=== PATIENT | female | born 1980 | race Caucasian/White ===

== ENCOUNTER 2021-11-30 11:00 | Outpatient (RCR) | payer OTHER, MEDICAID, SELFPAY | END 2022-01-06 07:49 | disposition home or self-care (01) | LOC: HO.PTCHIC 11:00 | PROVIDERS: PCP Internal Medicine; Visit Provider Student in an Organized Health Care Education/Training Program | DX: M62.830 Muscle spasm of back (principal) | CPT/HCPCS: 97110; 97140; 97161 ==

== ENCOUNTER 2022-03-16 14:54 | Outpatient (REF) | payer MEDICAID, SELFPAY ==
[2022-03-17 02:35] LABS: CT PCR NOT DETECTED (Not Detect.); NG PCR NOT DETECTED (Not Detect.)
[2022-03-17 13:09] LABS: BV Int Neg Control Negative (Negative); BV Int Pos Control Positive (Positive)
[2022-03-23 08:32] LABS: HPV mRNA E6/E7 rflx Not Detected (Not Detected)
== END 2022-03-16 14:55 | disposition home or self-care (01) ==
LOC: HO.LAB 14:54
PROVIDERS: Visit Provider Advanced Practice Midwife
DX: Z12.4 Encounter for screening for malignant neoplasm of cervix (principal); Z11.51 Encounter for screening for human papillomavirus (HPV); Z11.3 Encounter for screening for infections with a predominantly sexual mode of transmission; Z20.2 Contact with and (suspected) exposure to infections with a predominantly sexual mode of transmission; N89.8 Other specified noninflammatory disorders of vagina; Z97.5 Presence of (intrauterine) contraceptive device
CPT/HCPCS: 87480; 87491; 87510; 87591; 87624; 87660; 88142; 99202

== ENCOUNTER 2022-04-18 12:01 | Outpatient (REF) | payer MEDICAID, SELFPAY ==
[2022-04-19 05:46] LABS: CT PCR NOT DETECTED (Not Detect.); NG PCR NOT DETECTED (Not Detect.)
[2022-04-19 10:15] LABS: BV Int Neg Control Negative (Negative); BV Int Pos Control Positive (Positive)
[2022-04-21 03:52] LABS: HPV mRNA E6/E7 rflx Not Detected (Not Detected)
== END 2022-04-18 12:02 | disposition home or self-care (01) ==
LOC: HO.LNP 12:01
PROVIDERS: Visit Provider Advanced Practice Midwife
DX: Z12.4 Encounter for screening for malignant neoplasm of cervix (principal); Z11.51 Encounter for screening for human papillomavirus (HPV); Z11.3 Encounter for screening for infections with a predominantly sexual mode of transmission; Z20.2 Contact with and (suspected) exposure to infections with a predominantly sexual mode of transmission; N89.8 Other specified noninflammatory disorders of vagina; Z97.5 Presence of (intrauterine) contraceptive device
CPT/HCPCS: 87480; 87491; 87510; 87591; 87624; 87660; 88142; 99212

== ENCOUNTER 2022-06-01 10:15 | Outpatient (REF) | payer MEDICAID, SELFPAY ==
[2022-06-01 13:51] LABS: CT PCR NOT DETECTED (Not Detect.); NG PCR NOT DETECTED (Not Detect.)
[2022-06-02 13:32] LABS: BV Int Neg Control Negative (Negative); BV Int Pos Control Positive (Positive)
== END 2022-06-01 10:16 | disposition home or self-care (01) ==
LOC: HO.LNP 10:15
PROVIDERS: PCP Student in an Organized Health Care Education/Training Program; Visit Provider Advanced Practice Midwife
DX: Z32.02 Encounter for pregnancy test, result negative (principal); Z30.433 Encounter for removal and reinsertion of intrauterine contraceptive device; Z20.2 Contact with and (suspected) exposure to infections with a predominantly sexual mode of transmission
CPT/HCPCS: 58300; 58301; 81025; 87480; 87491; 87510; 87591; 87660; 99212; J7298

== ENCOUNTER → 2022-07-13 10:37 | Outpatient (BNVA) | payer MEDICAID, SELFPAY | PROVIDERS: PCP Student in an Organized Health Care Education/Training Program; Visit Provider Advanced Practice Midwife | DX: Z30.431 Encounter for routine checking of intrauterine contraceptive device (principal) | CPT/HCPCS: 99212 ==

== ENCOUNTER 2022-08-01 20:35 | Emergency (ER) | payer OTHER, SELFPAY ==
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
[2022-08-01 20:36] VITALS: BP 117/74; PULSE 97; RESP 18; TEMP 36.6; O2SAT 100; BMI 24.1
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
--- OUTSIDE RECORDS SUMMARY | 2022-08-01 21:26 | XMS_ITS | Continuity of Care Document ---
:1980 Author Organization [facility] Address [address] [place] [id number]- Care Team Providers Name Role Phone Mary OROZCO, Latrice Primary Care Physician [place] [facility] [place] 02/09/20 - 03/10/20 [facility] [address] [place] [id number] [facility] Attending Physician: Donaldo Slater Admitting Physician: AdmDonaldo ballard Referring Physician: AdmtrDonaldo Allergies, Adverse Reactions, Alerts Substance Reaction Severity Status NKA Active Medications Clonazepam By Mouth, 3 times a day, 0 Refills, Maintenance, 09/01/13 9:03:01 Start Date: 09/01/13 Status: Orderedfamotidine 20 mg oral tablet 20 mg, 1, tablet, By Mouth, 2 times a day, # 60 tablet, Refills 0, Tot. Refills 0, Maintenance, 06/28/17 21:05:48, Print Requisition Start Date: 06/28/17 Status: Orderedibuprofen 600 mg oral tablet 1 tablet = 600 mg, By Mouth, Every 6 hours, # 30 tablet, 0 Refills, Maintenance, 07/25/15 19:25:28, Tablet Start Date: 07/25/15 Status: Orderedibuprofen 600 mg oral tablet 1 tablet = 600 mg, By Mouth, 4 times a day, PRN Pain, with food or milk, # 56 tablet, 1 Refills, Maintenance, 10/09/13 15:35:04, Tablet, 1 tablet By Mouth 4 times a day,x14 days,PRN:Pain,Instr:with food or milk Start Date: 10/09/13 Stop Date: 11/06/13 Status: Orderedmeclizine 25 mg oral tablet 1 tablet = 25 mg, By Mouth, 3 times a day, PRN dizziness, # 20 tablet, 0 Refills, Maintenance, 01/04/18 21:14:26 EDT, Tablet Start Date: 01/04/18 Status: OrderedMirena 52 mg intrauteral device 1 each = 52 mg, Intrauterine, Once, # 1 each, 0 Refills, Soft Stop, 1 each Intrauterine Once Start Date: 08/08/13 Status: OrderedProbiotic Formula oral capsule 1 capsule, By Mouth, Daily, # 30 capsule, 6 Refills, Maintenance, 09/01/13 9:30:13, 1 capsule By Mouth Daily,x30 days Start Date: 09/01/13 Stop Date: 03/30/14 Status: OrderedValium 5 mg oral tablet 1 tablet = 5 mg, By Mouth, 3 times a day, PRN Pain , Moderate, # 12 tablet, 0 Refills, Maintenance, 07/25/15 19:25:22, Tablet Start Date: 07/25/15 Status: OrderedWellbutrin By Mouth, 0 Refills, Maintenance, 10/23/15 10:06:35 Start Date: 10/23/15 Status: OrderedZofran ODT 4 mg oral tablet, disintegrating 1 tablet = 4 mg, By Mouth, 3 times a day, # 90 tablet, 0 Refills, Maintenance, 06/28/17 21:05:55 Start Date: 06/28/17 Status: Ordered Problem List Condition Effective Dates Status Health Status Informant Abnormal pap smear(Confirmed)1, 2, 3, 09/01/13 Active 4, 5, 6 1pt now getting care at [place].2No dysplasia. cotesting January [id number], ecc, bx x 14LGSIL/+HPV; referred for [id number] September 2014.6colpo 10/09/13 bx no dysplasia Social History Social History Type Response Smoking Status Tobacco user in household: Y es; Current every day smoker entered on: 06/25/15 Sex
--- OUTSIDE RECORDS SUMMARY | 2022-08-01 21:26 | XMS_ITS | Continuity of Care Document ---
:1980 Author Organization [facility] Address [address] [place] [id number]- Care Team Providers Name Role Phone Mary OROZCO, Latrice Primary Care Physician [place] [facility] [place] 11/01/19 - 02/29/20 [facility] [address] [place] [id number]- [facility] Attending Physician: Pantear Arredondo MD Admitting Physician: Pantera Arredondo MD Referring Physician: Pantera Arredondo MD Allergies, Adverse Reactions, Alerts Substance Reaction Severity [...] 5, 6 1pt now getting care at [place].2No dysplasia. cotesting January [id number], ecc, bx x 14LGSIL/+HPV; referred for [id number] September 2014.6colpo 10/09/13 bx no dysplasia Social History Social History Type Response Smoking Status Tobacco user in household: Y es; Current every day smoker entered on: 06/25/15 Sex
--- OUTSIDE RECORDS SUMMARY | 2022-08-01 21:26 | XMS_ITS | Continuity of Care Document ---
:1980 Author Organization [facility] Address [address] [place] [phone]- Care Team Providers Name Role Phone Mary OROZCO, Latrice Primary Care Physician Encounter [facility] [place](s): 01/15/20 - 03/10/20 [facility] [address] [place] [id number]- [facility] Attending Physician: Cosme Crawford MD Admitting Physician: Cosme Crawford MD Referring Physician: Latrice Hernandez MD Allergies, Adverse Reactions, Alerts Substance Reaction [...] 5, 6 1pt now getting care at [place].2No dysplasia. cotesting January [id number], ecc, bx x 14LGSIL/+HPV; referred for [id number] September 2014.6colpo 10/09/13 bx no dysplasia Social History Social History Type Response Smoking Status Tobacco user in household: Y es; Current every day smoker entered on: 06/25/15 Sex
== END 2022-08-01 21:47 | disposition home or self-care (01) ==
PROVIDERS: Emergency Provider Emergency Medicine; PCP Student in an Organized Health Care Education/Training Program
DX: S06.0X0A Concussion without loss of consciousness, initial encounter (principal); V43.52XA Car driver injured in collision with other type car in traffic accident, initial encounter; F17.210 Nicotine dependence, cigarettes, uncomplicated; Y93.89 Activity, other specified; Y92.414 Local residential or business street as the place of occurrence of the external cause; Y99.9 Unspecified external cause status
CPT/HCPCS: 70450; 72125; 99282; 99284

== ENCOUNTER 2023-03-14 16:17 | Outpatient (REF) | payer MEDICAID, SELFPAY | END 2023-03-14 16:18 | disposition home or self-care (01) | LOC: HO.CHCLNP 16:17 | PROVIDERS: Visit Provider Internal Medicine | DX: Z13.89 Encounter for screening for other disorder (principal) | CPT/HCPCS: 87086; 87088; 87186 ==

== ENCOUNTER 2023-04-09 11:20 | Outpatient (REF) | payer MEDICAID, SELFPAY ==
[2023-04-09 15:47] LABS: CT PCR NOT DETECTED (Not Detect.); NG PCR NOT DETECTED (Not Detect.)
== END 2023-04-09 11:21 | disposition home or self-care (01) ==
LOC: HO.CHCLNP 11:20
PROVIDERS: Visit Provider Family Medicine
DX: N76.0 Acute vaginitis (principal)
CPT/HCPCS: 0353U; 36415; 81513

== ENCOUNTER 2023-07-04 11:14 | Outpatient (REF) | payer MEDICAID, SELFPAY ==
[2023-07-05 08:06] LABS: HBS Num1 80.36 mIU/mL (0-7.99); ~Hepatitis B Surface Antibody REACTIVE (Nonreactive)
[2023-07-05 16:48] LABS: Mumps Virus IgG Antibody <9.00 AU/mL; Rubella IgG Antibody 1.32 Index; Rubeola IgG (Measles) >300.00 AU/mL
[2023-07-07 11:29] LABS: TS Negative Control Passed; TS Panel A 0; TS Panel B 0; TS Positive Control Passed; TSpotTB Negative (Negative)
== END 2023-07-04 11:15 | disposition home or self-care (01) ==
LOC: HO.CHCLDS 11:14
PROVIDERS: Visit Provider Internal Medicine
DX: Z00.00 Encounter for general adult medical examination without abnormal findings (principal); Z11.1 Encounter for screening for respiratory tuberculosis
CPT/HCPCS: 36415; 86481; 86706; 86735; 86762; 86765; 86787

== ENCOUNTER 2023-12-26 20:04 | Emergency (ER) | payer MEDICAID, SELFPAY ==
--- NOTE | ~2023-12-26 | CT_ITS ---
EXAMINATION: CT ABDOMEN AND PELVIS WITHOUT CONTRAST CLINICAL INFORMATION: Back pain with history of calculi and pyelonephritis COMPARISON: None available. TECHNIQUE: Multidetector volumetric imaging was performed from the superior aspect of the liver through the pubic symphysis. Sagittal and coronal reformatted images were obtained on the technologist's workstation. This CT examination was performed using dose optimization techniques as appropriate, variously including the following: *Automated exposure control *Adjustment of mA and/or kV according to patient size (this includes techniques or standardized protocols for targeted exams where dose is matched to indication/reason for exam; i.e. extremities or head) *Use of iterative reconstruction technique DLP: 433 mGy-cm FINDINGS: LUNG BASES: The visualized lung bases are unremarkable aside from the presence of mild to moderate bronchial thickening. LIVER, GALLBLADDER, AND BILIARY TREE: The liver is enlarged measuring 20.3 cm in cephalocaudad dimension but with normal attenuation. No focal hepatic lesion or biliary ductal dilatation is present. The gallbladder is tiny and contracted with no evidence of radiopaque gallstones or obvious pericholecystic inflammatory changes. PANCREAS: Unremarkable. SPLEEN: Unremarkable. ADRENAL GLANDS: Unremarkable. KIDNEYS AND URETERS: The kidneys are normal in size, shape, and attenuation. There is bilateral nephrolithiasis, left greater than right. On the right, a single punctate 2 mm calculus is noted on the lower pole on the left, at least 4 calculi are seen the largest measuring 6 mm in the left lower pole which measures 750 Hounsfield units and is 7.5 cm from the posterior axillary line. No hydronephrosis, hydroureter, or calculi seen. No perinephric stranding. Multiple benign left-sided Bosniak class I renal cysts are noted which require no additional imaging or follow-up. No solid renal masses are seen. BLADDER: Unremarkable. GASTROINTESTINAL TRACT: The small and large bowel are unremarkable aside from colonic diverticula without diverticulitis. The appendix is unremarkable. ABDOMINAL WALL: No significant hernia is appreciated. Small periumbilical hernia seen containing only fat. LYMPH NODES: No retroperitoneal lymphadenopathy. There is near complete fatty replacement of both psoas muscles. VASCULAR: Unremarkable. PELVIC VISCERA: The uterus and adnexa are unremarkable. A IUD is present in good position. A benign 3.3 cm simple cyst is noted in the left ovary which needs no follow-up. OSSEOUS STRUCTURES: Unremarkable. CT/CT abdomen pelvis wo IV con IMPRESSION: 1. Bilateral nonobstructing renal calculi, left greater than right. Detection of pyelonephritis is suboptimal without IV contrast. 2. Incidental note made of mild hepatomegaly, colonic diverticulosis, fatty replacement of both psoas muscles and other findings described above. Fleischner guidelines were followed.
[2023-12-26 20:15] VITALS: BP 117/87; PULSE 106; RESP 17; TEMP 36.6; O2SAT 98; BMI 23.2
--- NOTE | 2023-12-26 20:15 | ED_ITS ---
HPI - General Adult General Chief complaint: Back Pain/Injury Stated complaint: bilateral low back pain Time Seen by Provider: 12/26/23 23:32 Source: patient, RN notes reviewed and old records reviewed Mode of arrival: ambulatory Limitations: no limitations History of Present Illness ED Provider: Susie HPI narrative: 43-year-old female presents for evaluation of bilateral lower back pain. The pain has been worse over the last 2 days. She denies any trauma or falls. Her pain radiates to her left leg mostly. She denies any numbness or tingling. She has a history of sciatica. She states that typically she gets numbness with her sciatica but she has not on this occasion Denies any lower extremity weakness bladder or bowel incontinence. Her pain is 6/10 Denies any fevers or chills. She has no abdominal pain. Denies any blood in the urine or burning with urination or urinary frequency Related Data Home Medications ?Medication ?Instructions ?Recorded ?Confirmed clonazepam 1 mg disintegrating 1 mg PO DAILY 03/16/22 07/13/22 tablet levonorgestrel 21 mcg/24 hours (8 intrauterine 03/16/22 07/13/22 yrs) 52 mg intrauterine device (Mirena) propranolol 40 mg tablet 40 mg PO BID 03/16/22 07/13/22 topiramate 100 mg tablet 100 mg PO DAILY 03/16/22 07/13/22 bupropion HCl 75 mg tablet 75 mg PO QAM 07/13/22 07/13/22 hydroxyzine pamoate 25 mg capsule 25 - 50 mg PO Q6H PRN anxiety 07/13/22 07/13/22 valacyclovir 500 mg tablet 500 mg PO BID 07/13/22 07/13/22 Previous Rx's ?Medication ?Instructions ?Recorded fluconazole 150 mg tablet 150 mg PO ONCE 1 day #1 tab 06/05/22 (Diflucan) cyclobenzaprine 10 mg tablet 10 mg PO TID PRN muscle spasm #7 08/01/22 tabs ibuprofen 600 mg tablet 600 mg PO TID PRN fever or pain 08/01/22 #20 tabs dexamethasone 4 mg tablet 4 mg PO BID #6 tabs 12/27/23 tramadol 50 mg tablet 50 mg PO Q8H PRN pain #9 tabs 12/27/23 Allergies Allergy/AdvReac Type Severity Reaction Status Date / Time No Known Allergies Allergy Verified 12/26/23 20:17 Review of Systems 2 Constitutional: Constitutional: Denies body ache(s), Denies chills and Denies fever(s) Eyes: Eyes: Denies blurry vision ENT: Denies vertigo Cardiovascular: Cardiovascular: Denies chest pain and Denies dyspnea Respiratory: Respiratory: Denies cough and Denies dyspnea Gastrointestinal: Gastrointestinal: Denies abdominal pain, Denies nausea and Denies vomiting Musculoskeletal: Musculoskeletal: Reports back pain, Reports muscle weakness, Denies numbness and Reports radiating pain into limb Neurologic: Denies vertigo and Denies numbness [facility] Past Medical History Medical History ADD (attention deficit disorder) Anxiety Depression Disassociation disorder Mood disorder PTSD (post-traumatic stress disorder) Family History Family History Mother Colon cancer Maternal Aunt Breast cancer Maternal Aunt Cervical cancer Social History Social History Patient Tobacco Use Status: Current everyday Tobacco user Tobacco use type: Cigarette Cigarettes Per Day: 5 Advance Directives: No Advance Directives Information Provided: No Do you have a plan to hurt others: No Plan Physical Exam ED Vital Signs: Vital Signs - 24 hr 12/26/23 20:15 12/26/23 22:11 12/27/23 00:19 Temperature 98 F 98.2 F 98.3 F Pulse Rate 106 H 96 100 Respiratory Rate 17 16 20 Blood Pressure 117/87 97/62 124/87 Pulse Oximetry 98 96 98 Oxygen Delivery Method Room Air Room Air Room Air 12/27/23 00:23 Temperature 98.3 F Pulse Rate 100 Respiratory Rate 20 Blood Pressure 124/87 Pulse Oximetry 98 Oxygen Delivery Method Room Air BMI result Body Mass Index 23.2 Const General: healthy appearing, comfortable, no acute distress, alert and awake Nutritional Appearance: well nourished Orientation/consciousness: patient oriented x3 HENMT Head: Yes normocephalic and Yes atraumatic Eyes Eyelids: Yes eyelids normal Conjunctivae: conjunctivae normal Sclerae: sclerae normal Corneas: corneas normal Pupils: Equal, round and reactive pupils present EOM: EOMs intact bilaterally Neck Neck: Yes full ROM Resp Effort & Inspection: normal respiratory effort, able to speak in complete sentences and not labored GI Inspection: No distended Palpation (GI): Soft to palpation, not firm, nontender, no guarding and not rigid Back/Spine/Pelvis Other: Tenderness across the lumbar paraspinous region, left greater than right. No vertebral tenderness. No step-offs or deformities. No CVA tenderness Skin General skin exam: elasticity normal Neuro General: patient oriented x3 Cranial nerves: Yes Equal, round and reactive pupils present and Yes Bilaterally intact EOM present Cognition (Neuro): normal cognition Extrem Other: Moving all extremities well without any obvious deformities Course Course Course Narrative: This is a rapid medical exam performed by Tony Fam NP: Additional HPI, ROS, PE not included below will be deferred to primary provider. Patient is a 43-year-old female presenting to the ED with complaint of lower back pain x 2 days. Denies fall/trauma. Denies urinary sxs. Hx of similar pain in the past, has had kidney stones as well as pyelo. Sometimes radiating to flank/front Plan: UA, labs, CT Medications Administered Discontinued Medications Generic Name Dose Route Start Last Admin Trade Name Freq PRN Reason Stop Dose Admin Dexamethasone 4 mg 12/27/23 00:15 12/27/23 00:32 Dexamethasone 4 Mg Tablet PO 12/27/23 00:16 4 mg ONCE ONE Administration Tramadol HCl 50 mg 12/27/23 00:15 12/27/23 00:32 Tramadol Hcl 50 Mg Tablet PO 12/27/23 00:16 50 mg ONCE ONE Administration Medical Decision Making Medical Decision Making [facility] Narrative: 43-year-old female presents for evaluation of lower back pain. She has a history of sciatica. Denies any traumatic injuries. She has no warning signs for cauda equina syndrome. No GI or symptoms. Plan for symptomatic treatment. No fevers or IV drug abuse to suggest infectious cause of her pain Differential Diagnosis Differential Diagnoses: The differential diagnosis associated with the presentation includes Acute low back pain Lumbar radiculopathy Muscle strain Disc herniation Sciatica Lab Data [facility] Lab Attestation statement: I reviewed the patient's lab results. No leukocytosis or anemia. Normal platelet count. No electrolyte abnormalities. Normal renal function. UA without any acute signs of infection. 12/26/23 20:48 12/26/23 20:48 Labs: Lab Results 12/26/23 Range/Units 20:48 WBC 7.3 (4.8-10.8) X10*3/uL RBC 4.69 (4.20-5.50) X10*6/uL Hgb 13.8 (12.0-16.0) g/dl Hct 40.5 (37.0-47.0) % MCV 86.4 (80.0-98.0) fL MCH 29.4 (27.0-33.0) pg MCHC 34.1 (31.0-35.0) g/dl RDW 12.4 (11.0-16.0) % Plt Count 231 (160-400) X10*3/uL MPV 11.1 (9.4-12.3) fL Immature Gran % (Auto) 0.3 (0.0-0.4) % Neut % (Auto) 56.7 (45-73) % Lymph % (Auto) 33.5 (20-40) % Haralson % (Auto) 6.5 (2-11) % Eos % (Auto) 2.6 (0-4) % Baso % (Auto) 0.4 (0-2) % Lymph # (Auto) 2.4 (1.2-4.9) X10*3/uL Haralson # (Auto) 0.5 (0.1-1.2) X10*3/uL Eos # (Auto) 0.2 (0.0-0.4) X10*3/uL Baso # (Auto) 0.0 (0.0-0.2) X10*3/uL Abs Immat Gran (auto) 0.02 (0.00-0.03) X10*3/uL Absolute Neuts (auto) 4.1 (2.0-8.3) x10*3/uL Absolute Nucleated RBC 0.000 (0.0-0.012) X10*3/uL Nucleated RBC % (auto) 0.0 (0.0-0.2) /100WBC Sodium 141 (135-145) mmol/L Potassium 3.7 (3.3-5.1) mmol/L Chloride 106 (96-108) mmol/L Carbon Dioxide 24 (22-29) mmol/L Anion Gap 15 (12-20) BUN 13 (9-16) mg/dL Creatinine 0.63 (0.5-1.4) mg/dL Estim Creat Clear Calc 88.7 Estimated GFR > 60 Random Glucose 81 (60-115) mg/dL Calcium 9.3 (8.4-10.2) mg/dL Total Bilirubin 0.5 (0.0-1.0) mg/dL AST 16 (5-31) U/L ALT 9 (0-31) U/L Alkaline Phosphatase 57 (39-117) U/L Total Protein 7.3 (6.5-8.0) g/dL Albumin 4.4 (3.5-5.0) g/dL Beta HCG, Quant < 2 mIU/mL Urine Color Yellow Urine Appearance Clear Urine pH 6.5 (5.0-9.0) Ur Specific Jenkins 1.015 (1.005-1.025) Urine Protein Negative (Neg-Trace) mg/dL Urine Glucose (UA) Negative (Negative) mg/dL Urine Ketones Negative (Negative) mg/dL Urine Blood Negative (Negative) Urine Nitrite Negative (Negative) Ur Leukocyte Esterase Trace H (Negative) Urine RBC 0-2 (0-2) /HPF Urine WBC 0-5 (0-5) /HPF Ur Squamous Epith Cells 3-5 (0-2) /HPF Urine Bacteria Trace (None Seen) Hyaline Casts 0-2 (0-2) /LPF Radiology Impression Discussion of test interpretation with radiology: I have reviewed the radiologist's reading. Radiologist Impression: CT/CT abdomen pelvis wo IV con IMPRESSION: 1. Bilateral nonobstructing renal calculi, left greater than right. Detection of pyelonephritis is suboptimal without IV contrast. 2. Incidental note made of mild hepatomegaly, colonic diverticulosis, fatty replacement of both psoas muscles and other findings described above. Discharge Plan Discharge Clinical Impression: Lumbar radiculopathy Patient Disposition: Home, Self-Care Instructions: Lumbar Radiculopathy (ED) Additional Instructions: Your workup in the ER was reassuring. You have no obstructing kidney stones. You have no UTI. Your blood work was reassuring. Use ibuprofen/Tylenol for pain Take dexamethasone twice daily for 3 days Use tramadol for more severe breakthrough pain This may make you sleepy, did not drink alcohol or drive after taking Prescriptions: New dexamethasone 4 mg tablet 4 mg PO BID Qty: 6 0RF tramadol 50 mg tablet 50 mg PO Q8H PRN (Reason: pain) Qty: 9 0RF No Action fluconazole [Diflucan] 150 mg tablet 150 mg PO ONCE 1 Days Qty: 1 0RF cyclobenzaprine 10 mg tablet 10 mg PO TID PRN (Reason: muscle spasm) Qty: 7 0RF ibuprofen 600 mg tablet 600 mg PO TID PRN (Reason: fever or pain) Qty: 20 0RF clonazepam 1 mg tablet,disintegrating 1 mg PO DAILY topiramate 100 mg tablet 100 mg PO DAILY propranolol 40 mg tablet 40 mg PO BID Mirena 20 mcg/24 hours (7 yrs) 52 mg intrauterine device intrauterine hydroxyzine pamoate 25 mg capsule 25 - 50 mg PO Q6H PRN (Reason: anxiety) bupropion HCl 75 mg tablet 75 mg PO QAM valacyclovir 500 mg tablet 500 mg PO BID Interventions: ED Discharge Assessment Last Done: 12/27/23 00:23 Discharge Date/Time: 12/27/23 00:35 Print Language: Pakistani
[2023-12-26 20:54] LABS: MANUAL DIFF FLAG NO
[2023-12-26 20:57] LABS: Appearance Urine Clear; Color Urine Yellow; Glucose Urine UA Negative (Negative); Leukocyte Esterase Urine Trace (Negative); Nitrite Urine Negative (Negative); PH 6.5 (5.0-9.0); Specific Gravity - Urine 1.015 (1.005-1.025); UMIC TRIGGER UACC YES; Urine Blood Negative (Negative); Urine Ketones Negative (Negative); Urine Protein Negative (Neg-Trace)
[2023-12-26 21:04] LABS: Basophils Percent Auto 0.4 % (0-2); Eosinophils Absolute Auto 0.2 X10*3/uL (0.0-0.4); Eosinophils Percent Auto 2.6 % (0-4); Hematocrit 40.5 % (37.0-47.0); Hemoglobin 13.8 g/dl (12.0-16.0); Imm Gran Abs Auto 0.02 X10*3/uL (0.00-0.03); Imm Gran Pct Auto 0.3 % (0.0-0.4); Lymphocytes Absolute Auto 2.4 X10*3/uL (1.2-4.9); Lymphocytes Percent Auto 33.5 % (20-40); Mean Corpuscular HGB Conc 34.1 g/dl (31.0-35.0); Mean Corpuscular Hemoglobin 29.4 pg (27.0-33.0); Mean Corpuscular Volume 86.4 fL (80.0-98.0); Mean Platelet Volume 11.1 fL (9.4-12.3); Monocytes Absolute Auto 0.5 X10*3/uL (0.1-1.2); Monocytes Percent Auto 6.5 % (2-11); Neutrophils Absolute Auto 4.1 x10*3/uL (2.0-8.3); Neutrophils Percent Auto 56.7 % (45-73); Platelet Count 231 X10*3/uL (160-400); Red Blood Count 4.69 X10*6/uL (4.20-5.50); Red Cell Distribution Width 12.4 % (11.0-16.0); White Blood Count 7.3 X10*3/uL (4.8-10.8)
[2023-12-26 21:33] LABS: Alanine Aminotransferase 9 U/L (0-31); Albumin Level 4.4 g/dL (3.5-5.0); Alkaline Phosphatase 57 U/L (39-117); Anion Gap 15 (12-20); Aspartate Amino Transferase 16 U/L (5-31); Bilirubin Total 0.5 mg/dL (0.0-1.0); Blood Urea Nitrogen 13 mg/dL (9-16); Calcium 9.3 mg/dL (8.4-10.2); Carbon Dioxide 24 mmol/L (22-29); Chloride 106 mmol/L (96-108); Creatinine Clr Calc Pharmacy 88.7; Estimated Glomerular Filt Rate > 60; Glucose Random 81 mg/dL (60-115); HCG Quantitative < 2 mIU/mL; Potassium 3.7 mmol/L (3.3-5.1); Sodium 141 mmol/L (135-145); Total Protein 7.3 g/dL (6.5-8.0)
[2023-12-26 21:45] LABS: Bacteria Urine Trace (None Seen); Hyaline Casts Urine 0-2 /LPF (0-2); RBC Urine 0-2 /HPF (0-2); WBC Urine 0-5 /HPF (0-5)
[2023-12-26 22:11] VITALS: BP 97/62; PULSE 96; RESP 16; TEMP 36.8; O2SAT 96
[2023-12-27 00:19] VITALS: BP 124/87; PULSE 100; RESP 20; TEMP 36.8; O2SAT 98
[2023-12-27 00:23] VITALS: BP 124/87; PULSE 100; RESP 20; TEMP 36.8; O2SAT 98
[2023-12-27] MEDS: dexAMETHasone 4 MG TABLET PO (00:32)
[2023-12-27] MEDS: traMADoL HCL 50 MG TABLET PO (00:32)
== END 2023-12-27 00:35 | disposition home or self-care (01) ==
PROVIDERS: Registered Nurse Emergency; Emergency Provider Emergency Medicine Emergency Medical Services; PCP Student in an Organized Health Care Education/Training Program
DX: M54.16 Radiculopathy, lumbar region (principal); R32 Unspecified urinary incontinence; F17.210 Nicotine dependence, cigarettes, uncomplicated
CPT/HCPCS: 36415; 74176; 80053; 81001; 81003; 84702; 85025; 99284; J8540

== ENCOUNTER 2024-06-06 15:07 | Outpatient (REF) | payer MEDICAID, SELFPAY ==
[2024-06-06 18:03] LABS: Appearance Urine Cloudy; Color Urine Yellow; Glucose Urine UA Negative (Negative); Leukocyte Esterase Urine Trace (Negative); Nitrite Urine Negative (Negative); UMIC TRIGGER UACC YES; Urine Blood Negative (Negative); Urine Ketones Negative (Negative); Urine Protein Negative (Neg-Trace)
[2024-06-06 18:06] LABS: Bacteria Urine 4+ (None Seen); Hyaline Casts Urine 0-2 /LPF (0-2); RBC Urine 0-2 /HPF (0-2); WBC Urine 0-5 /HPF (0-5)
[2024-06-07 12:24] LABS: Bacterial Vaginosis PCR POSITIVE (Negative); Candida Group PCR NOT DETECTED (Not Detect); Candida glab krusei PCR NOT DETECTED (Not Detect); Trichomonas vaginalis PCR NOT DETECTED (Not Detect)
[2024-06-08 08:51] LABS: HIV AB/AG Nonreactive (Nonreactive); HIV Num 1 0.06 S/CO (0.00-0.99); ~HepC Num1 0.09 S/CO (0.00-0.79); ~Hepatitis C Antibody Nonreactive (Nonreactive)
[2024-06-09 13:43] LABS: RPR Rapid Plasma Reagin NON-REACTIVE (NON-REACTIVE)
== END 2024-06-06 15:08 | disposition home or self-care (01) ==
LOC: HO.HHCL 15:07
PROVIDERS: Visit Provider Nurse Practitioner Primary Care
DX: Z11.3 Encounter for screening for infections with a predominantly sexual mode of transmission (principal); R82.90 Unspecified abnormal findings in urine
CPT/HCPCS: 0352U; 36415; 81001; 86592; 86803; 87389

== ENCOUNTER 2024-09-26 10:49 | Outpatient (REF) | payer MEDICAID, SELFPAY ==
--- NOTE | 2024-09-26 | PFT_ITS ---
Indication: Dyspnea Spirometry [FEV1 to FVC 57%; FEV1 1.37 L; FVC 2.4 L. there was a significant response to bronchodilators noted.] Lung Volumes [Total lung capacity 85% predicted; residual volume 129% predicted; expiratory reserve volume 25% predicted] Diffusion Capacity [DLCO 81% predicted] Comparisons [none] Interpretation [There is an obstructive ventilatory defect consistent with moderate to severe COPD. There is a significant response to bronchodilators noted. Lung volumes with significant air trapping due to the COPD. There is a low normal diffusing capacity. Clinical correlation warranted.] MTDD
[2024-09-26 11:40] VITALS: PULSE 100
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
--- OUTSIDE RECORDS SUMMARY | 2024-09-26 12:19 | XMS_ITS | Encounter Summary ---
Author Organization [employer] Address [address] [facility] [address] [place] [address] Care Team Providers Care Musical Instrument Maker Name Role Phone Latrice Hernandez MD Primary Care Provider Norris Casillas Unavailable Unavailable Reason for Visit * Reason Comments Cough Congested, wheezing Encounter Details Date Type Department Care Team ([facility] Contact Info) Description 09/10/2024 2:40 PM EST Office Visit [facility] CHC MED & PEDS [address] [facility] [place] [phone] Harmony Mtz MD [address] [place] [address] Acute bronchitis, unspecified organism (Primary Dx) Social History Tobacco Use Types Packs/Day Years Used Date Smoking Tobacco: Every Day Cigarettes Passive Smoke Exposure: Current Smokeless Tobacco: Never Tobacco Cessation:Ready to Q uit: Not Asked; Counseling Given: Not Answered Depression Answer Date Recorded Patient Health Questionnaire-9 Score 9 12/24/2023 Patient Health Questionnaire-9 Score 9 12/24/2023 Last PHQ-9: Questionnaire Data Not on file 0 12/24/2023 Depression Answer Date Recorded Patient Health Questionnaire-2 Score 3 12/24/2023 Comments Unknown Sex and Gender Information Value Date Recorded Sex Assigned at Female 05/22/2022 10:22 AM EDT Legal Sex Female 10:22 AM EDT Gender Identity Female 05/22/2022 10:22 AM EDT Sexual Orientation Straight 05/22/2022 10 :22 AM EDT documented as of this encounter Last Filed Vital Signs Vital Sign Reading Time Taken Comments Blood Pressure 109/72 09/10/2024 2:55 PM EST Pulse 110 09/10/2024 2:55 PM EST Temperature 37.4 ??C (99.4 ??F) 09/10/2024 2:55 PM ES T Respiratory Rate 20 09/10/2024 2:55 PM EST Oxygen Saturation 97% 09/10/2024 2:55 PM EST Inhaled Oxygen Concentration - - Weight - - Height - - Body Mass Index - - documented in this encounter Progress Notes * Harmony Mtz MD - 09/10/2024 2:40 PM EST Subjective Patient ID: Ivis Ballesteros is a 43 y.o. female who presents for No chief complaint on file.. Flu Symptoms This is a new problem. The current episode started in the past 7 days. The problem occurs constantly. The problem has been unchanged. Associated symptoms include congestion, fatigue, headaches and myalgias. Pertinent negatives include no abdominal pain, anorexia, arthralgias, change in bowel habit,chest pain, chills, nausea, neck pain, numbness, rash, sore throat, swollen glands, urinary symptoms, vertigo, visual change, vomiting or weakness. She has tried acetaminophen for the symptoms. Review of Systems Constitutional: Positive for fatigue. Negative for chills. HENT: Positive for congestion. Negative for sore throat. Cardiovascular: Negative for chest pain. Gastrointestinal: Negative for abdominal pain, anorexia, change in bowel habit, nausea and vomiting. Musculoskeletal: Positive for myalgias. Negative for arthralgias and neck pain. Skin: Negative for rash. Neurological: Positive for headaches. Negative for vertigo, weakness and numbness. Objective Physical Exam Constitutional: Appearance: Normal appearance. She is ill-appearing. Cardiovascular: Rate and Rhythm: Normal rate and regular rhythm. Pulses: Normal pulses. Heart sounds: Normal heart sounds. Pulmonary: Effort: Pulmonary effort is normal. Breath sounds: Decreased breath sounds and wheezing present. Abdominal: General: Abdomen is flat. Neurological: Mental Status: She is alert. Assessment/Plan Diagnoses and all orders for this visit: Acute bronchitis, unspecified organism Comments: pt is neg for Covid Started on Prednisone 40mg daily for 5 days and zithromax for 5 days. Advised to cont neb every 6 hrs Flovent added to the regimen Advised steam inhaltion and warm water gargles.Supportive trt with Mucinex and warm tea Orders: - POCT Rapid Influenza A OSOM - POCT Rapid Influenza B OSOM - POCT Rapid Covid-19 BinaxNOW Other orders - predniSONE (Deltasone) 20 MG tablet; Take 2 tablets (40 mg) by mouth Once per day for 5 days. - Dextromethorphan-guaiFENesin (Mucinex DM) 30-600 MG tablet sustained-release 12 hour; Use 1 tab TID - albuterol 108 (90 Base) MCG/ACT inhaler; Inhale 2 puffs every 4 (four) hours if needed for wheezing. - fluticasone (Flovent) 44 MCG/ACT inhaler; Inhale 2 puffs in the morning and at bedtime. Rinse mouth with water after use to reduce aftertaste and incidence of candidiasis. Do not swallow. - azithromycin (Zithromax) 250 MG tablet; Take 2 tabs day and then 1 tab daily documented in this encounter Plan of Treatment Upcoming Encounters Date Type Department Care Team (Late st Contact Info) Description 09/26/2024 3:30 PM EST Office Visit [facility] MED & PEDS [address] [place] [address] Latrice Hernandez MD [address] [place] [address] documented as of this encounter Procedures Procedure Name Priority Date/Time Associated Diagnosis Comments POCT RAPID COVID ANTIGEN Routine 09/10/2024 3:16 PM EST Acute bronchitis, unspecified organism POCT INFLUENZA B Routine 09/10/2024 3:16 PM EST Acute bronchitis, unspecified organism POCT INFLUENZA A Routine 09/10/2024 3:15 PM EST Acute bronchitis, unspecified organism documented in this encounter Results * POCT Rapid Covid-19 BinaxNOW (09/10/2024 3:16 PM EST) [facility] Rapid COVID Ag Negative QC Media Lot # [id number] Lot# Expiration Date [id number] Swab 09/10/2024 3:16 PM EST Result Giles Mtz MD POINT OF CARE TEST ENTER/EDIT OR DERABLES Final Result * POCT Rapid Influenza B OSOM (09/10/2024 3:16 PM EST) Rapid Influenza B Ag Negative Negative, Indeterminate QC Media Lot # [id number] Lot# Expiration Date Swab 09/10/2024 3:16 PM EST us Harmony Mtz MD POINT OF CARE TEST ENTER/EDIT OR DERABLES Final Result * POCT Rapid Influenza A OSOM (09/10/2024 3:15 PM EST) Rapid Influenza A Ag Negative Negative, Indeterminate QC Media Lot # [id number] Lot# Expiration Date Swab Nasopharyngeal structure / Unknown 09/10/2024 3:15 PM EST Result Giles Mtz MD POINT OF CARE TEST ENTER/EDIT OR DERABLES Final Result documented in this encounter Visit Diagnoses Diagnosis Acute bronchitis, unspecified organism- Primary documented in this encounter Additional Health Concerns Assessment Noted Time PHQ-9 Depression Total Score: 9 12/24/19 24 9:18 AM EDT documented as of this encounter Care Teams Musical Instrument Maker Relationship Specialty Start Date End Date Latrice Hernandez MD [address] [facility] [place] [address] PCP - General Internal Medicine 07/23/18 Norris Casillas FNP [address] [facility] [place] Nurse Practitioner Family Medicine 06/07/23 documented as of this encounter
--- OUTSIDE RECORDS SUMMARY | 2024-09-26 12:19 | XMS_ITS | Encounter Summary ---
Author Organization [employer] Address [address] [place] [address] [address] [address] Care Team Providers Care Bondactor Machine Operator Name Role Phone Latrice Hernandez MD Primary Care Provider Norris Casillas Unavailable Unavailable Encounter Details Date Type Department Care Team (Latest Contact Info) Description 09/10/2024 Travel Social History Tobacco Use Types Packs/Day Years Used Date Smoking Tobacco: Every Day Cigarettes Passive Smoke Exposure: Current Smokeless Tobacco: Never Depression Answer Date Recorded Patient Health Questionnaire-9 [...] AM EDT documented as of this encounter Plan of Treatment Upcoming Encounters Date Type Department Care Team (Late st Contact Info) Description 09/26/2024 3:30 PM EST Office Visit [facility] CHC MED & PEDS [address] [facility] [place] [address] Latrice Hernandez MD [address] [facility] [place] [address] documented as of this encounter Visit Diagnoses Not on filedocumented in this encounter Additional Health Concerns Assessment Noted Time PHQ-9 Depression Total Score: 9 12/24/19 24 9:18 AM EDT documented as of this encounter Care Teams Bondactor Machine Operator Relationship Specialty Start Date End Date Latrice Hernandez MD [address] [place] [address] PCP - General Internal Medicine 07/23/18 Norris Casillas FNP [address] [place] [address] Nurse Practitioner Family Medicine 06/07/23 documented as of this encounter
--- OUTSIDE RECORDS SUMMARY | 2024-09-26 12:19 | XMS_ITS | Encounter Summary ---
Author Organization [employer] [facility] Address [address] [place] [id number] Care Team Providers Care Sourcing Assistant Name Role Phone Latrice Hernandez MD Primary Care Provider Norris Casillas Unavailable Unavailable Encounter Details Date Type Department Care Team (Late st Contact Info) Description [facility] [address] [place], [place] [phone] Latrice Hernandez MD [address] [place], [place] [phone] Social History Tobacco Use Types Packs/Day Years Used Date Smoking Tobacco: Every Day Cigarettes Passive Smoke Exposure: Current Smokeless Tobacco: Never Depression Answer Date Recorded Patient Health Questionnaire-9 Score 9 03/20/2023 Depression Answer Date Recorded Patient Health Questionnaire-2 Score 2 03/20/2023 Comments Unknown Sex and Gender Information Value [...] Description 09/26/2024 3:30 PM EST Office Visit [facility] CHC MED & PEDS [address] [place], [place] [phone] Latrice Hernandez MD [address] [place], [place] [phone] documented as of this encounter Visit Diagnoses Not on filedocumented in this encounter Additional Health Concerns Assessment Noted Time PHQ-9 Depression Total Score: 9 03/20/20 23 10:44 AM EDT documented as of this encounter Care Teams Sourcing Assistant Relationship Specialty Start Date End Date Latrice Hernandez MD [address] [place] [address] PCP - General Internal Medicine 07/23/18 Norris Casillas FNP [address] [place] [address] Nurse Practitioner Family Medicine 06/07/23 documented as of this encounter
--- OUTSIDE RECORDS SUMMARY | 2024-09-26 12:19 | XMS_ITS | Clinical Summary ---
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 HIV-1/HIV-2 Ab not detected.A test result that is nonreactive does not exclude thepossibility of exposure to or infection with HIV-1 and/orHIV-2. Nonreactive results in this assay for individualswith prior exposure to HIV-1 and/or HIV-2 may be due toantigen and antibody levels that are below the limit ofdetection of this assay.The [employer] HIV Ag/Ab Combo assay result andsupplemental assay results should be interpreted inconjunction with the patient's clinical presentation,history and other laboratory results. If the results areinconsistent with clinical evidence, additional testing issuggested to confirm the result. Blood Venous blood specimen / Unknown 06/06/2024 3:09 PM EST 06/06/2024 3:56 PM EST us Tahira Cabrera [facility] LAB BLOOD ORDERABLES Final Resul t [facility] [address] [place] [phone] * (ABNORMAL) Lipid Panel, Standard (07/26/2022 11:11 AM EST) Cholesterol, Total 192 <200 mg/dL [facility] [place] [facility] HDL Cholesterol 30(L) > OR = 50 mg/dL [facility] [employer] [facility] Triglycerides 573(H) <150 mg/dL [facility] Comment: If a non-fasting specimen was collected, consider repeat triglyceride testing on a fasting specimen if clinically indicated. Lori et al. J. of Clin. Lipidol. 2015;9:129-169. There is increased risk of pancreatitis when the triglyceride concentration is very high (> or = 500 mg/dL, especially if > or = 1000 mg/dL). Lori et al. J. of Clin. Lipidol. 2015;9:129-169. LDL Cholesterol Ques t [facility] [facility] Comment: LDL cholesterol not calculated. Triglyceride levels greater than 400 mg/dL invalidate calculated LDL results. Reference range: <100 Desirable range <100 mg/dL for primary prevention; ?? <70 mg/dL for patients with CHD or diabetic patients with > or = 2 CHD risk factors. LDL-C is now calculated using the Sky-Micheline calculation, which is a validated novel method providing better accuracy than the Friedewald equation in the estimation of LDL-C. Sky BARRERA et al. JESSICA. 2013;310(19): 9754-6912 (http://education.Expert360.blueKiwi Software/faq/JJF302) Chol/HDLC Ratio 6.4(H) <5.0 (calc) [facility] Non-HDL Cholesterol 162(H) <130 mg/dL (calc) [facility] Comment: For patients with diabetes plus 1 major ASCVD risk factor, treating to a non-HDL-C goal of <100 mg/dL (LDL-C of <70 mg/dL) is considered a therapeutic option. Blood Venous blood specimen / Unknown 07/26/2022 11:11 AM EST 07/26/2022 11:11 AM EST Narrative [facility] - 07/31/2022 3:56 PM EST FASTING:NO FASTING: NO Latrice Hernandez MD LAB BLOOD ORDERABLES Final Result Performing Organization Address City/[facility]/ZIP Co de Phone Number [facility] [address] [facility], [facility], [place] [address] [facility] [address] [facility], ([address]) [place] [address] * HPV mRNA E6/E7 (09/14/2020 10:42 AM EST) HPV nRNA E6/E7 Not Detected Not Detected [facility] Comment: Methodology: Tiler'S Assistant-Mediated Amplification This assay detects E6/E7 viral messenger RNA (mRNA) from 14 high-risk HPV types (16,18,31,33,35,39,45,51,52,56,58,59,66,68). ? The analytical performance characteristics of this assay have been determined by [employer]. The modifications have not been cleared or approved by the FDA. This assay has been validated pursuant to the CLIA regulations and is used for clinical purposes. ?? For additional information, please refer to http://education.Leyden Energy/CPH329g9 (This link if provided for information/ educational purposes only.) 09/14/2020 10:4 2 AM EST Idania ZEPEDA LAB BLOOD ORDERABLES Gilma l Result [facility] [address] * Hm Pap Smear (09/14/2020) HM Pap smear Perform Historical Provider HEALTH MAINTENANCE Final Result from Last 3 Months or Most Recently Relevant to Health Maintenance Insurance [facility] C[facility] * Guarantor: Ivis Ballesteros Account Type Relation to Patient Date of Phone Billing Address Personal/Family Self [address] [place] Care Teams Principal Research Economist Relationship Specialty Start Date End Date Latrice Hernandez MD [address] [facility] [place] [place] PCP - General Internal Medicine 07/23/18 Norris Casillas FNP [address] [facility] [place] Nurse Practitioner Family Medicine 06/07/23
--- OUTSIDE RECORDS SUMMARY | 2024-09-26 12:19 | XMS_ITS | Encounter Summary ---
Author Organization [facility] Address [address] [place] [address] Care Team Providers Care Clinical Education Academic Coordinator Name Role Phone Latrice Hernandez MD Primary Care Provider Norris Casillas Unavailable Unavailable Reason for Visit * Reason Comments Med Refill Encounter Details Date Type Department Care Team ([facility] Contact Info) Description 06/29/2022 Refill [facility] MEDICINE [address] [place], [place] [phone] Latrice Hernandez MD [address] [facility] [place] [address] Herpesviral infection, unspecified Social History Tobacco Use Types Packs/Day Years Used Date Smoking Tobacco: Never Assessed Comments Unknown Sex and Gender Information Value Date Recorded Sex Assigned at Female 05/22/2022 10:22 AM EDT Legal Sex Female 10:22 AM EDT Gender Identity Female 05/22/2022 10:22 AM EDT Sexual Orientation Straight 05/22/2022 10 :22 AM EDT documented as of this encounter Plan of Treatment Upcoming Encounters Date Type Department Care Team (Late Contact Info) Description 09/26/2024 3:30 PM EST Office Visit [facility] MED & PEDS [address] [place] [address] Latrice Hernandez MD [address] [place] [address] documented as of this encounter Visit Diagnoses Diagnosis Herpesviral infection, unspecified documented in this encounter Care Teams Clinical Education Academic Coordinator Relationship Specialty Start Date End Date Latrice Hernandez MD [address] [place] [address] PCP - General Internal Medicine 07/23/18 Norris Casillas FNP [address] [place] [address] Nurse Practitioner Family Medicine 06/07/23 documented as of this encounter
--- OUTSIDE RECORDS SUMMARY | 2024-09-26 12:19 | XMS_ITS | Encounter Summary ---
Author Organization [facility] Address [address] [place] [address] [address] [address] Care Team Providers Care Personnel Analyst Name Role Phone Latrice Hernandez MD Primary Care Provider Norris Casillas Unavailable Unavailable Encounter Details Date Type Department Care Team (Late Contact Info) Description 04/04/2023 Telephone [facility] MED & PEDS [address] [place], [place] [phone] Charlotte Simpson, DASH [address] [place] [address] Social History Tobacco Use Types Packs/Day Years [...] Description 09/26/2024 3:30 PM EST Office Visit [facility] MED & PEDS [address] [place], [place] [phone] Latrice Hernandez MD [address] [place], [place] [phone] documented as of this encounter Visit Diagnoses Not on filedocumented in this encounter Additional Health Concerns Assessment Noted Time PHQ-9 Depression Total Score: 9 03/20/20 23 10:44 AM EDT documented as of this encounter Care Teams Personnel Analyst Relationship Specialty Start Date End Date Latrice Hernandez MD 505 [place] [address] PCP - General Internal Medicine 07/23/18 Norris Casillas FNP [address] [place] [address] Nurse Practitioner Family Medicine 06/07/23 documented as of this encounter
--- OUTSIDE RECORDS SUMMARY | 2024-09-26 12:20 | XMS_ITS | Encounter Summary ---
Author Organization [facility] Address [address] [place] [address] [address], [place] [address] Care Team Providers Care Tank Truck Milk Receiver Name Role Phone Latrice Hernandez MD Primary Care Provider [phone] Norris Casillas Unavailable Unavailable Encounter Details Date Type Department Care Team (Late st Contact Info) Description 03/27/2023 Orders Only [facility] MED & PEDS [address] [place] [address] Latrice Hernandez MD [address] [place], [place] [phone] Scabies exposure (Primary Dx) Social History Tobacco Use Types [...] Description 09/26/2024 3:30 PM EST Office Visit [facility] MED & PEDS [address] [place] [address] Latrice Hernandez MD [address] [place], [place] [phone] documented as of this encounter Visit Diagnoses Diagnosis Scabies exposure- Primary documented in this encounter Additional Health Concerns Assessment Noted Time PHQ-9 Depression Total Score: 9 03/20/20 23 10:44 AM EDT documented as of this encounter Care Teams Tank Truck Milk Receiver Relationship Specialty Start Date End Date Latrice Hernandez MD [address] [place] [address] PCP - General Internal Medicine 07/23/18 Norris Casillas FNP [address] [place] [address] Nurse Practitioner Family Medicine 06/07/23 documented as of this encounter
--- OUTSIDE RECORDS SUMMARY | 2024-09-26 12:20 | XMS_ITS | Encounter Summary ---
Author Organization [employer] Address [address] [place] [address] 7 [place] [address] Care Team Providers Care Supervisor Advertising Dispatch Clerks Name Role Phone Latrice Hernandez MD Primary Care Provider Norris Casillas Unavailable Unavailable Encounter Details Date Type Department Care Team (Late Contact Info) Description 09/07/2023 Orders Only [facility] MED & PEDS [address] [place] [address] Latrice Hernandez MD [address] [place], [place] [phone] Herpes (Primary Dx) Social History Tobacco Use Types Packs/Day Years Used Date Smoking Tobacco: Every Day Cigarettes Passive Smoke Exposure: Current Smokeless Tobacco: Never Depression Answer Date Recorded Patient Health Questionnaire-9 Score 8 08/27/2023 Patient Health Questionnaire-9 Score 8 08/27/2023 Last PHQ-9: Questionnaire Data Not on file 0 08/27/2023 Depression Answer Date Recorded Patient Health Questionnaire-2 Score 1 08/27/2023 Comments Unknown Sex and Gender Information Value [...] 09/26/2024 3:30 PM EST Office Visit [facility] MED & PEDS [address] [place] [address] Latrice Hernandez MD [address] [place] [address] documented as of this encounter Visit Diagnoses Diagnosis Herpes- Primary Herpes simplex without mention of complication documented in this encounter Additional Health Concerns Assessment Noted Time PHQ-9 Depression Total Score: 8 08/27/19 24 11:04 AM EST documented as of this encounter Care Teams Supervisor Advertising Dispatch Clerks Relationship Specialty Start Date End Date Latrice Hernandez MD 505 [facility] [place] [address] PCP - General Internal Medicine 07/23/18 Norris Casillas FNP [address] [facility] [place] [address] Nurse Practitioner Family Medicine 06/07/23 documented as of this encounter
--- OUTSIDE RECORDS SUMMARY | 2024-09-26 12:20 | XMS_ITS | Clinical Summary ---
Author Organization [address] [place] [address] [place] [phone] Phone Care Team Providers Care Crop Ranch Hand Name Role Phone Latrice Hernandez MD Primary Care Provider [phone] Allergies Active Allergy Reactions Criticality Noted Date Comments House Dust 07/25/2024 Other 11/13/2017 Seasonal Medications cholecalciferol (VITAMIN D-3) 25 mcg (1,000 unit) tablet Take 1 tablet (1,000 Units total) by mouth. Active ciclopirox (PENLAC) 8 % solution Apply daily to nails clean medication residue off of nail plate every 3 days with rubbing alcohol 02/07/20 24 Active clonazePAM (KlonoPIN) 1 mg disintegrating tablet Take 1 tablet (1 mg total) by mouth 2 (two) times a day if needed. Active clotrimazole (LOTRIMIN) 1 % cream Apply topically 1 (one) time each day. Apply to skin and toenails for 12 weeks 02/07/20 24 Active fluconazole (DIFLUCAN) 150 mg tablet Take 1 tablet (150 mg total) by mouth. repeat dose in 3 days 11/14/19 18 Active levonorgestreL (MIRENA) 21 mcg/24hr (up to 8 yrs) 52 mg IUD 1 Device (1 each total) by intrauterine route 1 (one) time. Active propranoloL (INDERAL) 60 mg tablet Take 1 tablet (60 mg total) by mouth. Active SUMAtriptan (IMITREX) 25 mg tablet Take 1 tablet (25 mg total) by mouth 1 (one) time each day if needed. May repeat dose once after 2 hours, if needed. Active topiramate (TOPAMAX) 100 mg tablet Take 1 tablet (100 mg total) by mouth 2 (two) times a day. Active ibuprofen (ADVIL,MOTRIN) 600 mg tablet Take 1 tablet (600 mg total) by mouth every 6 (six) hours if needed for mild pain. Active Active Problems Problem Noted Date Diagnosed Date Bilateral swelling of feet and ankles 05/07/2024 Encounters Date Type Department Care Team Description 07/28/2024 9:30 AM EST Office Visit [facility] [place] [address] [facility] [address] [place] [phone] Bong Tilley, DPM Tendinitis of left ankle (Primary Dx); Tendinitis of right ankle; Neuritis; Dermatophytosis of nail; Tinea pedis of both feet 07/25/2024 11:00 AM EST Consult Vascular Surgery [facility] [address] [place] [phone] Kylah Benz PA Bilateral leg edema (Primary Dx) from Last 3 Months Surgical History Surgery Date Site/Laterality Comments OTHER SURGICAL HISTORY PROCEDURE: [place] WEDGE EXCISION SKIN NAIL FOLD OTHER SURGICAL HISTORY PROCEDURE: [place] LITHOTRIPSY XTRCORP SHOCK WAVE Medical History Medical History Date Comments HSV-2 seropositive DX:HSV-2 sero positive Anxiety DX:Anxiety; COMM ENT: Patty Carig IUD (intrauterine device) in place 07/2014 DX:IUD (intrauterine device) in place; COMMENT: Mirena Smoker DX:Smoker Family History Medical History Relation Name Comments Cataracts Aunt Glaucoma Aunt No Known Problems Brother No Known Problems Father No Known Problems Maternal Grandfather No Known Problems Maternal Grandmother No Known Problems Mother No Known Problems Other No Known Problems Paternal Grandfather No Known Problems Paternal Grandmother No Known Problems Sister No Known Problems Uncle Blindness Neg Hx Macular degeneration Neg Hx Strabismus Neg Hx Relation Name Status Comments Aunt Brother Father Maternal Grandfather Maternal Grandmother Mother Other Paternal Grandfather Paternal Grandmother Sister Uncle Social History Tobacco Use Types Packs/Day Years Used Date Smoking Tobacco: Some Days Smokeless Tobacco: Never Alcohol Use Standard Drinks/Week Comments Yes 0 (1 standard drink = 0.6 oz pur e alcohol) Comments Unknown Sex and Gender Information Value Date Recorded Sex Assigned at Not on file Legal Sex Female 3:20 AM EST Gender Identity Not on file Sexual Orientation Not on file Obstetrics History Last Filed Vital Signs Vital Sign Reading Time Taken Comments Blood Pressure 116/76 07/25/2024 11:02 AM EST Pulse 106 07/25/2024 11:02 AM EST Temperature - - Respiratory Rate - - Oxygen Saturation - - Inhaled Oxygen Concentration - - Weight 67.1 kg (148 lb) 07/28/2024 9:33 AM EST Height 154.9 cm (5' 0.98 ) 07/28/2024 9:33 AM ES T Body Mass Index 27.98 07/28/2024 9:33 AM EST Plan of Treatment Upcoming Encounters Date Type Department Care Team (Late st Contact Info) Description 10/02/2024 8:15 AM EDT Ancillary Procedure [facility] [address] [place] [phone] 10/27/2024 2:15 PM EDT Appointment [facility] Neurodiagnostic [address] [place] [phone] Health Maintenance Due Date Last Done Comments Breast Cancer Screening 1982 Pneumococcal Vaccine: Pediatrics (0 to 5 Years) and At-Risk Patients (6 to 64 Years) (1 of 2 - PCV) 2001 Cervical Cancer Screening: Pap Smear 10/14/2019 10/13/2016, 10/13/2016 Hepatitis B Vaccines (2 of 3 - 19+ 3-dose series) 08/27/2020 07/30/2020 DTaP,Tdap,and Td Vaccines (2 - Td or Tdap) 08/09/2021 08/09/2011 COVID-19 Vaccine ( season) 2024 07/05/2023, 09/17/2021, 12/12/2020, Additional history exists Social Influencers of Health Screening 05/01/2024 Depression Screening 12/23/2024 12/24/2023 Cholesterol Screening (Lipid Panel) 07/26/2027 07/26/2022 MMR Vaccines Aged Out 01/15/2024, 07/20/2023 No lo nger eligible based on patient's age to complete this topic Influenza Vaccine Completed 05/21/2024, , 06/02/2022, Additional history exists HIV Screening Completed 06/06/2024 Hepatitis C Screening Completed 06/06/2024 HIB Vaccines Aged Out No longer eligi [...] patient's age to complete this topic Meningococcal ACWY Vaccine Aged Out N o longer eligible based on patient's age to complete this topic Meningococcal B Vacine Aged Out No lo nger eligible based on patient's age to complete this topic RSV Immunization Patients Under 20 months Aged Out No longer eligible based on patient's age to complete this topic Varicella Vaccines Aged Out No longer eligible based on patient's age to complete this topic Procedures Procedure Name Priority Date/Time Associated Diagnosis Comments HPV Routine 10/13/2016 from Last 3 Months or Most Recently Relevant to Health Maintenance Results * Cervical Cancer Screening: HPV (10/13/2016) Cervical Cancer Screening: HPV Negative, abstracted Historical Provider MD HEALTH MAINTENANCE Final Result from Last 3 Months or Most Recently Relevant to Health Maintenance Insurance MEDICA[place] - [place] Care Teams Crop Ranch Hand Relationship Specialty Start Date End Date Latrice Hernandez MD [address] [facility] [place] PCP - General Internal Medicine 09/18/18
--- OUTSIDE RECORDS SUMMARY | 2024-09-26 12:20 | XMS_ITS | Encounter Summary ---
Author Organization [employer] Address [address] [facility] 7 [place] [address] Care Team Providers Care Powerhouse Mechanic Name Role Phone Latrice Hernandez MD Primary Care Provider Norris Casillas Unavailable Unavailable Reason for Visit * Reason Onset Date Comments Nurse Triage 09/09/2024 Encounter Details Date Type Department Care Team ([facility] st Contact Info) Description 09/09/2024 Telephone [facility] MEDICINE [address] [place], [place] [phone] Latrice Hernandez MD [address] [facility] [address] [place] [address] Nurse Triage Social History Tobacco Use Types Packs/Day Years [...] AM EDT documented as of this encounter Miscellaneous Notes * Telephone Encounter - Keri Veloz RN - 09/09/2024 3:11 PM EST Called pt. Back. Was given permission in previous TC to leave a message on her voicemail when [facility] opened up for 09/10/24 with appt. Time. Left message on her voicemail that I booked a 240pm in [facility] on 09/10/24 due to the rest of schedule has not been opened up yet. Advised if that is not a good time, to please call the office and she will have to call in am when rest of schedule opens up to try to get a later appt in [facility]. * Telephone Encounter - Keir Veloz RN - 09/09/2024 12:57 PM EST Called pt. Pt. States that she has a rattle in her chest when she breathes, coughs, walks. Chest tightness. Cough and congestion. Pt. Has been using Vicks, Tylenol cold and sinus and Dayquill and Nyquill with no relief. Pt. Is using her inhalers and only has slight relief. No fever. Nasal drainage-thick yellow. Productive cough- light yellow. Pt. At work and cannot come to any slots that are open today or tomorrow am. Advised that walk in is open until 730pm tonight and also advised pt. That there is a [facility] schedule for tomorrow afternoon but it has not been opened yet. I will frequently check the [facility] schedul;e for tomorrow 09/10/24 but advised pt. That if she does not hear from me by 430pm today. She can go to walk in or she will have to call [facility] triage first thing in am to try to getinto [facility] SD schedule. Pt agrees with plan. Protocol Used: Cough (Adult) Protocol-Based Disposition: Go to Office or Video Visit Now- Pt. At work and cannot leave. Video visit not offered Positive Triage Questions: * Mild difficulty breathing (e.g., minimal/no SOB at rest, SOB with walking, pulse < 100) and still present when not coughing * Wheezing is present on and off * Patient wants to be seen * All higher-acuity triage questions were negative Care Advice Discussed: * Cough Medicines * Cough Syrup With Dextromethorphan * Coughing Spells * Prevent Dehydration * Avoid Tobacco Smoke * Humidifier * For a Runny Nose - Blow Your Nose * Nasal Washes for a Stuffy Nose * Medicines for Stuffy or Runny Nose * Nasal Decongestants for a Very Stuffy Nose * Telephone Encounter - Bo Garciaarez - 09/09/2024 11:25 AM EST Symptom: Cough Outcome: Schedule an urgent appointment (within 1 hour) or talk to a nurse or provider soon Reason: Wheezing (high-pitched whistling sound) The caller accepted this outcome. documented in this encounter Plan of Treatment Upcoming Encounters Date Type Department Care Team (Late st Contact Info) Description 09/26/2024 3:30 PM EST Office Visit [facility] MED & PEDS [address] [place] [address] Latrice Hernandez MD [address] [place] [address] documented as of this encounter Visit Diagnoses Not on filedocumented in this encounter Additional Health Concerns Assessment Noted Time PHQ-9 Depression Total Score: 9 12/24/19 24 9:18 AM EDT documented as of this encounter Care Teams Powerhouse Mechanic Relationship Specialty Start Date End Date Latrice Hernandez MD [address] [place] [address] PCP - General Internal Medicine 07/23/18 Norris Casillas FNP [address] [place] [address] Nurse Practitioner Family Medicine 06/07/23 documented as of this encounter
--- OUTSIDE RECORDS SUMMARY | 2024-09-26 12:20 | XMS_ITS | Encounter Summary ---
Author Organization [employer] Address [address] [place] [address] 7 [place] [address] Care Team Providers Care Embedded Developer Name Role Phone Latrice Hernandez MD Primary Care Provider [phone] Norris Casillas Unavailable Unavailable Reason for Visit * Reason Comments Med Refill Encounter Details Date Type Department Care Team (Late Contact Info) Description 09/09/2024 Refill [facility] MED & PEDS [address] [place] [address] Latrice Hernandez MD [address] [place] [address] PTSD (post-traumatic stress disorder); Bipolar affective disorder, remission status unspecified ([facility]) Social History Tobacco Use Types Packs/Day Years [...] Description 09/26/2024 3:30 PM EST Office Visit [facility]EDS [address] [place] [address] Latrice Hernandez MD [address] [place] [address] documented as of this encounter Visit Diagnoses Diagnosis PTSD (post-traumatic stress disorder) Posttraumatic stress disorder Bipolar affective disorder, remission status unspecified ([facility]) documented in this encounter Additional Health Concerns Assessment Noted Time PHQ-9 Depression Total Score: 9 12/24/19 24 9:18 AM EDT documented as of this encounter Care Teams Embedded Developer Relationship Specialty Start Date End Date Latrice Hernandez MD [address] [place] [address] PCP - General Internal Medicine 07/23/18 Norris Casillas FNP [address] [place] [address] Nurse Practitioner Family Medicine 06/07/23 documented as of this encounter
--- OUTSIDE RECORDS SUMMARY | 2024-09-26 12:20 | XMS_ITS | Encounter Summary ---
Author Organization [employer] Address [address] [place] [address] 7 [place] [address] Care Team Providers Care Visitor Services Associate Name Role Phone Latrice Hernandez MD Primary Care Provider Norris Casillas Unavailable Unavailable Reason for Visit * Reason Onset Date Comments Nurse Triage 07/30/2024 Encounter Details Date Type Department Care Team ([facility] st Contact Info) Description 07/30/2024 Telephone [facility] MED & PEDS [address] [place] [address] Latrice Hernandez MD [address] [place] [address] Nurse Triage Social History Tobacco Use Types [...] encounter Miscellaneous Notes * Telephone Encounter - Jinny REZA Mills - 07/30/2024 12:54 PM EST Triage call returned to patient who reports that she is in need of signed [employer] forms and a note toreturn to work effective 08/04/2024. Patient seen by Director [employer] and given bilateral braces. Remains with discomfort but is ready to return to work. 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 Patient advised not in office and then discussed note to be initiated by Dr. Hernandez pending review of previous notes. Patient reports that she has until 07/31/24 to return documentation to [facility] and that she wants to return to work on 08/04/24. No triage required. Team tasked to follow with PCP and patient. Protocol Used: No Protocol Available (Adult) Protocol-Based Disposition: Discuss with PCP and Callback by Nurse Today Video visit not offered Positive Triage Question: * Nursing judgment * All higher-acuity triage questions were negative Care Advice Discussed: * Reasons To Call Back - You become worse * Telephone Encounter - Mary Whittington - 07/30/2024 11:41 AM EST Symptom: Back Pain and foot pain - Not From Injury Outcome: Schedule an appointment to be seen within 3 days Reason: Caller denied all higher acuity questions The caller accepted this outcome. documented in this encounter Plan of Treatment Upcoming Encounters Date Type Department Care Team (Late st Contact Info) Description 09/26/2024 3:30 PM EST Office Visit [facility] MED & PEDS 505 [place] [address] Latrice Hernandez MD 505 [place] [address] documented as of this encounter Visit Diagnoses Not on filedocumented in this encounter Additional Health Concerns Assessment Noted Time PHQ-9 Depression Total Score: 9 12/24/19 24 9:18 AM EDT documented as of this encounter Care Teams Visitor Services Associate Relationship Specialty Start Date End Date Latrice Hernandez MD 505 [place] [address] PCP - General Internal Medicine 07/23/18 Norris Casillas FNP [address] [place] [address] Nurse Practitioner Family Medicine 06/07/23 documented as of this encounter
--- OUTSIDE RECORDS SUMMARY | 2024-09-26 12:20 | XMS_ITS | Encounter Summary ---
Author Organization [employer] Address [address] [facility] 7 [place] [address] Care Team Providers Care Water Supervisor Name Role Phone Latrice Hernandez MD Primary Care Provider Norris Casillas Unavailable Unavailable Reason for Visit * Reason Onset Date Comments Nurse Triage 12/28/2023 ER Follow-up 12/28/2023 Encounter Details Date Type Department Care Team (Late st Contact Info) Description 12/28/2023 Telephone [facility] MEDICINE [address] [place] [address] Latrice Hernandez MD 505 [facility] [place] [address] Nurse Triage; ER Follow-up Social History Tobacco Use Types Packs/Day Years [...] encounter Miscellaneous Notes * Telephone Encounter - Cahrlotte Simpson RN - 12/28/2023 12:18 PM EDT called pt to triage, spoke to pt. pt states seen [facility] on 12/25 for left low back pain, and requesting appt for follow up. checked the chart, no notes in as yet from the ER. pt states nothing acute foundand needs follow up appt. nothing available with PCP and was given appt 01/06 with [facility] provider at 11:00 for follow up. advised home care: rest, ice, heat, OTC pain reliever as needed, and call back if worsening or new concerns. will task to clinical coordinator to obtain the ER records for the appt. pt understands and agrees with plan. insurance verified. Protocol Used: Back Pain (Adult) Protocol-Based Disposition: See in Office or Video Visit within 2 Weeks Video visit offer not recorded Positive Triage Questions: * Back pain lasts > 2 weeks * Back pain is a chronic symptom (recurrent or ongoing AND lasting > 4 weeks) * All higher-acuity triage questions were negative Care Advice Discussed: * Reassurance and Education - Back Pain * Cold or Heat * Sleep * Activity * Pain Medicines * Reasons To Call Back - Numbness or weakness occurs, or bowel/bladder problems - Pain begins to shoot into the leg - Pain persists over 2 weeks - Pain becomes worse - You become worse * Telephone Encounter - Luciana Beltre - 12/28/2023 11:46 AM EDT Tc from pt calling in regards to message above. States call was disconnected. Pt was seen for lowerback pain. Pt is still symptomatic. Please contact pt at [phone] * Telephone Encounter - Mikala York - 12/28/2023 11:39 AM EDT Patient calling to report ED visit on : Date: 12/25 Hospital: [facility] Seen for: Patient advised will forward to team nurse for follow up documented in this encounter Plan of Treatment Upcoming Encounters Date Type Department Care Team ([facility] st Contact Info) Description 09/26/2024 3:30 PM EST Office Visit [facility] MED & PEDS [address] [place] [address] Latrice Hernandez MD 505 [place] [address] documented as of this encounter Visit Diagnoses Not on filedocumented in this encounter Additional Health Concerns Assessment Noted Time PHQ-9 Depression Total Score: 9 12/24/19 24 9:18 AM EDT documented as of this encounter Care Teams Water Supervisor Relationship Specialty Start Date End Date Latrice Hernandez MD 505 [place] [address] PCP - General Internal Medicine 07/23/18 Norris Casillas FNP [address] [place] [address] Nurse Practitioner Family Medicine 06/07/23 documented as of this encounter
--- OUTSIDE RECORDS SUMMARY | 2024-09-26 12:20 | XMS_ITS | Encounter Summary ---
Author Organization [employer] Address [address] [facility] 7 [place] [address] Care Team Providers Care Trust Manager Assistant Name Role Phone Latrice Hernandez MD Primary Care Provider Norris Casillas Unavailable Unavailable Reason for Visit * Reason Onset Date Comments Nurse Triage 12/26/2023 Encounter Details Date Type Department Care Team ([facility] st Contact Info) Description 12/26/2023 Telephone [facility] MEDICINE [address] [place], [place] [phone] Latrice Hernandez MD 505 [facility] [place] [address] Nurse Triage Social History Tobacco Use Types [...] encounter Miscellaneous Notes * Telephone Encounter - Brittney Khalil RN - 12/26/2023 3:28 PM EDT Triage call Pt reports low to middle back pain for last 2 weeks but, yesterday the pain became moresevere and continues to be. No radiation of pain to lower extremities. Pt describes pain as very sharp and is becoming more constant. Sitting is very painful , driving a car is difficult. Pt is taking motrin which helps a little. Pt denies urinary symptoms. Pt is advised to drink adequate liquids because Pt has had hx of kidney stones . Pt is offered [facility] tonight open till 8pm in [facility] and tomorrow 830am-400pm. No available apts in [facility] this week and Pt can't go to [facility] in afternoon. Pt reports willgo to ED if needed. Pt agrees with disposition and home care reviewed. Insurance is verified as active. Protocol Used: Back Pain (Adult) Protocol-Based Disposition: See in Office or Video Visit Today Video visit not offered Positive Triage Question: * Severe back pain (e.g., excruciating, unable to do any normal activities) and not improved after pain medicine and Care Advice * All higher-acuity triage questions were negative Care Advice Discussed: * Reassurance and Education - Back Pain * Cold or Heat * Pain Medicines * Reasons To Call Back - Fever occurs - Numbness or weakness occurs, or bowel/bladder problems - Pain begins to shoot into the leg - Pain persists over 2 weeks - Pain becomes worse - You become worse * Telephone Encounter - Mikala York - 12/26/2023 3:07 PM EDT Symptom: Back Pain - Not From Injury Outcome: Schedule an appointment to be seen within 3 days Reason: Caller denied all higher acuity questions The caller accepted this outcome documented in this encounter Plan of Treatment Upcoming Encounters Date Type Department Care Team (Late st Contact Info) Description 09/26/2024 3:30 PM EST Office Visit [facility] MED & PEDS [address] [place], [place] [phone] Latrice Hernandez MD 505 [place], [place] [phone] documented as of this encounter Visit Diagnoses Not on filedocumented in this encounter Additional Health Concerns Assessment Noted Time PHQ-9 Depression Total Score: 9 12/24/19 24 9:18 AM EDT documented as of this encounter Care Teams Trust Manager Assistant Relationship Specialty Start Date End Date Latrice Hernandez MD 505 [facility] [place] [address] PCP - General Internal Medicine 07/23/18 Norris Casillas FNP 505 [facility] [address] Nurse Practitioner Family Medicine 06/07/23 documented as of this encounter
--- OUTSIDE RECORDS SUMMARY | 2024-09-26 12:20 | XMS_ITS | Encounter Summary ---
Author Organization [facility] Address [address] [facility] 7t [place] [address] Care Team Providers Care Job Captain Name Role Phone Latrice Hernandez MD Primary Care Provider [phone] Norris Casillas Unavailable Unavailable Reason for Visit * Reason Comments Med Refill Encounter Details Date Type Department Care Team (Late Contact Info) Description 07/24/2022 Refill [facility] MEDICINE [address] [place], [place] [phone] Norris Casillas FNP Social History Tobacco Use Types Packs/Day Years Used Date Smoking Tobacco: Never Assessed Comments Unknown Sex and Gender Information Value Date Recorded Sex Assigned at Female 05/22/2022 10:22 AM EDT Legal Sex Female 10:22 AM EDT Gender Identity Female 05/22/2022 10:22 AM EDT Sexual Orientation Straight 05/22/2022 10 :22 AM EDT COVID-19 Exposure Response Date Recorded In the last 10 days, have yo u been in contact with someone who was confirmed or suspected to have Coronavirus/COVID-19? No / Unsure 07/26/2022 10:35 AM EST documented as of this encounter Miscellaneous Notes * Telephone Encounter - MURALI Preston - 07/26/2022 11:19 AM EST This medication was discontinued documented in this encounter Plan of Treatment Upcoming Encounters Date Type Department Care Team (Late Contact Info) Description 09/26/2024 3:30 PM EST Office Visit [facility] MED & PEDS [address] [place] [phone] Latrice Hernandez MD [address] [place] [address] documented as of this encounter Visit Diagnoses Not on filedocumented in this encounter Additional Health Concerns Assessment Noted Time PHQ-9 Depression Total Score: 15 022 1:56 PM EST documented as of this encounter Care Teams Job Captain Relationship Specialty Start Date End Date Latrice Hernandez MD [address] [place] [address] PCP - General Internal Medicine 07/23/18 Norris Casillas FNP [address] [place] [address] Nurse Practitioner Family Medicine 06/07/23 documented as of this encounter
== END 2024-09-26 10:50 | disposition home or self-care (01) ==
LOC: HO.RESP 10:49
PROVIDERS: PCP Internal Medicine; Visit Provider Internal Medicine
DX: J45.40 Moderate persistent asthma, uncomplicated (principal); R05.1 Acute cough
CPT/HCPCS: 94010; 94640; 94727; 94729

== ENCOUNTER → 2024-09-26 10:55 | Outpatient (BNV) | payer MEDICAID, SELFPAY | PROVIDERS: PCP Internal Medicine; Visit Provider Hospitalist | DX: R06.09 Other forms of dyspnea (principal) | CPT/HCPCS: 94060; 94727; 94729 ==

== ENCOUNTER 2024-10-15 10:52 | Outpatient (REF) | payer MEDICAID, SELFPAY ==
[2024-10-16 16:38] LABS: Alpha 1 Anti-trypsin 122 mg/dL (83-199)
== END 2024-10-15 10:53 | disposition home or self-care (01) ==
LOC: HO.CHCLDS 10:52
PROVIDERS: Visit Provider Internal Medicine
DX: J44.9 Chronic obstructive pulmonary disease, unspecified (principal)
CPT/HCPCS: 36415; 82103

== ENCOUNTER 2024-11-19 10:48 | Outpatient (REF) | payer MEDICAID, SELFPAY ==
--- NOTE | ~2024-11-19 | XR_ITS ---
EXAMINATION: XR CHEST CLINICAL INFORMATION: cough/SOB COMPARISON: None available. TECHNIQUE: 2 views of the chest were obtained. FINDINGS: Elevated left hemidiaphragm. Blunting of the costophrenic angles bilaterally best seen on the lateral projection. No consolidation. No pneumothorax. Cardiomediastinal silhouette size is normal. Osseous structures are intact. XR/XR chest 2V IMPRESSION: Bilateral pleural effusions, small to moderate volume most conspicuous on the left side. Electronically signed by: Magen Toro MD 11/19/2024 11:07 AM EDT
--- OUTSIDE RECORDS SUMMARY | 2024-11-19 12:14 | XMS_ITS | Encounter Summary ---
Author Organization [employer] Address [address] [place] [address] [place] [address] Care Team Providers Care Central Sterile Tech Name Role Phone Latrice Hernandez MD Primary Care Provider [phone]- [phone] Norris Casillas Unavailable Unavailable Reason for Visit * Reason Comments Med Refill Encounter Details Date Type Department Care Team ([facility] Contact Info) Description 11/15/2024 Refill [facility] MED & PEDS 505 [facility] [place] [address] Latrice Hernandez MD 505 [place] [address] Social History Tobacco Use Types Packs/Day Years [...] Upcoming Encounters Date Type Department Care Team ([facility] Contact Info) Description 01/02/2025 4:00 PM EDT Office Visit [facility] MED & PEDS 505 [facility] [place] [address] Latrice Hernandez MD 505 [place] [address] documented as of this encounter Visit Diagnoses Not on filedocumented in this encounter Additional Health Concerns Assessment Noted Time PHQ-9 Depression Total Score: 9 12/24/19 24 9:18 AM EDT documented as of this encounter Care Teams Central Sterile Tech Relationship Specialty Start Date End Date Latrice Hernandez MD 505 [place] [address] PCP - General Internal Medicine 07/23/18 Norris Casillas FNP 505 [place] [address] Nurse Practitioner Family Medicine 06/07/23 documented as of this encounter
--- OUTSIDE RECORDS SUMMARY | 2024-11-19 12:14 | XMS_ITS | Encounter Summary ---
Author Organization [employer] Address [address] [place] [address] [place], [place] [address] Care Team Providers Care Workforce Development Specialist Name Role Phone Latrice Hernandez MD Primary Care Provider [phone]- [phone] Norris Casillas Unavailable Unavailable Reason for Visit * Reason Comments Med Refill Encounter Details Date Type Department Care Team (Late st Contact Info) Description 11/17/2024 Refill [facility] MED & PEDS 505 [facility] [place] [address] Latrice Hernandez MD 505 [place] [address] Chronic migraine without aura without status migrainosus, not intractable Social History Tobacco Use Types Packs/Day Years [...] Care Team (Late st Contact Info) Description 01/02/2025 4:00 PM EDT Office Visit [facility] MED [facility] PEDS [address] [place] [address] Latrice Hernandez MD 505 [place] [address] documented as of this encounter Visit Diagnoses Diagnosis Chronic migraine without aura without status migrainosus, not intractable documented in this encounter Additional Health Concerns Assessment Noted Time PHQ-9 Depression Total Score: 9 12/24/19 24 9:18 AM EDT documented as of this encounter Care Teams Workforce Development Specialist Relationship Specialty Start Date End Date Latrice Hernandez MD 505 [place] [address] PCP - General Internal Medicine 07/23/18 Norris Casillas FNP [address] [place] [address] Nurse Practitioner Family Medicine 06/07/23 documented as of this encounter
--- OUTSIDE RECORDS SUMMARY | 2024-11-19 12:14 | XMS_ITS | Encounter Summary ---
Author Organization [employer] Address [address] [place] [address] [place] [address] Care Team Providers Care Learning Disabilities Specialist Name Role Phone Latrice Hernandez MD Primary Care Provider [phone]- [phone] Norris Casillas Unavailable Unavailable Reason for Visit * Reason Onset Date Comments Nurse Triage 07/30/2024 Encounter Details Date Type Department Care Team ([facility] st Contact Info) Description 07/30/2024 Telephone [facility] MED & PEDS 505 [facility] [place] [address] Latrice Hernandez MD 505 [place] [address] Nurse Triage Social History Tobacco Use Types [...] Miscellaneous Notes * Telephone Encounter - Jinny Mills LPN - 07/30/2024 12:54 PM EST Triage call returned to patient who reports that she is in need of signed [employer] forms and a note toreturn to work effective 08/04/2024. Patient seen by [employer] Surve[employer] Technician and given bilateral braces. Remains with discomfort [...] has until 07/31/24 to return documentation to [employer] and that she wants to return to [...] Description 01/02/2025 4:00 PM EDT Office Visit [facility] MED & PEDS 505 [place] [address] Latrice Hernandez MD 505 [place] [address] documented as of this encounter Visit Diagnoses Not on filedocumented in this encounter Additional Health Concerns Assessment Noted Time PHQ-9 Depression Total Score: 9 12/24/19 24 9:18 AM EDT documented as of this encounter Care Teams Learning Disabilities Specialist Relationship Specialty Start Date End Date Latrice Hernandez MD 505 [place] [address] PCP - General Internal Medicine 07/23/18 Norris Casillas FNP [address] [place] [address] Nurse Practitioner Family Medicine 06/07/23 documented as of this encounter
--- OUTSIDE RECORDS SUMMARY | 2024-11-19 12:14 | XMS_ITS | Encounter Summary ---
Author Organization [employer] Address [address] [place] [address] [place] [address] Care Team Providers Care Early Interventionist Name Role Phone Latrice Hernandez MD Primary Care Provider [phone]- [phone] Norris Casillas Unavailable Unavailable Encounter Details Date Type Department Care Team (Late Contact Info) Description 04/04/2023 Telephone [facility] MED & PEDS [address] [place], [place] [phone] Charlotte Simpson, RN [address] [place] [address] Social History Tobacco Use Types Packs/Day Years [...] Department Care Team (Late Contact Info) Description 01/02/2025 4:00 PM EDT Office Visit [facility] MED & PEDS [address] [place] [address] Latrice Hernandez MD [address] [place] [address] documented as of this encounter Visit Diagnoses Not on filedocumented in this encounter Additional Health Concerns Assessment Noted Time PHQ-9 Depression Total Score: 9 03/20/20 23 10:44 AM EDT documented as of this encounter Care Teams Early Interventionist Relationship Specialty Start Date End Date Latrice Hernandez MD [address] [place] [address] PCP - General Internal Medicine 07/23/18 Norris Casillas FNP [address] [place] [address] Nurse Practitioner Family Medicine 06/07/23 documented as of this encounter
--- OUTSIDE RECORDS SUMMARY | 2024-11-19 12:14 | XMS_ITS | Clinical Summary ---
Author Organization [address] [place] [address] [place] [phone] Phone Care Team Providers Care Finish Mill Operator Name Role Phone Latrice Hernandez MD Primary Care Provider [phone] [phone] Allergies Active Allergy Reactions Criticality Noted Date [...] Bilateral swelling of feet and ankles 05/07/2024 Surgical History Surgery Date Site/Laterality Comments OTHER SURGICAL HISTORY PROCEDURE: [place] WEDGE EXCISION SKIN NAIL FOLD OTHER SURGICAL HISTORY PROCEDURE: [place] LITHOTRIPSY XTRCORP SHOCK WAVE Medical History Medical History Date Comments HSV-2 seropositive DX:HSV-2 sero positive Anxiety DX:Anxiety; COMM ENT: Patty Craig IUD (intrauterine device) in place 07/2014 DX:IUD (intrauterine device) in place; COMMENT: Kenji Smoker DX:Smoker Family History Medical History Relation [...] Care Team (Late st Contact Info) Description 12/04/2024 8:30 AM EDT Ancillary Procedure [facility] [address] [place] [address] 12/25/2024 9:15 AM EDT Office Visit [facility] [place] [address] [phone] Bong Tilley, DPM [address] [address] 01/06/2025 4:30 PM EDT Appointment [facility] Neurodiagnostic [address] [place] [phone] Health Maintenance Due Date Last Done Comments [...] age to complete this topic Meningococcal B Vaccine Aged Out No l onger eligible based on patient's age to complete [...] (10/13/2016) Cervical Cancer Screening: HPV Negative, abstracted [facility] Provider MD HEALTH MAINTENANCE Final Result from Last 3 Months or Most Recently Relevant to Health Maintenance Insurance MEDICAID - [place] Care Teams Finish Mill Operator Relationship Specialty Start Date End Date Latrice Hernandez MD [address] [place] [address] PCP - General Internal Medicine 09/18/18
--- OUTSIDE RECORDS SUMMARY | 2024-11-19 12:14 | XMS_ITS | Encounter Summary ---
Author Organization [employer] Address [address] [facility] 7t [place] [address] Care Team Providers Care Shank Tapper Name Role Phone Latrice Hernandez MD Primary Care Provider [phone]- [phone] Norris Casillas Unavailable Unavailable Reason for Visit * Reason Onset Date Comments Nurse Triage 12/28/2023 ER Follow-up 12/28/2023 Encounter Details Date Type Department Care Team (Late st Contact Info) Description 12/28/2023 Telephone [facility] MEDICINE [address] [place] [address] Latrice Hernandez MD 505 [place] [address] Nurse Triage; ER Follow-up Social History Tobacco [...] encounter Miscellaneous Notes * Telephone Encounter - Charlotte Simpson RN - 12/28/2023 12:18 PM EDT called pt to triage, spoke to pt. pt states seen [facility] on 12/25 for left low back pain, and requesting appt for follow up. checked the chart, no notes in as yet from the ER. pt states nothing acute foundand needs follow up appt. nothing available with PCP and was given appt 01/06 with [facility] provider at 11:00 for follow up. advised [...] is still symptomatic. Please contact pt at [phone] * Telephone Encounter - Mikala [place] - 12/28/2023 11:39 AM EDT Patient calling to report ED visit on : Date: 12/25 Hospital: [facility] Seen for: Patient advised will forward to team nurse for follow up documented in this encounter Plan of Treatment Upcoming Encounters Date Type Department Care Team (Late st Contact Info) Description 01/02/2025 4:00 PM EDT Office Visit [facility] MED & PEDS [address] [place] [address] Latrice Hernandez MD [address] [place] [address] documented as of this encounter Visit Diagnoses Not on filedocumented in this encounter Additional Health Concerns Assessment Noted Time PHQ-9 Depression Total Score: 9 12/24/19 24 9:18 AM EDT documented as of this encounter Care Teams Shank Tapper Relationship Specialty Start Date End Date Latrice Hernandez MD [address] [place] [address] PCP - General Internal Medicine 07/23/18 Norris Casillas FNP [address] [place] [address] Nurse Practitioner Family Medicine 06/07/23 documented as of this encounter
--- OUTSIDE RECORDS SUMMARY | 2024-11-19 12:14 | XMS_ITS | Clinical Summary ---
Author Organization [employer] Address [address] [place] [address] [address] [place] [address] Care Team Providers Care Art Objects Repairer Name Role Phone Latrice Hernandez MD Primary Care Provider [phone] Norris Casillas Unavailable Unavailable Allergies Active Allergy Reactions Criticality Noted Date Comments Pollen Extract 11/13/2017 Quetiapine 07/29/2018 Other reaction(s): Unknown Medications diphenhydrAMINE (BENADryl) 25 MG tablet take 1 Tablet by oral route every bedtime as needed Active Levonorgestrel (Liletta, 52 MG,) 20.1 MCG/DAY intrauterine device inserted 09/30/2019 020 Active nicotine (Nicoderm, Step 2) 14 MG/24HR patch apply 1 patch by transdermal route every day and wear for 16-24 hours. 020 Active nicotine (Nicoderm, Step 3) 7 MG/24HR patch apply 1 patch by transdermal route every day and wear for 16 hours. 021 Active nicotine polacrilex (Nicorette) 2 MG gum chew 1 piece of gum by oral route every 1- 2 hours as needed for weeks 1-6, then one piece every 2-4 hours for weeks 7-9, then 1 piece every 4-8 hours weeks 10- 020 Active ivermectin (Stromectol) 3 MG tabletIndicatio ns:Scabies exposure Take 1 tablet orally once , repeat after 1 week 2 tablet 023 Active permethrin (Elimite) 5 % creamIndication s:Scabies exposure apply to skin from hairline to toes and wash off 8-10 hours later 60 g 023 Active Banophen 25 MG tablet TAKE ONE TABLET AT BEDTIME NEEDED FOR ITCHING 30 tablet 024 Active hydrOXYzine HCl (Atarax) 10 MG tablet Take 1 tablet (10 mg) by mouth if needed at bedtime (sleep). 90 tablet 6 024 Active propranolol (Inderal) 60 MG tabletIndicatio ns:PTSD (post-traumatic stress disorder),Bipol ar affective disorder, remission status unspecified (CMS/HCC) Take 1 tablet (60 mg) by mouth 2 times daily. 180 tablet 3 024 Active topiramate (Topamax) 100 MG tabletIndicatio ns:PTSD (post-traumatic stress disorder) TAKE 1 AND 1/2 TABLETS BY MOUTH TWICE DAILY 270 tablet 3 024 Active Adderall XR 10 MG 24 hr capsule TAKE ONE CAPSULE EVERY MORNING. DO NOT BREAK, CRUSH, DISSOLVE OR CHEW 30 capsule 024 Active Cholecalciferol (Vitamin D) 50 MCG (2000 UT) capsuleIndicati ons:Vitamin D deficiency TAKE 1 CAPSULE BY MOUTH EVERY DAY 90 capsule 1 024 Active albuterol 108 (90 Base) MCG/ACT inhaler Inhale 1 puff every 6 (six) hours if needed for wheezing. 18 g 1 024 Active cyclobenzaprine (Flexeril) 5 MG tabletIndicatio ns:Acute pain of left shoulder Take 1 tablet (5 mg) by mouth if needed in the morning, at noon, and at bedtime for muscle spasms. 45 tablet 024 Active Beclomethasone Diprop HFA (Qvar RediHaler) 80 MCG/ACT inhalerIndicati ons:Moderate persistent reactive airway disease without complication,[place] cough Inhale 80 mcg in the morning and at bedtime. Rinse mouth with water after use to reduce aftertaste and incidence of candidiasis. Do not swallow. 10.6 g 2 025 Active Dextromethorpha n-guaiFENesin (Mucinex DM) 30-600 MG tablet sustained-relea se 12 hour Use 1 tab TID 28 tablet 025 Active fluticasone (Flovent) 44 MCG/ACT inhaler Inhale 2 puffs in the morning and at bedtime. Rinse mouth with water after use to reduce aftertaste and incidence of candidiasis. Do not swallow. 10.6 g 5 025 2024 Active azithromycin (Zithromax) 250 MG tablet Take 2 tabs day and then 1 tab daily 6 tablet 025 Active predniSONE (Deltasone) 10 MG tabletIndicatio ns:Moderate persistent reactive airway disease without complication 3 tabs daily x 3 days, 2 tabs daily x 3 days, 1 tab daily x 3 days. 20 tablet 025 Active valACYclovir (Valtrex) 500 MG tablet TAKE 1 TABLET BY MOUTH TWICE A DAY FOR THREE DAYS 6 tablet 1 Active albuterol 108 (90 Base) MCG/ACT inhaler Inhale 2 puffs every 4 (four) hours if needed for wheezing. 18 g 1 025 2025 Active clonazePAM (KlonoPIN) 1 MG tabletIndicatio ns:PTSD (post-traumatic stress disorder),Bipol ar affective disorder, remission status unspecified (CMS/HCC) Take 1 tablet (1 mg) by mouth 2 times daily. 60 tablet Active ibuprofen 600 MG tablet TAKE ONE TABLET BY MOUTH THREE TIMES DAILY NEEDED 21 tablet 1 025 Active SUMAtriptan (Imitrex) 50 MG tabletIndicatio ns:Chronic migraine without aura without status migrainosus, not intractable TAKE ONE TABLET BY MOUTH ONCE DAILY NEEDED MIGRAINE 9 tablet 3 025 Active nicotine polacrilex (Commit) 2 MG lozenge Dissolve 1 lozenge (2 mg) in the mouth if needed for smoking cessation. 100 lozenge 025 2024 Active nicotine (Nicoderm CQ) 14 MG/24HR patch Place 1 patch on the skin 1 (one) time each day at the same time. 42 patch 025 2024 Active nicotine (Nicoderm CQ) 7 MG/24HR patch Place 1 patch on the skin 1 (one) time each day at the same time. 14 patch 025 2024 Active Mometasone Furoate (Asmanex, 7 Metered Doses,) 110 MCG/ACT aerosol powderIndicatio ns:Moderate persistent reactive airway disease without complication,[place] cough Inhale 110 mcg 2 times daily. 1 each 3 Active Spacer/Aero-Hol ding Chambers (OptiChamber Latonya) misc 1 each every 4 (four) hours if needed (asthma). 1 each Active cetirizine (ZyrTEC) 10 MG tablet Take 1 tablet (10 mg) by mouth Once per day. Prn. 30 tablet 2024 Active amoxicillin-cla vulanate (Augmentin) 875-125 MG tablet Take 1 tablet by mouth 2 times daily. 14 tablet Active predniSONE (Deltasone) 20 MG tablet Take 2 tablets (40 mg) by mouth Once per day for 5 days. 10 tablet 2024 Active albuterol (2.5 MG/3ML) 0.083% nebulizer solution Take 3 mL (2.5 mg) by nebulization every 6 (six) hours if needed for wheezing or shortness of breath. 75 mL 1 2025 Active tiotropium (Spiriva HandiHaler) 18 MCG inhalation capsuleIndicati ons:Chronic obstructive pulmonary disease, unspecified COPD type (CMS/HCC) Place 1 capsule (18 mcg) into inhaler and inhale in the morning. 30 capsule 2 2025 Active ibuprofen 800 MG tablet Take 1 tablet by mouth every 8 (eight) hours. 022 2024 Discontinued SUMAtriptan (Imitrex) 50 MG tabletIndicatio ns:Chronic migraine without aura without status migrainosus, not intractable TAKE ONE TABLET DAILY NEEDED FOR MIGRAINE 9 tablet 3 024 2024 Discontinued valACYclovir (Valtrex) 500 MG tablet TAKE 1 TABLET BY MOUTH TWICE A DAY FOR THREE DAYS 6 tablet 1 025 2024 Discontinued ibuprofen 600 MG tablet TAKE ONE TABLET BY MOUTH THREE TIMES DAILY NEEDED 21 tablet 1 025 2024 Discontinued Mometasone Furoate (Asmanex, 7 Metered Doses,) 110 MCG/ACT aerosol powderIndicatio ns:Moderate persistent reactive airway disease without complication,[place] cough Inhale 110 mcg 2 times daily. 1 each 3 025 2024 Discontinued(R eorder (will not trigger notification to Pharmacy)) albuterol 108 (90 Base) MCG/ACT inhaler Inhale 2 puffs every 4 (four) hours if needed for wheezing. 18 g 025 2024 Discontinued(R eorder (will not trigger notification to Pharmacy)) clonazePAM (KlonoPIN) 1 MG tabletIndicatio ns:PTSD (post-traumatic stress disorder),Bipol ar affective disorder, remission status unspecified (CMS/HCC) Take 1 tablet (1 mg) by mouth 2 times daily. 60 tablet 025 2024 Discontinued(R eorder (will not trigger notification to Pharmacy)) tiotropium (Spiriva HandiHaler) 18 MCG inhalation capsuleIndicati ons:Chronic obstructive pulmonary disease, unspecified COPD type (CMS/HCC) Place 1 capsule (18 mcg) into inhaler and inhale in the morning. 30 capsule 11 025 2024 Discontinued(R eorder (will not trigger notification to Pharmacy)) Hospital, Clinic, or Other Facility Administered Medication Ordered Dose Route Frequency Start Date End Date Status albuterol (2.5 MG/3ML) 0.083% nebulizer solution 2.5 mgIndications:Wheezi ng 2.5 mg NEBULIZATION Once 11/19/2024 11/19/2024 Ended Active Problems Problem Noted Date Diagnosed Date Tobacco dependence 11/19/2024 Palpitations 10/31/2023 Assessment & Plan (10/31/2023 12:51 [...] retiring, patient will be transferred to new [facility] psychiatric prescriber. Patient is aware that this person will work via [employer] and is not employed by [facility]. Patient gives verbal permission to share [...] henao. She will continue to work with [facility] integrated clinician. Assessment & Plan (07/11/2022 3:11 [...] therapist. Will also request one of the [facility] integrated clinicians to reach out to her [...] Encounters Date Type Department Care Team Description 11/19/2024 10:00 AM EDT Office Visit [facility] [address], [place] [phone] COPD exacerbation (CMS/HCC) (Primary Dx); Tobacco dependence; Wheezing; Moderate persistent reactive airway disease without complication; Acute cough; Chronic obstructive pulmonary disease, unspecified COPD type (CMS/HCC) 11/18/2024 Telephone [facility] [address] [place] [address] Latrice Hernandez MD Nurse Triage 11/17/2024 Refill [facility] [address] [place] [address] Latrice Hernandez MD Chronic migraine without aura without status migrainosus, not intractable 11/15/2024 Refill [facility] [address] [place] [address] Latrice Hernandez MD 11/13/2024 Telephone [facility] [address] [place] [address] Latrice Hernandez MD 11/13/2024 Refill [facility] [address] [place] [address] Latrice Hernandez MD PTSD (post-traumatic stress disorder); Bipolar affective disorder, remission status unspecified (CMS/HCC) 11/12/2024 Telephone [facility] [address] [place] [phone] Latrice Hernandez MD Call Back Request; Medication Question 10/03/2024 Population Health Risk Score Community [facility] ([facility] Department [address] [phone] Provider, Population Health Generic 10/01/2024 Telephone [facility] [address] [place] [address] Latrice Hernandez MD Results 09/29/2024 Orders Only [facility] [address] [place] [address] Latrice Hernandez MD Chronic obstructive pulmonary disease, unspecified COPD type (CMS/HCC) (Primary Dx) 09/26/2024 3:30 PM EST Office Visit [facility] [address] [place] [address] Latrice Hernandez MD Moderate persistent reactive airway disease without complication (Primary Dx); Acute cough; PTSD (post-traumatic stress disorder); Bipolar affective disorder, remission status unspecified (CMS/HCC) 09/26/2024 Travel 09/10/2024 2:40 PM EST Office Visit [facility] [address] [place] [address] Harmony Mtz MD Acute bronchitis, unspecified organism (Primary Dx) 09/10/2024 Travel 09/09/2024 Telephone [facility] [address] [place] [phone] Latrice Hernandez MD Nurse Triage 09/09/2024 Refill [facility] [address] [place] [address] Latrice Hernandez MD PTSD (post-traumatic stress disorder); Bipolar affective disorder, remission status unspecified (CMS/HCC) from Last 3 Months Immunizations Name Administration [...] Sign Reading Time Taken Comments Blood Pressure 111/79 11/19/2024 9:20 AM EDT Pulse 110 11/19/2024 9:20 AM EDT Temperature 36.4 ??C (97.5 ??F) 11/19/2024 9:20 AM ED T Respiratory Rate 20 11/19/2024 9:20 AM EDT Oxygen Saturation 97% 11/19/2024 9:20 AM EDT Inhaled Oxygen Concentration - - Weight 71.5 kg (157 lb 9.6 oz) 09/26/2024 3:44 P M EST Height 154.9 cm (5' 1 ) 09/26/2024 3:44 PM EST Body Mass Index 29.78 09/26/2024 3:44 PM EST Plan of Treatment Upcoming Encounters Date Type Department Care Team (Late st Contact Info) Description 01/02/2025 4:00 PM EDT Office Visit [facility] [address] [place] [address] Latrice Hernandez MD [address] [place] [address] Health Maintenance Due Date Last Done Comments SDOH Screening 1980 Family Planning (PISQ) 1997 Pneumococcal Vaccine: Pediatrics (0 to 5 Years) and At-Risk Patients (6 to 49) Years) (1 of 2 - PCV) 2001 DTaP/Tdap/Td Vaccines (2 - Td or Tdap) 08/09/2021 08/09/2011 Mammogram 2022 Pap Smear 09/14/2023 09/14/2020, 09/14/2020 COVID-19 Vaccine ( season) 2024 07/05/2023, 09/17/2021, 12/12/2020, Additional history exists Depression Screening 12/23/2024 12/24/2023, 12/24/19 24 Cervical Cancer Screening 09/14/2025 HPV/Cotest 09/14/2025 09/14/2020, 01/21/2019 Alcohol/Substance Use Screening 09/26/2025 09/26/2024 Tobacco Screening 11/19/2025 11/19/2024 Lipid Panel 07/26/2027 07/26/2022 Zoster Vaccines (1 [...] Procedure Name Priority Date/Time Associated Diagnosis Comments XR CHEST 2 VIEWS Routine 11/19/2024 10:4 9 AM EDT Moderate persistent reactive airway disease without complication Acute cough POCT INFLUENZA B (ID NOW RAPID MOLECULAR) Routine 11/19/2024 10:18 AM EDT Wheezing POCT INFLUENZA A (ID NOW RAPID MOLECULAR) Routine 11/19/2024 10:18 AM EDT Wheezing POCT RAPID COVID ANTIGEN Routine 11/19/2024 10:18 AM EDT Wheezing [id number] QN Routine 10/15/2024 10:53 AM EDT Chronic obstructive pulmonary disease, unspecified COPD type (CMS/HCC) POCT RAPID COVID ANTIGEN Routine 09/10/2024 3:16 PM EST Acute bronchitis, unspecified organism POCT INFLUENZA B Routine 09/10/2024 3:16 PM EST Acute bronchitis, unspecified organism POCT INFLUENZA A Routine 09/10/2024 3:15 PM EST Acute bronchitis, unspecified organism HEPATITIS C AB W/REFL TO HCV RNA, [...] Recently Relevant to Health Maintenance Results * XR Chest 2 Views (11/19/2024 10:49 AM EDT) Anatomical Region Laterality Modality Chest Radiographic Kelli ging 11/19/2024 10:4 9 AM EDT Narrative 11/19/2024 11:10 AM EDT ?[facility] ?[address] ?[place] [address] ?XRay Report ? Signed ? Patient: Favian,Ivis ?MR#: [id number] ?? [id number] ? : 1980 ?Acct:[id number] ? Age/Sex: 43 / F ?ADM Date: 04/30/25 ? Loc: HO.HHCX ? Attending Dr: Latrice Hernandez MD ? Ordering Physician: Latrice Hernandez MD ?? Date of Service: 11/19/24 ?? Procedure(s): XR chest 2V ?? Accession Number(s): [id number] ? cc: Latrice Hernandez MD ? EXAMINATION: ?? XR CHEST ? CLINICAL INFORMATION: ?? cough/SOB ? COMPARISON: ?? None available. ? TECHNIQUE: ?? 2 views of the chest were obtained. ? FINDINGS: ?? Elevated left hemidiaphragm. ?? Blunting of the costophrenic angles bilaterally best seen on the ?? lateral projection. ?? No consolidation. No pneumothorax. ?? Cardiomediastinal silhouette size is normal. ?? Osseous structures are intact. ? XR/XR chest 2V ?? IMPRESSION: ?? Bilateral pleural effusions, small to moderate volume most conspicuous ?? on the left side. ? Electronically signed by: ??Magen Toro MD ??11/19/2024 11:07 AM ?? EDT RP ? Dictated By: ?Magen Layton MD ? Signed By: ?<Electronically signed by Magen Odell MD in OV> ? 11/19/24 1107 ? DD/ 1049 ? TD/TT: 11/19/24 1056 ? Supervisor Braiding: ? Procedure Note Shannon, Image - 11/19/2024 [place] [address] XRay Report Signed Patient: Ivis BallesterosMR#: [id number] : 1980Acct:[id number] Age/Sex: 43 / FADM Date: 11/19/24 Loc: HO.HHCX Attending Dr: Latrice Hernandez MD Ordering Physician: Latrice Hernandez MD Date of Service: 11/19/24 Procedure(s): XR chest 2V Accession Number(s): [id number] cc: Latrice Hernandez MD EXAMINATION: XR CHEST CLINICAL INFORMATION: cough/SOB COMPARISON: None available. TECHNIQUE: 2 views of the chest were obtained. FINDINGS: Elevated left hemidiaphragm. Blunting of the costophrenic angles bilaterally best seen on the lateral projection. No consolidation. No pneumothorax. Cardiomediastinal silhouette size is normal. Osseous structures are intact. XR/XR chest 2V IMPRESSION: Bilateral pleural effusions, small to moderate volume most conspicuous on the left side. Electronically signed by: Magen Toro MD 11/19/2024 11:07 AM EDT RP Dictated By: Magen Layton MD Signed By: <Electronically signed by Magen Odell MDin OV> 11/19/24 1107 DD/ 1049 TD/TT: 11/19/24 1056 Supervisor Braiding: Latrice Hernandez MD IMG XR PROCEDURES Edited Re sult - Final * Influenza B (ID NOW Rapid Molecular) (11/19/2024 10:18 AM EDT) Influenza B Negative Negative, Indeterminate [facility] Swab 11/19/2024 10:1 8 AM EDT Pantera Arredondo MD POINT OF CARE TEST ENTER/EDIT OR DERABLES Final Result Performing Organization Address [facility] Co de Phone Number [facility] [address] [place] [phone] * Influenza A (ID NOW Rapid Molecular) (11/19/2024 10:18 AM EDT) Influenza A Negative Negative, Indeterminate [facility] Swab 11/19/2024 10:1 8 AM EDT Pantera Arredondo MD POINT OF CARE TEST ENTER/EDIT OR DERABLES Final Result Performing Organization Address [facility] Co de Phone Number [facility] [address] [place] [phone] * POCT Rapid COVID Ag (11/19/2024 10:18 AM EDT) Only the most recent of2 resultswithin the time period is included. Rapid COVID Ag Negative [facility] Swab 11/19/2024 10:1 8 AM EDT Pantera Arredondo MD POINT OF CARE TEST ENTER/EDIT OR DERABLES Final Result Performing Organization Address City/[facility]/ZIP Co de Phone Number [facility] [address] [place] [phone] * Fwikl-0-Eszjupflumv, Quantitative (10/15/2024 10:53 AM EDT) Tlufa-8-Tsawrasa sin QN 122 83 - 199 mg/dL [facility] Comment:THIS TEST WAS PERFOR MED AT:[facility] [place] [phone] SHARP MD Blood Venous blood specimen / Unknown 10/15/2024 10:53 AM EDT 10/15/2024 2:15 PM EDT Latrice Hernandez MD LAB BLOOD ORDERABLES Final Result Performing Organization Address [facility] Co de Phone Number [facility] [address] [place] [phone] * POCT Rapid Influenza B OSOM (09/10/2024 3:16 PM EST) Rapid Influenza B Ag Negative Negative, Indeterminate QC Media Lot # [id number] Lot# Expiration Date Swab 09/10/2024 3:16 PM EST Harmony Mtz [...] TEST ENTER/EDIT OR DERABLES Final Result * Hepatitis C Antibody with Reflex to HCV, RNA, Quantitative, Real-Time PCR (06/06/2024 3:09 PM EST) Hepatitis C Antibody Nonreactive Nonreactive [facility] Comment:Antibodies to HCV no t detected; does not exclude early acuteHCV infection. Blood Venous blood specimen / Unknown 06/06/2024 3:09 PM EST 06/06/2024 3:56 PM EST Taihra AMBROCIO LAB BLOOD ORDERABLES Final Resul t [facility] [address] [place] [phone] * HIV-1/2 Antigen and Antibodies, Fourth Generation, with Reflexes (06/06/2024 3:09 PM EST) HIV AB/AG Nonreactive Nonreactive [facility] Comment:HIV-1 p24 Ag and/or HIV-1/HIV-2 Ab not detected.A test result that is nonreactive does not exclude thepossibility of exposure to or infection with HIV-1 and/orHIV-2. Nonreactive results in this assay for individualswith prior exposure to HIV-1 and/or HIV-2 may be due toantigen and antibody levels that are below the limit ofdetection of this assay.The [employer] HIV Ag/Ab Combo assay result andsupplemental assay results should be interpreted inconjunction with the patient's clinical presentation,history and other laboratory results. If the results areinconsistent with clinical evidence, additional testing issuggested to confirm the result. Blood Venous blood specimen / Unknown 06/06/2024 3:09 PM EST 06/06/2024 3:56 PM EST Tahira Cabrera [facility] LAB BLOOD ORDERABLES Final Resul t [facility] [address] [place], [place] [phone] * (ABNORMAL) Lipid Panel, Standard (07/26/2022 11:11 AM EST) Cholesterol, Total 192 <200 mg/dL [facility] [place] HDL Cholesterol 30(L) > OR = 50 mg/dL [facility] [place] Triglycerides 573(H) <150 mg/dL [facility] [place] Comment: If a non-fasting specimen was collected, consider repeat triglyceride testing on a fasting specimen if clinically indicated. Lori et al. J. of Clin. Lipidol. 2015;9:129-169. There is increased risk of pancreatitis when the triglyceride concentration is very high (> or = 500 mg/dL, especially if > or = 1000 mg/dL). Lori et al. J. of Clin. Lipidol. 2015;9:129-169. LDL Cholesterol Ques t [employer] [place] Comment: LDL cholesterol not calculated. Triglyceride levels [...] equation in the estimation of LDL-C. Sky SS et al. JESSICA. 2013;310(19): 7518-7527 (http://education.Monkeysee/faq/XUT114) Chol/HDLC Ratio 6.4(H) <5.0 (calc) [facility] [place] Non-HDL Cholesterol 162(H) <130 mg/dL (calc) [facility] [place] Comment: For patients with diabetes plus 1 major ASCVD risk factor, treating to a non-HDL-C goal of <100 mg/dL (LDL-C of <70 mg/dL) is considered a therapeutic option. Blood Venous blood specimen / Unknown 07/26/2022 11:11 AM EST 07/26/2022 11:11 AM EST Narrative [facility] - 07/31/2022 3:56 PM EST FASTING:NO FASTING: NO Latrice Hernandez MD LAB BLOOD ORDERABLES Final Result Performing Organization Address City/[facility]/ZIP Co de Phone Number [facility] [address] [place] [phone] [facility] [address], ([address]) [place] [phone] * HPV mRNA E6/E7 (09/14/2020 10:42 AM EST) HPV nRNA E6/E7 Not Detected Not Detected [facility] Comment: Methodology: Game Advisor-Mediated Amplification This assay detects E6/E7 viral messenger RNA (mRNA) from 14 high-risk HPV types (16,18,31,33,35,39,45,51,52,56,58,59,66,68). ? The analytical performance characteristics of this assay have been determined by [facility]. The modifications have not been cleared or approved by the FDA. This assay has been validated pursuant to the CLIA regulations and is used for clinical purposes. ?? For additional information, please refer to http://education.[employer]/FJQ387j2 (This link if provided for information/ educational purposes only.) 09/14/2020 10:4 2 AM EST Idania [facility]EP[facility] LAB BLOOD ORDERABLES Gilma l Result Performing Organization Address City/[facility]/ZIP Co de Phone Number [facility] [address] * Hm Pap Smear (09/14/2020) HM Pap smear Perform Historical Provider HEALTH MAINTENANCE Final Result from Last 3 Months or Most Recently Relevant to Health Maintenance Insurance [facility] C3 Care Teams Art Objects Repairer Relationship Specialty Start Date End Date Latrice Hernandez MD [address] [facility] [place] PCP - General Internal Medicine 07/23/18 Norris Casillas FNP [address] [facility] [place] Nurse Practitioner Family Medicine 06/07/23
--- OUTSIDE RECORDS SUMMARY | 2024-11-19 12:14 | XMS_ITS | Encounter Summary ---
Author Organization [employer] Address [address] [place] [address] [address] [place] [address] Care Team Providers Care Supervisor Dumping Name Role Phone Latrice Hernandez MD Primary Care Provider [phone] Norris Casillas Unavailable Unavailable Reason for Visit * Reason Comments Med Refill Encounter Details Date Type Department Care Team (Late st Contact Info) Description 07/24/2022 Refill [facility] [address] [place] [phone] Norris Casillas FNP Social History Tobacco Use [...] PM EDT Office Visit [facility] [address] [place] [address] Latrice Hernandez MD [address] [place] [address] documented as of this encounter Visit Diagnoses Not on filedocumented in this encounter Additional Health Concerns Assessment Noted Time PHQ-9 Depression Total Score: 15 022 1:56 PM EST documented as of this encounter Care Teams Supervisor Dumping Relationship Specialty Start Date End Date Latrice Hernandez MD [address] [place] [address] PCP - General Internal Medicine 07/23/18 Norris Casillas FNP [address] [place] [address] Nurse Practitioner Family Medicine 06/07/23 documented as of this encounter
--- OUTSIDE RECORDS SUMMARY | 2024-11-19 12:14 | XMS_ITS | Clinical Summary ---
Author Organization [facility] Address [address] [place] [address] Care Team Providers Care Kennel Supervisor Name Role Phone Unavailable Primary Care Provider [...] Cardiology appt in Jun 2024. Bipolar disorder ([facility]) 07/11/2022 Overview (04/03/2024): Last Assessment & Plan: [...] retiring, patient will be transferred to new [facility] psychiatric prescriber. Patient is aware that this person will work via [employer] and is not employed by [facility]. Patient gives verbal permission to share [...] adding low dose to avoid sedating effects. 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 on file Not on file Not on file Plan of Treatment Health Maintenance Due Date Last Done Comments Anxiety Screening 1982 Depression Monitoring 1982 Diabetes Screening 1982 HPV Screening 1982 Pap + HPV 1982 HIV Screening 1997 Relationship Safety Screening/Counseling 1997 Hypertension Screening (#1) 2000 Cervical Cancer Screening 11/24/2003 Pap Smear 11/24/2003 Imm-DTaP/Tdap/Td (2 - Td or Tdap) 08/09/2021 012 Breast Cancer Screening (Mammogram) 2022 [id number] ( season) 2024 07/05/2023, 09/17/2021, 12/12/2020, Additional [...] Discontinued Vaginal Pap Discontinued Vulvoscopy Discontinued Insurance [place] MEDICA[place] [facility]
--- OUTSIDE RECORDS SUMMARY | 2024-11-19 12:14 | XMS_ITS | Encounter Summary ---
Author Organization [employer] Address [address] [place] [address] Care Team Providers Care Merchant Patroller Name Role Phone Latrice Hernandez MD Primary Care Provider +1- [phone] Norris Casillas Unavailable Unavailable Encounter Details Date Type Department Care Team (Late st Contact Info) Description [facility] [address] [place], [place] [phone] Latrice Hernandez MD [address] [place] [address] Social History Tobacco Use Types Packs/Day Years [...] Description 01/02/2025 4:00 PM EDT Office Visit [facility] MED & PEDS [address] [place], [place] [phone] Latrice Hernandez MD [address] [place], [place] [phone] documented as of this encounter Visit Diagnoses Not on filedocumented in this encounter Additional Health Concerns Assessment Noted Time PHQ-9 Depression Total Score: 9 03/20/20 23 10:44 AM EDT documented as of this encounter Care Teams Merchant Patroller Relationship Specialty Start Date End Date Latrice Hernandez MD [address] [place] [address] PCP - General Internal Medicine 07/23/18 Norris Casillas FNP [address] [place] [address] Nurse Practitioner Family Medicine 06/07/23 documented as of this encounter
--- OUTSIDE RECORDS SUMMARY | 2024-11-19 12:14 | XMS_ITS | Encounter Summary ---
Author Organization [employer] Address [address] [facility] 7t [place] [address] Care Team Providers Care Supervisor Liquid Yeast Name Role Phone Latrice Hernandez MD Primary Care Provider +1- [phone] Norris Casillas Unavailable Unavailable Encounter Details Date Type Department Care Team (Late st Contact Info) Description 11/19/2024 10:00 AM EDT Office Visit [facility] [address] [place] [id number] COPD exacerbation (CMS/HCC) (Primary Dx); Tobacco dependence; Wheezing; Moderate persistent reactive airway disease without complication; Acute cough; Chronic obstructive pulmonary disease, unspecified COPD type (CMS/HCC) Social History Tobacco Use Types Packs/Day Years [...] EDT Inhaled Oxygen Concentration - - Weight - - Height - - Body Mass Index - - documented in this encounter Plan of Treatment Upcoming Encounters Date Type Department Care Team (Late st Contact Info) Description 01/02/2025 4:00 PM EDT Office Visit [facility] MED & PEDS [address] [place] [address] Latrice Hernandez MD [address] [place], [place] [phone] documented as of this encounter Procedures Procedure Name Priority Date/Time Associated Diagnosis Comments POCT INFLUENZA B (ID NOW RAPID MOLECULAR) Routine 11/19/2024 10:18 AM EDT Wheezing POCT INFLUENZA A (ID NOW RAPID MOLECULAR) Routine 11/19/2024 10:18 AM EDT Wheezing POCT RAPID COVID ANTIGEN Routine 11/19/2024 10:18 AM EDT Wheezing documented in this encounter Results * Influenza B (ID NOW Rapid Molecular) (11/19/2024 10:18 AM EDT) Influenza B Negative Negative, Indeterminate [facility] Swab 11/19/2024 10:1 8 AM EDT Pantera Arredondo MD POINT OF CARE TEST ENTER/EDIT OR DERABLES Final Result [facility] [address] [place] [address] [phone] * Influenza A (ID NOW Rapid Molecular) (11/19/2024 10:18 AM EDT) Pathologist [facility] Influenza A Negative Negative, Indeterminate [facility] Swab 11/19/2024 10:1 8 AM EDT us Pantera Arredondo MD POINT OF CARE TEST ENTER/EDIT OR DERABLES Final Result Performing Organization Address [facility] Co de Phone Number [facility] [address] [place] [address] [phone] * POCT Rapid COVID Ag (11/19/2024 10:18 AM EDT) Rapid COVID Ag Negative [facility] Swab 11/19/2024 10:1 8 AM EDT us Pantera Arredondo MD POINT OF CARE TEST ENTER/EDIT OR DERABLES Final Result Performing Organization Address [facility] de Phone Number [facility] [address] [place] [address] [phone] documented in this encounter Visit Diagnoses Diagnosis COPD exacerbation (CMS/HCC)- Primary Obstructive chronic bronchitis with exacerbation Tobacco dependence Tobacco use disorder Wheezing Moderate persistent reactive airway disease without complication Acute cough Chronic obstructive pulmonary disease, unspecified COPD type (CMS/HCC) documented in this encounter Administered Medications Inactive Administered Medications - up to 3 most recent administrations Medication Order MAR Action Action Date Dose Rate Site albuterol (2.5 MG/3ML) 0.083% nebulizer solution 2.5 mg 2.5 mg, Nebulization, Once, On Sun11/19/24 at 0945, For 1 doseIndications:Wheezing Given 11/19/2024 9:35 AM EDT 2.5 mg documented in this encounter Additional Health Concerns Assessment Noted Time PHQ-9 Depression Total Score: 9 12/24/19 24 9:18 AM EDT documented as of this encounter Care Teams Supervisor Liquid Yeast Relationship Specialty Start Date End Date Latrice Hernandez MD [address] [place] [address] PCP - General Internal Medicine 07/23/18 Norris Casillas FNP [address] [place] [address] Nurse Practitioner Family Medicine 06/07/23 documented as of this encounter
--- OUTSIDE RECORDS SUMMARY | 2024-11-19 12:14 | XMS_ITS | Encounter Summary ---
Author Organization [employer] Address [address] [place] [address] [address] [address] Care Team Providers Care Enginehouse Brakeman Name Role Phone Latrice Hernandez MD Primary Care Provider +1- [phone] Norris Casillas Unavailable Unavailable Encounter Details Date Type Department Care Team (Late st Contact Info) Description 09/07/2023 Orders Only [facility] MED & PEDS 505 [facility] [place] [address] Latrice Hernandez MD [address] [place] [address] Herpes (Primary Dx) Social History Tobacco Use [...] [facility] 505 [place] [address] Latrice Hernandez MD [address] [place] [address] documented as of this encounter Visit Diagnoses Diagnosis Herpes- Primary Herpes simplex without mention of complication documented in this encounter Additional Health Concerns Assessment Noted Time PHQ-9 Depression Total Score: 8 08/27/19 24 11:04 AM EST documented as of this encounter Care Teams Enginehouse Brakeman Relationship Specialty Start Date End Date Latrice Hernandez MD [address] [place] [address] PCP - General Internal Medicine 07/23/18 Norris Casillas FNP [address] [place] [address] Nurse Practitioner Family Medicine 06/07/23 documented as of this encounter
--- OUTSIDE RECORDS SUMMARY | 2024-11-19 12:14 | XMS_ITS | Encounter Summary ---
Author Organization [employer] Address [address] [place] [address] 7[place] [address] Care Team Providers Care Garage Helper Name Role Phone Latrice Hernandez MD Primary Care Provider +1- [phone] Norris Casillas Unavailable Unavailable Reason for Visit * Reason Onset Date Comments Nurse Triage 11/18/2024 Encounter Details Date Type Department Care Team ([facility] st Contact Info) Description 11/18/2024 Telephone [facility] MED & PEDS 505 [facility] [place] [address] Latrice Hernandez MD [address] [place] [address] Nurse Triage Social History Tobacco Use Types [...] encounter Miscellaneous Notes * Telephone Encounter - Mellisa Cabello RN - 11/18/2024 11:01 AM EDT Call returned to Ivis Ballesteros to triage below. Reports having chest pain some time . Pt statesran out of albuterol or nebulizer. Reports onset of sharp chest pain x 2 days. Per pt also having cough. Endorses intermittent wheezing. Does not have inhaler or nebulizer. States has been using sonsinahler. Pt made aware that albuterol rx sent on 11/14/24. Pt states only using spiriva, not QVAR orAsmanex. Pt speaking in clear full sentences. No audible wheezing. Pt advised of need for evaluation. Pt advised can seek WIC or seek ER for immediate evaluation. Reviewed WIC operating hours and that wait times vary. Reviewed home care advise, ER precautions and reasons to call back. Protocol Used: Asthma Attack (Adult) Protocol-Based Disposition: Go to ED/UCC Now (or to Office with PCP Approval) Positive Triage Question: * Chest pain (Exception: Mild chest tightness that feels the same as prior asthma attacks.) * All higher-acuity triage questions were negative Care Advice Discussed: * Reasons To Call Back - You become worse * Telephone Encounter - Rita Gandara - 11/18/2024 10:29 AM EDT Symptom: Chest Pain - Adult Outcome: Transfer to a nurse or provider NOW! Reason: Heaviness on chest The caller accepted this outcome. Contact pt at [phone] documented in this encounter Plan of Treatment Upcoming Encounters Date Type Department Care Team (Late st Contact Info) Description 01/02/2025 4:00 PM EDT Office Visit [facility] MED & PEDS [address] [place] [address] Latrice Hernandez MD [address] [place] [address] documented as of this encounter Visit Diagnoses Not on filedocumented in this encounter Additional Health Concerns Assessment Noted Time PHQ-9 Depression Total Score: 9 12/24/19 24 9:18 AM EDT documented as of this encounter Care Teams Garage Helper Relationship Specialty Start Date End Date Latrice Hernandez MD [address] [place] [address] PCP - General Internal Medicine 07/23/18 Norris Casillas FNP [address] [place] [address] Nurse Practitioner Family Medicine 06/07/23 documented as of this encounter
--- OUTSIDE RECORDS SUMMARY | 2024-11-19 12:14 | XMS_ITS | Encounter Summary ---
Author Organization [employer] Address [address] [place] [address] 7 [place] [address] Care Team Providers Care Traveling Storekeeper Name Role Phone Latrice Hernandez MD Primary Care Provider +1- [phone] Norris Casillas Unavailable Unavailable Encounter Details Date Type Department Care Team (Late st Contact Info) Description 09/29/[address] [facility] MEDICINE [address] [place] [address] Latrice Hernandez MD [address] [place] [address] Chronic obstructive pulmonary disease, unspecified COPD type (CMS/HCC) (Primary Dx) Social History Tobacco Use Types [...] Description 01/02/2025 4:00 PM EDT Office Visit [facility] CHC MED & PEDS [address] [place] [address] Latrice Hernandez MD [address] [place] [address] documented as of this encounter Procedures Procedure Name Priority Date/Time Associated Diagnosis Comments [id number]-4-[id number] QN Routine 10/15/2024 10:53 AM EDT Chronic obstructive pulmonary disease, unspecified COPD type (CMS/HCC) documented in this encounter Results * Uxgsk-8-Vrhsquyajyz, Quantitative (10/15/2024 10:53 AM EDT) Xlfmh-5-Tbquulgz sin QN 122 83 - 199 mg/dL [facility] Comment:THIS TEST WAS PERFOR MED AT:[employer] [place] [id number] SHARP MD Blood Venous blood specimen / Unknown 10/15/2024 10:53 AM EDT 10/15/2024 2:15 PM EDT Latrice Hernandez MD LAB BLOOD ORDERABLES Final Result [facility] [address] [place] [address] [phone] documented in this encounter Visit Diagnoses Diagnosis Chronic obstructive pulmonary disease, unspecified COPD type (CMS/HCC)- Primary documented in this encounter Additional Health Concerns Assessment Noted Time PHQ-9 Depression Total Score: 9 12/24/19 24 9:18 AM EDT documented as of this encounter Care Teams Traveling Storekeeper Relationship Specialty Start Date End Date Latrice Hernandez MD [address] [place] [address] PCP - General Internal Medicine 07/23/18 Norris Casillas FNP [address] [place] [address] Nurse Practitioner Family Medicine 06/07/23 documented as of this encounter
--- OUTSIDE RECORDS SUMMARY | 2024-11-19 12:14 | XMS_ITS | Encounter Summary ---
Author Organization [employer] Address [address] [place] [address] Care Team Providers Care Auto Service Mechanic Name Role Phone Latrice Hernandez MD Primary Care Provider +1- [phone] Norris Casillas Unavailable Unavailable Reason for Visit * Reason Comments Med Refill Encounter Details Date Type Department Care Team ([facility] Contact Info) Description 06/29/2022 Refill [facility] MEDICINE [address] [place] [address] Latrice Hernandez MD [address] [place], [place] [phone] Herpesviral infection, unspecified Social History Tobacco Use [...] Upcoming Encounters Date Type Department Care Team ([facility] Contact Info) Description 01/02/2025 4:00 PM EDT Office Visit [facility] CH[facility] MED & PEDS [address] [place], [place] [phone] Latrice Hernandez MD [address] [place], [place] [phone] documented as of this encounter Visit Diagnoses Diagnosis Herpesviral infection, unspecified documented in this encounter Care Teams Auto Service Mechanic Relationship Specialty Start Date End Date Beauzile, Thevenin, MD [address] [place] [address] PCP - General Internal Medicine 07/23/18 Norris Casillas FNP [address] [place] [address] Nurse Practitioner Family Medicine 06/07/23 documented as of this encounter
--- OUTSIDE RECORDS SUMMARY | 2024-11-19 12:14 | XMS_ITS | Encounter Summary ---
Author Organization [employer] Address [address] [facility] 7 [place] [address] Care Team Providers Care Sr. Director Product Management Name Role Phone Latrice Hernandez MD Primary Care Provider +1- [phone] Norris Casillas Unavailable Unavailable Reason for Visit * Reason Onset Date Comments Nurse Triage 12/26/2023 Encounter Details Date Type Department Care Team (Late st Contact Info) Description 12/26/2023 Telephone [facility] MEDICINE [address] [place] [address] Latrice Hernandez MD 505 [facility] [place] [phone] Nurse Triage Social History Tobacco Use Types [...] of kidney stones . Pt is offered [facility] tonight open till 8pm in [facility] and [id number]. No available apts in [facility] this week and Pt can't go to [facility] in afternoon. Pt reports will go to ED if needed. Pt agrees with [...] Description 01/02/2025 4:00 PM EDT Office Visit [facility] MED & PEDS [address] [place] [address] Latrice Hernandez MD [address] [place] [address] documented as of this encounter Visit Diagnoses Not on filedocumented in this encounter Additional Health Concerns Assessment Noted Time PHQ-9 Depression Total Score: 9 12/24/19 24 9:18 AM EDT documented as of this encounter Care Teams Sr. Director Product Management Relationship Specialty Start Date End Date Latrice Hernandez MD [address] [place] [address] PCP - General Internal Medicine 07/23/18 Norris Casillas FNP [address] [place] [address] Nurse Practitioner Family Medicine 06/07/23 documented as of this encounter
--- OUTSIDE RECORDS SUMMARY | 2024-11-19 12:14 | XMS_ITS | Encounter Summary ---
Author Organization [employer] Address [address] [place] [address], [place] [address] Care Team Providers Care Manager Employee Benefits Name Role Phone Latrice Hernandez MD Primary Care Provider +1- [phone] Norris Casillas Unavailable Unavailable Encounter Details Date Type Department Care Team (Late st Contact Info) Description 03/27/2023 Orders Only [facility] CHC MED & PEDS 505 [facility] [place] [address] Latrice Hernandez MD [address] [place] [address] Scabies exposure (Primary Dx) Social History Tobacco [...] Description 01/02/2025 4:00 PM EDT Office Visit [facility] CHC MED & PEDS [address] [place], [place] [phone] Latrice Hernandez MD [address] [place], [place] [phone] documented as of this encounter Visit Diagnoses Diagnosis Scabies exposure- Primary documented in this encounter Additional Health Concerns Assessment Noted Time PHQ-9 Depression Total Score: 9 03/20/20 23 10:44 AM EDT documented as of this encounter Care Teams Manager Employee Benefits Relationship Specialty Start Date End Date Latrice Hernandez MD [address] [place] [address] PCP - General Internal Medicine 07/23/18 Norris Casillas FNP [address] [place] [address] Nurse Practitioner Family Medicine 06/07/23 documented as of this encounter
== END 2024-11-19 10:49 | disposition home or self-care (01) ==
LOC: HO.HHCX 10:48
PROVIDERS: Visit Provider Internal Medicine
DX: J45.40 Moderate persistent asthma, uncomplicated (principal); R05.1 Acute cough
CPT/HCPCS: 71046

== ENCOUNTER → 2024-11-19 10:49 | Outpatient (BNV) | payer MEDICAID, SELFPAY | PROVIDERS: Visit Provider Radiology Diagnostic Radiology | DX: J90 Pleural effusion, not elsewhere classified (principal) | CPT/HCPCS: 71046 ==

== ENCOUNTER 2024-11-27 10:18 | Outpatient (REF) | payer MEDICAID, SELFPAY ==
--- OUTSIDE RECORDS SUMMARY | 2024-11-27 11:29 | XMS_ITS | Encounter Summary ---
Author Organization [employer] Address [address] [facility] 7t [place] [address] Care Team Providers Care Rocket Assembly Operator Name Role Phone Latrice Hernandez MD Primary Care Provider +1- [phone] Norris Casillas Unavailable Unavailable Encounter Details Date Type Department Care Team (Late st Contact Info) Description 09/29/2024 Orders Only [facility] MEDICINE [address] [place] [address] Latrice Hernandez MD [address] [place] [address] Chronic obstructive pulmonary disease, unspecified COPD type [...] Description 01/02/2025 4:00 PM EDT Office Visit [facility] CHC MED & PEDS [address] [place] [address] Latrice Hernandez MD [address] [place] [address] documented as of this encounter Procedures Procedure Name Priority Date/Time Associated Diagnosis Comments PPAXM-5-RXMOQIDVZYP QN Routine 10/15/2024 10:53 AM EDT Chronic obstructive pulmonary disease, unspecified COPD type (CMS/HCC) documented in this encounter Results * Wpkkb-5-Vrjwlsmdtqa, Quantitative (10/15/2024 10:53 AM EDT) Nlpuv-9-Lgxczaxb sin QN 122 83 - 199 mg/dL [facility] Comment:THIS TEST WAS PERFOR MED AT:[employer] [place] [id number] SHARP MD Blood Venous blood specimen / Unknown 10/15/2024 10:53 AM EDT 10/15/2024 2:15 PM EDT Latrice Hernandez MD LAB BLOOD ORDERABLES Final Result [facility] [address] [place] [address] [phone] documented in this encounter Visit Diagnoses Diagnosis Chronic obstructive pulmonary disease, unspecified COPD type (CMS/HCC)- Primary documented in this encounter Additional Health Concerns Assessment Noted Time PHQ-9 Depression Total Score: 9 12/24/19 24 9:18 AM EDT documented as of this encounter Care Teams Rocket Assembly Operator Relationship Specialty Start Date End Date Latrice Hernandez MD [address] [place] [address] PCP - General Internal Medicine 07/23/18 Norris Casillas FNP [address] [place] [address] Nurse Practitioner Family Medicine 06/07/23 documented as of this encounter
--- OUTSIDE RECORDS SUMMARY | 2024-11-27 11:29 | XMS_ITS | Encounter Summary ---
Author Organization [employer] Address [address] [facility] 7t [place] [address] Care Team Providers Care Vocational Training Instructor Name Role Phone Latrice Hernandez MD Primary Care Provider +1- [phone] Norris Casillas Unavailable Unavailable Reason for Visit * Reason Onset Date Comments Nurse Triage 12/28/2023 ER Follow-up 12/28/2023 Encounter Details Date Type Department Care Team (Late st Contact Info) Description 12/28/2023 Telephone [facility] MEDICINE [address] [place] [address] Latrice Hernandez MD 505 [place] [address] Nurse Triage; ER Follow-up Social History Tobacco [...] triage, spoke to pt. pt states seen [facility] on 12/25 for [...] is still symptomatic. Please contact pt at [phone] * Telephone Encounter - Mikala York - 12/28/2023 11:39 AM EDT Patient calling to report ED visit on : Date: 12/25 Hospital: [facility] Seen for: Patient advised will forward to team nurse for follow up documented in this encounter Plan of Treatment Upcoming Encounters Date Type Department Care Team (Late st Contact Info) Description 01/02/2025 4:00 PM EDT Office Visit [facility] MED & PEDS [address] [place] [address] Latrice Hernandez MD [address] [place] [address] documented as of this encounter Visit Diagnoses Not on filedocumented in this encounter Additional Health Concerns Assessment Noted Time PHQ-9 Depression Total Score: 9 12/24/19 24 9:18 AM EDT documented as of this encounter Care Teams Vocational Training Instructor Relationship Specialty Start Date End Date Latrice Hernandez MD [address] [place] [address] PCP - General Internal Medicine 07/23/18 Norris Casillas FNP [address] [place] [address] Nurse Practitioner Family Medicine 06/07/23 documented as of this encounter
--- OUTSIDE RECORDS SUMMARY | 2024-11-27 11:29 | XMS_ITS | Encounter Summary ---
Author Organization [employer] Address [address] [place] [address] 7 [place] [address] Care Team Providers Care Cloth Mercerizer Back Tender Name Role Phone Latrice Hernandez MD Primary Care Provider +1- [phone] Norris Casillas Unavailable Unavailable Encounter Details Date Type Department Care Team (Late st Contact Info) Description 09/07/2023 Orders Only [facility] MED & PEDS [address] [place] [address] Latrice Hernandez MD [address] [place] [address] Herpes (Primary Dx) Social History Tobacco Use [...] 01/02/2025 4:00 PM EDT Office Visit [facility] MED & PEDS 505 [place] [address] Latrice Hernandez MD [address] [place] [address] documented as of this encounter Visit Diagnoses Diagnosis Herpes- Primary Herpes simplex without mention of complication documented in this encounter Additional Health Concerns Assessment Noted Time PHQ-9 Depression Total Score: 8 08/27/19 24 11:04 AM EST documented as of this encounter Care Teams Cloth Mercerizer Back Tender Relationship Specialty Start Date End Date Latrice Hernandez MD [address] [place] [address] PCP - General Internal Medicine 07/23/18 Norris Casillas FNP [address] [place] [address] Nurse Practitioner Family Medicine 06/07/23 documented as of this encounter
--- OUTSIDE RECORDS SUMMARY | 2024-11-27 11:29 | XMS_ITS | Encounter Summary ---
Author Organization [employer] Address [address] [place] [address] 7t [place] [address] Care Team Providers Care Engineer Technical Staff Name Role Phone Latrice Hernandez MD Primary Care Provider [phone] Norris Casillas ENGLISH FACULTY MEMBER Unavailable Unavailable Reason for Referral * Imaging (Routine) - Pending Review Specialty Diagnoses / Procedures Referred By Contac t Referred To Contact Radiology Diagnoses Pleural effusion Procedures CT Chest w/o Contrast Latrice Hernandez MD [address] [place] [address] Phone: tel: fax: [address] Phone: tel: fax: Referral ID Status Reason Start Date Expiration Date V isits Requested Visits Authorized [id number] Pending Review 11/27/2024 11/27/2025 1 1 * Cardiology (Routine) - Pending Review Specialty Diagnoses / Procedures Referred By Contac t Referred To Contact Cardiology Diagnoses Tachycardia Procedures Holter monitor - 48 hour Latrice Hernandez MD [address] [place] [address] Phone: tel: fax: [address] Phone: tel: fax: Referral ID Status Reason Start Date Expiration Date V isits Requested Visits Authorized [id number] Pending Review 11/27/2024 11/27/2025 1 1 * Consultation (Routine) - Pending Review Specialty Diagnoses / Procedures Referred By Contnaveed t Referred To Contact Cardiology Diagnoses Tachycardia Latrice Hernandez MD [address] [place] [address] Phone: tel: fax: Referral ID Status Reason Start Date Expiration Date Visits Requested Visits Authorized [id number] Pending Review Specialty Services Required 11/27/2024 11/27/2025 1 1 Encounter Details Date Type Department Care Team ([facility] st Contact Info) Description 11/27/2024 9:30 AM EDT Office Visit [facility] CHC MED & PEDS [address] [place] [address] Latrice Hernandez MD [address] [place] [address] COPD exacerbation (CMS/HCC) (Primary Dx); Tachycardia; Pleural effusion Social History Tobacco Use Types Packs/Day Years [...] Sign Reading Time Taken Comments Blood Pressure 118/77 11/27/2024 9:33 AM EDT Pulse 114 11/27/2024 9:33 AM EDT Temperature 36.7 ??C (98 ??F) 11/27/2024 9:33 AM EDT Respiratory Rate 20 11/27/2024 9:33 AM EDT Oxygen Saturation 95% 11/27/2024 9:33 AM EDT Inhaled Oxygen Concentration - - Weight 71.2 kg (157 lb) 11/27/2024 9:33 AM EDT Height 154.9 cm (5' 1 ) 11/27/2024 9:33 AM EDT Body Mass Index 29.66 11/27/2024 9:33 AM EDT documented in this encounter Plan of Treatment Upcoming Encounters Date Type Department Care Team (Late st Contact Info) Description 01/02/2025 4:00 PM EDT Office Visit [facility] MED & PEDS [address] [place] [address] Latrice Hernandez MD [address] [place], [place] [phone] Scheduled Orders Name Type Priority Associated Diagnoses Orde r Schedule Holter monitor - 48 hour Cardiac Services Routine Tachycardia Expected: 11/27/2024 (Approximate), Expires: 11/27/2026 TSH W/Reflex to FT4 Lab Routine Tachycardia Expected: 11/27/2024 (Approximate), Expires: 11/27/2025 Basic Metabolic Panel Lab Routine Tachycardia Expected: 11/27/2024 (Approximate), Expires: 11/27/2025 POCT [id number] Urine Drug Screen Point of Care Testing Routine Tachycardia Ordered: 11/27/2024 CT Chest w/o Contrast Imaging Routine Pleural effusion Expected: 11/27/2024, Expires: 11/27/2025 Alpha 1 Antitrypsin Lab Routine COPD exacerbation (CMS/HCC) Pleural effusion Expected: 11/27/2024 (Approximate), Expires: 11/27/2025 Sed Rate by Modified W[place]gren Lab Routine Pleural effusion Expected: 11/27/2024, Expires: 11/27/2025 Rheumatoid Factor Lab Routine Pleural effusion Expected: 11/27/2024, Expires: 11/27/2025 C-reactive Protein Lab Routine Pleural effusion Expected: 11/27/2024 (Approximate), Expires: 11/27/2025 SOUMYA Screen,IFA, with Reflex to Titer and Pattern Lab Routine Pleural effusion Expected: 11/27/2024 (Approximate), Expires: 11/27/2025 Scheduled Referrals Name Type Priority Associated Diagnoses Order Schedule Referral to Cardiology Outpatient Referral Routine Tachycardia Expected: 11/27/2024 (Approximate), Expires: 11/27/2025 documented as of this encounter Visit Diagnoses Diagnosis COPD exacerbation ([facility])- Primary Obstructive chronic bronchitis with exacerbation Tachycardia Unspecified tachycardia Pleural effusion Unspecified pleural effusion documented in this encounter Additional Health Concerns Assessment Noted Time PHQ-9 Depression Total Score: 9 12/24/19 24 9:18 AM EDT documented as of this encounter Care Teams Engineer Technical Staff Relationship Specialty Start Date End Date Latrice Hernandez MD [address] [place] [address] PCP - General Internal Medicine 07/23/18 Norris Casillas FNP [address] [place] [address] Nurse Practitioner Family Medicine 06/07/23 documented as of this encounter
--- OUTSIDE RECORDS SUMMARY | 2024-11-27 11:29 | XMS_ITS | Clinical Summary ---
Author Organization [facility] Address [address] [place] [address] Care Team Providers Care Oil Inspector Name Role Phone Unavailable Primary Care Provider [...] Cardiology appt in Jun 2024. Bipolar disorder ([facility]) 07/11/2022 Overview (04/03/2024): Last Assessment & [...] retiring, patient will be transferred to new [facility] psychiatric prescriber. Patient is aware that this person will work via [employer] and is not employed by [facility]. Patient gives verbal permission to share [...] adding low dose to avoid sedating effects. 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
--- OUTSIDE RECORDS SUMMARY | 2024-11-27 11:29 | XMS_ITS | Encounter Summary ---
Author Organization [employer] Address [address] [place] [address] 7 [place] [address] Care Team Providers Care Bowstring Maker Name Role Phone Latrice Hernandez MD Primary Care Provider [phone] Norris Casillas Unavailable Unavailable Encounter Details Date Type Department Care Team (Late st Contact Info) Description 03/27/2023 Orders Only [facility] CHC MED & PEDS [address] [place] [address] Latrice Hernandez MD [address] [place] [address] Scabies exposure (Primary Dx) Social History Tobacco [...] Description 01/02/2025 4:00 PM EDT Office Visit [facility] CHC MED & PEDS [address] [place], [place] [phone] Latrice Hernandez MD [address] [place], [place] [phone] documented as of this encounter Visit Diagnoses Diagnosis Scabies exposure- Primary documented in this encounter Additional Health Concerns Assessment Noted Time PHQ-9 Depression Total Score: 9 03/20/20 23 10:44 AM EDT documented as of this encounter Care Teams Bowstring Maker Relationship Specialty Start Date End Date Latrice Hernandez MD [address] [place] [address] PCP - General Internal Medicine 07/23/18 Norris Casillas FNP [address] [place] [address] Nurse Practitioner Family Medicine 06/07/23 documented as of this encounter
--- OUTSIDE RECORDS SUMMARY | 2024-11-27 11:29 | XMS_ITS | Encounter Summary ---
Author Organization [employer] Address [address] [place] [address] 7 [place] [address] Care Team Providers Care Cook'S Assistant Name Role Phone Latrice Hernandez MD Primary Care Provider [phone] Norris Casillas CALIBRATOR BAROMETERS Unavailable Unavailable Encounter Details Date Type Department Care Team (Latest Contact Info) Description 11/27/2024 Travel Social History Tobacco Use Types Packs/Day [...] Description 01/02/2025 4:00 PM EDT Office Visit [facility] CHC MED & PEDS 505 [facility] [place] [phone] Latrice Hernandez MD [address] [place] [address] documented as of this encounter Visit Diagnoses Not on filedocumented in this encounter Additional Health Concerns Assessment Noted Time PHQ-9 Depression Total Score: 9 12/24/19 24 9:18 AM EDT documented as of this encounter Care Teams Cook'S Assistant Relationship Specialty Start Date End Date Latrice Hernandez MD [address] [facility] [place] [address] PCP - General Internal Medicine 07/23/18 Norris Casillas FNP 505 [facility] [place] [address] Nurse Practitioner Family Medicine 06/07/23 documented as of this encounter
--- OUTSIDE RECORDS SUMMARY | 2024-11-27 11:29 | XMS_ITS | Encounter Summary ---
Author Organization [employer] Address [address] [place] [address] Care Team Providers Care Sales Planning Coordinator Name Role Phone Latrice Hernandez MD Primary Care Provider [phone] Norris Casillas Unavailable Unavailable Reason for Visit * Reason Comments Med Refill Encounter Details Date Type Department Care Team ([facility] Contact Info) Description 06/29/2022 Refill [facility] MEDICINE [address] [place], [place] [phone] Latrice Hernandez MD [address] [place] [address] Herpesviral infection, unspecified Social History Tobacco Use [...] Upcoming Encounters Date Type Department Care Team ([facility] Contact Info) Description 01/02/2025 4:00 PM EDT Office Visit [facility] CHC MED & PEDS [address] [place], [place] [phone] Latrice Hernandez MD [address] [place], [place] [phone] documented as of this encounter Visit Diagnoses Diagnosis Herpesviral infection, unspecified documented in this encounter Care Teams Sales Planning Coordinator Relationship Specialty Start Date End Date Latrice Hernandez MD [address] [place] [address] PCP - General Internal Medicine 07/23/18 Norris Casillas FNP [address] [place] [address] Nurse Practitioner Family Medicine 06/07/23 documented as of this encounter
--- OUTSIDE RECORDS SUMMARY | 2024-11-27 11:29 | XMS_ITS | Encounter Summary ---
Author Organization [employer] Address [address] [facility] 7 [place] [address] Care Team Providers Care Branch Mechanic Name Role Phone Latrice Hernandez MD Primary Care Provider [phone]- [phone] Norris Casillas Unavailable Unavailable Encounter Details Date Type Department Care Team ([facility] st Contact Info) Description 11/24/2024 Telephone [facility] CHC MED & PEDS [address] [place] [address] Latrice Hernandez MD [address] [place] [address] Social History Tobacco Use Types Packs/Day Years [...] encounter Miscellaneous Notes * Telephone Encounter - Gi Smith RN - 11/24/2024 1:59 PM EDT Letter sent to pt after speaking with PCP, due to pt not answering TC. documented in this encounter Plan of Treatment Upcoming Encounters Date Type Department Care Team (Late st Contact Info) Description 01/02/2025 4:00 PM EDT Office Visit [facility] MED & PEDS [address] [place] [address] Latrice Hernandez MD [address] [place] [address] documented as of this encounter Visit Diagnoses Not on filedocumented in this encounter Additional Health Concerns Assessment Noted Time PHQ-9 Depression Total Score: 9 12/24/19 24 9:18 AM EDT documented as of this encounter Care Teams Branch Mechanic Relationship Specialty Start Date End Date Latrice Hernandez MD [address] [place] [address] PCP - General Internal Medicine 07/23/18 Norris Casillas FNP [address] [place] [address] Nurse Practitioner Family Medicine 06/07/23 documented as of this encounter
--- OUTSIDE RECORDS SUMMARY | 2024-11-27 11:29 | XMS_ITS | Encounter Summary ---
Author Organization [employer] Address [address] [facility] 7t [place] [address] Care Team Providers Care Freight Rate Analyst Name Role Phone Latrice Hernandez MD Primary Care Provider [phone]- [phone] Norris Casillas Unavailable Unavailable Reason for Visit * Reason Onset Date Comments Nurse Triage 12/26/2023 Encounter Details Date Type Department Care Team (Late st Contact Info) Description 12/26/2023 Telephone [facility] MEDICINE [address] [place] [address] Latrice Hernandez MD 505 [facility] [place] [phone] Nurse Triage Social History Tobacco Use Types [...] of kidney stones . Pt is offered DEC tonight open till 8pm in [facility] and tomorrow 830am-400pm. No available apts in [facility] this week and Pt can't go to [facility] in afternoon. Pt reports [...] Upcoming Encounters Date Type Department Care Team ([facility] st Contact Info) Description 01/02/2025 4:00 PM EDT Office Visit [facility] MED & PEDS [address] [place], [place] [phone] Latrice Hernandez MD [address] [place], [place] [phone] documented as of this encounter Visit Diagnoses Not on filedocumented in this encounter Additional Health Concerns Assessment Noted Time PHQ-9 Depression Total Score: 9 12/24/19 24 9:18 AM EDT documented as of this encounter Care Teams Freight Rate Analyst Relationship Specialty Start Date End Date Latrice Hernandez MD [address] [place] [address] PCP - General Internal Medicine 07/23/18 Norris Casillas FNP [address] [place] [address] Nurse Practitioner Family Medicine 06/07/23 documented as of this encounter
--- OUTSIDE RECORDS SUMMARY | 2024-11-27 11:29 | XMS_ITS | Clinical Summary ---
Author Organization [address] [place] [address] [place] [phone] Phone Care Team Providers Care Men'S Garment Fitter Name Role Phone Latrice Hernandez MD Primary Care Provider [phone] Allergies Active Allergy Reactions Criticality Noted Date [...] Date Site/Laterality Comments OTHER SURGICAL HISTORY PROCEDURE: LA WEDGE EXCISION SKIN NAIL FOLD OTHER SURGICAL HISTORY PROCEDURE: LA LITHOTRIPSY XTRCORP SHOCK WAVE Medical History Medical [...] Description 12/04/2024 8:30 AM EDT Ancillary Procedure [facility] [address] [place] [address] 12/25/2024 9:15 AM EDT Office Visit [facility] - [place] [address] [phone] Bong Tilley, DPM [address] [address] 01/06/2025 4:30 PM EDT Appointment [facility] Neurodiagnostic [address] [place] [phone] Health Maintenance Due Date Last Done Comments [...] (10/13/2016) Cervical Cancer Screening: HPV Negative, abstracted [facility] Provider MD HEALTH MAINTENANCE Final Result from Last 3 Months or Most Recently Relevant to Health Maintenance Insurance MEDICAID - [place] Care Teams Men'S Garment Fitter Relationship Specialty Start Date End Date Latrice Hernandez MD [address] [place] [address] PCP - General Internal Medicine 09/18/18
--- OUTSIDE RECORDS SUMMARY | 2024-11-27 11:29 | XMS_ITS | Encounter Summary ---
Author Organization [employer] Address [address] [place] [address] [address], [place] [address] Care Team Providers Care Lasting Floorworker Name Role Phone Latrice Hernandez MD Primary Care Provider [phone]- [phone] Norris Casillas Unavailable Unavailable Encounter Details Date Type Department Care Team (Late Contact Info) Description 04/03/2023 [facility] Information Management [address] [place] [address] Latrice Hernandez MD [address] [place] [address] Social History Tobacco Use Types Packs/Day Years [...] Description 01/02/2025 4:00 PM EDT Office Visit [facility] CHC MED & PEDS 505 [facility] [place] [id number] Latrice Hernandez MD [address] [place], [place] [phone] documented as of this encounter Visit Diagnoses Not on filedocumented in this encounter Additional Health Concerns Assessment Noted Time PHQ-9 Depression Total Score: 9 03/20/20 23 10:44 AM EDT documented as of this encounter Care Teams Lasting Floorworker Relationship Specialty Start Date End Date Latrice Hernandez MD [address] [place] [address] PCP - General Internal Medicine 07/23/18 Norris Casillas FNP [address] [place] [address] Nurse Practitioner Family Medicine 06/07/23 documented as of this encounter
--- OUTSIDE RECORDS SUMMARY | 2024-11-27 11:29 | XMS_ITS | Encounter Summary ---
Author Organization [employer] Address [address] [place] [address] 7t [place] [address] Care Team Providers Care Clinical Law Professor Name Role Phone Latrice Hernandez MD Primary Care Provider [phone]- [phone] Norris Casillas Unavailable Unavailable Reason for Visit * Reason Onset Date Comments ER Follow-up 11/25/2024 Referral 11/25/2024 Encounter Details Date Type Department Care Team ([facility] st Contact Info) Description 11/25/2024 Telephone [facility] CHC MED & PEDS [address] [place] [address] Latrice Hernandez MD [address] [place] [address] ER Follow-up; Referral Social History Tobacco Use Types Packs/Day Years [...] Telephone Encounter - Gi Smith RN - 11/25/2024 2:19 PM EDT TC to pt. Pt states that she feels better after taking her steroid from the ED and her nebulizer from walk-in, but not 100%. Pt states that she has hands and feet swelling and tachycardia and the ED states that she needs a cardiology referral. RN explained reasons for going back to ED including SOB, a couple of pounds wt gain over a couple day, CP. Pt states she has been gaining a lot of wt lately and thinks it has something about her Topamax. RN explained that Topamax sometimes helps people lose wt because of appetite suppression. Pt has gained 5 pounds since 09/26/24 and RN told pt that she could ask about wt loss medication when she has her ED follow up. ED f/u scheduled for 11/27/24 at 9:30. Pt verbalized understanding and agreement of plan of care. * Telephone Encounter - Rita Gandara - 11/25/2024 1:07 PM EDT Patient calling to report ED visit on : Date: 11/24/24 [facility]: [facility] Seen for: difficulty breathing, hand and feet swelling, trouble walking. Pt denied triage. Was prescribed prednisone. Pt stated she was advised to request referral to sales operations director Patient advised will forward to team nurse for follow up Contact pt at [phone] documented in this encounter Plan of Treatment Upcoming Encounters Date Type Department Care Team (Late st Contact Info) Description 01/02/2025 4:00 PM EDT Office Visit [facility] CHC MED & PEDS [address] [place] [address] Latrice Hernandez MD [address] [place] [address] documented as of this encounter Visit Diagnoses Not on filedocumented in this encounter Additional Health Concerns Assessment Noted Time PHQ-9 Depression Total Score: 9 12/24/19 24 9:18 AM EDT documented as of this encounter Care Teams Clinical Law Professor Relationship Specialty Start Date End Date Latrice Hernandez MD [address] [place] [address] PCP - General Internal Medicine 07/23/18 Norris Casillas FNP [address] [place] [address] Nurse Practitioner Family Medicine 06/07/23 documented as of this encounter
--- OUTSIDE RECORDS SUMMARY | 2024-11-27 11:29 | XMS_ITS | Encounter Summary ---
Author Organization [employer] Address [address] [facility] 7t [place] [address] Care Team Providers Care Plastics Nurse Name Role Phone Latrice Hernandez MD Primary Care Provider [phone]- [phone] Norris Casillas Unavailable Unavailable Reason for Visit * Reason Onset Date Comments Nurse Triage 07/30/2024 Encounter Details Date Type Department Care Team ([facility] st Contact Info) Description 07/30/2024 Telephone [facility] CHC MED & PEDS 505 [facility] [place] [address] Latrice Hernandez MD [address] [place] [address] Nurse Triage Social History Tobacco Use Types [...] to work effective 08/04/2024. Patient seen by Brewery Cellar Worker and given bilateral braces. Remains with discomfort [...] Description 01/02/2025 4:00 PM EDT Office Visit [facility] MED & PEDS [address] [place] [address] Latrice Hernandez MD [address] [place] [address] documented as of this encounter Visit Diagnoses Not on filedocumented in this encounter Additional Health Concerns Assessment Noted Time PHQ-9 Depression Total Score: 9 12/24/19 24 9:18 AM EDT documented as of this encounter Care Teams Plastics Nurse Relationship Specialty Start Date End Date Latrice Hernandez MD [address] [place], [place] [phone] PCP - General Internal Medicine 07/23/18 Norris Casillas FNP [address] [place] [address] Nurse Practitioner Family Medicine 06/07/23 documented as of this encounter
--- OUTSIDE RECORDS SUMMARY | 2024-11-27 11:29 | XMS_ITS | Clinical Summary ---
Author Organization [employer] Address [address] [place] [address] 7t [place] [address] Care Team Providers Care Mine Engineering Supervisor Name Role Phone Latrice Heranndez MD Primary Care Provider [phone] Norris Casillas Unavailable Unavailable Allergies Active Allergy Reactions Criticality Noted Date Comments Pollen Extract 11/13/2017 Quetiapine 07/29/2018 Other reaction(s): Unknown Medications diphenhydrAMINE (BENADryl) 25 MG tablet take 1 Tablet by oral route every bedtime as needed 020 Active Levonorgestrel (Liletta, 52 MG,) 20.1 MCG/DAY [...] ons:Moderate persistent reactive airway disease without complication,Ac rosy cough Inhale 80 mcg in the morning [...] and then 1 tab daily 6 tablet Active predniSONE (Deltasone) 10 MG tabletIndicatio ns:Moderate persistent reactive airway disease without complication 3 tabs daily x 3 days, 2 tabs daily x 3 days, 1 tab daily x 3 days. 20 tablet Active valACYclovir (Valtrex) 500 MG tablet TAKE [...] THREE TIMES DAILY NEEDED 21 tablet 1 Active SUMAtriptan (Imitrex) 50 MG tabletIndicatio ns:Chronic migraine without aura without status migrainosus, not intractable TAKE ONE TABLET BY MOUTH ONCE DAILY NEEDED MIGRAINE 9 tablet 3 Active nicotine polacrilex (Commit) 2 MG lozenge [...] ns:Moderate persistent reactive airway disease without complication,Ac rosy cough Inhale 110 mcg 2 times daily. 1 each 3 Active Spacer/Aero-Hol ding Chambers (OptiChamber Latonya) misc 1 each every 4 (four) hours if needed (asthma). 1 each Active cetirizine (ZyrTEC) 10 MG tablet Take 1 tablet (10 mg) by mouth Once per day. Prn. 30 tablet 025 2024 Active amoxicillin-cla vulanate (Augmentin) 875-125 MG tablet Take 1 tablet by mouth 2 times daily. 14 tablet Active albuterol (2.5 MG/3ML) 0.083% nebulizer solution Take 3 mL (2.5 mg) by nebulization every 6 (six) hours if needed for wheezing or shortness of breath. 75 mL 1 025 2025 Active tiotropium (Spiriva HandiHaler) 18 MCG inhalation capsuleIndicati ons:Chronic obstructive pulmonary disease, unspecified COPD type (CMS/HCC) Place 1 capsule (18 mcg) into inhaler and inhale in the morning. 30 capsule 2 2025 Active levalbuterol (Xopenex) 0.63 MG/3ML nebulizer solutionIndicat ions:COPD exacerbation (CMS/HCC) Take 1 ampule by nebulization in the morning, at noon, and at bedtime. 72 mL 11 025 2025 Active ibuprofen 800 MG tablet Take [...] ns:Moderate persistent reactive airway disease without complication,Ac rosy cough Inhale 110 mcg 2 times daily. [...] eorder (will not trigger notification to Pharmacy)) predniSONE (Deltasone) 20 MG tablet Take 2 tablets (40 mg) by mouth Once per day for 5 days. 10 tablet 025 2024 Hospital, Clinic, or Other Facility Administered Medication [...] retiring, patient will be transferred to new [facility] psychiatric prescriber. Patient is aware that this person will work via [employer] and is not employed by [facility]. Patient gives verbal permission to share [...] henao. She will continue to work with [facility] integrated clinician. Assessment & Plan (07/11/2022 3:11 [...] therapist. Will also request one of the [facility] integrated clinicians to reach out to her [...] Encounters Date Type Department Care Team Description 11/27/2024 9:30 AM EDT Office Visit [facility] [address] [place] [address] Latrice Hernandez MD COPD exacerbation (CMS/HCC) (Primary Dx); Tachycardia; Pleural effusion 11/27/2024 Travel 11/25/2024 Telephone [facility] [address] [place] [address] Latrice Hernandez MD ER Follow-up; Referral 11/24/2024 Telephone [facility] [address] [place] [address] Latrice Hernandez MD 11/24/2024 Telephone [facility] MEDICINE [address] [place] [phone] Latrice Hernandez MD Call Back Request 11/19/2024 10:00 AM EDT Office Visit [facility] [address] [place] [address] Pantera Arredondo MD COPD exacerbation (CMS/HCC) (Primary Dx); Tobacco dependence; Wheezing; Moderate persistent reactive airway disease without complication; Acute cough; Chronic obstructive pulmonary disease, unspecified COPD type (CMS/HCC) 11/19/2024 Orders Only [facility] [address] [place] [address] Latrice Hernandez MD SOB (shortness of breath) (Primary Dx) 11/18/2024 Telephone [facility] [address] [place] [address] Latrice Hernandez MD Nurse Triage 11/17/2024 Refill [facility] [address] [place] [address] Latrice Hernandez MD Chronic migraine without aura without status migrainosus, not intractable 11/15/2024 Refill [facility] [address] [place] [address] Latrice Hernandez MD 11/13/2024 Telephone [facility] [address] [place] [address] Latrice Hernandez MD 11/13/2024 Refill [facility] [address] [place] [address] Latrice Hernandez MD PTSD (post-traumatic stress disorder); Bipolar affective disorder, remission status unspecified (CMS/HCC) 11/12/2024 Telephone [facility] MEDIC[facility] [address] [place] [address] Latrice Hernandez MD Call Back Request; Medication Question 10/03/2024 Population Health Risk Score [facility] () Department [address] [place] [phone] Provider, Population Health Generic 10/01/2024 Telephone [facility] [address] [place] [address] Latrice Hernandez MD Results 09/29/2024 Orders Only [facility] MED[facility] [address] [place] [address] Latrice Hernandez MD Chronic obstructive pulmonary disease, unspecified COPD type (CMS/HCC) (Primary Dx) 09/26/2024 3:30 PM EST Office Visit [facility] [address] [place] [address] Latrice Hernandez MD Moderate persistent reactive airway disease without complication (Primary Dx); Acute cough; PTSD (post-traumatic stress disorder); Bipolar affective disorder, remission status unspecified (CMS/HCC) 09/26/2024 Travel 09/10/2024 2:40 PM EST Office Visit [facility] [address] [place] [address] Harmony Mtz MD Acute bronchitis, unspecified organism (Primary Dx) 09/10/2024 Travel 09/09/2024 Telephone [facility] [address] [place], [place] [phone] Latrice Hernandez MD Nurse Triage 09/09/2024 Refill [facility] PEDS [address] [place] [address] Latrice Hernandez MD PTSD (post-traumatic stress disorder); [...] Mass Index 29.66 11/27/2024 9:33 AM EDT Plan of Treatment Upcoming Encounters Date Type Department Care Team ([facility] st Contact Info) Description 01/02/2025 4:00 PM EDT Office Visit [facility] PEDS [address] [place] [address] Latrice Hernandez MD [address] [place] [address] Health Maintenance Due Date Last Done Comments [...] ANTIGEN Routine 11/19/2024 10:18 AM EDT Wheezing [id number] QN Routine 10/15/2024 10:53 AM EDT Chronic obstructive pulmonary disease, unspecified COPD type ([facility]/HCC) POCT RAPID COVID ANTIGEN Routine 09/10/2024 3:16 [...] AM EDT Narrative 11/19/2024 11:10 AM EDT ?[facility] ?[address] ?[place] [address] ?XRay Report ? Signed ? Patient: Favian,Ivis ?MR#: [id number] ?? [id number] ? : 1980 ?Acct:[id number] ? Age/Sex: 43 / F ?ADM Date: 11/19/24 ? Loc: HO.HHCX ? Attending Dr: Latrice Hernandez MD ? Ordering Physician: Latrice Hernandez MD ?? Date of Service: 11/19/24 ?? Procedure(s): XR chest 2V ?? Accession Number(s): [id number] ? cc: Latrice Hernandez MD ? EXAMINATION: [...] DD/ 1049 ? TD/TT: 11/19/24 1056 ? Glass Block Bender: ? Procedure Note Shannon, Image - 11/19/[address] [address] XRay Report Signed Patient: Ivis BallesterosMR#: [id number] : 1980Acct:[id number] Age/Sex: 43 / FADM Date: 11/19/24 Loc: HO.HHCX Attending Dr: Latrice Hernandez MD Ordering Physician: Latrice Hernandez MD Date of Service: 11/19/24 Procedure(s): XR chest 2V Accession Number(s): [id number] cc: Latrice Hernandez MD EXAMINATION: XR CHEST [...] Magen Toro MD 11/19/2024 11:07 AM EDT Dictated By: Magen Layton MD Signed By: <Electronically signed by Magen Odell MDin OV> 11/19/24 1107 DD/ 1049 TD/TT: 11/19/24 1056 Glass Block Bender: us Latrice Hernandez MD IMG XR PROCEDURES Edited Re sult - Final * Influenza B (ID NOW Rapid Molecular) (11/19/2024 10:18 AM EDT) Influenza B Negative Negative, Indeterminate [facility] Swab 11/19/2024 10:1 8 AM EDT Pantera Arredondo MD POINT OF CARE TEST ENTER/EDIT OR DERABLES Final Result Performing Organization Address City/[facility]/ZIP Co de Phone Number [facility] [address] [place] [phone] * Influenza A (ID NOW Rapid Molecular) (11/19/2024 10:18 AM EDT) Pathologist [facility] Influenza A Negative Negative, Indeterminate [facility] Swab 11/19/2024 10:1 8 AM EDT Pantera Arredondo MD POINT OF CARE TEST ENTER/EDIT OR DERABLES Final Result Performing Organization Address [facility] Co de Phone Number [facility] [address] [place] [phone] * POCT Rapid COVID Ag (11/19/2024 10:18 AM EDT) Only the most recent of2 resultswithin the time period is included. Pathologist [facility] [place] Rapid COVID Ag Negative [facility] Swab 11/19/2024 10:1 8 AM EDT us Pantera Arredondo MD POINT OF CARE TEST ENTER/EDIT OR DERABLES Final Result Performing Organization Address [facility] Co de Phone Number [facility] [address] [place] [phone] * Sapnd-4-Nrudxcdpifx, Quantitative (10/15/2024 10:53 AM EDT) Pathologist [facility] Kcltl-9-Cqdlfsmk sin QN 122 83 - 199 mg/dL [facility] Comment:THIS TEST WAS PERFOR MED AT:[employer] [place] [phone] SHARP MD Blood Venous blood specimen / Unknown 10/15/2024 10:53 AM EDT 10/15/2024 2:15 PM EDT Latrice Hernandez MD LAB BLOOD ORDERABLES Final Result [facility] [address] [place] [phone] [phone] * POCT Rapid Influenza B OSOM (09/10/2024 3:16 PM EST) [facility] Rapid Influenza B Ag Negative Negative, Indeterminate QC Media Lot # [id number] Lot# Expiration Date Swab 09/10/2024 3:16 PM EST Harmony Mtz MD POINT OF CARE TEST ENTER/EDIT OR DERABLES Final Result * POCT Rapid Influenza A OSOM (09/10/2024 3:15 PM EST) [facility] Rapid Influenza A Ag Negative Negative, Indeterminate QC Media Lot # [id number] Lot# Expiration Date Swab Nasopharyngeal structure / Unknown 09/10/2024 3:15 PM EST Harmony Mtz MD POINT OF CARE TEST ENTER/EDIT OR DERABLES Final Result * Hepatitis C Antibody with Reflex to HCV, RNA, Quantitative, Real-Time PCR (06/06/2024 3:09 PM EST) [facility] Hepatitis C Antibody Nonreactive Nonreactive [facility] Comment:Antibodies to HCV no t detected; does not exclude early acuteHCV infection. Blood Venous blood specimen / Unknown 06/06/2024 3:09 PM EST 06/06/2024 3:56 PM EST Tahira Cabrera [facility] LAB BLOOD ORDERABLES Final Resul t Performing Organization Address [facility] Co de Phone Number [facility] [address] [place] [phone] * HIV-1/2 Antigen and Antibodies, Fourth Generation, with Reflexes (06/06/2024 3:09 PM EST) HIV AB/AG Nonreactive Nonreactive [facility] Comment:HIV-1 p24 Ag and/or HIV-1/HIV-2 Ab not detected.A test result that is nonreactive does not exclude thepossibility of exposure to or infection with HIV-1 and/orHIV-2. Nonreactive results in this assay for individualswith prior exposure to HIV-1 and/or HIV-2 may be due toantigen and antibody levels that are below the limit ofdetection of this assay.The [employer] HIV Ag/Ab Combo assay result andsupplemental assay results should be interpreted inconjunction with the patient's clinical presentation,history and other laboratory results. If the results areinconsistent with clinical evidence, additional testing issuggested to confirm the result. Blood Venous blood specimen / Unknown 06/06/2024 3:09 PM EST 06/06/2024 3:56 PM EST Tahira Cabrera [facility] LAB BLOOD ORDERABLES Final Resul t Performing Organization Address [facility] Co de Phone Number [facility] [address] [place] [phone] * (ABNORMAL) Lipid Panel, Standard (07/26/2022 11:11 AM EST) Cholesterol, Total 192 <200 mg/dL [facility] HDL Cholesterol 30(L) > OR = 50 mg/dL [facility] Triglycerides 573(H) <150 mg/dL [facility] Comment: If a non-fasting specimen was collected, consider repeat triglyceride testing on a fasting specimen if clinically indicated. Lori et al. J. of Clin. Lipidol. 2015;9:129-169. There is increased risk of pancreatitis when the triglyceride concentration is very high (> or = 500 mg/dL, especially if > or = 1000 mg/dL). Lori et al. J. of Clin. Lipidol. 2015;9:129-169. LDL Cholesterol [facility] Comment: LDL cholesterol not calculated. Triglyceride levels [...] LDL-C. Sky SS et al. JESSICA. 2013;310(19): 7199-3338 (http://education.[employer]/faq/CAB212) Chol/HDLC Ratio 6.4(H) <5.0 (calc) [facility] Non-HDL Cholesterol 162(H) <130 mg/dL (calc) [facility] Comment: For patients with diabetes plus 1 major ASCVD risk factor, treating to a non-HDL-C goal of <100 mg/dL (LDL-C of <70 mg/dL) is considered a therapeutic option. Blood Venous blood specimen / Unknown 07/26/2022 11:11 AM EST 07/26/2022 11:11 AM EST Narrative [facility] - 07/31/2022 3:56 PM EST FASTING:NO FASTING: NO us Latrice Hernandez MD LAB BLOOD ORDERABLES Final Result [facility] [address] [facility], [place] [phone] [facility] [address] [facility], ([address]) [place] [phone] * HPV mRNA E6/E7 (09/14/2020 10:42 AM EST) HPV nRNA E6/E7 Not Detected Not Detected [facility] Comment: Methodology: Missile [employer] Pilot-Mediated Amplification This assay detects E6/E7 viral messenger RNA (mRNA) from 14 high-risk HPV types (16,18,31,33,35,39,45,51,52,56,58,59,66,68). ? The analytical performance characteristics of this assay have been determined by [employer]. The modifications have not been cleared or approved by the FDA. This assay has been validated pursuant to the CLIA regulations and is used for clinical purposes. ?? For additional information, please refer to http://education.[employer]/AFV828i7 (This link if provided for information/ educational purposes only.) 09/14/2020 10:4 2 AM EST Idania Hart [facility] LAB BLOOD ORDERABLES Gilma [email or web address] Result [facility] Anywhere [address] * Pap Smear (09/14/2020) Pap smear Perform Historical Provider MD HEALTH MAINTENANCE Final Result from Last 3 Months or Most Recently Relevant to Health Maintenance Insurance [facility] C3 Care Teams Mine Engineering Supervisor Relationship Specialty Start Date End Date Latrice Hernandez MD [address] [facility] М[address] H[place] PCP - General Internal Medicine 07/23/18 Norris Casillas FNP [address] [facility] М[place]РИ[address]13 Nurse Practitioner Family Medicine 06/07/23
--- OUTSIDE RECORDS SUMMARY | 2024-11-27 11:29 | XMS_ITS | Encounter Summary ---
Author Organization [employer] Address [address] [facility] 7t [place] [address] Care Team Providers Care Chief Cloth Finishing Range Operator Name Role Phone Latrice Hernandez MD Primary Care Provider [phone] Norris Casillas Unavailable Unavailable Reason for Visit * Reason Comments Med Refill Encounter Details Date Type Department Care Team (Late st Contact Info) Description 07/24/2022 Refill [facility] [address] [place] [phone] Norris Casillas FNP Social History Tobacco Use [...] Description 01/02/2025 4:00 PM EDT Office Visit [facility] PED[facility] [address] [place] [address] Latrice Hernandez MD [address] [place] [address] documented as of this encounter Visit Diagnoses Not on filedocumented in this encounter Additional Health Concerns Assessment Noted Time PHQ-9 Depression Total Score: 15 022 1:56 PM EST documented as of this encounter Care Teams Chief Cloth Finishing Range Operator Relationship Specialty Start Date End Date Latrice Hernandez MD [address] [place] [address] PCP - General Internal Medicine 07/23/18 Norris Casillas FNP [address] [place] [address] Nurse Practitioner Family Medicine 06/07/23 documented as of this encounter
--- OUTSIDE RECORDS SUMMARY | 2024-11-27 11:29 | XMS_ITS | Encounter Summary ---
Author Organization [employer] Address [address] [facility] 7t [place] [address] Care Team Providers Care Hazmat Cdl Driver Name Role Phone Latrice Hernandez MD Primary Care Provider [phone] Norris Casillas Unavailable Unavailable Encounter Details Date Type Department Care Team (Late Contact Info) Description 04/04/2023 Telephone [facility] MED [facility] PED[facility] [address] [place] [address] Charlotte Simpson, RN [address] [place] [phone] Social History Tobacco Use Types Packs/Day Years [...] [facility] [address] [place], [place] [phone] Lartice Hernandez MD [address] [place] [address] documented as of this encounter Visit Diagnoses Not on filedocumented in this encounter Additional Health Concerns Assessment Noted Time PHQ-9 Depression Total Score: 9 03/20/20 23 10:44 AM EDT documented as of this encounter Care Teams Hazmat Cdl Driver Relationship Specialty Start Date End Date Latrice Hernandez MD [address] [place] [address] PCP - General Internal Medicine 07/23/18 Norris Casillas FNP [address] [place] [address] Nurse Practitioner Family Medicine 06/07/23 documented as of this encounter
--- OUTSIDE RECORDS SUMMARY | 2024-11-27 11:29 | XMS_ITS | Encounter Summary ---
Author Organization [employer] Address [address] [facility] [address]t [place] [address] Care Team Providers Care Tank Car Reconditioner Name Role Phone Latrice Hernandez MD Primary Care Provider [phone] Norris Casillas MINE INSPECTOR FEDERAL Unavailable Unavailable Encounter Details Date Type Department Care Team (Late st Contact Info) Description 11/19/2024 Orders Only [facility] PEDS [address] [facility] [place] [address] Latrice Hernandez MD [address] [place] [address] SOB (shortness of breath) (Primary Dx) Social History Tobacco Use Types [...] 01/02/2025 4:00 PM EDT Office Visit [facility]EDS [address] [place] [address] Latrice Hernandez MD [address] [place] [address] Scheduled Orders Name Type Priority Associated Diagnoses Orde r Schedule RESPIRATORY SYNCYTIAL VIRUS PCR (RSV PCR) Lab Routine SOB (shortness of breath) Expected: 11/19/2024 (Approximate), Expires: 11/19/2025 documented as of this encounter Visit Diagnoses Diagnosis SOB (shortness of breath)- Primary Shortness of breath documented in this encounter Additional Health Concerns Assessment Noted Time PHQ-9 Depression Total Score: 9 12/24/19 24 9:18 AM EDT documented as of this encounter Care Teams Tank Car Reconditioner Relationship Specialty Start Date End Date Latrice Hernandez MD [address] [place] [address] PCP - General Internal Medicine 07/23/18 Norris Casillas FNP [address] [place] [address] Nurse Practitioner Family Medicine 06/07/23 documented as of this encounter
--- OUTSIDE RECORDS SUMMARY | 2024-11-27 11:29 | XMS_ITS | Encounter Summary ---
Author Organization [employer] Address [address] [facility] 7t [place] [address] Care Team Providers Care Technical Architect Name Role Phone Latrice Hernandez MD Primary Care Provider [phone] Norris Casillas Unavailable Unavailable Reason for Visit * Reason Onset Date Comments Call Back Request 11/24/2024 Encounter Details Date Type Department Care Team ([facility] st Contact Info) Description 11/24/2024 Telephone [facility] [address] [place] [address] Latrice Hernandez MD [address] [facility] [place] [phone] Call Back Request Social History Tobacco Use Types Packs/Day Years [...] Encounter - Gi Smith RN - 11/24/2024 1:55 PM EDT TC to [facility] pulmonology. Pt can not be seen sooner than 12/2024. TC to pt. No answer. VM left. ----- Message from Latrice Hernandez MD sent at 11/19/2024 5:04 PM EDT ----- Patient was called. The results of the x-ray was communicated. Please find out if she can be seen sooner at the office of the pit shoveler. In order for RSV was also placed in the EHR. She is to come to the office to get that done * Telephone Encounter - Mary Arguello - 11/24/2024 10:33 AM EDT Tc from pt reports PCP inform her he would call [facility] pulmonology for sooner appointment due to pt needs to be seen. Pt reports no updates have been provided yet. Cultural Historian office also requested PCP to send recent results. Please return call [phone] documented in this encounter Plan of Treatment Upcoming Encounters Date Type Department Care Team (Late st Contact Info) Description 01/02/2025 4:00 PM EDT Office Visit [facility] MED & PEDS [address] [place] [address] Latrice Hernandez MD [address] [place] [address] documented as of this encounter Visit Diagnoses Not on filedocumented in this encounter Additional Health Concerns Assessment Noted Time PHQ-9 Depression Total Score: 9 12/24/19 24 9:18 AM EDT documented as of this encounter Care Teams Technical Architect Relationship Specialty Start Date End Date Latrice Hernandez MD [address] [place] [address] PCP - General Internal Medicine 07/23/18 Norris Casillas FNP [address] [place] [phone] Nurse Practitioner Family Medicine 06/07/23 documented as of this encounter
[2024-11-27 14:27] LABS: Rheumatoid Factor < 13.0 IU/mL (<15.0)
[2024-11-27 14:31] LABS: Anion Gap 12 (12-20); Blood Urea Nitrogen 12 mg/dL (9-16); C Reactive Protein 0.16 mg/dL (< or = 0.50); Calcium 8.9 mg/dL (8.4-10.2); Carbon Dioxide 20 mmol/L (22-29); Chloride 110 mmol/L (96-108); Estimated Glomerular Filt Rate > 60; Glucose Random 88 mg/dL (60-115); Potassium 3.4 mmol/L (3.3-5.1); Sodium 139 mmol/L (135-145)
[2024-11-27 14:47] LABS: TSH reflex Free T4 1.78 uIU/mL (0.32-4.0)
[2024-11-27 14:51] LABS: Erythrocyte Sedimentation Rate 9 MM/HR (0-20)
[2024-12-01 11:14] LABS: Anti Nuclear Antibody Screen NEGATIVE (NEGATIVE)
== END 2024-11-27 10:19 | disposition home or self-care (01) ==
LOC: HO.CHCLDS 10:18
PROVIDERS: Visit Provider Internal Medicine
DX: R00.0 Tachycardia, unspecified (principal); J90 Pleural effusion, not elsewhere classified
CPT/HCPCS: 36415; 80048; 84443; 85652; 86038; 86140; 86431

== ENCOUNTER → 2024-12-18 10:50 | Outpatient (REF) | payer MEDICAID, SELFPAY ==
--- OUTSIDE RECORDS SUMMARY | 2024-12-18 11:19 | XMS_ITS | Clinical Summary ---
Author Organization [facility] Address [address] [place] [address] Care Team Providers Care Houseman Name Role Phone Unavailable Primary Care Provider [...] Cardiology appt in Jun 2024. Bipolar disorder ([facility]) 07/11/2022 Overview (04/03/2024): Last Assessment & [...] retiring, patient will be transferred to new [facility] psychiatric prescriber. Patient is aware that this person will work via [employer] and is not employed by [facility]. Patient gives verbal permission to share information [...] adding low dose to avoid sedating effects. half-way plan to taper clonazepam to 0.5 mg [...] Industry Job Start Date Job End Date [employer] Not on file Not on file Not [...] 08/09/2021 012 Breast Cancer Screening (Mammogram) 2022 [id number] ( season) 2024 07/05/2023, 09/17/2021, 12/12/2020, Additional [...] Discontinued Vaginal Pap Discontinued Vulvoscopy Dis[place] [facility]
== END ==
LOC: HO.CARD 10:50
PROVIDERS: Visit Provider Internal Medicine
DX: R00.0 Tachycardia, unspecified (principal)
CPT/HCPCS: 93225

== ENCOUNTER 2025-01-09 14:41 | Outpatient (REF) | payer MEDICAID, SELFPAY ==
--- NOTE | ~2025-01-09 | XR_ITS ---
EXAMINATION: XR CHEST CLINICAL INFORMATION: T78.40XA - Allergy, unspecified, initial encounter COMPARISON: 11/19/2024. TECHNIQUE: 2 views of the chest were obtained. FINDINGS: The cardiac, hilar, and mediastinal contours are normal. Mildly elevated left hemidiaphragm, unchanged. Lungs demonstrate mild linear type atelectasis or scarring in the right base. Lungs otherwise clear. There is no pneumothorax or pleural effusion. There is no focal osseous or soft tissue abnormality. XR/XR chest 2V IMPRESSION: No active pulmonary disease. Electronically signed by: Kodi Hooks MD 01/09/2025 04:32 PM EDT
[2025-01-09 15:42] LABS: MANUAL DIFF FLAG NO
[2025-01-09 15:56] LABS: Basophils Percent Auto 0.5 % (0-2); Eosinophils Absolute Auto 0.2 X10*3/uL (0.0-0.4); Eosinophils Percent Auto 4.1 % (0-4); Hematocrit 37.9 % (37.0-47.0); Hemoglobin 12.9 g/dl (12.0-16.0); Imm Gran Abs Auto 0.02 X10*3/uL (0.00-0.03); Imm Gran Pct Auto 0.4 % (0.0-0.4); Lymphocytes Absolute Auto 2.1 X10*3/uL (1.2-4.9); Lymphocytes Percent Auto 37.4 % (20-40); Mean Corpuscular Hemoglobin 28.5 pg (27.0-33.0); Mean Corpuscular Volume 83.8 fL (80.0-98.0); Mean Platelet Volume 11.2 fL (9.4-12.3); Monocytes Absolute Auto 0.3 X10*3/uL (0.1-1.2); Monocytes Percent Auto 4.5 % (2-11); Neutrophils Percent Auto 53.1 % (45-73); Platelet Count 246 X10*3/uL (160-400); Red Blood Count 4.52 X10*6/uL (4.20-5.50); White Blood Count 5.6 X10*3/uL (4.8-10.8)
[2025-01-09 16:23] LABS: Anion Gap 10 (12-20); Blood Urea Nitrogen 13 mg/dL (9-16); Calcium 9.4 mg/dL (8.4-10.2); Carbon Dioxide 25 mmol/L (22-29); Chloride 113 mmol/L (96-108); Estimated Glomerular Filt Rate > 60; Glucose Random 91 mg/dL (60-115); Potassium 3.3 mmol/L (3.3-5.1); Sodium 145 mmol/L (135-145)
[2025-01-09 16:40] LABS: Erythrocyte Sedimentation Rate 11 MM/HR (0-20)
[2025-01-12 15:02] LABS: Immunoglobulin G Subclass 1 452 mg/dL (382-929); Immunoglobulin G Subclass 2 279 mg/dL (241-700); Immunoglobulin G Subclass 3 83 mg/dL (22-178); Immunoglobulin G Subclass 4 4.3 mg/dL (4-86); Immunoglobulin G Total 809 mg/dL (600-1640)
[2025-01-12 15:40] LABS: Class Alternaria alternata 0; Class Aspergillus fumigatus 0; Class Bermuda Grass 0; Class Birch 2; Class Cat Dander 1; Class Cladosporium herbarum 0; Class Cockroach 0; Class Common Ragweed 2; Class Cottonwood 0/1; Class Derm. pterony 2; Class Dermatophagoides farinae 2; Class Dog Dander 1; Class Elm 0; Class Maple Box Elder 0; Class Mountain Cedar 0; Class Mouse Urine Protein 2; Class Mugwort 0; Class Oak 0; Class Penicillium crysogenum 0; Class Rough Pigweed 0; Class Sheep Sorrel 0; Class Sycamore 0; Class Timothy Grass 2; Class Walnut Tree 0; Class White Ash 0; Class White Mulberry 0; D001 IgE D pteronyssinus 0.87 kU/L; D002 - IgE D farinae 0.87 kU/L; E001 - IgE Cat Dander 0.55 kU/L; E005 - IgE Dog Dander 0.41 kU/L; E072-IgE Mouse Urine 3.31 kU/L; G002 IgE Bermuda Grass <0.10 kU/L; G006 - IgE Timothy Grass 1.18 kU/L; I006-IgE Cockroach, German <0.10 kU/L; Immunoglobulin E 34 kU/L (<OR=114); M001 IgE Penicillium chrysogen <0.10 kU/L; M002 - IgE Cladosporium herbar <0.10 kU/L; M003 - IgE Aspergillus fumigat <0.10 kU/L; M006 - IgE Alternaria alternat <0.10 kU/L; T001 IgE Maple/Box Elder <0.10 kU/L; T003 IgE Common Silver Birch 0.78 kU/L; T006 - IgE Cedar, Mountain <0.10 kU/L; T007 - IgE Oak, White <0.10 kU/L; T008 IgE Elm, American <0.10 kU/L; T010 - IgE Walnut <0.10 kU/L; T011 - IgE Maple Leaf Sycamore <0.10 kU/L; T014 - IgE Cottonwood 0.32 kU/L; T015 - IgE Ash, White <0.10 kU/L; T070 - IgE White Mulberry <0.10 kU/L; W001 - IgE Ragweed, Short 2.38 kU/L; W006 - IgE Mugwort <0.10 kU/L; W014 IgE Pigweed, Common <0.10 kU/L; W018 IgE Sheep Sorrel <0.10 kU/L
[2025-01-20 12:02] LABS: Asperg fumigatus Precip Abs NEGATIVE
[2025-01-20 12:03] LABS: Micropoly faeni Abs NEGATIVE; Pigeon serum Abs NEGATIVE; Thermo candidus Abs NEGATIVE
[2025-01-20 12:04] LABS: Saccharo pora viridis Abs NEGATIVE; Thermoa vulgaris #1 NEGATIVE
== END 2025-01-09 14:42 | disposition home or self-care (01) ==
LOC: HO.XRAY 14:41
PROVIDERS: PCP Internal Medicine; Referring Provider Internal Medicine; Visit Provider Hospitalist
DX: R91.8 Other nonspecific abnormal finding of lung field (principal); T78.40XA Allergy, unspecified, initial encounter; J45.40 Moderate persistent asthma, uncomplicated; J44.89 Other specified chronic obstructive pulmonary disease; R91.1 Solitary pulmonary nodule
CPT/HCPCS: 36415; 71046; 80048; 82784; 82785; 85025; 85652; 86003; 86331; 86606; 86609; 99202

== ENCOUNTER 2025-01-09 14:41 | Outpatient (AMB) | payer MEDICAID, SELFPAY ==
--- NOTE | 2025-01-09 14:43 | A.OFFVIS_ITS ---
Vital Signs 01/09/25 14:44 Height 5 ft 1 in Weight 158 lb 11.725 oz BMI 30.0 BP 120/72 Blood Pressure Location Lt brachial Position Sitting Pulse 116 H Pulse Source Pulse Oximeter Pulse Oximetry (%) 97 Oxygen Delivery Method Room Air Intake Visit Reasons: SOB with Cough Manager Social Required: No Allergies No Known Allergies Allergy (Verified 01/09/25 14:48) HPI Comments Details: The patient is here for pulmonary evaluation. The patient is a 44 year woman who so active smoker presenting with worsening respiratory symptoms. Back in the beginning of the year she is having significant shortness of breath, moderate to severe. Initially she was diagnosed with the flu and she was treated and released. However after she continued to have difficult symptoms breathing. She did follow-up with her primary care doctor. At some point she did have a chest x-ray which was personally by me. It was read as bilateral pleural effusions but really I do not believe it was that it probably just tissue attenuation ultimately underwent pulmonary function studies. The PFTs demonstrated severe obstructive physiology. Likely from uncontrolled asthma although asthma COPD overlap syndromes also in the differential specially with her smoking history. The patient is placed on some inhalers right now she is doing little better. She did have to go to an urgent care again and she was given a nebulizer. Now she has that available. She does find it helpful. At this point will go ahead and max out her respiratory medications changing her to Trelegy 200. In addition to that she can use her rescue inhaler as needed and she can use her nebulizer as needed as well. She needs to reframe some smoking. She will try going to the patch of nicotine 14 mg. The patient also may be a great candidate for biologics especially if she continues to be symptomatic. Will go ahead and request blood work. Will go have her repeat the x-ray specially because of the question of pleural effusions but right now I do not see any. [facility] Medical History (Updated 01/11/25 @ 22:39 by Maximino Luna MD) Asthma-COPD overlap syndrome Asthma Allergies Disassociation disorder Depression Mood disorder Anxiety ADD (attention deficit disorder) PTSD (post-traumatic stress disorder) Family History Mother Colon cancer Maternal Aunt Breast cancer Maternal Aunt Cervical cancer Social History Patient Tobacco Use Status: Current everyday Tobacco user Tobacco use type: Cigarette Cigarettes Per Day: 5 Female Reproductive History Menstrual Age of Menarche: 13 Review of Systems Const Reports fever(s) ENT Reports post nasal drip Card Denies chest pain Resp Reports chest congestion, Reports cough and Reports wheezing GI Reports no additional complaints Musc Reports no additional complaints Skin/Breast Denies rash Neuro Reports no additional complaints Ashvin/Lymph Reports no additional complaints Aller/Immun Reports wheezing Physical Exam Vital Signs: Last Vital Signs Pulse 116 H 01/09/25 14:44 BP 120/72 01/09/25 14:44 Pulse Ox 97 01/09/25 14:44 Oxygen Delivery Method Room Air 01/09/25 14:44 BMI result Body Mass Index 30.0 Const General: comfortable Neck Neck: Yes supple Chest Chest palpation & inspection: normal inspection of the chest Resp Effort & Inspection: normal respiratory effort and prolonged expiratory phase Auscultation: wheezes Cardio Rate: regular rate Heart sounds: S1 normal heart sound present and S2 normal heart sound present GI Palpation (GI): Soft to palpation Skin General skin exam: no rashes or lesions noted Extrem General: Yes no clubbing, cyanosis or edema Assessment & Plan Assessment & Plan (1) Allergies: Code(s): T78.40XA - Allergy, unspecified, initial encounter Category: Medical Qualifiers: Encounter type: initial encounter Qualified Code(s): T78.40XA - Allergy, unspecified, initial encounter (2) Asthma: Code(s): J45.909 - Unspecified asthma, uncomplicated Category: Medical Qualifiers: Asthma severity: moderate Asthma persistence: persistent Asthma complication type: uncomplicated Qualified Code(s): J45.40 - Moderate persistent asthma, uncomplicated (3) Asthma-COPD overlap syndrome: Code(s): J44.89 - Other specified chronic obstructive pulmonary disease Category: Medical Plan Start Trelegy MARISSA as needed Nicotine patch 14mg Bloodwork and allergy testing CXR F/U 2-3 months Orders: Orders Complete Blood Count Auto Diff 01/09/25 J44.89 - Other specified chronic obstructive pulmonary disease, J45.909 - Unspecified asthma, uncomplicated, T78.40XA - Allergy, unspecified, initial encounter Hypersensitive Pneumonitis Prf 01/09/25 J44.89 - Other specified chronic obstructive pulmonary disease, J45.909 - Unspecified asthma, uncomplicated, R91.8 - Other nonspecific abnormal finding of lung field, T78.40XA - Allergy, unspecified, initial encounter Resp Allergy Profile Region I 01/09/25 J44.89 - Other specified chronic obstructive pulmonary disease, J45.909 - Unspecified asthma, uncomplicated, R91.1 - Solitary pulmonary nodule, T78.40XA - Allergy, unspecified, initial encounter Basic Metabolic Panel 01/09/25 J44.89 - Other specified chronic obstructive pulmonary disease, J45.909 - Unspecified asthma, uncomplicated, T78.40XA - Allergy, unspecified, initial encounter Immunoglobulin G Subclasses 01/09/25 J44.89 - Other specified chronic obstructive pulmonary disease, J45.909 - Unspecified asthma, uncomplicated, T78.40XA - Allergy, unspecified, initial encounter Immunoglobulin E 01/09/25 J44.89 - Other specified chronic obstructive pulmonary disease, J45.909 - Unspecified asthma, uncomplicated, T78.40XA - Allergy, unspecified, initial encounter XR chest 2V 01/09/25 J44.89 - Other specified chronic obstructive pulmonary disease, J45.909 - Unspecified asthma, uncomplicated, T78.40XA - Allergy, unspecified, initial encounter Erythrocyte Sedimentation Rate 01/09/25 J44.89 - Other specified chronic obstructive pulmonary disease, J45.909 - Unspecified asthma, uncomplicated, T78.40XA - Allergy, unspecified, initial encounter Medications: New ipratropium-albuterol 0.5 mg-3 mg(2.5 mg base)/3 mL 3 mL inhalation BID 180 mL 11RF 30 days J44.9 - Chronic obstructive pulmonary disease, unspecified gdwmdgpntrk-wgkkaavqk-xmtffbkt 200-62.5-25 mcg (Trelegy Ellipta) 1 inh inhalation DAILY 60 ea 12RF 30 days nicotine 1 patch transdermal DAILY 28 ea 3RF 28 days Coding Level of Care Code New Pt Level 4 (31780) Diagnoses Allergy, initial encounter T78.40XA Encounter type: initial encounter Moderate persistent asthma without complication J45.40 Asthma severity: moderate Asthma persistence: persistent Asthma complication type: uncomplicated Asthma-COPD overlap syndrome J44. Time Spent (min) 36
[2025-01-09 14:44] VITALS: BP 120/72; PULSE 116; O2SAT 97
--- OUTSIDE RECORDS SUMMARY | 2025-01-09 14:44 | XMS_ITS | Clinical Summary ---
Author Organization [facility] Address [address] [place] [address] Care Team Providers Care Turntable Man Name Role Phone Unavailable Primary Care Provider [...] in Jun 2024. Bipolar disorder ([facility]) 07/11/2022 Overview (04/03/2024): Last Assessment & [...] retiring, patient will be transferred to new [facility] psychiatric prescriber. Patient is aware that this person will work via [employer] and is not employed by [facility]. Patient gives verbal permission to share [...] adding low dose to avoid sedating effects. 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 on file Not [...] 08/09/2021 012 Breast Cancer Screening (Mammogram) 2022 [id number] ( season) 2024 07/05/2023, 09/17/2021, 12/12/2020, Additional history exists Alcohol and Drug Screen 07/23/2024 Imm-Influenza (Season Ended) 03/23/202512/2023, 06/02/2022, 05/27/2021, Additional history exists Tobacco Screening 04/01/2025 04/01/2024 Lipid Screening 07/26/2027 07/26/2022 Imm-Hepatitis B Completed 07/30/2020, 05/23, 09/06/2011, Additional history exists Hepatitis C Screening Completed 07/26/2022 Cervical Ablation/Cold-Knife Conization Discontinued Cervical Cryotherapy Discontinued Colposcopy Discontinued Endometrial Biopsy Discontinued Excision/Leep Discontinued HPV Genotyping Discontinued Vaginal Pap Discontinued Vulvoscopy Discontinued Insurance [place] MEDICAID [facility]
== END 2025-01-09 15:26 | disposition home or self-care (01) ==
LOC: HO.HPS 14:42
PROVIDERS: PCP Internal Medicine; Referring Provider Internal Medicine; Visit Provider Hospitalist
DX: T78.40XA Allergy, unspecified, initial encounter (principal); J45.40 Moderate persistent asthma, uncomplicated; J44.89 Other specified chronic obstructive pulmonary disease
CPT/HCPCS: 99204

== ENCOUNTER → 2025-01-09 15:41 | Outpatient (BNV) | payer MEDICAID, SELFPAY | PROVIDERS: PCP Internal Medicine; Referring Provider Internal Medicine; Visit Provider Radiology Diagnostic Radiology | DX: T78.40XA Allergy, unspecified, initial encounter (principal) | CPT/HCPCS: 71046 ==

== ENCOUNTER 2025-03-05 10:40 | Outpatient (REF) | payer MEDICAID, SELFPAY ==
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
--- OUTSIDE RECORDS SUMMARY | 2025-03-05 11:47 | XMS_ITS | Clinical Summary ---
Author Organization [facility] Address [address] [place] [address] Phone Care Team Providers Care Wrinkle Chaser Name Role Phone Unknown, Unknown Primary Care Provider Keila jurado Immunizations Immunization Administration Dates Next Due COVID-19 (Pre-05/14) Pfizer Vaccine, mRNA, PF 09/17/2021,12/12/2020,11/20/2020 Hepatitis B Adult 07/30/2020,07/30/2020 Influenza Quadrivalent Preservative Free IM 05/23 Influenza, Unspecified Formulation 05/27/2021,,07/30/2020 Tdap 08/09/2011,08/09/2011 Social History Tobacco Use Types Packs/Day Years Used Date Smoking Tobacco: Never Assessed Education Answer Date Recorded Are you interested in more education? Not on antonino e 11/17/2022 Are you concerned about learning? Not on file 11/17/2022 No 11/17/2022 No 11/17/2022 Digital Access Answer Date Recorded No 12/16/2022 No 12/16/2022 No 12/16/2022 Reliable internet access at home? Not on file 12/16/2022 Device with a working camera? Not on file Comments Unknown Sex and Gender Information Value Date Recorded Sex Assigned at Not on file Legal Sex Female 12:58 PM EST Gender Identity Not on file Sexual Orientation Not on file Plan of Treatment Health Maintenance Due Date Last Done Comments DEPRESSION SCREENING 1994 SMOKING Hx and SMOKELESS TOBACCO SCREENING 11/24/1995 HEPATITIS C SCREENING 2000 HIV ONE-TIME SCREENING (18-6 5 YEARS) 2000 PAP SMEAR 11/24/2003 Adult Td,Tdap Booster 08/09/2021 08/09/2011 , 08/09/2011 MAMMOGRAM 2022 COVID-19 VACCINE (4 - 2024-2 5 season) 2024 09/17/2021, 12/12/2020, 11/20/2020 HEPATITIS A VACCINES Aged Out No long er eligible based on patient's age to complete this topic HIB VACCINES Aged Out No longer eligi ble based on patient's age to complete this topic MENINGOCOCCAL VACCINES (ACWY) Aged Out No longer eligible based on patient's age to complete this topic MENINGOCOCCAL VACCINES (B) Aged Out N o longer eligible based on patient's age to complete this topic PNEUMOCOCCAL VACCINES (0-49 years) Aged Out No longer eligible b ased on patient's age to complete this topic Medical Devices Not on file Care Teams Wrinkle Chaser Relationship Specialty Start Date End Date Unknown, Unknown, PCP - General 09/29/20 Additional Source Comments The information contained in this document represents components of the legal health record. It is not the complete legal health record.[facility]
--- OUTSIDE RECORDS SUMMARY | 2025-03-05 11:47 | XMS_ITS | Clinical Summary ---
Author Organization [address] [place] [address] [place] [id number] Phone Care Team Providers Care Head Orthopedic Team Physician Name Role Phone Latrice Hernandez MD Primary Care Provider [phone] Allergies Active Allergy Reactions Criticality Noted Date Comments House Dust 07/25/2024 Other 11/13/2017 Seasonal Medications cholecalciferol (VITAMIN D-3) 25 mcg (1,000 unit) tablet Take 1 tablet (1,000 Units total) by mouth. Active clonazePAM (KlonoPIN) 1 mg disintegrating tablet Take 1 tablet (1 mg total) by mouth 2 (two) times a day if needed. Active fluconazole (DIFLUCAN) 150 mg tablet Take [...] hours if needed for mild pain. Active clotrimazole (LOTRIMIN) 1 % cream Apply topically 1 (one) time each day. Apply to skin and toenails for 12 weeks 30 g 3 12/26/19 25 Active ciclopirox (PENLAC) 8 % solution Apply topically at bedtime. Apply over nail and surrounding skin. Apply daily over previous coat. After seven (7) days, may remove with alcohol and continue cycle. 6.6 mL 3 12/26/19 25 025 Active Active Problems Problem Noted Date Diagnosed Date Bilateral swelling of feet and ankles 05/07/2024 Encounters Date Type Department Care Team Description 01/02/2025 7:00 AM EDT Ancillary Procedure [facility] [address] [facility] [address] [place] [id number] Bilateral leg edema 12/25/2024 9:15 AM EDT Office Visit Orthopedic Surgery - [place] [address] [facility] [address] [place] [id number] Bong Tilley, DPM Neuritis (Primary Dx); Dermatophytosis of nail; Tinea pedis of both feet from Last 3 Months Surgical History Surgery Date Site/Laterality Comments OTHER SURGICAL HISTORY PROCEDURE: MO WEDGE EXCISION SKIN NAIL FOLD OTHER SURGICAL HISTORY PROCEDURE: MO LITHOTRIPSY XTRCORP SHOCK WAVE Medical History Medical [...] Oxygen Concentration - - Weight 67.1 kg (147 lb 14.9 oz) 12/25/2024 8:56 AM EDT Height 154.9 cm (5' 0.98 ) 12/25/2024 8:56 AM ED T Body Mass Index 27.97 12/25/2024 8:56 AM EDT Plan of Treatment Upcoming Encounters Date Type Department Care Team (Late st Contact Info) Description 03/13/2025 3:00 PM EDT Office Visit Vascular Surgery - [place] [address] [place] [address] [facility] [address] [place] [address] Health Maintenance Due Date Last Done Comments Breast Cancer Screening 1982 Pneumococcal Vaccine: Pediatrics (0 to 5 Years) and At-Risk Patients (6 to 49 Years) (1 of 2 - PCV) 2001 Cervical Cancer Screening: Pap Smear 10/14/2019 10/13/2016, 10/13/2016 DTaP,Tdap,and Td Vaccines (2 - Td or Tdap) 08/09/2021 08/09/2011 COVID-19 Vaccine ( season) 2024 07/05/2023, 09/17/2021, 12/12/2020, Additional history exists Social Influencers of Health Screening 05/01/2024 Depression Screening 07/23/2024 Influenza Vaccine (#1) 2025 , 08/28/2023, 06/02/2022, Additional history exists Cholesterol Screening (Lipid Panel) 07/26/2027 07/26/2022 Hepatitis B Vaccines Completed 07/30/2020, 06/09/2014, 09/06/2011, Additional history exists MMR Vaccines Aged Out 01/15/2024, 07/20/2023 No lo nger eligible based on patient's age to complete this topic HIV Screening Completed 06/06/2024 Hepatitis C Screening [...] Procedure Name Priority Date/Time Associated Diagnosis Comments VAS US DUPLEX LOWER EXT VENOUS INSUFFICIENCY BILATERAL Routine 01/02/2025 7:33 AM EDT Bilateral leg edema HM HPV Routine 10/13/2016 from Last 3 Months or Most Recently Relevant to Health Maintenance Results * Vascular US duplex lower extremity venous insufficiency bilateral (01/02/2025 7:33 AM EDT) Left GSK bladimir 0.32 cm CV VAS LAB Left GSDC bladimir 0.27 cm CV VAS LAB Left GSMT bladimir 0.24 cm CV VAS LAB Left GSPC bladimir 0.28 cm CV VAS LAB Left GSPT bladimir 0.28 cm CV VAS LAB Left SFJ Diameter 0.37 cm CV VAS LAB Left SSMC bladimir 0.22 cm CV VAS LAB Left SSPC bladimir 0.39 cm CV VAS LAB Right GSK bladimir 0.42 cm CV VAS LAB Right GSDC bladimir 0.30 cm CV VAS LAB Right GSMT bladimir 0.44 cm CV VAS LAB Right GSPC bladimir 0.29 cm CV VAS LAB Right GSPT bladimir 0.38 cm CV VAS LAB Right SFJ Diameter 0.53 cm CV VAS LAB Right SSMC bladimir 0.21 cm CV VAS LAB Right SSPC bladimir 0.28 cm CV VAS LAB Left SPJ Diameter 0.36 cm CV VAS LAB Anatomical Region Laterality Modality Vascular, Abdomen Ultrasound Narrative 01/04/2025 1:44 PM EDT Right: 1. The right lower extremity veins are compressible and there is no evidence of DVT in the right lower extremity venous system. 2. The GSV and SSV has no significant reflux. Left: 1. The left lower extremity veins are compressible and there is no evidence of DVT in the left lower extremity venous system. 2. The GSV and SSV has no significant reflux. Right Lower Venous No evidence of deep vein thrombosis in the common femoral, deep femoral, proximal femoral, mid femoral, distal femoral, popliteal, greater saphenous, small saphenous, posterior tibial and peroneal veins of the right leg. The vessels showed compressibility. Interrogation showed phasic and spontaneous Doppler signals. Right Venous Insufficiency Duplex The exam was performed with the patient in reverse Trendelenburg. Left Lower Venous No evidence of deep vein thrombosis in the common femoral, deep femoral, proximal femoral, mid femoral, distal femoral, popliteal, greater saphenous, small saphenous, posterior tibial and peroneal veins of the left leg. The vessels showed compressibility. Interrogation showed phasic and spontaneous Doppler signals. Left Venous Insufficiency Duplex The exam was performed with the patient in reverse trendelenburg. Licensed And Certified Midwife Details A carrasquillo scale, color and doppler analysis ultrasound was performed. During the study longitudinal and transverse views were obtained. Pulsed wave doppler was performed. Kylah MAYNARD CV VASCULAR PROCEDURES Final R esult * Cervical Cancer Screening: HPV (10/13/2016) Cervical Cancer Screening: HPV Negative, abstracted Historical Provider HEALTH MAINTENANCE Final Result from Last 3 Months or Most Recently Relevant to Health Maintenance Insurance MEDICAID - [place] Care Teams Head Orthopedic Team Physician Relationship Specialty Start Date End Date Latrice Hernandez MD [address] [place], [place] PCP - General Internal Medicine 09/18/18
--- OUTSIDE RECORDS SUMMARY | 2025-03-05 11:47 | XMS_ITS | Encounter Summary ---
Author Organization [facility] Address [address] [place] [address] Care Team Providers Care Technical Operations Vice President Name Role Phone Latrice Hernandez MD Primary Care Provider [phone] Norris Casillas Unavailable Unavailable Reason for Visit * Reason Comments Med Refill Encounter Details Date Type Department Care Team ([facility] Contact Info) Description 06/29/2022 Refill [facility] [address] [place], [place] [phone] Latrice Hernandez MD [address] [place], [place] [phone] Herpesviral infection, unspecified Social History Tobacco Use [...] Department Care Team (Late Contact Info) Description 04/10/2025 2:30 PM EDT Office Visit [facility] PEDS [address] [place], [place] [phone] Latrice Hernandez MD [address] [place], [place] [phone] documented as of this encounter Visit Diagnoses Diagnosis Herpesviral infection, unspecified documented in this encounter Care Teams Technical Operations Vice President Relationship Specialty Start Date End Date Latrice Hernandez MD [address] [place] [address] PCP - General Internal Medicine 07/23/18 Norris Casillas FNP [address] [place] [address] Nurse Practitioner Family Medicine 06/07/23 documented as of this encounter
[2025-03-05 12:40] LABS: HIV Num 1 0.05 S/CO (0.00-0.99)
[2025-03-05 12:42] LABS: Syphilis Screen Nonreactive (Nonreactive)
[2025-03-06 04:40] LABS: Bacterial Vaginosis PCR NEGATIVE (Negative); Candida Group PCR DETECTED (Not Detect); Candida glab krusei PCR NOT DETECTED (Not Detect); Trichomonas vaginalis PCR NOT DETECTED (Not Detect)
[2025-03-06 05:10] LABS: CT PCR NOT DETECTED (Not Detect.); NG PCR NOT DETECTED (Not Detect.)
== END 2025-03-05 10:41 | disposition home or self-care (01) ==
LOC: HO.HHCL 10:40
PROVIDERS: PCP Internal Medicine; Visit Provider Advanced Practice Midwife
DX: Z11.3 Encounter for screening for infections with a predominantly sexual mode of transmission (principal); Z11.8 Encounter for screening for other infectious and parasitic diseases; N89.8 Other specified noninflammatory disorders of vagina
CPT/HCPCS: 36415; 81515; 86780; 87389; 87491; 87591

== ENCOUNTER 2025-04-09 12:27 | Outpatient (REF) | payer MEDICAID, SELFPAY ==
--- OUTSIDE RECORDS SUMMARY | 2025-04-09 15:22 | XMS_ITS | Encounter Summary ---
Author Organization [email or web address] Address [address] [facility] 7t [place] [address] Care Team Providers Care Billing Coordinator Name Role Phone Latrice Hernandez MD Primary Care Provider [phone]- [phone] Norris Casillas Unavailable Unavailable Reason for Visit * Reason Onset Date Comments CT order 12/11/2024 Encounter Details Date Type Department Care Team ([facility] st Contact Info) Description 12/11/2024 Telephone [facility] MEDICINE [address] [place] [address] Latrice Hernandez MD [address] [facility] [place] [id number] [place] order Social History Tobacco Use Types Packs/Day Years [...] encounter Miscellaneous Notes * Telephone Encounter - Bo Rausch - 12/11/2024 10:09 AM EDT Tc from pt reports [place] [facility] [place] chest , she reports they are currently scheduling out until January . Wanting to know if pcp office caan look elsewhere for a sooner visit . documented in this encounter Plan of Treatment Upcoming Encounters Date Type Department Care Team ([facility] st Contact Info) Description 04/10/2025 2:30 PM EDT Office Visit [facility] & PEDS [address] [place] [address] Latrice Hernandez MD [address] [place] [address] documented as of this encounter Visit Diagnoses Not on filedocumented in this encounter Additional Health Concerns Assessment Noted Time PHQ-9 Depression Total Score: 9 12/24/19 24 9:18 AM EDT documented as of this encounter Care Teams Billing Coordinator Relationship Specialty Start Date End Date Latrice Hernandez MD [address] [place] [address] PCP - General Internal Medicine 07/23/18 Norris Casillas FNP [address] [place] [address] Nurse Practitioner Family Medicine 06/07/23 documented as of this encounter
--- OUTSIDE RECORDS SUMMARY | 2025-04-09 15:22 | XMS_ITS | Encounter Summary ---
Author Organization [employer] Address [address] [facility] 7t [place] [address] Care Team Providers Care Reinforcing Metal Worker Name Role Phone Latrice Hernandez MD Primary Care Provider [phone]- [phone] Norris Casillas Unavailable Unavailable Reason for Visit * Reason Onset Date Comments Nurse Triage 07/30/2024 Encounter Details Date Type Department Care Team ([facility] st Contact Info) Description 07/30/2024 Telephone [facility] MED & PEDS [address] [place] [address] Latrice Hernandez MD [address] [place] [address] Nurse Triage Social History Tobacco Use Types [...] to work effective 08/04/2024. Patient seen by [employer] and given bilateral braces. Remains with discomfort [...] Care Team (Late st Contact Info) Description 04/10/2025 2:30 PM EDT Office Visit [facility] [address] [place] [address] Latrice Hernandez MD [address] [place] [address] documented as of this encounter Visit Diagnoses Not on filedocumented in this encounter Additional Health Concerns Assessment Noted Time PHQ-9 Depression Total Score: 9 12/24/19 24 9:18 AM EDT documented as of this encounter Care Teams Reinforcing Metal Worker Relationship Specialty Start Date End Date Latrice Hernandez MD [address] [place], [place] [phone] PCP - General Internal Medicine 07/23/18 Norris Casillas FNP [address] [place] [address] Nurse Practitioner Family Medicine 06/07/23 documented as of this encounter
--- OUTSIDE RECORDS SUMMARY | 2025-04-09 15:22 | XMS_ITS | Clinical Summary ---
Author Organization [facility] Address [address] [place] [address] Care Team Providers Care Twister Operator Name Role Phone Latrice Hernandez MD Primary Care Pr ovider Unavailable Allergies Active Allergy Reactions Severity Noted Date Comments Seasonal Allergies 11/13/2017 Medications Medication Sig Dispensed Refills Start Date End Date Status levonorgestrel (MIRENA) 20 MCG/24HR IUD 1 Each by Intrauterine route once. 0 Active fluconazole (DIFLUCAN) 150 MG tablet Take 1tab po and repeat dose in 3days 2 Tab 0 11/13/2017 Active sumatriptan (IMITREX) 25 MG tablet Take 1 Tablet by mouth daily as needed. May repeat dose once after 2 hours, if needed. 0 Active clonazepam (KLONOPIN) 1 MG disintegrating tablet Take 1 Tablet by mouth 2 times daily as needed. 0 Active topiramate (TOPAMAX) 100 MG tablet Take 1 Tablet by mouth 2 times daily. 0 Active propranolol (INDERAL) 60 MG tablet Take 1 Tablet by mouth. 0 Active Cholecalciferol (Vitamin D) 25 MCG (1000 UT) Tab Take 25 mcg by mouth. 0 Active ciclopirox (PENLAC) 8 % solution Apply daily to nails clean medication residue off of nail plate every 3 days with rubbing alcohol 6.6 mL 3 02/07/2024 Active clotrimazole (LOTRIMIN) 1 % cream Apply to skin and toenails daily for 12 weeks 45 g 3 02/07/2024 Active Active Problems Problem Noted Date Bilateral swelling of feet and ankles Family History Medical History Relation Name Comments Cataract Aunt Glaucoma Aunt No Known Problems Brother No Known Problems Father No Known Problems Maternal Grandfather No Known Problems Maternal Grandmother No Known Problems Mother No Known Problems Other No Known Problems Paternal Grandfather No Known Problems Paternal Grandmother No Known Problems Sister No Known Problems Uncle Blindness Negative Hx Macular Degeneration Negative Hx Strabismus Negative Hx Relation Name Status Comments Aunt Brother Father Maternal Grandfather Maternal Grandmother Mother Other Paternal Grandfather Paternal Grandmother Sister Uncle Social History Tobacco Use Types Packs/Day Years Used Date Smoking Tobacco: Some Days Cigarettes Smokeless Tobacco: Never Alcohol Use Standard Drinks/Week Comments Yes 0 (1 standard drink = 0.6 oz pur e alcohol) rare Sex Assigned at Date Recorded Not on file Last Filed Vital Signs Vital Sign Reading Time Taken Comments Blood Pressure 108/76 11/13/2017 9:46 AM EDT Pulse 82 11/13/2017 9:46 AM EDT Temperature - - Respiratory Rate 14 11/13/2017 9:46 AM EDT Oxygen Saturation - - Inhaled Oxygen Concentration - - Weight 66.2 kg (146 lb) 03/20/2024 9:05 AM EDT Height 154.9 cm (5' 1 ) 03/20/2024 9:05 AM EDT Body Mass Index 27.59 03/20/2024 9:05 AM EDT Plan of Treatment Health Maintenance Due Date Last Done Comments Covid-19 Vaccine (#1) 05/26/1983 CHOLESTEROL SCREENING 2002 CERVICAL CANCER SCREENING 10/14/2019 10/13/2016 DTAP/TDAP/TD (2 - Td or Tdap) 08/09/2021 08/09/2011 BASELINE HEALTH EXAM 40-64 2022 MAMMOGRAM 2022 BMI CHECK/ADVISE 07/23/2024 10/13/2016 INFLUENZA (#1) 2025 PNEUMOCOCCAL VACCINE FOR HIGH RISK PATIENTS (#1) 11/23 Care Teams Twister Operator Relationship Specialty Start Date End Date Latrice Hernandez MD PCP - General Internal Medicine 09/18/18
--- OUTSIDE RECORDS SUMMARY | 2025-04-09 15:22 | XMS_ITS | Encounter Summary ---
Author Organization [employer] Address [address] [facility] 7[address] [place] [address] Care Team Providers Care Mortgage Closer Name Role Phone Latrice Hernandez MD Primary Care Provider [phone]- [phone] Norris Casillas Unavailable Unavailable Reason for Visit * Reason Onset Date Comments Nurse Triage 12/28/2023 ER Follow-up 12/28/2023 Encounter Details Date Type Department Care Team (Late st Contact Info) Description 12/28/2023 Telephone [facility] MEDICINE [address] [place] [address] Latrice Hernandez MD 505 [place] [address] Nurse Triage; ER Follow-up Social History Tobacco [...] triage, spoke to pt. pt states seen [facility] on 12/25 for left low back pain, [...] is still symptomatic. Please contact pt at [phone] * Telephone Encounter - Mikala York - 12/28/2023 11:39 AM EDT Patient calling to report ED visit on : Date: 12/25 Hospital: [facility] Seen for: Patient advised will forward to team nurse for follow up documented in this encounter Plan of Treatment Upcoming Encounters Date Type Department Care Team (Late st Contact Info) Description 04/10/2025 2:30 PM EDT Office Visit [facility] MED & PEDS [address] [place] [address] Latrice Hernandez MD [address] [place] [address] documented as of this encounter Visit Diagnoses Not on filedocumented in this encounter Additional Health Concerns Assessment Noted Time PHQ-9 Depression Total Score: 9 12/24/19 24 9:18 AM EDT documented as of this encounter Care Teams Mortgage Closer Relationship Specialty Start Date End Date Latrice Hernandez MD [address] [place] [address] PCP - General Internal Medicine 07/23/18 Norris Casillas FNP [address] [place] [address] Nurse Practitioner Family Medicine 06/07/23 documented as of this encounter
--- OUTSIDE RECORDS SUMMARY | 2025-04-09 15:22 | XMS_ITS | Clinical Summary ---
Author Organization [employer] Address [address] [facility] [address] [place] [address] Care Team Providers Care Gem Expert Name Role Phone Latrice Hernandez MD Primary Care Provider [phone] Norris Casillas Unavailable Unavailable Allergies Active Allergy [...] NEEDED FOR ITCHING 30 tablet 024 Active Adderall XR 10 MG 24 hr capsule TAKE ONE CAPSULE EVERY MORNING. DO NOT BREAK, CRUSH, DISSOLVE OR CHEW 30 capsule 024 Active albuterol 108 (90 Base) MCG/ACT [...] ons:Moderate persistent reactive airway disease without complication,Ac tanacross cough Inhale 80 mcg in the morning [...] Do not swallow. 10.6 g 5 025 Active SUMAtriptan (Imitrex) 50 MG tabletIndicatio ns:Chronic migraine without aura without status migrainosus, not intractable TAKE ONE TABLET BY MOUTH ONCE DAILY NEEDED MIGRAINE 9 tablet 3 025 Active nicotine polacrilex (Commit) 2 MG lozenge Dissolve 1 lozenge (2 mg) in the mouth if needed for smoking cessation. 100 lozenge 025 Active nicotine (Nicoderm CQ) 14 MG/24HR patch Place 1 patch on the skin 1 (one) time each day at the same time. 42 patch 025 Active nicotine (Nicoderm CQ) 7 MG/24HR patch Place 1 patch on the skin 1 (one) time each day at the same time. 14 patch 025 Active Mometasone Furoate (Asmanex, 7 Metered Doses,) 110 MCG/ACT aerosol powderIndicatio ns:Moderate persistent reactive airway disease without complication,Ac tanacross cough Inhale 110 mcg 2 times daily. 1 each 3 025 Active Spacer/Aero-Hol ding Chambers (OptiChamber Latonya) misc 1 each every 4 (four) hours if needed (asthma). 1 each 025 Active levalbuterol (Xopenex) 0.63 MG/3ML nebulizer solutionIndicat ions:COPD exacerbation (CMS/HCC) Take 1 ampule by nebulization in the morning, at noon, and at bedtime. 72 mL 11 025 2025 Active azithromycin (Zithromax) 250 MG tabletIndicatio ns:Chronic obstructive pulmonary disease with acute exacerbation (CMS/HCC) Take 2 tabs PO daily x 1d then 1 tab PO daily on D2 to D5 6 tablet 025 Active cholecalciferol VITAMIN D (Vitamin D-3) 50 MCG (1999 UT) capsuleIndicati ons:Vitamin D deficiency TAKE 1 CAPSULE BY MOUTH EVERY DAY 90 capsule 1 025 Active propranolol (Inderal) 60 MG tabletIndicatio ns:PTSD (post-traumatic stress disorder),Bipol ar affective disorder, remission status unspecified (CMS/HCC) Take 1 tablet (60 mg) by mouth 2 times daily. 180 tablet 3 025 Active Ventolin HFA 108 (90 Base) MCG/ACT inhaler INHALE TWO PUFFS BY MOUTH EVERY 4 HOURS NEEDED FOR WHEEZING 18 g 1 025 Active Spiriva HandiHaler 18 MCG inhalation capsuleIndicati ons:Chronic obstructive pulmonary disease, unspecified COPD type (CMS/HCC) USE 1 CAPSULE FOR INHALATION ONCE A DAY DO NOT SWALLOW CAPSULE 30 capsule 2 025 Active valACYclovir (Valtrex) 500 MG tablet TAKE ONE TABLET BY MOUTH TWICE DAILY FOR THREE DAYS 6 tablet 025 2024 Active cetirizine (ZyrTEC) 10 MG tablet Take 1 tablet (10 mg) by mouth Once per day. Prn. 30 tablet 025 2024 Active hydrOXYzine HCl (Atarax) 10 MG tablet Take 1 tablet (10 mg) by mouth if needed at bedtime (sleep). 90 tablet 6 025 Active topiramate (Topamax) 100 MG tabletIndicatio ns:PTSD (post-traumatic stress disorder) TAKE 1 AND 1/2 TABLETS BY MOUTH TWICE DAILY 270 tablet 3 025 Active clonazePAM (KlonoPIN) 1 MG tabletIndicatio ns:PTSD (post-traumatic stress disorder),Bipol ar affective disorder, remission status unspecified (CMS/HCC) Take 1 tablet (1 mg) by mouth 2 times daily. 60 tablet 025 Active ibuprofen 600 MG tablet TAKE ONE TABLET BY MOUTH THREE TIMES DAILY NEEDED 21 tablet 1 025 Active albuterol (2.5 MG/3ML) 0.083% nebulizer solution INHALE ONE AMPULE USING A NEBULIZER EVERY 6 HOURS NEEDED FOR WHEEZING OR SHORTNESS OF BREATH 90 mL 1 025 Active hydrOXYzine HCl (Atarax) 10 MG tablet Take 1 tablet (10 mg) by mouth if needed at bedtime (sleep). 90 tablet 6 024 2024 Discontinued(R eorder (will not trigger notification to Pharmacy)) topiramate (Topamax) 100 MG tabletIndicatio ns:PTSD (post-traumatic stress disorder) TAKE 1 AND 1/2 TABLETS BY MOUTH TWICE DAILY 270 tablet 3 024 2024 Discontinued(R eorder (will not trigger notification to Pharmacy)) cetirizine (ZyrTEC) 10 MG tablet Take 1 tablet (10 mg) by mouth Once per day. Prn. 30 tablet 025 2024 Discontinued(R eorder (will not trigger notification to Pharmacy)) valACYclovir (Valtrex) 500 MG tablet TAKE 1 TABLET BY MOUTH TWICE A DAY FOR THREE DAYS 6 tablet 1 025 2024 Discontinued ibuprofen 600 MG tablet TAKE ONE TABLET BY MOUTH THREE TIMES DAILY NEEDED 21 tablet 1 025 2024 Discontinued albuterol (2.5 MG/3ML) 0.083% nebulizer solution INHALE ONE AMPULE USING A NEBULIZER EVERY 6 HOURS NEEDED FOR WHEEZING OR SHORTNESS OF BREATH 90 mL 1 025 2024 Discontinued clonazePAM (KlonoPIN) 1 MG tabletIndicatio ns:PTSD (post-traumatic stress disorder),Bipol ar affective disorder, remission status unspecified ([facility]) TAKE ONE TABLET TWICE DAILY 60 tablet 025 2024 Discontinued(R eorder (will not trigger notification to Pharmacy)) Active Problems Problem Noted Date Diagnosed Date Chronic obstructive pulmonar y disease with acute exacerbation 12/16/2024 Assessment & Plan (12/16/2024 10:59 AM EDT): I will treat her as a COPD exacerbation with Z-Villa for 5 days plus prednisone based and I will give her at the office DuoNeb nebulization she was evaluated after the medication and she was a lot better I advised 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 Migraine headache 07/19/2022 Vitamin D deficiency 07/19/2022 [...] will be transferred to new [facility] psychiatric prescriber. Patient is aware that this person will work via [employer] and is not employed by [facility]. Patient gives verbal permission to share information [...] add any new medication at this time. Anxiety 07/03/2013 Resolved Problems Problem Noted Date Diagnosed Date Resolved Date Acute vaginitis 04/09/2023 12/16/2024 Assessment & Plan (04/11/2023 3:35 PM EDT): Ddx bacterial vaginosis, will send metronidazole and sent out BV swab, f/up with results. COVID-19 06/29/2022 12/16/2024 Encounters Date Type Department Care Team Description 04/09/2025 Refill [facility] [address] [place] [address] Edward Richard MD 04/08/2025 Refill [facility] [address] [place] [address] Edward Richard MD 04/06/2025 Refill [facility] [address] [place] [address] Latrice Hernandez MD PTSD (post-traumatic stress disorder); Bipolar affective disorder, remission status unspecified ([facility]) 04/06/2025 Telephone [facility] [address] [place] [address] Latrice Hernandez MD 04/06/2025 Refill [facility] [address] [place] [address] Belkis Garcia MD 04/03/2025 Travel 03/09/2025 Results Follow-Up [facility] [address] [place] [phone] Idania Hart CNM Bacterial Vaginosis Panel 03/05/2025 10:00 AM EDT Office Visit [facility] [address] [place] [phone] Idania Hart CNM Vaginal discharge (Primary Dx); Screening examination for venereal disease 03/05/2025 Refill [facility] [address] [place] [address] Belkis Garcia MD PTSD (post-traumatic stress disorder); Bipolar affective disorder, remission status unspecified ([facility]/HCC) 03/05/2025 Travel 03/04/2025 Telephone [facility] [address] [place] [phone] Idania Hart CNM chart prep 03/02/2025 Telephone [facility] [address] [place] [address] Latrice Hernandez MD Nurse Triage 02/23/2025 Refill [facility] [address] [place] [phone] Pantera Arredondo MD Chronic obstructive pulmonary disease, unspecified COPD type ([facility]/HCC) 02/10/2025 5:40 PM EDT Office Visit [facility] [address] [place] [phone] Jennifer Pavon FNP COPD exacerbation ([facility]) (Primary Dx); Non-pitting edema 02/10/2025 Travel 02/10/2025 Telephone [facility] [address] [place] [phone] Latrice Hernandez MD Nurse Triage 02/10/2025 Refill [facility] [address] [place] [address] Latrice Hernandez MD 02/06/2025 Refill [facility] [address] [place] [address] Latrice Hernandez MD Vitamin D deficiency; PTSD (post-traumatic stress disorder); Bipolar affective disorder, remission status unspecified ([facility]) 01/31/2025 Refill [facility] [address] [place] [address] Latrice Hernandez MD 01/29/2025 Refill [facility] [address] [place] [address] Latrice Hernandez MD 01/29/2025 Refill [facility] [address] [place] [address] Latrice Hernandez MD PTSD (post-traumatic stress disorder); Bipolar affective disorder, remission status unspecified ([facility]) 01/15/2025 Orders Only [facility] [address] [place] [phone] Nathalie Garg MD 01/09/2025 Orders Only GENERIC EXTERNAL DATA DEPARTMENT Provider, Generic External Data from Last 3 Months Immunizations Immunization Administration Dates Next Due Hep B, adult 07/30/2020, 4,09/06/2011,2011 Influenza injectable quadriv alent IIV4 with preservative 06/22/2015 Influenza injectable quadriv alent preservative free 08/28/2023,06/02/2022,07/30/2020 Influenza, IIV3, injectable 06/09/2014 Influenza, Unspecified 05/27/2021 Influenza, seasonal, injecta ble, preservative free 05/21/2024 MMR 01/15/2024,07/20/2023 Tdap 08/09/2011 Social History Tobacco Use Types Packs/Day Years Used Date Smoking Tobacco: Every Day Cigarettes Passive Smoke Exposure: Current Smokeless Tobacco: Never Tobacco Cessation:Ready to Q uit: Not Asked; Counseling Given: Not Answered Depression Answer Date Recorded Patient Health Questionnaire-9 Score 14 03/05/2025 Patient Health Questionnaire-9 Score 14 03/05/2025 Last PHQ-9: Questionnaire Data Not on file 0 03/05/2025 Depression Answer Date Recorded Patient Health Questionnaire-2 Score 2 03/05/2025 Comments No Intention Date Recorded No desire to become (finding) 0 03/05/2025 Sex and Gender Information Value Date Recorded Sex Assigned at Female 05/22/2022 10:22 AM EDT Legal Sex Female 10:22 AM EDT Gender Identity Female 05/22/2022 10:22 AM EDT Sexual Orientation Straight 05/22/2022 10 :22 AM EDT Last Filed Vital Signs Vital Sign Reading Time Taken Comments Blood Pressure 124/80 03/05/2025 10:15 AM EDT Pulse 88 03/05/2025 10:15 AM EDT Temperature 37.4 C (99.4 F) 03/05/2025 10:15 AM EDT Respiratory Rate 14 03/05/2025 10:1 5 AM EDT Oxygen Saturation 96% 03/05/2025 10: 15 AM EDT Inhaled Oxygen Concentration - - Weight 72.9 kg (160 lb 12.8 oz) 025 10:15 AM EDT Height 154.9 cm (5' 1 ) 01/02/2025 4:03 PM EDT Body Mass Index 30.38 01/02/2025 4:03 PM EDT Plan of Treatment Upcoming Encounters Date Type Department Care Team ([facility] st Contact Info) Description 04/10/2025 2:30 PM EDT Office Visit [facility] [address] [place] [address] Latrice Hernandez MD [address] [place] [address] Health Maintenance Due Date Last Done Comments SDOH Screening 1980 HPV Vaccines (1 - 3-dose series) 1997 Pneumococcal Vaccine: Pediatrics (0 to 5 Years) and At-Risk Patients (6 to 49) Years (1 of 2 - PCV) 2001 DTaP/Tdap/Td Vaccines (2 - Td or Tdap) 08/09/2021 08/09/2011 Mammogram 2022 COVID-19 Vaccine ( season) 2025 07/05/2023, 09/17/2021, 12/12/2020, Additional history exists Influenza Vaccine (#1) 2025 , 08/28/2023, 06/02/2022, Additional history exists Depression Monitoring 09/05/2025 03/05/2025, 025 Cervical Cancer Screening 09/14/2025 HPV/Cotest 09/14/2025 09/14/2020, 01/21/2019 Pap Smear 09/14/2025 09/14/2020, 09/14/2020 Alcohol/Substance Use Screening 09/26/2025 09/26/2024 Tobacco Screening 01/02/2026 01/02/2025 Family Planning (PISQ) 03/05/2026 03/05/2025 Disability Screening 04/03/2026 04/03/2025 Lipid Panel 07/26/2027 07/26/2022 Zoster Vaccines (1 of 2) 2032 RSV Patients and Patients Aged 60 years or older (1 - 1-dose 75+ series) 2057 Hepatitis B Vaccines Completed 07/30/2020, 06/09/2014, 09/06/2011, Additional history exists Hepatitis C Screening Completed 06/06/2024, 023 HIV Screening Completed 03/05/2025, 05/23, 09/16/2019 HIB Vaccines Aged Out No longer eligi [...] Procedure Name Priority Date/Time Associated Diagnosis Comments HIV 1/2 ANTIGEN/ANTIBODY, FOURTH GENERATION W/RFL Routine 03/05/2025 10:46 AM EDT Screening examination for venereal disease SYPHILIS SCREEN Routine 03/05/2025 10:46 AM EDT Screening examination for venereal disease POCT WET MOUNT/CURT Routine 03/05/2025 10 :42 AM EDT Vaginal discharge CHLAMYDIA/N. GONORRHOEAE RNA, TMA, UROGENITAL Routine 03/05/2025 10:38 AM EDT Screening examination for venereal disease BACTERIAL VAGINOSIS PANEL Routine 03/05/2025 10:38 AM EDT Vaginal discharge XR CHEST 2 VIEWS Routine 01/09/2025 3:45 PM EDT RAST ALLERGEN (NON ORDERABLE) Routine 01/09/2025 3:40 PM EDT HYPERSENSITIVITY PNUEMONITIS PROFILE Routine 01/09/2025 3:40 PM EDT RESPIRATORY ALLERGY PROFILE REGION I Routine 01/09/2025 3:40 PM EDT IMMUNOGLOBULIN E Routine 01/09/2025 3:40 PM EDT IMMUNOGLOBULIN G SUBCLASSES PANEL Routine 01/09/2025 3:40 PM EDT SED RATE BY MODIFIED WESTERGREN Routine 01/09/2025 3:40 PM EDT BASIC METABOLIC PANEL Routine 01/09/2025 3:40 PM EDT CBC WITH AUTO DIFFERENTIAL Routine 01/09/2025 3:40 PM EDT HEPATITIS C AB W/REFL TO HCV RNA, QN, PCR Routine 06/06/2024 3:09 PM EST Routine screening for STI (sexually transmitted infection) LIPID PANEL, STANDARD Routine 07/26/2022 11:11 AM EST Annual physical exam HPV MRNA E6/E7 Routine 09/14/2020 10:42 AM EST HM PAP/HPV Routine 09/14/2020 from Last 3 Months or Most Recently Relevant to Health Maintenance Results * Syphilis Screen (03/05/2025 10:46 AM EDT) Pathologist [facility] Syphilis Screen Nonreactive Nonreactive [facility] Blood Venous blood specimen / Unknown 03/05/2025 10:46 AM EDT 03/05/2025 11:20 AM EDT Idania ZEPEDA LAB BLOOD ORDERABLES Gilma l Result [facility] [address] [place] [phone] * HIV-1/2 Antigen and Antibodies, Fourth Generation, with Reflexes (03/05/2025 10:46 AM EDT) Pathologist [facility] HIV AB/AG Nonreactive Nonreactive [facility] Comment:HIV-1 p24 Ag and/or HIV-1/HIV-2 Ab not detected.A test result that is nonreactive does not exclude thepossibility of exposure to or infection with HIV-1 and/orHIV-2. Nonreactive results in this assay for individualswith prior exposure to HIV-1 and/or HIV-2 may be due toantigen and antibody levels that are below the limit ofdetection of this assay.The Octamer HIV Ag/Ab Combo assay result andsupplemental assay results should be interpreted inconjunction with the patient's clinical presentation,history and other laboratory results. If the results areinconsistent with clinical evidence, additional testing issuggested to confirm the result. Blood Venous blood specimen / Unknown 03/05/2025 10:46 AM EDT 03/05/2025 11:20 AM EDT [facility]LOOD ORDERAB[facility] Gilma l Result [facility] [address] [place] [phone] * POCT fern test, vaginal fluid manually resulted (03/05/2025 10:42 AM EDT) CURT Prep Positive Comment:pH 4.5, neg whiff, n eg clue, neg trich, pos yeast Vaginal Fluid Vaginal structure / Unknown 03/05/2025 10:42 AM EDT [facility] POINT OF CARE TEST ENTER/ EDIT ORDERABLES Final Result * (ABNORMAL) Bacterial Vaginosis Panel (03/05/2025 10:38 AM EDT) TRICHOMONAS VAGINALIS DETECTION BY PCR NOT DETECTED Not Detect [facility] BACTERIAL VAGINOSIS DETECTION BY PCR NEGATIVE Negative [facility] Comment:The BV organism targ ets of the Xpert Xpress MVP test can becommensal in women; Xpert Xpress MVP positive results forbacterial vaginosis should be considered in conjunction withother clinical and patient information to determine thedisease status. Organisms that are not detected by the XpertXpress MVP test have also been reported to be associatedwith BV and aerobic vaginitis.The Xpert Xpress MVP test performance has not been evaluatedin patients under the age of 14. FREDA GROUP DETECTION BY PCR DETECTED(A) Not Detect [facility] Freda glab krusei PCR NOT DETECTED Not Detect [facility] Swab Vaginal structure / Unknown 03/05/2025 10:38 AM EDT 03/05/2025 4:47 PM EDT us Idania Hart [facility] MICROBIOLOGY - GENERA L ORDERABLES Final Result [facility] [address] [place] [address] [phone] * Chlamydia/N. Gonorrhoeae RNA, TMA, Vagina (03/05/2025 10:38 AM EDT) CT PCR NOT DETECTED Not Detect. [facility] Comment:A not detected test result does not exclude the possibilityof infection because test results can be affected byimproper specimen collection, concurrent antibiotic therapy,or the number of organisms in the specimen which may bebelow the sensitivity of the test. As with many diagnostictests, results from the Xpert CT/NG assay should beinterpreted in conjunction with other laboratory andclinical data available to the clinician.Xpert CT/NG performance has not been evaluated in patientsless than 14 years of age. The assay should not be used forthe evaluationof suspected sexual abuse or for other medico-legalindications. Additional testing is recommended in anycircumstance when false positive or false negative resultscould lead to adverse medical, social or psychologicalconsequences. NG PCR NOT DETECTED Not Detect. [facility] Comment:A not detected test result does not exclude the possibilityof infection because test results can be affected byimproper specimen collection, concurrent antibiotic therapy,or the number of organisms in the specimen which may bebelow the sensitivity of the test. As with many diagnostictests, results from the Xpert CT/NG assay should beinterpreted in conjunction with other laboratory andclinical data available to the clinician.Xpert CT/NG performance has not been evaluated in patientsless than 14 years of age. The assay should not be used forthe evaluationof suspected sexual abuse or for other medico-legalindications. Additional testing is recommended in anycircumstance when false positive or false negative resultscould lead to adverse medical, social or psychologicalconsequences. Swab Vaginal structure / Unknown 03/05/2025 10:38 AM EDT 03/05/2025 4:47 PM EDT us Idania Hart [facility] MICROBIOLOGY - GENERA L ORDERABLES Final Result [facility] [address] [place] [phone] * XR Chest 2 Views (01/09/2025 3:45 PM EDT) Anatomical Region Laterality Modality Chest Radiographic Kelli ging 01/09/2025 3:45 PM EDT Narrative 01/09/2025 4:34 PM EDT [address] [address] XRay Report Signed Patient: Ivis Ballesteros MR#: [id number] : 1980 Acct:[id number] Age/Sex: 44 / F ADM Date: 01/09/25 Loc: HO.XRAY Attending Dr: Maximino Luna MD Ordering Physician: Maximino Luna MD Date of Service: 01/09/25 Procedure(s): XR chest 2V Accession Number(s): [id number] cc: Latrice Hernandez MD; Maximino Luna MD EXAMINATION: XR CHEST CLINICAL INFORMATION: T78.40XA - Allergy, unspecified, initial encounter COMPARISON: 11/19/2024. TECHNIQUE: 2 views of the chest were obtained. FINDINGS: The cardiac, hilar, and mediastinal contours are normal. Mildly elevated left hemidiaphragm, unchanged. Lungs demonstrate mild linear type atelectasis or scarring in the right base. Lungs otherwise clear. There is no pneumothorax or pleural effusion. There is no focal osseous or soft tissue abnormality. XR/XR chest 2V IMPRESSION: No active pulmonary disease. Electronically signed by: Kodi Hooks MD 01/09/2025 04:32 PM EDT RP Dictated By: Kodi Hooks MD Signed By: <Electronically signed by Kodi Hooks MD in OV> 01/09/25 1632 DD/ 1545 TD/TT: 01/09/25 1556 Supervising Editor News Reel: Procedure Note Donotuseinterpreter, Image - 01/09/[address] [address] XRay Report Signed Patient: Ivis BallesterosMR#: [id number] : 1980Acct:[id number] Age/Sex: 44 / FADM Date: 01/09/25 Loc: HO.XRAY Attending Dr: Maximino Luna MD Ordering Physician: Maximino Luna MD Date of Service: 01/09/25 Procedure(s): XR chest 2V Accession Number(s): [id number] cc: Latrice Hernandez MD; Maximino Luna MD EXAMINATION: XR CHEST CLINICAL INFORMATION: T78.40XA - Allergy, unspecified, initial encounter COMPARISON: 11/19/2024. TECHNIQUE: 2 views of the chest were obtained. FINDINGS: The cardiac, hilar, and mediastinal contours are normal. Mildly elevated left hemidiaphragm, unchanged. Lungs demonstrate mild linear type atelectasis or scarring in the right base. Lungs otherwise clear. There is no pneumothorax or pleural effusion. There is no focal osseous or soft tissue abnormality. XR/XR chest 2V IMPRESSION: No active pulmonary disease. Electronically signed by: Koid Hooks MD 01/09/2025 04:32 PM EDT RP Dictated By: Kodi Hooks MD Signed By: <Electronically signed by Kodi Hooks MD in OV> 01/09/25 1632 DD/ 1545 TD/TT: 01/09/25 1556 Supervising Editor News Reel: [facility] External Provider IMG XR PROCEDURES Final Result * Rast Allergen (01/09/2025 3:40 PM EDT) Rast Allergen SEE NOTE [facility] Comment:SEE SCANNED RESULTS IN EMR 01/09/2025 3:40 PM EDT 01/20/2025 12:06 PM EDT Narrative [facility] - 01/20/2025 12:08 PM EDT CAT AND DOG REFLEX. us Generic External Data Provider HISTORICAL/NON OR DERABLE LABS Final Result [facility] [address] [place] [phone] * (ABNORMAL) Respiratory Allergy Profile Region I (01/09/2025 3:40 PM EDT) Mouse Urine Proteins (E72) IgE 3.31(A) kU/L [facility] Class 2 [facility] Cockroach (I6) IgE <0.10 kU/L [facility] Class 0 [facility] Dermatophagoides farinae (D2) IgE 0.87(A) kU/L [facility] Class 2 [facility] Cat Dander (E1) IgE 0.55(A) kU/L [facility] Class 1 [facility] Comment:THIS TEST WAS PERFOR MED AT:[x+1][address] [place] [phone] SHARP MD Dog Dander (E5) IgE 0.41(A) kU/L [facility] Class 1 [facility] Comment:THIS TEST WAS PERFOR MED AT:[x+1][address] [place] [phone] SHARP MD [place] (G6) IgE 1.18(A) kU/L [facility] Class 2 [facility] Cladosporium herbarum (M2) IgE <0.10 kU/L [facility] Class 0 [facility] Aspergillus Fumigatis (M3) IgE <0.10 kU/L [facility] Class 0 [facility] Alternaria alternata (M6) IgE <0.10 kU/L [facility] Class 0 [facility] Comment:THIS TEST WAS PERFOR MED AT:[x+1][address] [place] [phone] SHARP MD [place] (t6) IgE <0.10 kU/L [facility] Class 0 [facility] [place] (T7) IgE <0.10 kU/L [facility] Class 0 [facility] [place] (T10) IgE <0.10 kU/L [facility] Class 0 [facility] [place] (T11) IgE <0.10 kU/L [facility] Class 0 [facility] [place] (T14) IgE 0.32(A) kU/L [facility] Class 0/1 [facility] [place] (t15) IgE <0.10 kU/L [facility] Class 0 [facility] [place] (T70) IgE <0.10 kU/L [facility] [facility] Class 0 [facility] Common Ragweed (Short) (W1) IgE 2.38(A) kU/L [facility] Class 2 [facility] Mugwort (w6) IgE <0.10 kU/L [facility] Class 0 [facility] Dermatophagoides pteronyssinus (D1) IgE 0.87(A) kU/L [facility] Class 2 [facility] Bermuda Grass (g2) IgE <0.10 kU/L [facility] Class 0 [facility] Penicillium Notatum (M1) IgE <0.10 kU/L [facility] Class 0 [facility] Birch (T3) IgE 0.78(A) kU/L [facility] Class 2 [facility] Elm (t8) IgE <0.10 kU/L [facility] Class 0 [facility] Maple ([place]) (T1) IgE <0.10 kU/L [facility] Class 0 [facility] Rough Pigweed (W14) IgE <0.10 kU/L [facility] Class 0 [facility] Sheep Athalia (W18) IgE <0.10 kU/L [facility] Class 0 [facility] Allergen Comment See Below [facility] Comment: Specific Level of AllergenIGE Class kU/L Specific IGE Antibody ----- --------- 0 <0.10 Absent/Undetectable 0/1 0.10-0.34 Very Low Level 1 0.35-0.69 Low Level 2 0.70-3.49 Moderate Level 3 3.50-17.4 High Level 4 17.5-49.9 Very High Level 5 50-100 Very High Level 6 >100 Very High LevelThe clinical relevance of allergen results of0.10-0.34 kU/L are undetermined and intended forspecialist use.Allergens denoted with a include results usingone or more analyte specific reagents. In thosecases, the test was developed and its analyticalperformance characteristics have been determined by[facility]. It has not been cleared or approvedby the U.S. Food and Drug Administration. This assayhas been validated pursuant to the CLIA regulationsand is used for clinical purposes.THIS TEST WAS PERFORMED AT:[x+1][address] [place] [phone] SHARP MD 01/09/2025 3:40 PM EDT 01/09/2025 3:40 PM EDT us Generic External Data Provider LAB BLOOD ORDERAB LES Final Result [facility] [address] [place] [address] [phone] * (ABNORMAL) CBC auto differential (01/09/2025 3:40 PM EDT) White Blood Count 5.6 4.8 - 10.8 X10*3/uL [facility] Red Blood Count 4.52 4.20 - 5.50 X10*6/uL [facility] Hemoglobin 12.9 12.0 - 16.0 g/dl [facility] Hematocrit 37.9 37.0 - 47.0 % [facility] Mean Corpuscular Volume 83.8 80.0 - 98.0 fL [facility] Mean Corpuscular Hemoglobin 28.5 27.0 - 33.0 pg [facility] Mean Corpuscular HGB Conc 34.0 31.0 - 35.0 g/dl [facility] Red Cell Distribution Width 13.0 11.0 - 16.0 % [facility] Platelet Count 246 160 - 400 X10*3/uL [facility] Mean Platelet Volume 11.2 9.4 - 12.3 fL [facility] Neutrophils Percent Auto 53.1 45 - 73 % [facility] Imm Gran Pct Auto 0.4 0.0 - 0.4 % [facility] Lymphocytes Percent Auto 37.4 20 - 40 % [facility] Monocytes Percent Auto 4.5 2 - 11 % [facility] Eosinophils Percent Auto 4.1(H) 0 - 4 % [facility] Basophils Percent Auto 0.5 0 - 2 % [facility] NRBC Pct Auto 0.0 0.0 - 0.2 /100WBC [facility] Neutrophils Absolute Auto 3.0 2.0 - 8.3 x10*3/uL [facility] Imm Gran Abs Auto 0.02 0.00 - 0.03 X10*3/uL [facility] Lymphocytes Absolute Auto 2.1 1.2 - 4.9 X10*3/uL [facility] Monocytes Absolute Auto 0.3 0.1 - 1.2 X10*3/uL [facility] Eosinophils Absolute Auto 0.2 0.0 - 0.4 X10*3/uL [facility] Basophils Absolute Auto 0.0 0.0 - 0.2 X10*3/uL [facility] NRBC Abs Auto 0.000 0.0 - 0.012 X10*3/uL [facility] 01/09/2025 3:40 PM EDT 01/09/2025 3:40 PM EDT Generic External Data Provider LAB BLOOD ORDERAB LES Final Result Performing Organization Address [facility] Co de Phone Number [facility] [address] [place] [address] [phone] * Hypersensitivity Pneumonitis Screen (01/09/2025 3:40 PM EDT) Aspergillus fumigatus Ab NEGATIVE [facility] Comment:Reference RangeNEGAT STEFANI Micropolyspora Faeni NEGATIVE [facility] Comment:Reference RangeNEGAT STEFANI [place] Serum Abs NEGATIVE [facility] Comment:Reference RangeNEGAT STEFANI Thermoactinomyces candidus NEGATIVE [facility] Comment:Reference RangeNEGAT STEFANI Thermoactinomyces vulgaris Ab NEGATIVE [facility] Comment:Reference RangeNEGAT STEFANI Saccharomonospora viridis Ab NEGATIVE [facility] Comment:Reference RangeNEGAT STEFANI This test was developed and its analytical performancecharacteristics have been determined by [facility].It has not been cleared or approved by the FDA. This assayhas been validated pursuant to the CLIA regulations and isused for clinical purposes. 01/09/2025 3:40 PM EDT 01/09/2025 3:40 PM EDT Generic External Data Provider LAB BLOOD ORDERAB LES Final Result Performing Organization Address [facility] Co de Phone Number [facility] [address] [place] [address] [phone] * Immunoglobulin G Subclasses Panel (01/09/2025 3:40 PM EDT) IgG Subclass 1 452 382 - 929 mg/dL [facility] IgG Subclass 2 279 241 - 700 mg/dL [facility] IgG Subclass 3 83 22 - 178 mg/dL [facility] IgG Subclass 4 4.3 4 - 86 mg/dL [facility] Immunoglobulin G, Serum 809 600 - 1640 mg/dL [facility] Comment:THIS TEST WAS PERFOR MED AT:[x+1][address] [place] [phone] SHARP MD 01/09/2025 3:40 PM EDT 01/09/2025 3:40 PM EDT Generic External Data Provider LAB BLOOD ORDERAB LES Final Result Performing Organization Address [facility] Co de Phone Number [facility] [address] [place] [phone] * Sed Rate by Modified Marioergren (01/09/2025 3:40 PM EDT) Erythrocyte Sedimentation Rate 11 0 - 20 MM/HR [facility] Comment:Patients with polycy themia and many hemoglobin abnormalitiesmay have depressed sed rates whereas patients with anemiamay have elevated sed rates. 01/09/2025 3:40 PM EDT 01/09/2025 3:40 PM EDT Generic External Data Provider LAB BLOOD ORDERAB LES Final Result Performing Organization Address [facility] Co de Phone Number [facility] [address] [place] [phone] * Immunoglobulin E (01/09/2025 3:40 PM EDT) Immunoglobulin E 34 <TR=664 kU/L [facility] 01/09/2025 3:40 PM EDT 01/09/2025 3:40 PM EDT Generic External Data Provider LAB BLOOD ORDERAB LES Final Result Performing Organization Address [facility] Co de Phone Number [facility] [address] [place] [phone] * (ABNORMAL) Basic Metabolic Panel (01/09/2025 3:40 PM EDT) Sodium 145 135 - 145 mmol/L [facility] Potassium 3.3 3.3 - 5.1 mmol/L [facility] Chloride 113(H) 96 - 108 mmol/L [facility] Carbon Dioxide 25 22 - 29 mmol/L [facility] Anion Gap 10(L) 12 - 20 [facility] Urea Nitrogen (BUN) 13 9 - 16 mg/dL [facility] Creatinine, Serum 0.50 0.5 - 1.4 mg/dL [facility] Estimated Glomerular Filt Rate >60 [facility] Comment:Chronic Kidney Disea se: Estimated GFR < 60 mL/min/1.55x5Lokynq Kidney Disease: Estimated GFR < 15 mL/min/1.73m2 Glucose 91 60 - 115 mg/dL [facility] Calcium 9.4 8.4 - 10.2 mg/dL [facility] 01/09/2025 3:40 PM EDT 01/09/2025 3:40 PM EDT [facility] External [facility] Provider LAB BLOOD ORDERAB LES Final Result Performing Organization Address [facility]/ZIP Co de Phone Number [facility] [address] [place] [phone] * Hepatitis C Antibody with Reflex to HCV, RNA, Quantitative, Real-Time PCR (06/06/2024 3:09 PM EST) Hepatitis C Antibody Nonreactive Nonreactive [facility] Comment:Antibodies to HCV no t detected; does not exclude early acuteHCV infection. Blood Venous blood specimen / Unknown 06/06/2024 3:09 PM EST 06/06/2024 3:56 PM EST [facility] LAB BLOOD ORDERABLES Final Resul t Performing Organization Address [facility]/ZIP Co de Phone Number [facility] [address] [place] [phone] * (ABNORMAL) Lipid Panel, Standard (07/26/2022 11:11 AM EST) Cholesterol, Total 192 <200 mg/dL [facility] HDL Cholesterol 30(L) > OR = 50 mg/dL [facility] Triglycerides 573(H) <150 mg/dL [facility] Comment: If a non-fasting specimen was collected, consider repeat triglyceride testing on a fasting specimen if clinically indicated. Sandoval et al. J. of Clin. Lipidol. 2015;9:129-169. There is increased risk of pancreatitis when the triglyceride concentration is very high (> or = 500 mg/dL, especially if > or = 1000 mg/dL). Sandoval et al. J. of Clin. Lipidol. 2015;9:129-169. LDL Cholesterol Ques [facility] Comment: LDL cholesterol not calculated. Triglyceride levels greater than 400 mg/dL invalidate calculated LDL results. Reference range: <100 Desirable range <100 mg/dL for primary prevention; <70 mg/dL for patients with CHD or diabetic patients with > or = 2 CHD risk factors. LDL-C is now calculated using the Sky-Micheline calculation, which is a validated novel method providing better accuracy than the Friedewald equation in the estimation of LDL-C. Sky SS et al. JESSICA. 2013;310(19): 2949-7793 (http://education.[employer]/faq/FEN794) Chol/HDLC Ratio 6.4(H) <5.0 (calc) [facility] Non-HDL Cholesterol 162(H) <130 mg/dL (calc) [facility] Comment: For patients with diabetes plus 1 [...] BLOOD ORDERABLES Final Result Performing Organization Address [facility]/ZIP Co de Phone Number [facility] [address] [place] [phone] [facility] [address], ([address]) [place] [address] * HPV mRNA E6/E7 (09/14/2020 10:42 AM EST) HPV nRNA E6/E7 Not Detected Not Detected [facility] Comment: Methodology: Retail Support Manager-Mediated Amplification This assay detects E6/E7 viral messenger RNA (mRNA) from 14 high-risk HPV types (16,18,31,33,35,39,45,51,52,56,58,59,66,68). The analytical performance characteristics of this assay have been determined by [facility]. The modifications have not been cleared or approved by the FDA. This assay has been validated pursuant to the CLIA regulations and is used for clinical purposes. For additional information, please refer to http://education.[employer] [place]/AVV550t0 (This link if provided for information/ educational purposes only.) 09/14/2020 10:4 2 AM EST [facility] LAB BLOOD ORDERABLES Gilma l Result [facility] [address] * Hm Pap Smear (09/14/2020) HM Pap smear Perform Historical Provider HEALTH MAINTENANCE Final Result from Last 3 Months or Most Recently Relevant to Health Maintenance Insurance [facility] C3 Care Teams Gem Expert Relationship Specialty Start Date End Date Latrice Hernandez MD [address] [facility] [place] PCP - General Internal Medicine 07/23/18 Norris Casillas FNP [address] [facility] [place] Nurse Practitioner Family Medicine 06/07/23
--- OUTSIDE RECORDS SUMMARY | 2025-04-09 15:22 | XMS_ITS | Encounter Summary ---
Author Organization [facility] Address [address] [place] [address] Care Team Providers Care Lead Software Tester Name Role Phone Latrice Hernandez MD Primary Care Pr ovider Unavailable Community, Pcp Primary Care Provider Latrice Medley MD Primary Care Pr ovider Unavailable Encounter Details Date Type Department Care Team Description 09/14/2015 Release of Information Medical Records [address] [place] [id number] Abstract, Provider Social History Tobacco Use Types Packs/Day Years Used Date Smoking Tobacco: Every Day Alcohol Use Standard Drinks/Week Comments No 0 (1 standard drink = 0.6 oz pur e alcohol) Sex Assigned at Date Recorded Not on file documented as of this encounter Plan of Treatment Not on file documented as of this encounter Visit Diagnoses Not on filedocumented in this encounter Care Teams Lead Software Tester Relationship Specialty Start Date End Date Latrice Hernandez MD PCP - General Internal Medicine 09/13/15 10/30/17 [facility], Pcp PCP - General Internal Medicine 10/31/17 09/17/18 Latrice Hernandez MD PCP - General Internal Medicine 09/18/18 documented as of this encounter
--- OUTSIDE RECORDS SUMMARY | 2025-04-09 15:22 | XMS_ITS | Encounter Summary ---
Author Organization [employer] Address [address] [place] [address] 7 [place] [address] Care Team Providers Care Rn Oncology Name Role Phone Latrice Hernandez MD Primary Care Provider [phone]- [phone] Norris Casillas Unavailable Unavailable Reason for Visit * Reason Comments Med Refill Encounter Details Date Type Department Care Team ([facility] Contact Info) Description 04/06/2025 Refill [facility] MED & PEDS [address] [place] [address] Belkis Garcia MD [address] [place] [address] Social History Tobacco Use Types Packs/Day Years Used Date Smoking Tobacco: Every Day Cigarettes Passive Smoke Exposure: Current Smokeless Tobacco: Never Depression Answer Date Recorded Patient Health Questionnaire-9 Score 14 03/05/2025 Patient Health Questionnaire-9 Score 14 03/05/2025 Last PHQ-9: Questionnaire Data Not on file 0 03/05/2025 Depression Answer Date Recorded Patient Health Questionnaire-2 Score 2 03/05/2025 Comments No Sex and Gender Information Value Date Recorded Sex Assigned at Female 05/22/2022 10:22 AM EDT Legal Sex Female 10:22 AM EDT Gender Identity Female 05/22/2022 10:22 AM EDT Sexual Orientation Straight 05/22/2022 10 :22 AM EDT documented as of this encounter Plan of Treatment Upcoming Encounters Date Type Department Care Team ([facility] Contact Info) Description 04/10/2025 2:30 PM EDT Office Visit [facility] MED & PEDS [address] [place] [address] Latrice Hernandez MD [address] [place] [address] documented as of this encounter Visit Diagnoses Not on filedocumented in this encounter Additional Health Concerns Assessment Noted Time PHQ-9 Depression Total Score: 14 03/05/ 025 10:45 AM EDT documented as of this encounter Care Teams Rn Oncology Relationship Specialty Start Date End Date Latrice Hernandez MD [address] [place] [address] PCP - General Internal Medicine 07/23/18 Norris Casillas FNP [address] [place] [address] Nurse Practitioner Family Medicine 06/07/23 documented as of this encounter
--- OUTSIDE RECORDS SUMMARY | 2025-04-09 15:22 | XMS_ITS | Encounter Summary ---
Author Organization [employer] Address [address] [facility] 7t [place] [address] Care Team Providers Care Exhaust Tender Name Role Phone Latrice Hernandez MD Primary Care Provider [phone]- [phone] Norris Casillas Unavailable Unavailable Reason for Visit * Reason Onset Date Comments Med Refill 04/06/2025 Encounter Details Date Type Department Care Team ([facility] st Contact Info) Description 04/06/2025 Refill [facility] MED & PEDS [address] [place] [address] Latrice Hernandez MD [address] [place] [address] PTSD (post-traumatic stress disorder); Bipolar affective disorder, remission status unspecified ([facility]) Social History Tobacco Use Types Packs/Day [...] encounter Miscellaneous Notes * Telephone Encounter - Trena Bansal RN - 04/06/2025 4:11 PM EDT .What PLATE MOLDER Tier would you like this patient to be? Tier 1 = HIGH RISK, Monthly PLATE MOLDER visits Tier 2 = MODerate RISK, Q3 Month visits Tier 3 = LOW RISK = Q4-6 month visits documented in this encounter Plan of Treatment Upcoming Encounters Date Type Department Care Team (Late st Contact Info) Description 04/10/2025 2:30 PM EDT Office Visit [facility] MED & PEDS [address] [place] [address] Latrice Hernandez MD [address] [place] [address] documented as of this encounter Visit Diagnoses Diagnosis PTSD (post-traumatic stress disorder) Posttraumatic stress disorder Bipolar affective disorder, remission status unspecified ([facility]) documented in this encounter Additional Health Concerns Assessment Noted Time PHQ-9 Depression Total Score: 14 025 10:45 AM EDT documented as of this encounter Care Teams Exhaust Tender Relationship Specialty Start Date End Date Latrice Hernandez MD [address] [place] [address] PCP - General Internal Medicine 07/23/18 Norris Casillas FNP [address] [place] [address] Nurse Practitioner Family Medicine 06/07/23 documented as of this encounter
--- OUTSIDE RECORDS SUMMARY | 2025-04-09 15:22 | XMS_ITS | Encounter Summary ---
Author Organization [employer] Address [address] [facility] 7t [place] [address] Care Team Providers Care Manager Recruitment Name Role Phone Latrice Hernandez MD Primary Care Provider +1- [phone] Norris Casillas Unavailable Unavailable Encounter Details Date Type Department Care Team ([facility] st Contact Info) Description 04/06/2025 Telephone [facility] MED & PEDS [address] [place] [address] Latrice Hernandez MD [address] [place] [address] Social History Tobacco Use Types Packs/Day Years [...] encounter Miscellaneous Notes * Telephone Encounter - Mamie Porter LPN - 04/06/2025 1:10 PM EDT Received fax from [facility] requesting refill on Clonazepam 1 mg. documented in this encounter Plan of Treatment Upcoming Encounters Date Type Department Care Team (Late st Contact Info) Description 04/10/2025 2:30 PM EDT Office Visit [facility] MED & PEDS [address] [place] [address] Latrice Hernandez MD [address] [place] [address] documented as of this encounter Visit Diagnoses Not on filedocumented in this encounter Additional Health Concerns Assessment Noted Time PHQ-9 Depression Total Score: 14 025 10:45 AM EDT documented as of this encounter Care Teams Manager Recruitment Relationship Specialty Start Date End Date Latrice Hernandez MD [address] [place] [address] PCP - General Internal Medicine 07/23/18 Norris Casillas FNP [address] [place] [address] Nurse Practitioner Family Medicine 06/07/23 documented as of this encounter
--- OUTSIDE RECORDS SUMMARY | 2025-04-09 15:22 | XMS_ITS | Encounter Summary ---
Author Organization [employer] Address [address] [facility] [address] [place] [address] Care Team Providers Care Printing Mechanist Name Role Phone Latrice Hernandez MD Primary Care Provider +1- [phone] Norris Casillas Unavailable Unavailable Reason for Visit * Reason Comments Med Refill Encounter Details Date Type Department Care Team (Late Contact Info) Description 04/09/2025 Refill [facility] MED & PEDS [address] [place] [address] Edward Richard MD [address] [place] [address] Social History Tobacco Use Types Packs/Day Years [...] 04/10/2025 2:30 PM EDT Office Visit [facility] MED & PEDS [address] [place] [address] Latrice Hernandez MD [address] [place] [address] documented as of this encounter Visit Diagnoses Not on filedocumented in this encounter Additional Health Concerns Assessment Noted Time PHQ-9 Depression Total Score: 14 025 10:45 AM EDT documented as of this encounter Care Teams Printing Mechanist Relationship Specialty Start Date End Date Latrice Hernandez MD [address] [place] [address] PCP - General Internal Medicine 07/23/18 Norris Casillas FNP [address] [place] [address] Nurse Practitioner Family Medicine 06/07/23 documented as of this encounter
--- OUTSIDE RECORDS SUMMARY | 2025-04-09 15:22 | XMS_ITS | Encounter Summary ---
Author Organization [employer] Address [address] [place] [phone] Care Team Providers Care Back End Developer Name Role Phone Latrice Hernandez MD Primary Care Provider +1- [phone] Norris Casillas Unavailable Unavailable Reason for Visit * Reason Comments Med Refill Encounter Details Date Type Department Care Team ([facility] Contact Info) Description 06/29/2022 Refill [facility] MEDICINE [address] [place], [place] [phone] Latrice Hernandez MD [address] [place], [place] [phone] Herpesviral infection, unspecified Social History Tobacco Use [...] Description 04/10/2025 2:30 PM EDT Office Visit [facility] MED & PEDS [address] [place], [place] [phone] Latrice Hernandez MD [address] [place], [place] [phone] documented as of this encounter Visit Diagnoses Diagnosis Herpesviral infection, unspecified documented in this encounter Care Teams Back End Developer Relationship Specialty Start Date End Date Latrice Hernandez MD [address] [place] [address] PCP - General Internal Medicine 07/23/18 Norris Casillas FNP [address] [place] [address] Nurse Practitioner Family Medicine 06/07/23 documented as of this encounter
--- OUTSIDE RECORDS SUMMARY | 2025-04-09 15:22 | XMS_ITS | Encounter Summary ---
Author Organization [employer] Address [address] [facility] [address] [place] [address] Care Team Providers Care Picking Machine Operator Helper Name Role Phone Latrice Hernandez MD Primary Care Provider +1- [phone] Norris Casillas Unavailable Unavailable Reason for Visit * Reason Comments Med Refill Encounter Details Date Type Department Care Team (Late Contact Info) Description 04/08/2025 Refill [facility] MED & PEDS [address] [place] [address] Edward Richard MD [address] [place] [address] Social History Tobacco Use Types Packs/Day Years [...] [facility] [address] [place] [address] Latrice Hernandez MD [address] [place] [address] documented as of this encounter Visit Diagnoses Not on filedocumented in this encounter Additional Health Concerns Assessment Noted Time PHQ-9 Depression Total Score: 14 025 10:45 AM EDT documented as of this encounter Care Teams Picking Machine Operator Helper Relationship Specialty Start Date End Date Latrice Hernandez MD [address] [place] [address] PCP - General Internal Medicine 07/23/18 Norris Casillas FNP [address] [place] [address] Nurse Practitioner Family Medicine 06/07/23 documented as of this encounter
--- OUTSIDE RECORDS SUMMARY | 2025-04-09 15:22 | XMS_ITS | Encounter Summary ---
Author Organization [employer] Address [address] [facility] 7t [place] [address] Care Team Providers Care Barn Boss Name Role Phone Latrice Hernandez MD Primary Care Provider +1- [phone] Norris Casillas Unavailable Unavailable Encounter Details Date Type Department Care Team (Late st Contact Info) Description 09/07/2023 Orders Only [facility] MED & PEDS [address] [facility] [address] Latrice Hernandez MD 505 [place] [address] Herpes (Primary Dx) Social History Tobacco Use [...] Description 04/10/2025 2:30 PM EDT Office Visit [facility] MED & PEDS 505 [place] [address] Latrice Hernandez MD [address] [place] [address] documented as of this encounter Visit Diagnoses Diagnosis Herpes- Primary Herpes simplex without mention of complication documented in this encounter Additional Health Concerns Assessment Noted Time PHQ-9 Depression Total Score: 8 08/27/19 24 11:04 AM EST documented as of this encounter Care Teams Barn Boss Relationship Specialty Start Date End Date Latrice Hernandez MD [address] [place] [address] PCP - General Internal Medicine 07/23/18 Norris Casillas FNP [address] [place] [address] Nurse Practitioner Family Medicine 06/07/23 documented as of this encounter
--- OUTSIDE RECORDS SUMMARY | 2025-04-09 15:22 | XMS_ITS | Encounter Summary ---
Author Organization [employer] Address 75 [facility] 7t [place] [address] Care Team Providers Care Marble Chip Terrazzo Worker Name Role Phone Latrice Hernandez MD Primary Care Provider +1- [phone] Norris Casillas Unavailable Unavailable Encounter Details Date Type Department Care Team (Late st Contact Info) Description 03/09/2025 Results Follow-Up [facility] [address] [place] [address] Idania Hart CNM [address] [place] [address] Bacterial Vaginosis Panel Social History Tobacco Use Types Packs/Day Years [...] Description 04/10/2025 2:30 PM EDT Office Visit [facility] CHC MED & PEDS [address] [place] [address] Latrice Hernandez MD 505 [place] [address] documented as of this encounter Visit Diagnoses Not on filedocumented in this encounter Additional Health Concerns Assessment Noted Time PHQ-9 Depression Total Score: 14 025 10:45 AM EDT documented as of this encounter Care Teams Marble Chip Terrazzo Worker Relationship Specialty Start Date End Date Latrice Hernandez MD [address] [place] [address] PCP - General Internal Medicine 07/23/18 Norris Casillas FNP [address] [place] [address] Nurse Practitioner Family Medicine 06/07/23 documented as of this encounter
--- OUTSIDE RECORDS SUMMARY | 2025-04-09 15:22 | XMS_ITS | Encounter Summary ---
Author Organization [employer] Address 75 [facility] 7t [place] [address] Care Team Providers Care Pulp Bleacher Name Role Phone Latrice Hernandez MD Primary Care Provider +1- [phone] Norris Casillas Unavailable Unavailable Encounter Details Date Type Department Care Team (Late st Contact Info) Description 09/29/2024 Orders Only [facility] [address] [place] [address] Latrice Hernandez MD [address] [place] [address] Chronic obstructive pulmonary disease, unspecified COPD type [...] Description 04/10/2025 2:30 PM EDT Office Visit [facility] CHC MED & PEDS [address] [place] [address] Latrice Hernandez MD [address] [place] [address] documented as of this encounter Procedures Procedure Name Priority Date/Time Associated Diagnosis Comments [id number] QN Routine 10/15/2024 10:53 AM EDT Chronic obstructive pulmonary disease, unspecified COPD type (CMS/HCC) documented in this encounter Results * Yeuhm-9-Jxvdedshmox, Quantitative (10/15/2024 10:53 AM EDT) Ermis-4-Ppkyqynb sin QN 122 83 - 199 mg/dL [facility] Comment:THIS TEST WAS PERFOR MED AT:[facility] [place] [id number] SHARP MD Blood Venous blood specimen / Unknown 10/15/2024 10:53 AM EDT 10/15/2024 2:15 PM EDT Latrice Hernandez MD LAB BLOOD ORDERABLES Final Result [facility] [address] [place] [address] [phone] documented in this encounter Visit Diagnoses Diagnosis Chronic obstructive pulmonary disease, unspecified COPD type (CMS/HCC)- Primary documented in this encounter Additional Health Concerns Assessment Noted Time PHQ-9 Depression Total Score: 9 12/24/19 24 9:18 AM EDT documented as of this encounter Care Teams Pulp Bleacher Relationship Specialty Start Date End Date Latrice Hernandez MD [address] [place] [address] PCP - General Internal Medicine 07/23/18 Norris Casillas FNP [address] [place] [address] Nurse Practitioner Family Medicine 06/07/23 documented as of this encounter
--- OUTSIDE RECORDS SUMMARY | 2025-04-09 15:22 | XMS_ITS | Encounter Summary ---
Author Organization [employer] Address 75 [facility] 7t [place] [address] Care Team Providers Care Melter Supervisor Name Role Phone Latrice Hernandez MD Primary Care Provider +1- [phone] Norris Casillas Unavailable Unavailable Reason for Visit * Reason Onset Date Comments Nurse Triage 12/26/2023 Encounter Details Date Type Department Care Team (Late st Contact Info) Description 12/26/2023 Telephone [facility] [address] [place] [address] Latrice Hernandez MD 505 [facility] [place] [phone] Nurse Triage Social History Tobacco Use Types [...] of kidney stones . Pt is offered GAC tonight open till 8pm in [facility] and tomorrow 830am-400pm. No available apts in [facility] this week and Pt can't go to [facility] in afternoon. Pt reports willgo to ED [...] [facility] MED & PEDS [address] [place], [place] [phone] Latrice Hernandez MD [address] [place], [place] [phone] documented as of this encounter Visit Diagnoses Not on filedocumented in this encounter Additional Health Concerns Assessment Noted Time PHQ-9 Depression Total Score: 9 12/24/19 24 9:18 AM EDT documented as of this encounter Care Teams Melter Supervisor Relationship Specialty Start Date End Date Latrice Hernandez MD [address] [place] [address] PCP - General Internal Medicine 07/23/18 Norris Casillas FNP [address] [place] [address] Nurse Practitioner Family Medicine 06/07/23 documented as of this encounter
--- OUTSIDE RECORDS SUMMARY | 2025-04-09 15:22 | XMS_ITS | Encounter Summary ---
Author Organization [facility] Address [address] [place] [address] Care Team Providers Care What Job Titles Mean Name Role Phone Latrice Hernandez MD Primary Care Pr ovider Unavailable Community, Pcp Primary Care Provider UnavailLatrice Mcqueen MD Primary Care Pr ovider Unavailable Encounter Details Date Type Department Care Team Description 03/19/2017 Release of Information Medical Records [address] [place] [id number] Abstract, Provider Social History Tobacco Use Types Packs/Day Years Used Date Smoking Tobacco: Every Day Cigarettes 0 Alcohol Use Standard Drinks/Week Comments No 0 (1 standard drink = 0.6 oz pur e alcohol) occ Sex Assigned at Date Recorded Not on file documented as of this encounter Plan of Treatment Not on file documented as of this encounter Visit Diagnoses Not on filedocumented in this encounter Care Teams What Job Titles Mean Relationship Specialty Start Date End Date Latrice Hernandez MD PCP - General Internal Medicine 09/13/15 10/30/17 [facility], Pcp PCP - General Internal Medicine 10/31/17 09/17/18 Latrice Hernandez MD PCP - General Internal Medicine 09/18/18 documented as of this encounter
--- OUTSIDE RECORDS SUMMARY | 2025-04-09 15:22 | XMS_ITS | Encounter Summary ---
Author Organization [facility] Address [address] [place] [address] Care Team Providers Care Mortgage Loan Officer Name Role Phone Community, Pcp Primary Care Provider Latrice Medley MD Primary Care Pr ovider Unavailable Encounter Details Date Type Department Care Team Description 08/21/2018 Release of Information Medical Records [address] [place] [id number] Abstract, Provider Social History Tobacco Use Types [...] on filedocumented in this encounter Care Teams Mortgage Loan Officer Relationship Specialty Start Date End Date Community, Pcp PCP - General Internal Medicine 10/31/17 09/17/18 Latrice Hernandez MD PCP - General Internal Medicine 09/18/18 documented as of this encounter
--- OUTSIDE RECORDS SUMMARY | 2025-04-09 15:23 | XMS_ITS | Encounter Summary ---
Author Organization [employer] Address [address] [place] [address] 7 [place] [address] Care Team Providers Care Bag Filler Name Role Phone Latrice Hernandez MD Primary Care Provider +1- [phone] Norris Casillas Unavailable Unavailable Encounter Details Date Type Department Care Team (Late Contact Info) Description 01/15/2025 Orders Only [facility] [address] [place], [place] [phone] ProviderNathalie MD Social History Tobacco Use Types Packs/Day Years [...] Description 04/10/2025 2:30 PM EDT Office Visit [facility] CHC MED & PEDS 505 [facility] [place] [phone] Latrice Hernandez MD 505 [facility] [place] [phone] documented as of this encounter Procedures Procedure Name Priority Date/Time Associated Diagnosis Comments VASC US LOWER EXTREMITY VENOUS DUPLEX BILATERAL Routine 01/02/2025 10:06 AM EDT documented in this encounter Results * VASC US Lower Extremity Venous Duplex Bilateral (01/02/2025 10:06 AM EDT) us Historical Provider CV VASCULAR PROCEDURES Fi nal Result documented in this encounter Visit Diagnoses Not on filedocumented in this encounter Additional Health Concerns Assessment Noted Time PHQ-9 Depression Total Score: 9 12/24/19 24 9:18 AM EDT documented as of this encounter Care Teams Bag Filler Relationship Specialty Start Date End Date Latrice Hernandez MD [address] [place] [address] PCP - General Internal Medicine 07/23/18 Norris Casillas FNP [address] [place] [address] Nurse Practitioner Family Medicine 06/07/23 documented as of this encounter
--- OUTSIDE RECORDS SUMMARY | 2025-04-09 15:23 | XMS_ITS | Encounter Summary ---
Author Organization [employer] Address 75 [facility] 7t [place] [address] Care Team Providers Care Performance Reporter Name Role Phone Latrice Hernandez MD Primary Care Provider +1- [phone] Norris Casillas ENVIRONMENTAL SAFETY SPECIALIST Unavailable Unavailable Encounter Details Date Type Department Care Team (Late st Contact Info) Description 11/19/2024 Orders Only [facility] CHC MED & PEDS 505 [facility] [place] [address] Latrice Hernandez MD 505 [place] [address] SOB (shortness of breath) (Primary Dx) Social [...] Description 04/10/2025 2:30 PM EDT Office Visit [facility] CH[facility] MED & PEDS 505 [facility] [place] [address] Latrice Hernandez MD [address] [place] [address] Scheduled Orders Name Type Priority Associated Diagnoses [...] documented as of this encounter Care Teams Performance Reporter Relationship Specialty Start Date End Date Latrice Hernandez MD [address] [place] [address] PCP - General Internal Medicine 07/23/18 Norris Casillas FNP [address] [place] [address] Nurse Practitioner Family Medicine 06/07/23 documented as of this encounter
--- OUTSIDE RECORDS SUMMARY | 2025-04-09 15:23 | XMS_ITS | Encounter Summary ---
Author Organization [employer] Address [address] [place] [address] 7 [place] [address] Care Team Providers Care Barrel Tester Name Role Phone Latrice Hernandez MD Primary Care Provider +1- [phone] Norris Casillas Unavailable Unavailable Encounter Details Date Type Department Care Team (Late st Contact Info) Description 04/03/2023 [facility] [address] [place], [place] [phone] Latrice Hernandez MD [address] [place] [address] Social History Tobacco Use Types Packs/Day Years [...] Description 04/10/2025 2:30 PM EDT Office Visit [facility] CHC MED & PEDS 505 [place] [address] Latrice Hernandez MD [address] [place], [place] [phone] documented as of this encounter Visit Diagnoses Not on filedocumented in this encounter Additional Health Concerns Assessment Noted Time PHQ-9 Depression Total Score: 9 03/20/20 23 10:44 AM EDT documented as of this encounter Care Teams Barrel Tester Relationship Specialty Start Date End Date Latrice Hernandez MD [address] [place] [address] PCP - General Internal Medicine 07/23/18 Norris Caisllas FNP [address] [place] [address] Nurse Practitioner Family Medicine 06/07/23 documented as of this encounter
--- OUTSIDE RECORDS SUMMARY | 2025-04-09 15:23 | XMS_ITS | Encounter Summary ---
Author Organization [employer] Address 75 [facility] 7t [place] [address] Care Team Providers Care Engineering Design Supervisor Name Role Phone Latrice Hernandez MD Primary Care Provider [phone] Norris Casillas Unavailable Unavailable Reason for Visit * Reason Comments Med Refill Encounter Details Date Type Department Care Team ([facility] st Contact Info) Description 07/24/2022 Refill [facility] [address] [place] [address] Norris Casillas FNP Social History Tobacco Use [...] AM EST documented as of this encounter Functional Status * Over the past 2 weeks, how often have you been bothered by any of the following problems? Question Answer Date of Assessment Author Patient Health Questionnaire-2 Score 0 10/2022 10:52 AM Sarah Parsons * Over the past 2 weeks, how often have you been bothered by any of the following problems? Question Answer Date of Assessment Author Little interest or pleasure in doing things Not at all 07/26/2022 10:52 AM Sarah Parsons Feeling down, depressed, or hopeless Not at all 07/26/2022 10:52 AM Sarah Parsons Trouble falling or staying a sleep, or sleeping too much Not at all 07/26/2022 10:52 AM Sarah Parsons Feeling tired or having carlos le energy Not at all 07/26/2022 10:52 AM Sarah Parsons Poor appetite or overeating Not at all 07/26/2022 10 :52 AM Sarah Parsons Feeling bad about yourself - or that you are a failure or have let yourself or your family down Not at all 07/26/2022 10:52 AM Sarah Parsons Trouble concentrating on thi ngs, such as reading the newspaper or watching television Not at all 07/26/2022 10:52 AM Sarah Parsons Moving or speaking so slowly that other people could have noticed? Or the opposite - being so fidgety or restless that you have been moving around a lot more than usual. Not at all 07/26/2022 10:52 AM Sarah Parsons Thoughts that you would be b melanie off or hurting yourself in some way Not at all 07/26/2022 10:52 AM Sarah Parsons Patient Health Questionnaire -9 Score 0 07/26/2022 10:52 AM Sarah Parsons documented as of this encounter Miscellaneous Notes * Telephone Encounter - MURALI Preston - 07/26/2022 11:19 AM EST This medication was discontinued documented in this encounter Plan of Treatment Upcoming Encounters Date Type Department Care Team ([facility] st Contact Info) Description 04/10/2025 2:30 PM EDT Office Visit [facility] CHC MED & PEDS [address] [place] [address] Latrice Hernandez MD [address] [place] [address] documented as of this encounter Visit Diagnoses Not on filedocumented in this encounter Additional Health Concerns Assessment Noted Time PHQ-9 Depression Total Score: 15 022 1:56 PM EST documented as of this encounter Care Teams Engineering Design Supervisor Relationship Specialty Start Date End Date Latrice Hernandez MD [address] [place] [address] PCP - General Internal Medicine 07/23/18 Norris Casillas FNP [address] [place] [address] Nurse Practitioner Family Medicine 06/07/23 documented as of this encounter
--- OUTSIDE RECORDS SUMMARY | 2025-04-09 15:23 | XMS_ITS | Encounter Summary ---
Author Organization [employer] Address 75 [facility] 7t [place] [address] Care Team Providers Care Shop Steward Name Role Phone Latrice Hernandez MD Primary Care Provider +1- [phone] Norris Casillas Unavailable Unavailable Encounter Details Date Type Department Care Team (Late st Contact Info) Description 04/04/2023 Telephone [facility] MED & PEDS [address] [place], [place] [phone] Charlotte Simpson, RN [address] [place] [address] Social History Tobacco Use Types Packs/Day Years [...] [facility] [address] [place], [place] [phone] Latrice Hernandez MD [address] [place] [address] documented as of this encounter Visit Diagnoses Not on filedocumented in this encounter Additional Health Concerns Assessment Noted Time PHQ-9 Depression Total Score: 9 03/20/20 23 10:44 AM EDT documented as of this encounter Care Teams Shop Steward Relationship Specialty Start Date End Date Latrice Hernandez MD [address] [place] [address] PCP - General Internal Medicine 07/23/18 Norris Casillas FNP [address] [place] [address] Nurse Practitioner Family Medicine 06/07/23 documented as of this encounter
--- OUTSIDE RECORDS SUMMARY | 2025-04-09 15:23 | XMS_ITS | Encounter Summary ---
Author Organization [employer] Address [address] [place] [address] 7 [place] [address] Care Team Providers Care Talent Associate Name Role Phone Latrice Hernandez MD Primary Care Provider +1- [phone] Norris Casillas Unavailable Unavailable Encounter Details Date Type Department Care Team (Late st Contact Info) Description 03/27/2023 Orders Only [facility] CHC MED & PEDS [address] [place] [address] Latrice Hernandez MD [address] [place] [address] Scabies exposure (Primary Dx) Social History Tobacco [...] Description 04/10/2025 2:30 PM EDT Office Visit [facility] CHC MED & PEDS [address] [place], [place] [phone] Latrice Hernandez MD [address] [place], [place] [phone] documented as of this encounter Visit Diagnoses Diagnosis Scabies exposure- Primary documented in this encounter Additional Health Concerns Assessment Noted Time PHQ-9 Depression Total Score: 9 03/20/20 23 10:44 AM EDT documented as of this encounter Care Teams Talent Associate Relationship Specialty Start Date End Date Latrice Hernandez MD [address] [place] [address] PCP - General Internal Medicine 07/23/18 Norris Casillas FNP [address] [place] [address] Nurse Practitioner Family Medicine 06/07/23 documented as of this encounter
[2025-04-16 11:03] LABS: Metanephrine, Free 31 pg/mL (<=57); Normetanephrines, Free 50 pg/mL (<=148); Total Metanephrine, Free 81 pg/mL (<=205)
== END 2025-04-09 12:28 | disposition home or self-care (01) ==
LOC: HO.LAB 12:27
PROVIDERS: PCP Internal Medicine; Visit Provider Internal Medicine Cardiovascular Disease
DX: R00.0 Tachycardia, unspecified (principal)
CPT/HCPCS: 36415; 83835; 84443; 93005; 99202

== ENCOUNTER 2025-04-09 12:27 | Outpatient (AMB) | payer MEDICAID, SELFPAY ==
[2025-04-09 12:53] VITALS: BP 120/72; PULSE 114; BMI 29.7
--- NOTE | 2025-04-09 12:53 | A.OFFVIS_ITS ---
Vital Signs 04/09/25 12:53 Height 5 ft 1 in Weight 156 lb 15.506 oz BMI 29.7 BP 120/72 Blood Pressure Location Lt brachial Position Sitting Pulse 114 H Pulse Source Monitor Intake Visit Reasons: B[facility]ER/Dr. Hernandez/Tachycardia Coding Spec Required: No Allergies No Known Allergies Allergy (Verified 04/09/25 12:55) Medication List - Last Reconciled 04/09/25 by Ignacio Pagan MD clonazepam 1 mg PO DAILY fluticasone furoate-vilanterol 200-25 mcg/dose (Breo Ellipta) 1 inh inhalation DAILY 30 days hydroxyzine pamoate 10 mg PO Q6H PRN ibuprofen 600 mg PO TID PRN ipratropium-albuterol 0.5 mg-3 mg(2.5 mg base)/3 mL 3 mL inhalation BID 30 days levonorgestrel (Mirena) intrauterine nicotine 1 patch transdermal DAILY 28 days topiramate 100 mg PO DAILY umeclidinium 62.5 mcg/actuation (Incruse Ellipta) 1 inh inhalation DAILY 30 days valacyclovir 500 mg PO BID HPI Comments Details: Ivis was referred here for elevated heart rate. 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 She does get short of breath walking 1 flight of stairs. She denies any clear orthopnea or PND. She says she only recently has been started on prednisone and inhaler therapy. Her for years she has been noted to have elevated heart rate. She does not feel well in his heart rate is elevated but at work has been noted multiple times to have elevated heart rate on pulse ox monitoring. She denies any exertional chest pain. No lightheadedness, syncope. Does not drink adequate amount of water in the day. Uses currently albuterol based in his lower therapy which she said this is only a recent addition. She is worried a bout her heart disease as she has strong family history for congestive heart failure in parents and in his brother. Denies any significant [id number] medication use or stimulant use. [facility] Medical History (Updated 04/09/25 @ 13:18 by Ignacio Pagan MD) Asthma-COPD overlap syndrome Asthma Allergies Disassociation disorder Depression Mood disorder Anxiety ADD (attention deficit disorder) PTSD (post-traumatic stress disorder) Family History (Updated 04/09/25 @ 12:59 by Carolynn Luna [facility]) Mother Colon cancer Heart attack Maternal Aunt Breast cancer Maternal Aunt Cervical cancer Father Heart attack Brother Heart attack Tachycardia CHF (congestive heart failure) Social History Patient Tobacco Use Status: Current everyday Tobacco user Tobacco use type: Cigarette Cigarettes Per Day: 5 Female Reproductive History Menstrual Age of Menarche: 13 Review of Systems ENT Reports dizziness Card Denies chest pain, Denies chest pain at rest, Denies chest pain with activity, Denies rapid heart rate, Denies pedal edema, Denies edema, Denies leg edema, Denies lightheadedness, Denies palpitations, Denies dyspnea, Reports dyspnea on exertion and Denies orthopnea Resp Denies cough, Denies dyspnea and Reports dyspnea on exertion GI Denies hematochezia and Denies change in stool character Musc Denies abnormal gait, Reports limited range of motion, Reports muscle cramps, Denies muscle weakness, Denies numbness, Denies radiating pain into limb, Denies stiffness and Denies tingling Neuro Denies abnormal gait, Reports dizziness, Denies numbness and Denies tingling Endo Denies palpitations Physical Exam Vital Signs: Last Vital Signs Pulse 114 H 04/09/25 12:53 BP 120/72 04/09/25 12:53 BMI result Body Mass Index 29.7 Const General: cooperative, comfortable, no acute distress, alert and awake Nutritional Appearance: overweight Orientation/consciousness: patient oriented x3 Limitations: no limitations HEENT Head: Yes normocephalic and Yes atraumatic Neck Neck: Yes trachea midline, Yes supple and Yes no JVD Resp Effort & Inspection: normal respiratory effort Auscultation: no rales, no rhonchi, no wheezes and diminished lung sounds Cardio Jugular venous distension: no JVD Rate: tachycardic Rhythm: regular rhythm Heart sounds: S1 normal heart sound present, S2 normal heart sound present, no click, no gallops, no murmurs and no rubs GI Auscultation: normal bowel sounds Skin General skin exam: no rashes or lesions noted Neuro General: patient oriented x3 and no focal motor deficits Extrem General: Yes no clubbing, cyanosis or edema Office Procedures EKG Details: EKG shows sinus tachycardia at 114 beats per minute otherwise normal EKG 52822-[id number], Complete Assessment & Plan Assessment & Plan (1) Sinus tachycardia: Code(s): R00.0 - Tachycardia, unspecified Category: Medical Plan: Sinus tachycardia in this young person most likely inappropriate sinus tachycardia possibly related to autonomic dysfunction but most likely related to reduce pulmonary reserves. Patient does not have any clear symptoms related to it. No signs or symptoms of heart failure. I discussed about possibly switching her albuterol based therapy to Xopenex type therapy. Advised to increase her fluid intake. Will check for hormonal imbalance with TSH and plasma metanephrines. Given her advanced lung disease, would avoid beta-abdirashid type medications but can use calcium channel blockers. Although prior to starting therapy she is interested in pursuing further workup. Suggest a 2 day Holter monitor to assess overall rate control throughout the day. Also suggest an echocardiogram to rule out any evidence of cardiomyopathy process. These tests will be performed in near future. Avoidance of stimulants was discussed. If she is not able to tolerate calcium channel blockers can consider use of Corlanor therapy and/or central adrenergic inhibitors such as clonidine. Stress mitigation strategies were discussed. Follow up in the clinic in 6 weeks time, sooner p.r.n.. Thank you for allowing me to partake in his care Orders: Orders TSH reflex Free T4 Today R00.0 - Tachycardia, unspecified CA echo transthoracic complete Today R00.0 - Tachycardia, unspecified Metanephrines, Plasma Today R00.0 - Tachycardia, unspecified ECG holter monitor 48 hour Today R00.0 - Tachycardia, unspecified Coding Level of Care Code New Pt Level 4 (19232) Complex EM visit Add On G2211 Diagnoses Sinus tachycardia R00.0 CPT Codes EKG - CPT: 00306-[id number], Complete ([id number])
--- OUTSIDE RECORDS SUMMARY | 2025-04-09 14:36 | XMS_ITS | Encounter Summary ---
Author Organization [facility] Address [address] [place] [address] Care Team Providers Care Subassembler Name Role Phone Latrice Hernandez MD Primary Care Provider [phone] [phone] Encounter Details Date Type Department Care Team ([facility] st Contact Info) Description 03/12/2025 Telephone Orthopedic Surgery - [place] [address] [phone] Bong Tilley, DPM [address] [phone] Social History Tobacco Use Types Packs/Day Years Used Date Smoking Tobacco: Some Days Smokeless Tobacco: Never Alcohol Use Standard Drinks/Week Comments Yes 0 (1 standard drink = 0.6 oz pur e alcohol) Comments Unknown Sex and Gender Information Value Date Recorded Sex Assigned at Not on file Legal Sex Female 3:20 AM EST Gender Identity Not on file Sexual Orientation Not on file documented as of this encounter Progress Notes * Camilla Muñoz - 03/18/2025 2:36 PM EDT done * Rebeca Dao - 03/12/2025 2:08 PM EDT Vascular is call requesting a updated referral they are requesting 12 visits documented in this encounter Plan of Treatment Not on file documented as of this encounter Visit Diagnoses Not on filedocumented in this encounter Care Teams Subassembler Relationship Specialty Start Date End Date Latrice Hernandez MD [address] [place] [address] PCP - General Internal Medicine 09/18/18 documented as of this encounter
--- OUTSIDE RECORDS SUMMARY | 2025-04-09 14:36 | XMS_ITS | Clinical Summary ---
Author Organization [facility] Address [email or web address] [place] [address] Phone Care Team Providers Care Public Health Director Name Role Phone Unknown, Unknown Primary Care [...] HEPATITIS C SCREENING 2000 HIV ONE-TIME SCREENING (18-65 YEARS) 2000 PAP SMEAR 11/24/2003 Adult Td,Tdap Booster 08/09/2021 08/09/2011, 012 MAMMOGRAM 2022 INFLUENZA VACCINE (#1) 2025 2, 05/27/2021, 07/30/2020, Additional history exists COVID-19 VACCINE (2024- season) 2025 09/17/2021, 12/12/2020, 11/20/2020 HEPATITIS A VACCINES Aged [...] (0-49 years) Aged Out No longer eligible based on patient's age to complete this topic Medical Devices Not on file Care Teams Public Health Director Relationship Specialty Start Date End Date Unknown, Unknown, PCP - General 09/29/20 Additional Source Comments The information contained in this document represents components of the legal health record. It is not the complete legal health record.[facility]
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
--- OUTSIDE RECORDS SUMMARY | 2025-04-09 14:36 | XMS_ITS | Clinical Summary ---
Author Organization [address] [place] [address] [place] [phone] Phone Care Team Providers Care Loom Fixer Helper Name Role Phone Latrice Hernandez MD Primary Care Provider [phone] [phone] Allergies Active Allergy Reactions Criticality Noted Date [...] 6.6 mL 3 12/26/19 25 025 Active Problems Problem Noted Date Diagnosed Date Bilateral swelling of feet and ankles 05/07/2024 Encounters Date Type Department Care Team Description 03/13/2025 3:00 PM EDT Office Visit Vascular Surgery - [place] [address] [facility] [address] [place] [address] Marcelle Vang MD Bilateral swelling of feet and ankles (Primary Dx) 03/12/2025 Telephone Orthopedic Surgery [facility] 250 175 [facility] [address] [place] [address] Bong Tilley DPM from Last 3 Months Surgical History Surgery Date Site/Laterality Comments OTHER SURGICAL HISTORY PROCEDURE: [place] WEDGE EXCISION SKIN NAIL FOLD OTHER SURGICAL HISTORY PROCEDURE: [place] LITHOTRIPSY XTRCORP SHOCK WAVE Medical History Medical [...] Sign Reading Time Taken Comments Blood Pressure 112/74 03/13/2025 2:34 PM EDT Pulse 109 03/13/2025 2:34 PM EDT Temperature - - Respiratory Rate - - Oxygen Saturation - - Inhaled Oxygen Concentration - - Weight 72 kg (158 lb 12.8 oz) 03/13/2025 2:34 PM EDT Height 154.9 cm (5' 1 ) 03/13/2025 2:34 PM EDT Body Mass Index 30 03/13/2025 2:34 PM EDT Plan of Treatment Health Maintenance Due Date Last Done Comments Breast Cancer Screening 1982 Pneumococcal Vaccine: Pediatrics (0 to 5 Years) and At-Risk Patients (6 to 49 Years) (1 of 2 - PCV) 2001 Cervical Cancer Screening: Pap Smear 10/14/2019 10/13/2016, 10/13/2016 DTaP,Tdap,and Td Vaccines (2 - Td or Tdap) 08/09/2021 08/09/2011 Social Influencers of Health Screening 05/01/2024 Depression Screening 07/23/2024 COVID-19 Vaccine ( season) 2025 07/05/2023, 09/17/2021, 12/12/2020, Additional history exists Influenza Vaccine (#1) 2025 , 08/28/2023, 06/02/2022, Additional history exists Cholesterol Screening (Lipid Panel) 07/26/2027 07/26/2022 Hepatitis B Vaccines Completed 07/30/2020, 06/09/2014, 09/06/2011, Additional history exists MMR Vaccines Aged Out 01/15/2024, 07/20/2023 No lo nger eligible based on patient's age to complete this topic Hepatitis C Screening Completed 06/06/2024 HIV Screening Completed 03/05/2025, 06/06/2024 HIB Vaccines Aged Out No longer [...] (10/13/2016) Cervical Cancer Screening: HPV Negative, abstracted us Historical Provider HEALTH MAINTENANCE Final Result from Last 3 Months or Most Recently Relevant to Health Maintenance Insurance MEDICAID - [place] Care Teams Loom Fixer Helper Relationship Specialty Start Date End Date Latrice Hernandez MD [address] [place] [address] PCP - General Internal Medicine 09/18/18
== END 2025-04-09 13:17 | disposition home or self-care (01) ==
LOC: HO.HCS 12:28
PROVIDERS: PCP Internal Medicine; Visit Provider Internal Medicine Cardiovascular Disease
DX: R00.0 Tachycardia, unspecified (principal)
CPT/HCPCS: 93010; 99204

== ENCOUNTER 2025-04-17 09:52 | Outpatient (AMB) | payer MEDICAID, SELFPAY ==
[2025-04-17 10:09] VITALS: BP 112/56; PULSE 102; O2SAT 98; BMI 29.8
--- NOTE | 2025-04-17 10:09 | A.OFFVIS_ITS ---
Vital Signs 04/17/25 10:09 Height 5 ft 1 in Weight 157 lb 10.088 oz BMI 29.8 BP 112/56 L Blood Pressure Location Lt brachial Position Sitting Pulse 102 H Pulse Source Pulse Oximeter Pulse Oximetry (%) 98 Oxygen Delivery Method Room Air Intake Visit Reasons: Shortness of breath Pickup Driver Required: No Accompanied by: Self / Same As Patient Allergies No Known Allergies Allergy (Verified 04/17/25 10:12) HPI Comments Details: The patient is a 44 year woman who so active smoker presenting with worsening respiratory symptoms. Back in the beginning of the year she is having significant shortness of breath, moderate to severe. Initially she was diagnosed with the flu and she was treated and released. However after she continued to have difficult symptoms breathing. She did follow-up with her primary care doctor. At some point she did have a chest x-ray which was personally by me. It was read as bilateral pleural effusions but really I do not believe it was that it probably just tissue attenuation ultimately underwent pulmonary function studies. The PFTs demonstrated severe obstructive physiology. Likely from uncontrolled asthma although asthma COPD overlap syndromes also in the differential specially with her smoking history. The patient is placed on some inhalers right now she is doing little better. She did have to go to an urgent care again and she was given a nebulizer. Now she has that available. She does find it helpful. At this point will go ahead and max out her respiratory medications changing her to Trelegy 200. In addition to that she can use her rescue inhaler as needed and she can use her nebulizer as needed as well. She needs to reframe some smoking. She will try going to the patch of nicotine 14 mg. The patient also may be a great candidate for biologics especially if she continues to be symptomatic. Will go ahead and request blood work. Will go have her repeat the x-ray specially because of the question of pleural effusions but right now I do not see any. 04/17/2025 the patient is here for pulmonary follow-up visit. The patient overall has been feeling well. She did not get the Trelegy but she was able to start the Breo and the Incruse. She has been tolerating them well. The patient has had some element increased heart rate but I do not believe that the vilanterol from the Breo is causing that. Usually pretty mild and does not affect the heart as significantly as other inhalers. In the meantime she does feel better. She feels like she is able to do more activities of daily living. She is also wearing a patch which is reassuring. She has try to stay away from the smoking and she is doing very well. She will continue to use the patch for now. We did review her last chest x-ray demonstrating no acute disease although she has a slight elevation of the left hemidiaphragm. She still complains of substernal chest discomfort. It is small and appears to be consistent with costochondral joints. If however the symptoms continue then we can always consider a CT scan to make sure that there isn't any other internal issue going on causing it to have chest pain. For now though she will use the nonsteroidal ointment to the affected area to see if she can get relief. She also complains of some fullness of the throat with specially when she swallows. She has been rinsing with water after using the Breo. I did encourage her to use saltwater and for now will try some nystatin swish and swallow to make sure we can clear any potential fungal infections have been causing some irritation. She does have some erythema in the back of the throat but no evidence of any thrush. [facility] Medical History (Updated 04/19/25 @ 19:54 by Maximino Luna MD) Asthma-COPD overlap syndrome Asthma Allergies Disassociation disorder Depression Mood disorder Anxiety ADD (attention deficit disorder) PTSD (post-traumatic stress disorder) Family History (Updated 04/09/25 @ 12:59 by Carolynn Luna [facility]) Mother Colon cancer Heart attack Maternal Aunt Breast cancer Maternal Aunt Cervical cancer Father Heart attack Brother Heart attack Tachycardia CHF (congestive heart failure) Social History Patient Tobacco Use Status: Current everyday Tobacco user Tobacco use type: Cigarette Cigarettes Per Day: 5 Female Reproductive History Menstrual Age of Menarche: 13 Review of Systems Const Reports fever(s) ENT Reports post nasal drip Card Denies chest pain Resp Reports chest congestion, Reports cough and Reports wheezing GI Reports no additional complaints Musc Reports no additional complaints Skin/Breast Denies rash Neuro Reports no additional complaints Ashvin/Lymph Reports no additional complaints Aller/Immun Reports wheezing Physical Exam Vital Signs: Last Vital Signs Pulse 102 H 04/17/25 10:09 BP 112/56 L 04/17/25 10:09 Pulse Ox 98 04/17/25 10:09 Oxygen Delivery Method Room Air 04/17/25 10:09 BMI result Body Mass Index 29.8 Const General: comfortable Neck Neck: Yes supple Chest Chest palpation & inspection: normal inspection of the chest Resp Effort & Inspection: normal respiratory effort and prolonged expiratory phase Auscultation: diminished lung sounds Cardio Rate: regular rate Heart sounds: S1 normal heart sound present and S2 normal heart sound present GI Palpation (GI): Soft to palpation Skin General skin exam: no rashes or lesions noted Extrem General: Yes no clubbing, cyanosis or edema Assessment & Plan Assessment & Plan (1) Allergies: Code(s): T78.40XA - Allergy, unspecified, initial encounter Category: Medical Qualifiers: Encounter type: initial encounter Qualified Code(s): T78.40XA - Allergy, unspecified, initial encounter (2) Asthma: Code(s): J45.909 - Unspecified asthma, uncomplicated Category: Medical Qualifiers: Asthma complication type: uncomplicated Asthma persistence: persistent Asthma severity: moderate Qualified Code(s): J45.40 - Moderate persistent asthma, uncomplicated (3) Asthma-COPD overlap syndrome: Code(s): J44.89 - Other specified chronic obstructive pulmonary disease Category: Medical (4) Chest pain: Code(s): R07.9 - Chest pain, unspecified Category: Medical Qualifiers: Chest pain type: precordial pain Qualified Code(s): R07.2 - Precordial pain Plan Trelegy MARISSA as needed Nicotine patch 14mg diclofenac to costalchondral joints CXR is reassuring. If chest pain persist or worsens she is to call for further recommendations F/U 6 months Medications: New nystatin swish and swallow 2 mL PO TID 180 mL 2RF 30 days diclofenac sodium 1% (Arthritis Pain (diclofenac)) apply to single elbow, wrist or hand; for hand includes palm/fingers/back of hand 2 grams topical QID 50 grams 3RF 30 days Coding Level of Care Code Est Pt Level 4 (46481) Diagnoses Allergy, initial encounter T78.40XA Encounter type: initial encounter Moderate persistent asthma without complication J45.40 Asthma complication type: uncomplicated Asthma persistence: persistent Asthma severity: moderate Asthma-COPD overlap syndrome J44.89 Precordial pain R07.2 Chest pain type: precordial pain Time Spent (min) 16
--- OUTSIDE RECORDS SUMMARY | 2025-04-17 10:57 | XMS_ITS | Encounter Summary ---
Author Organization [employer] Address [address] [facility] [address] [place] [address] Care Team Providers Care Unload Associate Name Role Phone Latrice Hernandez MD Primary Care Provider [phone] Norris Casillas Unavailable Unavailable Reason for Visit * Reason Onset Date Comments Nurse Triage 07/30/2024 Encounter Details Date Type Department Care Team ([facility] st Contact Info) Description 07/30/2024 Telephone [facility] [address] [place] [address] Latrice Hernandez MD [address] [place] [address] Nurse Triage Social History Tobacco Use Types [...] to work effective 08/04/2024. Patient seen by Truck Driver Helper and given bilateral braces. Remains with discomfort [...] Care Team (Late st Contact Info) Description 05/18/2025 9:15 AM EDT Office Visit [facility] [address] [place] [address] Latrice Hernandez MD [address] [place] [address] documented as of this encounter Visit Diagnoses Not on filedocumented in this encounter Additional Health Concerns Assessment Noted Time PHQ-9 Depression Total Score: 9 12/24/19 24 9:18 AM EDT documented as of this encounter Care Teams Unload Associate Relationship Specialty Start Date End Date Latrice Hernandez MD [address] [place], [place] [phone] PCP - General Internal Medicine 07/23/18 Norris Casillas FNP [address] [place] [address] Nurse Practitioner Family Medicine 06/07/23 documented as of this encounter
--- OUTSIDE RECORDS SUMMARY | 2025-04-17 10:57 | XMS_ITS | Encounter Summary ---
Author Organization [employer] Address [address] [place] [address] Care Team Providers Care Loss Prevention/Safety District Manager Name Role Phone Latrice Hernandez MD Primary Care Provider [phone]- [phone] Norris Casillas Unavailable Unavailable Reason for Visit * Reason Comments Med Refill Encounter Details Date Type Department Care Team ([facility] Contact Info) Description 06/29/2022 Refill [facility] [address] [place], [place] [phone] Latrice Hernandez MD [address] [place], [place] [phone] Herpesviral infection, unspecified Social History Tobacco Use [...] Department Care Team (Late Contact Info) Description 05/18/2025 9:15 AM EDT Office Visit [facility] [address] [place], [place] [phone] Latrice Hernandez MD [address] [place], [place] [phone] documented as of this encounter Visit Diagnoses Diagnosis Herpesviral infection, unspecified documented in this encounter Care Teams Loss Prevention/Safety District Manager Relationship Specialty Start Date End Date Latrice Hernandez MD [address] [place] [address] PCP - General Internal Medicine 07/23/18 Norris Casillas FNP [address] [place] [address] Nurse Practitioner Family Medicine 06/07/23 documented as of this encounter
--- OUTSIDE RECORDS SUMMARY | 2025-04-17 10:57 | XMS_ITS | Clinical Summary ---
Author Organization [employer] Address [address] [facility] 7t [place] [address] Care Team Providers Care Ship'S Cook Name Role Phone Latrice Hernandez MD Primary Care Provider +1 [phone] Norris Casillas Unavailable Unavailable Allergies Active Allergy [...] SWALLOW CAPSULE 30 capsule 2 025 Active cetirizine (ZyrTEC) 10 MG tablet Take [...] unspecified (CMS/HCC) TAKE ONE TABLET TWICE DAILY 60 tablet 025 2024 Discontinued(R eorder (will not trigger notification to Pharmacy)) valACYclovir (Valtrex) 500 MG tablet TAKE ONE TABLET BY MOUTH TWICE DAILY FOR THREE DAYS 6 tablet 025 2024 Active Problems Problem Noted Date Diagnosed Date [...] I advised to follow-up with PCP and screw machine set up operator Excessive thirst 12/16/2024 Tobacco dependence 11/19/2024 Palpitations [...] will be transferred to new [facility] psychiatric prescriber. Patient is aware that this person will work via [employer] and is not employed by [facility]. Patient gives verbal permission to share [...] henao. She will continue to work with [facility] integrated clinician. Assessment & Plan [...] therapist. Will also request one of the [facility] integrated clinicians to reach out [...] Encounters Date Type Department Care Team Description 04/16/2025 Results Follow-Up [facility] PEDS [address] [place] [address] Latrice Hernandez MD TSH with Reflex to Free T4, Metanephrines, Fractionated, Free, LC/MS/MS, Plasma 04/09/2025 Orders Only GENERIC EXTERNAL DATA DEPARTMENT Provider, Generic External Data 04/09/2025 Refill [facility] [address] [place] [address] Edward Richard MD 04/08/2025 Refill [facility] [address] [place] [address] Edward Richard MD 04/06/2025 Refill [facility] [address] [place] [address] Latrice Hernandez MD PTSD (post-traumatic stress disorder); Bipolar affective disorder, remission status unspecified (CMS/HCC) 04/06/2025 Telephone [facility] [address] [place] [address] Latrice Hernandez MD 04/06/2025 Refill [facility] [address] [place] [address] Belkis Garcia MD 04/03/2025 Travel 03/09/2025 Results Follow-Up [facility] MEDICINE [address] [place] [address] Idania Hart CNM Bacterial Vaginosis Panel 03/05/2025 10:00 AM EDT Office Visit [facility] MEDICINE [address] [place] [phone] Idania Hart CNM Vaginal discharge (Primary Dx); Screening examination for venereal disease 03/05/2025 Refill [facility] [address] [place] [address] Belkis Garcia MD PTSD (post-traumatic stress disorder); Bipolar affective disorder, remission status unspecified (CMS/HCC) 03/05/2025 Travel 03/04/2025 Telephone [facility] MEDICINE [address] [place] [address] Idania Hart CNM chart prep 03/02/2025 Telephone [facility]S [address] [place] [address] Latrice Hernandez MD Nurse Triage 02/23/2025 Refill [facility] WALK-IN CENTER [address] [place] [address] Pantera Arredondo MD Chronic obstructive pulmonary disease, unspecified COPD type (CMS/HCC) 02/10/2025 5:40 PM EDT Office Visit [facility] WALKIN [address] [address] Jennifer Pavon FNP COPD exacerbation (CMS/[facility]) (Primary Dx); Non-pitting edema 02/10/2025 Travel 02/10/2025 Telephone [facility] MEDICINE [address] [place] [address] Latrice Hernandez MD Nurse Triage 02/10/2025 Refill [facility] CHC MED & PEDS [address] [place] [address] Latrice Hernandez MD 02/06/2025 Refill [facility] MED [facility] PED[facility] [address] [place] [address] Latrice Hernandez MD Vitamin D deficiency; PTSD (post-traumatic stress disorder); Bipolar affective disorder, remission status unspecified (CMS/HCC) 01/31/2025 Refill [facility] CHC MED & PEDS [address] [place] [address] Latrice Hernandez MD 01/29/2025 Refill [facility] CHC MED & PEDS [address] [place] [address] Latrice Morales MD 01/29/2025 Refill [facility] CHC MED & PEDS [address] [place] [address] Latrice Hernandez MD PTSD (post-traumatic stress disorder); Bipolar affective disorder, remission status unspecified (CMS/HCC) 01/15/2025 Orders Only [facility] Information Management [address] [place] [phone] Provider, MD Nathalie from Last 3 Months Immunizations Immunization Administration [...] Upcoming Encounters Date Type Department Care Team ([facility] st Contact Info) Description 05/18/2025 9:15 AM EDT Office Visit [facility] CHC MED & PEDS [address] [place] [address] Latrice Hernandez MD [address] [place] [address] Health Maintenance Due Date Last Done Comments [...] Procedure Name Priority Date/Time Associated Diagnosis Comments METANEPHRINES, FRACT, FREE, LC/MS/MS, PLASMA Routine 04/09/2025 1:33 PM EDT TSH W/REFLEX TO FT4 Routine 04/09/2025 1 :33 PM EDT HIV 1/2 ANTIGEN/ANTIBODY, FOURTH GENERATION W/RFL Routine [...] Routine 03/05/2025 10:38 AM EDT Vaginal discharge HEPATITIS C AB W/REFL TO HCV RNA, QN, PCR Routine 06/06/2024 3:09 PM EST Routine screening for STI (sexually transmitted infection) LIPID PANEL, STANDARD Routine 07/26/2022 11:11 AM EST Annual physical exam HPV MRNA E6/E7 Routine 09/14/2020 10:42 AM EST HM PAP/HPV Routine 09/14/2020 from Last 3 Months or Most Recently Relevant to Health Maintenance Results * Metanephrines, Fractionated, Free, LC/MS/MS, Plasma (04/09/2025 1:33 PM EDT) Metanephrine, Free 31 <=57 pg/mL [facility] Comment:This test was develo ped and its analytical performancecharacteristics have been determined by [employer] [place], [place]. It hasnot been cleared or approved by the U.S. Food and DrugAdministration. This assay has been validated pursuantto the CLIA regulations and is used for clinicalpurposes. Normetanephrine, Free 50 <=148 pg/mL [facility] Comment:This test was develo ped and its analytical performancecharacteristics have been determined by [employer] [place], [place]. It hasnot been cleared or approved by the U.S. Food and DrugAdministration. This assay has been validated pursuantto the CLIA regulations and is used for clinicalpurposes. Total, Free (MN+NMN) 81 <=205 pg/mL [facility] Comment: For additional information, please refer tohttp://education.Internal Gaming/faq/MetFractFree(This link is being provided for informational/educatioinformational/educational purposes only.)Elevations >4-fold upper reference range: stronglysuggestive of a pheochromocytoma(1).Elevations >1- 4-fold upper reference range:significant but not diagnostic, may be due tomedications or stress. Suggest running 24 hr urinefractionated metanephrines and/or serum Chromagranin Afor confirmation.Reference:(1)Charo Cummings et al, Plasma Chromogranin Aor Urine Fractionated Metanephrines Follow-Up TestingImproves the Diagnostic Accuracy of Plasma FractionatedMetanephrines for Pheochromocytoma. The Journal ofClinical Endocrinology # Metabolism 93(1), 91-95, 2007.This test was developed and its analytical performancecharacteristics have been determined by [employer] [place], [place]. It hasnot been cleared or approved by the U.S. Food and DrugAdministration. This assay has been validated pursuantto the CLIA regulations and is used for clinicalpurposes.THIS TEST WAS PERFORMED AT:[employer]/[facility] [place] [address]CRORXKNNUNU VAUGHAN MD,PHD 04/09/2025 1:33 PM EDT 04/09/2025 1:33 PM EDT Generic External Data Provider LAB BLOOD ORDERAB LES Final Result Performing Organization Address City/[facility]/ZIP Co de Phone Number [facility] [address] [place] [phone] * TSH with Reflex to Free T4 (04/09/2025 1:33 PM EDT) TSH reflex Free T4 0.99 0.32 - 4.0 uIU/mL [facility] 04/09/2025 1:33 PM EDT 04/09/2025 1:33 PM EDT Generic External Data Provider LAB BLOOD ORDERAB LES Final Result Performing Organization Address City/[facility]/ZIP Co de Phone Number [facility] [address] [place] [phone] * Syphilis Screen (03/05/2025 10:46 AM EDT) Syphilis Screen Nonreactive Nonreactive [facility] Blood Venous blood specimen / Unknown 03/05/2025 10:46 AM EDT 03/05/2025 11:20 AM EDT [facility] BLOOD ORDERABLES Gilma l Result Performing Organization Address [facility]/ZIP Co de Phone Number [facility] [address] [place] [phone] * HIV-1/2 Antigen and Antibodies, Fourth Generation, with Reflexes (03/05/2025 10:46 AM EDT) HIV AB/AG Nonreactive Nonreactive [facility] Comment:HIV-1 p24 Ag and/or HIV-1/HIV-2 Ab not detected.A test result that is nonreactive does not exclude thepossibility of exposure to or infection with HIV-1 and/orHIV-2. Nonreactive results in this assay for individualswith prior exposure to HIV-1 and/or HIV-2 may be due toantigen and antibody levels that are below the limit ofdetection of this assay.The [employer] HIV Ag/Ab Combo assay result andsupplemental assay results should be interpreted inconjunction with the patient's clinical presentation,history and other laboratory results. If the results areinconsistent with clinical evidence, additional testing issuggested to confirm the result. Blood Venous blood specimen / Unknown 03/05/2025 10:46 AM EDT 03/05/2025 11:20 AM EDT [facility] LAB BLOOD ORDERABLES Gilma l Result Performing Organization Address [facility]/ZIP Co de Phone Number [facility] [address] [place] [address] [phone] * POCT fern test, vaginal fluid manually resulted (03/05/2025 10:42 AM EDT) [facility] Positive Comment:pH 4.5, neg whiff, n eg clue, neg trich, pos yeast Vaginal Fluid Vaginal structure / Unknown 03/05/2025 10:42 AM EDT Idania ZEPEDA POINT OF CARE TEST ENTER/ EDIT ORDERABLES Final Result * (ABNORMAL) Bacterial Vaginosis Panel (03/05/2025 10:38 AM EDT) TRICHOMONAS VAGINALIS DETECTION BY PCR NOT DETECTED Not Detect [facility] BACTERIAL VAGINOSIS DETECTION BY PCR NEGATIVE Negative [facility] Comment:The BV organism targ ets of [...] GROUP DETECTION BY PCR DETECTED(A) Not Detect [facility] Freda glab krusei PCR NOT DETECTED Not Detect [facility] Swab Vaginal structure / Unknown 03/05/2025 10:38 AM EDT 03/05/2025 4:47 PM EDT Idania ZEPEDA LAB MICROBIOLOGY - GENERA L ORDERABLES Final Result [facility] [address] [place] [phone] * Chlamydia/N. Gonorrhoeae RNA, TMA, Vagina (03/05/2025 10:38 AM EDT) CT PCR NOT DETECTED Not Detect. [facility] Comment:A not detected test result does [...] psychologicalconsequences. NG PCR NOT DETECTED Not Detect. [facility] Comment:A not detected test result does [...] 10:38 AM EDT 03/05/2025 4:47 PM EDT Idania ZEPEDA LAB MICROBIOLOGY - GENERA L ORDERABLES Final Result [facility] [address] [place] [phone] * Hepatitis C Antibody with Reflex to HCV, RNA, Quantitative, Real-Time PCR (06/06/2024 3:09 PM EST) Hepatitis C Antibody Nonreactive Nonreactive [facility] Comment:Antibodies to HCV no t detected; does not exclude early acuteHCV infection. Blood Venous blood specimen / Unknown 06/06/2024 3:09 PM EST 06/06/2024 3:56 PM EST Tahira AMBROCIO LAB BLOOD ORDERABLES Final Resul t [facility] [address] [place], [place] [phone] * (ABNORMAL) Lipid Panel, Standard (07/26/2022 11:11 AM EST) Cholesterol, Total 192 <200 mg/dL [facility] [place] [facility] HDL Cholesterol 30(L) > OR = 50 mg/dL [facility] [place] [facility] Triglycerides 573(H) <150 mg/dL [facility] [place] [facility] Comment: If a non-fasting specimen was collected, consider repeat triglyceride testing on a fasting specimen if clinically indicated. Sandoval et al. J. of Clin. Lipidol. 2015;9:129-169. There is increased risk of pancreatitis when the triglyceride concentration is very high (> or = 500 mg/dL, especially if > or = 1000 mg/dL). Sandoval et al. J. of Clin. Lipidol. 2015;9:129-169. LDL Cholesterol Ques [facility] [place] [facility] Comment: LDL cholesterol not calculated. Triglyceride levels [...] LDL-C. Sky SS et al. JESSICA. 2013;310(19): 5709-8898 (http://education.Innov-X Systems.Cognuse/faq/RUD967) Chol/HDLC Ratio 6.4(H) <5.0 (calc) [facility] [place] [facility] Non-HDL Cholesterol 162(H) <130 mg/dL (calc) [facility] Comment: For patients with diabetes plus 1 major ASCVD risk factor, treating to a non-HDL-C goal of <100 mg/dL (LDL-C of <70 mg/dL) is considered a therapeutic option. Blood Venous blood specimen / Unknown 07/26/2022 11:11 AM EST 07/26/2022 11:11 AM EST Narrative [facility] - 07/31/2022 3:56 PM EST FASTING:NO FASTING: NO us Latrice Hernandez MD LAB BLOOD ORDERABLES Final Result [facility] [address] [facility], [address], [place] [address] [facility] [address] [facility], ([address]) [place] [phone] * HPV mRNA E6/E7 (09/14/2020 10:42 AM EST) HPV nRNA E6/E7 Not Detected Not Detected [facility] Comment: Methodology: Clerk Of Superior Court-Mediated Amplification This assay detects E6/E7 viral messenger RNA (mRNA) from 14 high-risk HPV types (16,18,31,33,35,39,45,51,52,56,58,59,66,68). The analytical performance characteristics of this assay have been determined by [facility]. The modifications have not been cleared or approved by the FDA. This assay has been validated pursuant to the CLIA regulations and is used for clinical purposes. For additional information, please refer to http://education.Internal Gaming/QAR647g6 (This link if provided for information/ educational purposes only.) 09/14/2020 10:4 2 AM EST us Idania ZEPEDA LAB BLOOD ORDERABLES Gilma l Result [facility] [address] * Hm Pap Smear (09/14/2020) HM Pap smear Perform Historical Provider HEALTH MAINTENANCE Final Result from Last 3 Months or Most Recently Relevant to Health Maintenance Insurance [facility] C3 Care Teams Ship'S Cook Relationship Specialty Start Date End Date Latrice Hernandez MD [address] [facility] [place] PCP - General Internal Medicine 07/23/18 Norris Casillas FNP [address] [facility] [place] Nurse Practitioner Family Medicine 06/07/23
--- OUTSIDE RECORDS SUMMARY | 2025-04-17 10:57 | XMS_ITS | Encounter Summary ---
Author Organization [employer] Address [address] [facility] 7t [place] [address] Care Team Providers Care Yellow Pages Space Salesperson Name Role Phone Latrice Hernandez MD Primary Care Provider [phone] Norris Casillas Unavailable Unavailable Encounter Details Date Type Department Care Team (Late st Contact Info) Description 03/09/2025 Results Follow-Up [facility] MEDICINE [address] [place] [address] Idania Hart CNM [address] [place] [address] Bacterial Vaginosis Panel Social History Tobacco Use [...] Description 05/18/2025 9:15 AM EDT Office Visit [facility] CHC MED & PEDS [address] [place] [address] Latrice Hernandez MD [address] [place] [address] documented as of this encounter Visit Diagnoses Not on filedocumented in this encounter Additional Health Concerns Assessment Noted Time PHQ-9 Depression Total Score: 14 025 10:45 AM EDT documented as of this encounter Care Teams Yellow Pages Space Salesperson Relationship Specialty Start Date End Date Latrice Hernandez MD [address] [place] [address] PCP - General Internal Medicine 07/23/18 Norris Casillas FNP [address] [place] [address] Nurse Practitioner Family Medicine 06/07/23 documented as of this encounter
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
--- OUTSIDE RECORDS SUMMARY | 2025-04-17 10:58 | XMS_ITS | Encounter Summary ---
Author Organization [employer] Address [address] [place] [address] [address] [place] [address] Care Team Providers Care Stick Inserter Name Role Phone Latrice Hernandez MD Primary Care Provider [phone]- [phone] Norris Casillas Unavailable Unavailable Encounter Details Date Type Department Care Team (Late st Contact Info) Description 03/27/2023 Orders Only [facility] CHC MED & PEDS [address] [place] [address] Latrice Hernandez MD [address] [place] [address] Scabies exposure (Primary Dx) Social History Tobacco [...] Description 05/18/2025 9:15 AM EDT Office Visit [facility] CHC MED & PEDS [address] [place], [place] [phone] Latrice Hernandez MD [address] [place], [place] [phone] documented as of this encounter Visit Diagnoses Diagnosis Scabies exposure- Primary documented in this encounter Additional Health Concerns Assessment Noted Time PHQ-9 Depression Total Score: 9 03/20/20 23 10:44 AM EDT documented as of this encounter Care Teams Stick Inserter Relationship Specialty Start Date End Date Latrice Hernandez MD [address] [place] [address] PCP - General Internal Medicine 07/23/18 Norris Casillas FNP [address] [place] [address] Nurse Practitioner Family Medicine 06/07/23 documented as of this encounter
--- OUTSIDE RECORDS SUMMARY | 2025-04-17 10:58 | XMS_ITS | Clinical Summary ---
Author Organization [address] [place] [address] [place] [phone] Phone Care Team Providers Care Gluten Settling Tender Name Role Phone Latrice Hernandez MD Primary Care Provider [phone] [phone] Allergies Active Allergy Reactions Criticality Noted Date [...] PM EDT Office Visit [facility] [place] [address] [facility] [address] [place] [address] Marcelle Vang MD Bilateral swelling of feet and ankles (Primary Dx) 03/12/2025 Telephone Orthopedic Surgery [facility] [address] [facility] [address] [place] [address] Bong Tilley DPM from Last 3 Months Surgical History Surgery Date Site/Laterality Comments OTHER SURGICAL HISTORY PROCEDURE: TX WEDGE EXCISION SKIN NAIL FOLD OTHER SURGICAL HISTORY PROCEDURE: [place] LITHOTRIPSY XTRCORP SHOCK WAVE Medical History Medical [...] Maintenance Insurance MEDICAID - [place] Care Teams Gluten Settling Tender Relationship Specialty Start Date End Date Latrice Hernandez MD [address] [place] [address] PCP - General Internal Medicine 09/18/18
--- OUTSIDE RECORDS SUMMARY | 2025-04-17 10:58 | XMS_ITS | Encounter Summary ---
Author Organization [employer] Address [address] [facility] 7t [place] [address] Care Team Providers Care Stopping Builder Name Role Phone Latrice Hernandez MD Primary Care Provider [phone]- [phone] Norris Casillas VOCATIONAL TECHNICAL EDUCATION TEACHER Unavailable Unavailable Encounter Details Date Type Department Care Team (Late st Contact Info) Description 04/16/2025 Results Follow-Up [facility] MED & PEDS [address] [place], [place] [phone] Latrice Hernandez MD [address] [place] [address] TSH with Reflex to Free T4, Metanephrines, Fractionated, Free, LC/MS/MS, Plasma Social History Tobacco Use Types Packs/Day Years [...] Description 05/18/2025 9:15 AM EDT Office Visit [facility] MED & PEDS [address] [place] [address] Latrice Hernandez MD [address] [place] [address] documented as of this encounter Visit Diagnoses Not on filedocumented in this encounter Additional Health Concerns Assessment Noted Time PHQ-9 Depression Total Score: 14 025 10:45 AM EDT documented as of this encounter Care Teams Stopping Builder Relationship Specialty Start Date End Date Latrice Hernandez MD [address] [place] [address] PCP - General Internal Medicine 07/23/18 Norris Casillas FNP [address] [place] [address] Nurse Practitioner Family Medicine 06/07/23 documented as of this encounter
--- OUTSIDE RECORDS SUMMARY | 2025-04-17 10:58 | XMS_ITS | Encounter Summary ---
Author Organization [employer] Address [address] [facility] 7t [place] [address] Care Team Providers Care Paint Mixer Hand Name Role Phone Latrice Hernandez MD Primary Care Provider [phone]- [phone] Norris Casillas CHAPERON Unavailable Unavailable Encounter Details Date Type Department Care Team (Late st Contact Info) Description 11/19/2024 Orders Only [facility] CHC MED & PEDS [address] [facility] [place] [address] Latrice Hernandez MD [address] [place] [address] SOB (shortness of breath) (Primary Dx) Social [...] Description 05/18/2025 9:15 AM EDT Office Visit [facility] CHC MED & PEDS [address] [place] [address] Latrice Hernandez MD [address] [place] [address] Scheduled Orders Name Type Priority Associated Diagnoses [...] documented as of this encounter Care Teams Paint Mixer Hand Relationship Specialty Start Date End Date Latrice Hernandez MD [address] [place] [address] PCP - General Internal Medicine 07/23/18 Norris Casillas FNP [address] [place] [address] Nurse Practitioner Family Medicine 06/07/23 documented as of this encounter
--- OUTSIDE RECORDS SUMMARY | 2025-04-17 10:58 | XMS_ITS | Encounter Summary ---
Author Organization [employer] Address [address] [place] [address] 7 [place] [address] Care Team Providers Care Digital Marketing Specialist Name Role Phone Latrice Hernandez MD Primary Care Provider [phone]- [phone] Norris Casillas Unavailable Unavailable Encounter Details Date Type Department Care Team (Late st Contact Info) Description 04/03/2023 [facility] Information Management [address] [place], [place] [phone] Latrice Hernandez MD [address] [place] [address] Social History Tobacco Use Types Packs/Day Years [...] Description 05/18/2025 9:15 AM EDT Office Visit [facility]S [address] [place] [address] Latrice Hernandez MD [address] [place], [place] [phone] documented as of this encounter Visit Diagnoses Not on filedocumented in this encounter Additional Health Concerns Assessment Noted Time PHQ-9 Depression Total Score: 9 03/20/20 23 10:44 AM EDT documented as of this encounter Care Teams Digital Marketing Specialist Relationship Specialty Start Date End Date Latrice Hernandez MD [address] [place] [address] PCP - General Internal Medicine 07/23/18 Norris Casillas FNP [address] [place] [address] Nurse Practitioner Family Medicine 06/07/23 documented as of this encounter
--- OUTSIDE RECORDS SUMMARY | 2025-04-17 10:58 | XMS_ITS | Encounter Summary ---
Author Organization [facility] Address [address] [place] [address] Care Team Providers Care Assistant Plant Control Operator Name Role Phone Latrice Hernandez MD Primary Care Provider [phone] Encounter Details Date Type Department Care Team ([facility] st Contact Info) Description 03/12/2025 Telephone Orthopedic Surgery - [place] [address] [phone] Bong Tilley, DPM [address] [phone] Social History Tobacco Use Types Packs/Day Years [...] on filedocumented in this encounter Care Teams Assistant Plant Control Operator Relationship Specialty Start Date End Date Latrice Hernandez MD [address] [place] [address] PCP - General Internal Medicine 09/18/18 documented as of this encounter
--- OUTSIDE RECORDS SUMMARY | 2025-04-17 10:58 | XMS_ITS | Encounter Summary ---
Author Organization [employer] Address [address] [facility] 7t [place] [address] Care Team Providers Care Manager Regional Name Role Phone Latrice Hernandez MD Primary Care Provider [phone]- [phone] Norris Casillas Unavailable Unavailable Encounter Details Date Type Department Care Team (Late st Contact Info) Description 04/04/2023 Telephone [facility] MED & PEDS [address] [place], [place] [phone] Charlotte Simpson, RN [address] [place] [address] Social History Tobacco Use Types Packs/Day Years [...] Description 05/18/2025 9:15 AM EDT Office Visit [facility] MED & PEDS [address] [place], [place] [phone] Latrice Hernandez MD 505 [place] [address] documented as of this encounter Visit Diagnoses Not on filedocumented in this encounter Additional Health Concerns Assessment Noted Time PHQ-9 Depression Total Score: 9 03/20/20 23 10:44 AM EDT documented as of this encounter Care Teams Manager Regional Relationship Specialty Start Date End Date Latrice Hernandez MD 505 [place] [address] PCP - General Internal Medicine 07/23/18 Norris Casillas FNP [address] [place] [address] Nurse Practitioner Family Medicine 06/07/23 documented as of this encounter
--- OUTSIDE RECORDS SUMMARY | 2025-04-17 10:58 | XMS_ITS | Encounter Summary ---
Author Organization [employer] Address [address] [facility] 7t [place] [address] Care Team Providers Care Asphalt Plant Operator Name Role Phone Latrice Hernandez MD Primary Care Provider [phone]- [phone] Norris Casillas Unavailable Unavailable Reason for Visit * Reason Onset Date Comments Nurse Triage 12/26/2023 Encounter Details Date Type Department Care Team (Late st Contact Info) Description 12/26/2023 Telephone [facility]IC[facility] [address] [place] [address] Latrice Hernandez MD 505 [facility] [place] [phone] Nurse Triage Social History Tobacco Use Types [...] of kidney stones . Pt is offered [facility] tonight open till 8pm in [facility] and tomorrow 830am-400pm. No available apts in [facility] this week and Pt can[place] go [place] [facility] [place]. Pt reports willgo to ED [...] Upcoming Encounters Date Type Department Care Team ([facility] st Contact Info) Description 05/18/2025 9:15 AM EDT Office Visit [facility] MED & PEDS 505 [place], [place] [phone] Latrice Hernandez MD [address] [place], [place] [phone] documented as of this encounter Visit Diagnoses Not on filedocumented in this encounter Additional Health Concerns Assessment Noted Time PHQ-9 Depression Total Score: 9 12/24/19 24 9:18 AM EDT documented as of this encounter Care Teams Asphalt Plant Operator Relationship Specialty Start Date End Date Latrice Hernandez MD [address] [place] [address] PCP - General Internal Medicine 07/23/18 Norris Casillas FNP [address] [place] [address] Nurse Practitioner Family Medicine 06/07/23 documented as of this encounter
--- OUTSIDE RECORDS SUMMARY | 2025-04-17 10:58 | XMS_ITS | Encounter Summary ---
Author Organization [employer] Address [address] [facility] 7t [place] [address] Care Team Providers Care Front Desk Administrator Name Role Phone Latrice Hernandez MD Primary Care Provider [phone] Norris Casillas Unavailable Unavailable Reason for Visit * Reason Comments Med Refill Encounter Details Date Type Department Care Team ([facility] st Contact Info) Description 07/24/2022 Refill [facility] MEDICINE [address] [place] [address] Norris Casillas FNP Social History Tobacco Use [...] Upcoming Encounters Date Type Department Care Team ([facility] st Contact Info) Description 05/18/2025 9:15 AM EDT Office Visit [facility] MED & PEDS 505 [place] [address] Latrice Hernandez MD 505 [place] [address] documented as of this encounter Visit Diagnoses Not on filedocumented in this encounter Additional Health Concerns Assessment Noted Time PHQ-9 Depression Total Score: 15 022 1:56 PM EST documented as of this encounter Care Teams Front Desk Administrator Relationship Specialty Start Date End Date Latrice Hernandez MD [address] [place] [address] PCP - General Internal Medicine 07/23/18 Norris Casillas FNP [address] [place] [address] Nurse Practitioner Family Medicine 06/07/23 documented as of this encounter
--- OUTSIDE RECORDS SUMMARY | 2025-04-17 10:58 | XMS_ITS | Encounter Summary ---
Author Organization [employer] Address [address] [facility] 7t [place] [address] Care Team Providers Care Greenhouse Grower Name Role Phone Latrice Hernandez MD Primary Care Provider [phone]- [phone] Norris Casillas Unavailable Unavailable Encounter Details Date Type Department Care Team (Late st Contact Info) Description 09/29/2024 Orders Only [facility] MEDICINE [address] [place], [place] [phone] Latrice Hernandez MD [address] [place] [address] Chronic obstructive pulmonary disease, unspecified COPD type [...] Description 05/18/2025 9:15 AM EDT Office Visit [facility] MED & PEDS 505 [place] [address] Latrice Hernandez MD [address] [place] [address] documented as of this encounter Procedures Procedure Name Priority Date/Time Associated Diagnosis Comments [id number] QN Routine 10/15/2024 10:53 AM EDT Chronic obstructive pulmonary disease, unspecified COPD type (CMS/HCC) documented in this encounter Results * Ziijz-1-[id number], Quantitative (10/15/2024 10:53 AM EDT) Ibywc-8-Ncljjhmc sin QN 122 83 - 199 mg/dL [facility] Comment:THIS TEST WAS PERFOR MED AT:[facility] [place] [phone] SHARP MD Blood Venous blood specimen / Unknown 10/15/2024 10:53 AM EDT 10/15/2024 2:15 PM EDT Latrice Hernandez MD LAB BLOOD ORDERABLES Final Result [facility] [address] [place] [address] [phone] documented in this encounter Visit Diagnoses Diagnosis Chronic obstructive pulmonary disease, unspecified COPD type (CMS/HCC)- Primary documented in this encounter Additional Health Concerns Assessment Noted Time PHQ-9 Depression Total Score: 9 12/24/19 24 9:18 AM EDT documented as of this encounter Care Teams Greenhouse Grower Relationship Specialty Start Date End Date Latrice Hernandez MD [address] [place] [address] PCP - General Internal Medicine 07/23/18 Norris Casillas FNP [address] [place] [address] Nurse Practitioner Family Medicine 06/07/23 documented as of this encounter
--- OUTSIDE RECORDS SUMMARY | 2025-04-17 10:58 | XMS_ITS | Encounter Summary ---
Author Organization [employer] Address [address] [facility] 7t [place] [address] Care Team Providers Care Wildland Fire Operations Specialist Name Role Phone Latrice Hernandez MD Primary Care Provider [phone]- [phone] Norris Casillas Unavailable Unavailable Encounter Details Date Type Department Care Team (Late st Contact Info) Description 09/07/2023 Orders Only [facility] MED & PEDS [address] [place] [address] Latrice Hernandez MD [address] [place] [address] Herpes (Primary Dx) Social History Tobacco Use [...] Description 05/18/2025 9:15 AM EDT Office Visit [facility] MED & PEDS 505 [facility] [place] [address] Latrice Hernandez MD [address] [place] [address] documented as of this encounter Visit Diagnoses Diagnosis Herpes- Primary Herpes simplex without mention of complication documented in this encounter Additional Health Concerns Assessment Noted Time PHQ-9 Depression Total Score: 8 08/27/19 24 11:04 AM EST documented as of this encounter Care Teams Wildland Fire Operations Specialist Relationship Specialty Start Date End Date Latrice Hernandez MD [address] [place] [address] PCP - General Internal Medicine 07/23/18 Norris Casillas FNP [address] [place] [address] Nurse Practitioner Family Medicine 06/07/23 documented as of this encounter
--- OUTSIDE RECORDS SUMMARY | 2025-04-17 10:58 | XMS_ITS | Encounter Summary ---
Author Organization [employer] Address [address] [facility] 7t [place] [address] Care Team Providers Care Pipe Stress Engineer Name Role Phone Latrice Hernandez MD Primary Care Provider [phone]- [phone] Norris Casillas Unavailable Unavailable Reason for Visit * Reason Onset Date Comments Nurse Triage 12/28/2023 ER Follow-up 12/28/2023 Encounter Details Date Type Department Care Team (Late st Contact Info) Description 12/28/2023 Telephone [facility] MEDIC[facility] [address] [place] [address] Latrice Hernandez MD 505 [place] [address] Nurse Triage; ER Follow-up Social History Tobacco [...] triage, spoke to pt. pt states [place] [facility] [place] left [...] is still symptomatic. Please contact pt at [phone] * Telephone Encounter - Mikala York - 12/28/2023 11:39 AM EDT Patient calling to report ED visit on : Date: 12/25 Hospital: [facility] [place] Seen for: Patient advised will forward to team nurse for follow up documented in this encounter Plan of Treatment Upcoming Encounters Date Type Department Care Team (Late st Contact Info) Description 05/18/2025 9:15 AM EDT Office Visit [facility] MED & PEDS [address] [place] [address] Latrice Hernandez MD [address] [place] [address] documented as of this encounter Visit Diagnoses Not on filedocumented in this encounter Additional Health Concerns Assessment Noted Time PHQ-9 Depression Total Score: 9 12/24/19 24 9:18 AM EDT documented as of this encounter Care Teams Pipe Stress Engineer Relationship Specialty Start Date End Date Latrice Hernandez MD [address] [place] [address] PCP - General Internal Medicine 07/23/18 Norris Casillas FNP [address] [place] [address] Nurse Practitioner Family Medicine 06/07/23 documented as of this encounter
--- OUTSIDE RECORDS SUMMARY | 2025-04-17 10:58 | XMS_ITS | Encounter Summary ---
Author Organization [employer] Address [address] [facility] 7t [place] [address] Care Team Providers Care Slip Cover Cutter Name Role Phone Latrice Hernandez MD Primary Care Provider [phone]- [phone] Norris Casillas Unavailable Unavailable Reason for Visit * Reason Onset Date Comments CT order 12/11/2024 Encounter Details Date Type Department Care Team ([facility] st Contact Info) Description 12/11/2024 Telephone [facility] MEDICINE [address] [place] [address] Latrice Hernandez MD [facility] [place] [phone] [place] order Social History Tobacco Use Types [...] AM EDT Tc from [place] [facility] [place] , she reports they are currently scheduling out until January . Wanting to know if pcp office caan look elsewhere for a sooner visit . documented in this encounter Plan of Treatment Upcoming Encounters Date Type Department Care Team ([facility] st Contact Info) Description 05/18/2025 9:15 AM EDT Office Visit [facility] MED & PEDS [address] [place] [address] Latrice Hernandez MD 505 [place] [address] documented as of this encounter Visit Diagnoses Not on filedocumented in this encounter Additional Health Concerns Assessment Noted Time PHQ-9 Depression Total Score: 9 12/24/19 24 9:18 AM EDT documented as of this encounter Care Teams Slip Cover Cutter Relationship Specialty Start Date End Date Latrice Hernandez MD [address] [place] [address] PCP - General Internal Medicine 07/23/18 Norris Casillas FNP [address] [place] [address] Nurse Practitioner Family Medicine 06/07/23 documented as of this encounter
--- OUTSIDE RECORDS SUMMARY | 2025-04-17 10:58 | XMS_ITS | Encounter Summary ---
Author Organization [employer] Address [address] [place] [address] 7 [place] [address] Care Team Providers Care Associate Professor Name Role Phone Latrice Hernandez MD Primary Care Provider +1- [phone] Norris Casillas Unavailable Unavailable Encounter Details Date Type Department Care Team (Late Contact Info) Description 01/15/2025 Orders Only [facility] Information Management [address] [place], [place] [phone] ProviderNathalie MD Social History Tobacco Use Types [...] Description 05/18/2025 9:15 AM EDT Office Visit [facility] MED & PEDS 505 [facility] [place] [phone] Latrice Hernandez MD 505 [facility] [place] [phone] documented as of this encounter Procedures Procedure [...] documented as of this encounter Care Teams Associate Professor Relationship Specialty Start Date End Date Latrice Hernandez MD 505 [place] [address] PCP - General Internal Medicine 07/23/18 Norris Casillas FNP [address] [place] [address] Nurse Practitioner Family Medicine 06/07/23 documented as of this encounter
== END 2025-04-17 10:31 | disposition home or self-care (01) ==
LOC: HO.HPS 09:52
PROVIDERS: PCP Internal Medicine; Visit Provider Hospitalist
DX: T78.40XA Allergy, unspecified, initial encounter (principal); J45.40 Moderate persistent asthma, uncomplicated; J44.89 Other specified chronic obstructive pulmonary disease; R07.2 Precordial pain
CPT/HCPCS: 99214

== ENCOUNTER → 2025-04-17 09:52 | Outpatient (BNVA) | payer MEDICAID, SELFPAY | PROVIDERS: PCP Internal Medicine; Visit Provider Hospitalist | DX: J44.89 Other specified chronic obstructive pulmonary disease (principal); T78.40XA Allergy, unspecified, initial encounter; J45.40 Moderate persistent asthma, uncomplicated; R07.2 Precordial pain | CPT/HCPCS: 99212 ==

== ENCOUNTER → 2025-05-21 10:00 | Outpatient (REF) | payer MEDICAID, SELFPAY ==
--- OUTSIDE RECORDS SUMMARY | 2025-05-18 09:15 | XMS_ITS | Encounter Summary ---
Author Organization [employer] Address [address] [place] [address] [address] [place] [address] Care Team Providers Care Mitochondrial Disorders Counselor Name Role Phone Latrice Hernandez MD Primary Care Provider [phone] Norris Casillas Unavailable Unavailable Reason for Referral * Imaging (Routine) - Authorized Specialty Diagnoses / Procedures Referred By Contac t Referred To Contact Cardiology Diagnoses VEE (dyspnea on exertion) Procedures Transthoracic Echo (TTE) Complete Latrice Hernandez MD [address] [place] [address] Phone: tel: fax: [address] Phone: tel: fax: Referral ID Status Reason Start Date Expiration Date Visits Requested Visits Authorized [id number] Authorized Perform Procedure 05/18/2026 1 1 Reason for Visit * Reason Comments Follow-up Encounter Details Date Type Department Care Team (Late st Contact Info) Description 05/18/2025 9:15 AM EDT Office Visit [facility] [address] [place], [place] [phone] Latrice Hernandez MD [address] [place] [address] Palpitations (Primary Dx); Anxiety; Tobacco dependence; Chronic obstructive pulmonary disease with acute exacerbation (CMS/HCC) (HCC); VEE (dyspnea on exertion); Left hip pain; Encounter for immunization; Dietary counseling; Exercise counseling; Class 1 obesity due to excess calories with serious comorbidity and body mass index (BMI) of 30.0 to 30.9 in adult Social History Tobacco Use Types Packs/Day Years [...] Sign Reading Time Taken Comments Blood Pressure 122/90 05/18/2025 9:31 AM EDT Pulse 80 05/18/2025 9:31 AM EDT Temperature 36.7 C (98 F) 05/18/2025 9:31 AM EDT Respiratory Rate 20 05/18/2025 9:31 AM EDT Oxygen Saturation 98% 05/18/2025 9:31 AM EDT Inhaled Oxygen Concentration - - Weight 73.5 kg (162 lb) 05/18/2025 9:31 AM EDT Height 154.9 cm (5' 1 ) 05/18/2025 9:31 AM EDT Body Mass Index 30.61 05/18/2025 9:31 AM EDT documented in this encounter Progress Notes * Latrice Hernandez MD - 05/18/2025 9:15 AM EDT SUBJECTIVE Ivis Ballesteros is a 44 y.o. female who presents for Follow-up. Ivis Ballesteros, 44-year-old female - Noticed persistent pain at the right side of the ankle, especially at the attachment of the Achilles tendon, ongoing for more than 2 months, worsened by walking - Reports pain at the plantar aspect of the foot, exacerbated by walking - History of injuries to the front of the foot, described as excruciating - Pain at the very edge of the right ankle, described as constant and intermittent - Uses heel-toe walking technique to manage symptoms - Evaluated by resident assistant cna; x-rays performed, no abnormalities found - Underwent vascular evaluation; ultrasound of veins showed no blood clots, initially suspected varicose veins, ultimately diagnosed with lymphedema - Compression stockings worn as needed, especially for work - Lower extremity swelling, not always present - Reports palpitations with heart rate fluctuations between 80 and 124 bpm, sometimes reaching 130 bpm, ongoing for years prior to starting albuterol - Family history of heart failure on both sides - Emergency room visit in the past for shortness of breath and elevated heart rate; found to have low potassium - Wheezing and difficulty breathing during episode prior to starting albuterol or prednisone - Holter monitor previously ordered for palpitations - Echocardiogram performed; quick ultrasound of the heart - Chest x-ray performed; evaluated for heart size and clogged arteries - Reports pain at left hip center during walking, described as rubbing sensation, worsens with longer distances - Performs stretching and exercises, finds temporary relief - Uses diclofenac gel for pain management - Quit smoking several months ago - Denies current illness Problem List[1] Allergies[2] Medications Ordered Prior to Encounter[3] Review of Systems Constitutional: Negative for appetite change, chills and diaphoresis. Eyes: Negative for pain and itching. Respiratory: Negative for cough and shortness of breath. Genitourinary: Negative for dyspareunia, dysuria and enuresis. Musculoskeletal: Negative for back pain, gait problem and joint swelling. Skin: Negative for rash. OBJECTIVE Vitals: 05/18/25 0931 BP: (!) 122/90 BP Location: Left arm Patient Position: Sitting BP Cuff Size: Adult Pulse: 80 Resp: 20 Temp: 98 ??F (36.7 ??C) TempSrc: Oral SpO2: 98% Weight: 162 lb (73.5 kg) Height: 5' 1 (1.549 m) Physical Exam Constitutional: General: She is not in acute distress. Appearance: Normal appearance. She is not ill-appearing, toxic-appearing or diaphoretic. Cardiovascular: Rate and Rhythm: Normal rate. Pulmonary: Effort: Pulmonary effort is normal. Abdominal: General: There is no distension. Palpations: Abdomen is soft. There is no mass. Musculoskeletal: Right lower leg: No edema. Left lower leg: No edema. Neurological: General: No focal deficit present. Mental Status: She is alert. Assessment/Plan Assessment/Plan Diagnoses and all orders for this visit: Palpitations Anxiety Tobacco dependence Chronic obstructive pulmonary disease with acute exacerbation ([facility] ([facility]) VEE (dyspnea on exertion) - Transthoracic Echo (TTE) Complete; Future Left hip pain - XR Hip 2 or 3 Views Left; Future Encounter for immunization - FLU VACCINE TRIVALENT [id number] (Fluarix) 19 yrs + - COVID-19 VACCINE [id number] (Comirnaty) 12 yrs to 18 yrs Dietary counseling Exercise counseling Class 1 obesity due to excess calories with serious comorbidity and body mass index (BMI) of 30.0 to 30.9 in adult Dietary Recommendations: Fruits, vegetables, whole grains, protein foods, and fat-free or low-fat dairy products are healthychoices. Eat different types of protein foods in your diet. This can include seafood, lean meats, poultry, beans, peas, lentils, nuts, seeds, soy products, and eggs. Limit foods and beverages higher in added sugars, saturated fat, and sodium. Exercise Recommendations: At least 150 minutes of moderate-intensity physical activity per week, or an equivalent combinationof moderate- and vigorous-intensity activity Palpitations: - Sinus tachycardia, likely inappropriate sinus tachycardia possibly related to autonomic dysfunction or reduced pulmonary reserves. No evidence of heart failure. - Ordered Holter monitor for further evaluation. Will review results and reassess management. Recommended hydration and electrolyte intake. Tobacco dependence: - Smoking cessation achieved. - Continue abstinence from tobacco. Reinforced importance of maintaining cessation. Chronic obstructive pulmonary disease with acute exacerbation ([facility]) ([facility]): - Asthma-COPD overlap syndrome diagnosed by carpenter maintenance. Chest X-ray reassuring. - Switch from albuterol to levalbuterol (Xopenex) for bronchodilation to minimize cardiac side effects. Continue Trelegy as prescribed. Use MARISSA as needed. Monitor for exacerbation. Follow up with carpenter maintenance in 6 months. VEE (dyspnea on exertion): - Dyspnea on exertion likely related to underlying pulmonary condition. No evidence of heart failure. - Ordered echocardiogram to further evaluate cardiac function. Monitor symptoms and reassess after results. Left hip pain: - Likely bursitis or local inflammation. - Use diclofenac gel topically 4 times daily. Ordered left hip X-ray. Consider injection if pain persists and topical therapy fails. Lymphedema in lower extremity: - Lymphedema without venous reflux, confirmed by vascular surgery. - Recommended use of compression stockings (20-30 mmHg) before getting out of bed in the morning. Continue compression therapy for comfort. Follow up as needed. This note was drafted using Ambient (AI) technology. The patient/patient's guardian has been informed and has consented to the use of this technology: Yes [1] Patient Active Problem List Diagnosis Anxiety Bipolar disorder (HCC) PTSD (post-traumatic stress disorder) Attention and concentration deficit Migraine headache Vitamin D deficiency Palpitations Bilateral swelling of feet and ankles Tobacco dependence Chronic obstructive pulmonary disease with acute exacerbation (CMS/HCC) ([facility]) Excessive thirst [2] Allergies Allergen Reactions Pollen Extract Quetiapine Other reaction(s): Unknown [3] Current Outpatient Medications on File Prior to Visit Medication Sig Dispense Refill Adderall XR 10 MG 24 hr capsule TAKE ONE CAPSULE EVERY MORNING. DO NOT BREAK, CRUSH, DISSOLVE OR CHEW 30 capsule 0 albuterol (2.5 MG/3ML) 0.083% nebulizer solution INHALE ONE AMPULE USING A NEBULIZER EVERY 6 HOURS NEEDED FOR WHEEZING OR SHORTNESS OF BREATH 90 mL 1 albuterol 108 (90 Base) MCG/ACT inhaler Inhale 1 puff every 6 (six) hours if needed for wheezing. 18 g 1 azithromycin (Zithromax) 250 MG tablet Take 2 tabs PO daily x 1d then 1 tab PO daily on D2 to D5 6 tablet 0 Banophen 25 MG tablet TAKE ONE TABLET AT BEDTIME NEEDED FOR ITCHING 30 tablet 0 Beclomethasone Diprop HFA (Qvar RediHaler) 80 MCG/ACT inhaler Inhale 80 mcg in the morning and at bedtime. Rinse mouth with water after use to reduce aftertaste and incidence of candidiasis. Do not swallow. 10.6 g 2 cetirizine (ZyrTEC) 10 MG tablet Take 1 tablet (10 mg) by mouth Once per day. Prn. 30 tablet 0 cholecalciferol VITAMIN D (Vitamin D-3) 50 MCG (2000 UT) capsule TAKE 1 CAPSULE BY MOUTH EVERY DAY 90 capsule 1 clonazePAM (KlonoPIN) 1 MG tablet Take 1 tablet (1 mg) by mouth 2 times daily. 60 tablet 0 cyclobenzaprine (Flexeril) 5 MG tablet Take 1 tablet (5 mg) by mouth if needed in the morning, at noon, and at bedtime for muscle spasms. 45 tablet 0 Dextromethorphan-guaiFENesin (Mucinex DM) 30-600 MG tablet sustained-release 12 hour Use 1 tab TID 28 tablet 0 diphenhydrAMINE (BENADryl) 25 MG tablet take 1 Tablet by oral route every bedtime as needed fluticasone (Flovent) 44 MCG/ACT inhaler Inhale 2 puffs in the morning and at bedtime. Rinse mouth with water after use to reduce aftertaste and incidence of candidiasis. Do not swallow. 10.6 g 5 hydrOXYzine HCl (Atarax) 10 MG tablet Take 1 tablet (10 mg) by mouth if needed at bedtime (sleep). 90 tablet 6 ibuprofen 600 MG tablet TAKE ONE TABLET BY MOUTH THREE TIMES DAILY NEEDED 21 tablet 1 ivermectin (Stromectol) 3 MG tablet Take 1 tablet orally once , repeat after 1 week 2 tablet 0 levalbuterol (Xopenex) 0.63 MG/3ML nebulizer solution Take 1 ampule by nebulization in the morning,at noon, and at bedtime. 72 mL 11 Levonorgestrel (Liletta, 52 MG,) 20.1 MCG/DAY intrauterine device inserted 09/30/2019 Mometasone Furoate (Asmanex, 7 Metered Doses,) 110 MCG/ACT aerosol powder Inhale 110 mcg 2 times daily. 1 each 3 nicotine (Nicoderm CQ) 14 MG/24HR patch Place 1 patch on the skin 1 (one) time each day at the sametime. 42 patch 0 nicotine (Nicoderm CQ) 7 MG/24HR patch Place 1 patch on the skin 1 (one) time each day at the same time. 14 patch 0 nicotine (Nicoderm, Step 2) 14 MG/24HR patch apply 1 patch by transdermal route every day and wear for 16-24 hours. nicotine (Nicoderm, Step 3) 7 MG/24HR patch apply 1 patch by transdermal route every day and wear for 16 hours. nicotine polacrilex (Commit) 2 MG lozenge Dissolve 1 lozenge (2 mg) in the mouth if needed for smoking cessation. 100 lozenge 0 nicotine polacrilex (Nicorette) 2 MG gum chew 1 piece of gum by oral route every 1- 2 hours as needed for weeks 1-6, then one piece every 2-4 hours for weeks 7- 9, then 1 piece every 4-8 hours weeks 10-12 permethrin (Elimite) 5 % cream apply to skin from hairline to toes and wash off 8-10 hours later 60g 0 propranolol (Inderal) 60 MG tablet Take 1 tablet (60 mg) by mouth 2 times daily. 180 tablet 3 Spacer/Aero-Holding Chambers (OptiChamber Latonya) misc 1 each every 4 (four) hours if needed (asthma). 1 each 0 Spiriva HandiHaler 18 MCG inhalation capsule USE 1 CAPSULE FOR INHALATION ONCE A DAY DO NOT SWALLOW CAPSULE 30 capsule 2 SUMAtriptan (Imitrex) 50 MG tablet TAKE ONE TABLET BY MOUTH ONCE DAILY NEEDED MIGRAINE 9 tablet 3 topiramate (Topamax) 100 MG tablet TAKE 1 AND 1/2 TABLETS BY MOUTH TWICE DAILY 270 tablet 3 Ventolin HFA 108 (90 Base) MCG/ACT inhaler INHALE TWO PUFFS BY MOUTH EVERY 4 HOURS NEEDED FOR WHEEZING 18 g 1 No current facility-administered medications on file prior to visit. documented in this encounter Plan of Treatment Scheduled Orders Name Type Priority Associated Diagnoses Order Schedule Transthoracic Echo (TTE) Complete Echocardiography Routine VEE (dyspnea on exertion) Expected: 05/18/2025 (Approximate), Expires: 05/18/2027 XR Hip 2 or 3 Views Left Imaging Routine Left hip pain Expected: 05/18/2025, Expires: 05/18/2026 documented as of this encounter Visit Diagnoses Diagnosis Palpitations- Primary Anxiety Anxiety state, unspecified Tobacco dependence Tobacco use disorder Chronic obstructive pulmonary disease with acute exacerbation (CMS/HCC) (HCC) VEE (dyspnea on exertion) Other dyspnea and respiratory abnormality Left hip pain Pain in joint, pelvic region and thigh Encounter for immunization Dietary counseling Dietary surveillance and counseling Exercise counseling Class 1 obesity due to excess calories with serious comorbidity and body mass index (BMI) of 30.0 to 30.9 in adult documented in this encounter Additional Health Concerns Assessment Noted Time PHQ-9 Depression Total Score: 14 025 10:45 AM EDT documented as of this encounter Care Teams Mitochondrial Disorders Counselor Relationship Specialty Start Date End Date Latrice Hernandez MD [address] [facility] [place] [address] PCP - General Internal Medicine 07/23/18 Norris Casillas FNP [address] [facility] [place] [address] Nurse Practitioner Family Medicine 06/07/23 documented as of this encounter
--- OUTSIDE RECORDS SUMMARY | 2025-05-20 10:00 | XMS_ITS | Encounter Summary ---
Author Organization [employer] Address [address] [facility] [address]t [place] [address] Care Team Providers Care Bricklayer'S Assistant Name Role Phone Latrice Hernandez MD Primary Care Provider [phone] Norris Casillas Unavailable Unavailable Reason for Visit * Reason Comments cough Encounter Details Date Type Department Care Team ([facility] st Contact Info) Description 05/20/2025 10:00 AM EDT Office Visit [facility] [address] [place] [address] Zehra Figueroa FNP [address] [place] [address] Cough, unspecified type Social History Tobacco Use Types Packs/Day Years Used Date Smoking Tobacco: Former Cigarettes Passive Smoke Exposure: Current Smokeless Tobacco: Never Tobacco Cessation:Counseling Given: Not Answered Depression Answer Date Recorded [...] Sign Reading Time Taken Comments Blood Pressure 110/78 05/20/2025 10:34 AM EDT Pulse 109 05/20/2025 10:05 AM EDT Temperature 37.1 C (98.8 F) 05/20/2025 10:05 AM EDT Respiratory Rate 20 05/20/2025 10:05 AM EDT Oxygen Saturation 98% 05/20/2025 10:05 AM EDT Inhaled Oxygen Concentration - - Weight 74.4 kg (164 lb) 05/20/2025 10:05 AM EDT Height 154.9 cm (5' 1 ) 05/20/2025 10:05 AM EDT Body Mass Index 30.99 05/20/2025 10:05 AM EDT documented in this encounter Plan of Treatment Not on file documented as of this encounter Procedures Procedure Name Priority Date/Time Associated Diagnosis Comments POCT INFLUENZA B (ID NOW RAPID MOLECULAR) Routine 05/20/2025 10:25 AM EDT Cough, unspecified type POCT INFLUENZA A (ID NOW RAPID MOLECULAR) Routine 05/20/2025 10:25 AM EDT Cough, unspecified type POC GONZALEZ ID NOW STREP A Routine 05/20/2025 10:24 AM EDT Cough, unspecified type POCT RAPID COVID ANTIGEN Routine 05/20/2025 10:23 AM EDT Cough, unspecified type documented in this encounter Results * POCT Rapid Influenza A GONZALEZ ID NOW (05/20/2025 10:25 AM EDT) Influenza A Negative Negative, Indeterminate [facility] QC Media Lot # [id number] [facility] Lot# Expiration Date [id number] [facility] Swab 05/20/2025 10:2 5 AM EDT us Zehrabella Figueroa CRIMINALIST POINT OF CARE TEST ENTER/EDIT ORDERABLES Final Result [facility] [address] [place] [phone] * POCT Rapid Influenza B GONZALEZ ID NOW (05/20/2025 10:25 AM EDT) Pathologist [facility] Influenza B Negative Negative, Indeterminate [facility] QC Media Lot # [id number] [facility] Lot# Expiration Date 312, [facility] Swab 05/20/2025 10:2 5 AM EDT us Zehra Okhipo CRIMINALIST POINT OF CARE TEST ENTER/EDIT ORDERABLES Final Result [facility] [address] [place] [address] [phone] * POCT Rapid Strep A GONZALEZ ID NOW (05/20/2025 10:24 AM EDT) [facility] Rapid Strep A Screen Negative Negative, None Detected QC Media Lot # [id number] Lot# Expiration Date ,026 Swab 05/20/2025 10:2 4 AM EDT us Zehra Okhipo CRIMINALIST POINT OF CARE TEST ENTER/EDIT ORDERABLES Final Result * POCT Rapid Covid-19 BinaxNOW (05/20/2025 10:23 AM EDT) [facility] Rapid COVID Ag Negative QC Media Lot # [id number] Lot# Expiration Date ,302,026 Swab 05/20/2025 10:2 3 AM EDT us Zehra Okhipo CRIMINALIST POINT OF CARE TEST ENTER/EDIT ORDERABLES Final Result documented in this encounter Visit Diagnoses Diagnosis Cough, unspecified type documented in this encounter Additional Health Concerns Assessment Noted Time PHQ-9 Depression Total Score: 14 08/14/2 025 10:45 AM EDT documented as of this encounter Care Teams Bricklayer'S Assistant Relationship Specialty Start Date End Date Latrice Hernandez MD [address] [place] [phone] PCP - General Internal Medicine 07/23/18 Norris Casillas FNP [address] [place] [phone] Nurse Practitioner Family Medicine 06/07/23 documented as of this encounter
--- NOTE | 2025-05-21 10:03 | CA_ITS ---
Transthoracic Echocardiogram Patient (Last, First, Middle): Ivis Ballesteros, Gender: F Date of : 1980 Age: 44 Procedure Date: 05/21/2025 Procedure Type: Transthoracic Echocardiogram Location: OP Height: 154.94 cm Weight: 71.22 kg BSA: 1.70 m2 Heart Rate: 105 bpm BP: 112 / 56 mmHg Still Operator Helper: JAMEE Referring MD: Ignacio Pagan MD Symptoms: R00.0 - Tachycardia, unspecified Study Quality: Adequate w contrast ECG Rhythm: Tachycardia Conclusions: - The left ventricular systolic function is normal. The calculated ejection fraction is 61% by biplane method. - No obvious valvular pathology seen on this study. Findings Procedure Information Contrast agent, definity, is being given per protocol without apparent complications. Left Ventricle Normal left ventricular cavity size. There is normal left ventricular wall thickness. The left ventricular systolic function is normal. The calculated ejection fraction is 61% by biplane method. There is no evidence of regional wall motion abnormalities. Diastolic function is normal for age. Right Ventricle Normal right ventricular cavity size and systolic function. Atria Both atria are normal in size. Aortic Valve There is a normal trileaflet aortic valve. There is no aortic valve stenosis. There is no aortic valve regurgitation. Mitral Valve The mitral valve appears normal. There is no mitral valve regurgitation. There is no mitral valve stenosis. Pulmonic Valve The pulmonic valve is likely normal. Tricuspid Valve There is trace tricuspid valve regurgitation. There is no evidence of pulmonary hypertension. Great Vessels The asc aorta and aortic arch are normal in size. Venous The inferior vena cava is normal in size and collapses greater than 50% with inspiration. Pericardium/Pleural There is no evidence of pericardial effusion. Prior Study Comparison No prior study available for comparison. Recommendations, Care & Conclusions No obvious valvular pathology seen on this study. Measurements 2D Linear Measurements IVSd: 0.79 0.6-0.9/0.6-1.0 cm LVIDd: 3.61 3.9-5.3/4.2-5.9 cm LVIDd Index: 2.12 2.4-3.2/2.2-3.1 cm/m2 LVIDs: 2.63 2.0-3.6 cm LVPWd: 0.74 0.7-1.1 cm LA Diam: 2.20 2.7-3.8/3.0-4.0 cm LAIDs Index: 1.29 1.5-2.3 cm/m2 LV Mass: 92.05 67-162/88-224 g LV Mass Index: 54.15 43-95/49-115 g/m2 LVOT Diam: 2.00 3.0+(-)1.3 cm 2D Systolic Function EF 4C: 60.00 >55% EF 2C: 62.90 >55% EF BiP: 61.10 >55% Mitral Valve MV Pk E: 0.60 MV PK A: 1.16 MV Decel Time: 74.00 E/A: 0.50 E'Lateral: 9.79 E'Medial: 6.31 E/E' Med: 9.50 E/E' Lat: 6.10 PHT: 22.00 MVA PHT: 10.00 Decel Moca: 8.05 Aortic Valve AoV Pk Mayco: 1.23 AoV Mn Mayco: 0.91 AoV VTI: 0.24 AoV Pk Grad: 6.00 Aov Mn Grad: 4.00 RODRIGO Cont.VTI: 2.88 LVOT LVOT Pk Mayco: 1.16 LVOT Mn Mayco: 0.76 LVOT VTI: 0.22 LVOT Pk Grad: 5.00 LVOT Mn Grad: 3.00 LVOT Diam: 2.00 LVOT Area: 3.14 Diastolic Function MV Pk E: 0.60 MV Pk A: 1.16 E/A: 0.50 E'Medial: 6.31 E/E' Med: 9.50 E' Laterial: 9.79 E/E' Lat: 6.10 Right Ventricle TAPSE (mm): 22.70 TVS' Mayco: 11.10 Tricuspid Valve TR Pk Mayco: 1.39 TR Pk Grad: 8.00 RA Press: 3.00 RVSP: 11.00 Great Vessels Aorta Sinus of Valsalva: 3.06 2.0-3.5 cm Ao Asc: 2.50 2.1-3.4 cm Ao Arch: 2.30 Updated in Other Vendor System with Status of Final Trevor Aguiar MD electronically signed on 05/23/2025 11:44:37 AM with status of Final
--- NOTE | 2025-05-21 10:03 | HM_ITS ---
* Total monitoring time 2 days. * Underlying rhythm is sinus with an average rate of 107/Min. About 78% of the time, rate > 100/Min. * Rare supraventricular ectopy. * Rare ventricular ectopy. * No significant pauses or high-grade AV blocks. * No patient markers or diary events. MTDD
--- OUTSIDE RECORDS SUMMARY | 2025-05-21 11:56 | XMS_ITS | Clinical Summary ---
Author Organization [employer] Address [address] [facility] [address] [place] [address] Care Team Providers Care Sample Builder Name Role Phone Latrice Hernandez MD Primary Care Provider [phone] Norris Casillas Unavailable Unavailable Allergies Active Allergy [...] NEEDED FOR ITCHING 30 tablet 024 Active albuterol 108 (90 Base) MCG/ACT [...] ons:Moderate persistent reactive airway disease without complication,[place] cough Inhale 80 mcg in the morning [...] not swallow. 10.6 g 5 025 Active nicotine (Nicoderm CQ) 14 MG/24HR [...] ns:Moderate persistent reactive airway disease without complication,[place] cough Inhale 110 mcg 2 times daily. 1 each 3 025 Active Spacer/Aero-Hol ding Chambers (OptiChamber Latonya) misc 1 each every 4 (four) hours if needed (asthma). 1 each 025 Active levalbuterol (Xopenex) 0.63 MG/3ML nebulizer solutionIndicat ions:COPD exacerbation (CMS/HCC) ([facility]) Take 1 ampule by nebulization in the morning, at noon, and at bedtime. 72 mL 11 025 2025 Active azithromycin (Zithromax) 250 MG tabletIndicatio ns:Chronic obstructive pulmonary disease with acute exacerbation (CMS/HCC) ([facility]) Take 2 tabs PO daily x 1d then 1 tab PO daily on D2 to D5 6 tablet 025 Active cholecalciferol VITAMIN D (Vitamin D-3) 50 MCG (1999 UT) capsuleIndicati ons:Vitamin D deficiency TAKE 1 CAPSULE BY MOUTH EVERY DAY 90 capsule 1 025 Active Spiriva HandiHaler 18 MCG inhalation capsuleIndicati ons:Chronic obstructive pulmonary disease, unspecified COPD type (CMS/HCC) ([facility]) USE 1 CAPSULE FOR INHALATION ONCE A DAY DO NOT SWALLOW CAPSULE 30 capsule 2 025 Active cetirizine (ZyrTEC) 10 MG tablet Take 1 tablet (10 mg) by mouth Once per day. Prn. 30 tablet 025 Active hydrOXYzine HCl (Atarax) 10 MG [...] ar affective disorder, remission status unspecified (CMS/HCC) ([facility]) Take 1 tablet (1 mg) by mouth 2 times daily. 60 tablet 025 Active ibuprofen 600 MG tablet TAKE ONE TABLET BY MOUTH THREE TIMES DAILY NEEDED 21 tablet 1 025 Active albuterol (2.5 MG/3ML) 0.083% nebulizer solution INHALE ONE AMPULE USING A NEBULIZER EVERY 6 HOURS NEEDED FOR WHEEZING OR SHORTNESS OF BREATH 90 mL 1 Active Ventolin HFA 108 (90 Base) MCG/ACT inhaler INHALE TWO PUFFS BY MOUTH EVERY 4 HOURS NEEDED FOR WHEEZING 18 g 1 Active SUMAtriptan (Imitrex) 50 MG tabletIndicatio ns:Chronic migraine without aura without status migrainosus, not intractable TAKE ONE TABLET BY MOUTH ONCE DAILY NEEDED MIGRAINE 9 tablet 3 Active levalbuterol (Xopenex HFA) 45 MCG/ACT inhalerIndicati ons:Chronic obstructive pulmonary disease with acute exacerbation (CMS/[facility]) ([facility]),VEE (dyspnea on exertion) Inhale 2 puffs every 6 (six) hours if needed for wheezing. 15 g 11 025 2025 Active acetaminophen (Tylenol Extra Strength) 500 MG tablet Take 2 tablets (1,000 mg) by mouth every 8 (eight) hours if needed for mild pain for up to 10 days. 30 tablet 025 2024 Active Adderall XR 10 MG 24 hr capsule TAKE ONE CAPSULE EVERY MORNING. DO NOT BREAK, CRUSH, DISSOLVE OR CHEW 30 capsule 024 2024 Discontinued(T herapy completed) SUMAtriptan (Imitrex) 50 MG tabletIndicatio ns:Chronic migraine without aura without status migrainosus, not intractable TAKE ONE TABLET BY MOUTH ONCE DAILY NEEDED MIGRAINE 9 tablet 3 2024 Discontinued nicotine polacrilex (Commit) 2 MG lozenge Dissolve 1 lozenge (2 mg) in the mouth if needed for smoking cessation. 100 lozenge 025 2024 Discontinued(T herapy completed) propranolol (Inderal) 60 MG tabletIndicatio ns:PTSD (post-traumatic stress disorder),Bipol ar affective disorder, remission status unspecified ([facility]) ([facility]) Take 1 tablet (60 mg) by mouth 2 times daily. 180 tablet 3 025 2024 Discontinued(T herapy completed) Active Problems Problem Noted Date Diagnosed Date Chronic obstructive pulmonar y disease with acute exacerbation (CMS/[facility]) 12/16/2024 Assessment & Plan (12/16/2024 10:59 AM EDT): I will treat her as a COPD exacerbation with Z-Villa for 5 days plus prednisone based and I will give her at the office DuoNeb nebulization she was evaluated after the medication and she was a lot better I advised to follow-up with PCP and campus administrative assistant Excessive thirst 12/16/2024 Tobacco dependence 11/19/2024 Palpitations [...] aware that this person will work via [employer] and is not employed by [facility] [...] henao. She will continue to work with [facility]. Assessment & Plan (07/11/2022 3:11 [...] therapist. Will also request one of the [facility] clinicians to reach out to her [...] Encounters Date Type Department Care Team Description 05/20/2025 10:00 AM EDT Office Visit [facility] [address], [place] [phone] Zehra Figueroa FNP Cough, unspecified type 05/20/2025 Travel 05/18/2025 9:15 AM EDT Office Visit [facility] [address], [place] [phone] Latrice Hernandez MD Palpitations (Primary Dx); Anxiety; Tobacco dependence; Chronic obstructive pulmonary disease with acute exacerbation (CMS/HCC) (HCC); VEE (dyspnea on exertion); Left hip pain; Encounter for immunization; Dietary counseling; Exercise counseling; Class 1 obesity due to excess calories with serious comorbidity and body mass index (BMI) of 30.0 to 30.9 in adult 05/18/2025 Travel 05/15/2025 Telephone [facility] [address] [facility] [place] [phone] Latrice Hernandez MD chart prep 05/11/2025 Travel 05/01/2025 Refill [facility] [address] [facility] [phone] Latrice Hernandez MD Chronic migraine without aura without status migrainosus, not intractable 04/19/2025 Refill [facility] [address] [facility] [place] [phone] Latrice East MD 04/16/2025 Results Follow-Up [facility] [address] [place] [phone] Latrice Hernandez MD TSH with Reflex to Free T4, Metanephrines, Fractionated, Free, LC/MS/MS, Plasma 04/09/2025 Orders Only GENERIC EXTERNAL DATA DEPARTMENT Provider, Generic External Data 04/09/2025 Refill [facility] [address] [place] [address] Edward Richard MD 04/08/2025 Refill [facility] [address] [place] [address] Edward Richard MD 04/06/2025 Refill [facility] [address] [place] [address] Latrice Hernandez MD PTSD (post-traumatic stress disorder); Bipolar affective disorder, remission status unspecified ([facility]/HCC) 04/06/2025 Telephone [facility] [address] [facility] [place] [phone] Latrice Hernandez MD 04/06/2025 Refill [facility] [address] [place] [address] Belkis Garcia MD 04/03/2025 Travel 03/09/2025 Results Follow-Up [facility] [address] [place] [phone] Idania Hart CNM Bacterial Vaginosis Panel 03/05/2025 10:00 AM EDT Office Visit [facility] [address] [place] [phone] Idania Hart CNM Vaginal discharge (Primary Dx); Screening examination for venereal disease 03/05/2025 Refill [facility] [address] [place] [address] Belkis Garcia MD PTSD (post-traumatic stress disorder); Bipolar affective disorder, remission status unspecified ([facility]) 03/05/2025 Travel 03/04/2025 Telephone [facility] [address] [place] [phone] Idania Hart CNM chart prep 03/02/2025 Telephone [facility] [address] [place] [address] Latrice Hernandez MD Nurse Triage 02/23/2025 Refill [facility] [address] [place] [phone] Pantera Arredondo MD Chronic obstructive pulmonary disease, unspecified COPD type ([facility]) from Last 3 Months Immunizations Immunization Administration Dates Next Due Hep B, adult 07/30/2020, 4,09/06/2011,2011 Influenza injectable quadriv alent IIV4 with preservative 06/22/2015 Influenza injectable quadriv alent preservative free 08/28/2023,06/02/2022,07/30/2020 Influenza, IIV3, injectable 06/09/2014 Influenza, Unspecified 05/27/2021 Influenza, seasonal, injecta ble, preservative free 05/18/2025,05/21/2024 MMR 01/15/2024,07/20/2023 Pfizer Covid-19 Vaccine 12+ 05/18/2025 Tdap 08/09/2011 Social History Tobacco Use Types [...] Mass Index 30.99 05/20/2025 10:05 AM EDT Plan of Treatment Health Maintenance Due Date Last Done Comments SDOH Screening 1982 HPV Vaccines (1 - 3-dose series) 1997 Pneumococcal Vaccine: Pediatrics (0 to 5 Years) and At-Risk Patients (6 to 49) Years (1 of 2 - PCV) 2001 DTaP/Tdap/Td Vaccines (2 - Td or Tdap) 08/09/2021 08/09/2011 Mammogram 2022 Depression Monitoring 09/05/2025 03/05/2025, 025 Cervical Cancer Screening 09/14/2025 HPV/Cotest 09/14/2025 09/14/2020, 01/21/2019 Pap Smear 09/14/2025 09/14/2020, 09/14/2020 Alcohol/Substance Use Screening 09/26/2025 09/26/2024 Family Planning (PISQ) 03/05/2026 03/05/2025 Disability Screening 04/03/2026 04/03/2025 Tobacco Screening 05/20/2026 05/20/2025 Lipid Panel 07/26/2027 07/26/2022 Zoster Vaccines (1 of 2) 2032 RSV Patients and Patients Aged 60 years or older (1 - 1-dose 75+ series) 2057 Hepatitis B Vaccines Completed 07/30/2020, 06/09/2014, 09/06/2011, Additional history exists Hepatitis C Screening Completed 06/06/2024, 023 HIV Screening Completed 03/05/2025, 05/23, 09/16/2019 COVID-19 Vaccine Completed 05/18/2025, , 09/17/2021, Additional history exists Influenza Vaccine Completed 05/18/2025, , 08/28/2023, Additional history exists HIB Vaccines Aged Out No longer eligi [...] Priority Date/Time Associated Diagnosis Comments POCT INFLUENZA A (ID NOW RAPID MOLECULAR) Routine 05/20/2025 10:25 AM EDT Cough, unspecified type POCT INFLUENZA B (ID NOW RAPID MOLECULAR) Routine 05/20/2025 10:25 AM EDT Cough, unspecified type POC GONZALEZ ID NOW STREP A Routine 05/20/2025 10:24 AM EDT Cough, unspecified type POCT RAPID COVID ANTIGEN Routine 05/20/2025 10:23 AM EDT Cough, unspecified type METANEPHRINES, FRACT, FREE, LC/MS/MS, PLASMA Routine 04/09/2025 [...] to Health Maintenance Results * POCT Rapid Influenza B GONZALEZ ID NOW (05/20/2025 10:25 AM EDT) Influenza B Negative Negative, Indeterminate [facility] QC Media Lot # [id number] [facility] Lot# Expiration Date [facility] Swab 05/20/2025 10:2 5 AM EDT us Zehra Okhipo BIOLOGY PROFESSOR POINT OF CARE TEST ENTER/EDIT ORDERABLES Final Result Performing Organization Address [facility] Co de Phone Number [facility] [address] [place] [phone] * POCT Rapid Influenza A GONZALEZ ID NOW (05/20/2025 10:25 AM EDT) Pathologist [facility] Influenza A Negative Negative, Indeterminate [facility] QC Media Lot # [id number] [facility] Lot# Expiration Date [facility] Swab 05/20/2025 10:2 5 AM EDT Zehra Okhipo BIOLOGY PROFESSOR POINT OF CARE TEST ENTER/EDIT ORDERABLES Final Result Performing Organization Address [facility] de Phone Number [facility] [address] [place] [phone] * POCT Rapid Strep A GONZALEZ ID NOW (05/20/2025 10:24 AM EDT) [facility] Rapid Strep A Screen Negative Negative, None Detected QC Media Lot # [id number] Lot# Expiration Date 05,026 Swab 05/20/2025 10:2 4 AM EDT Zehra Okhipo BIOLOGY PROFESSOR POINT OF CARE TEST ENTER/EDIT ORDERABLES Final Result * POCT Rapid Covid-19 BinaxNOW (05/20/2025 10:23 AM EDT) Rapid COVID Ag Negative QC Media Lot # [id number] Lot# Expiration Date [id number] Swab 05/20/2025 10:2 3 AM EDT Zehra Figueroa BIOLOGY PROFESSOR POINT OF CARE TEST ENTER/EDIT ORDERABLES Final Result * Metanephrines, Fractionated, Free, LC/MS/MS, Plasma (04/09/2025 1:33 PM EDT) Metanephrine, Free 31 <=57 pg/mL [facility] Comment:This test was develo ped and its analytical performancecharacteristics have been determined by [employer] [place], [place]. It hasnot been cleared or approved by the U.S. Food and DrugAdministration. This assay has been validated pursuantto the CLIA regulations and is used for clinicalpurposes. Normetanephrine, Free 50 <=148 pg/mL [facility] Comment:This test was develo ped and its analytical performancecharacteristics have been determined by [employer] [place]. It hasnot been cleared or approved by the U.S. Food and DrugAdministration. This assay has been validated pursuantto the CLIA regulations and is used for clinicalpurposes. Total, Free (MN+NMN) 81 <=205 pg/mL [facility] Comment: For additional information, please refer tohttp://education.[employer]/faq/MetFractFree(This link is being provided for informational/educatioinformational/educational purposes only.)Elevations >4-fold upper reference range: stronglysuggestive of a pheochromocytoma(1).Elevations >1- 4-fold upper reference range:significant but not diagnostic, may be due tomedications or stress. Suggest running 24 hr urinefractionated metanephrines and/or serum Chromagranin Afor confirmation.Reference:(1)Charo Pérez al, Plasma Chromogranin Aor Urine Fractionated Metanephrines Follow-Up TestingImproves the Diagnostic Accuracy of Plasma FractionatedMetanephrines for Pheochromocytoma. The Journal ofClinical Endocrinology # Metabolism 93(1), 91-95, 2008.This test was developed and its analytical performancecharacteristics have been determined by [facility] [place], [place]. It hasnot been cleared or approved by the U.S. Food and DrugAdministration. This assay has been validated pursuantto the CLIA regulations and is used for clinicalpurposes.THIS TEST WAS PERFORMED AT:[employer] [place] [id number] VAUGHAN MD,PHD 04/09/2025 1:33 PM EDT 04/09/2025 1:33 PM EDT us Generic External Data Provider LAB BLOOD ORDERAB LES Final Result Performing Organization Address [facility] Co de Phone Number [facility] [address] [place] [phone] * TSH with Reflex to Free T4 (04/09/2025 1:33 PM EDT) TSH reflex Free T4 0.99 0.32 - 4.0 uIU/mL [facility] 04/09/2025 1:33 PM EDT 04/09/2025 1:33 PM EDT us Generic External Data Provider LAB BLOOD ORDERAB LES Final Result Performing Organization Address [facility] Co de Phone Number [facility] [address] [place] [phone] * Syphilis Screen (03/05/2025 10:46 AM EDT) Syphilis Screen Nonreactive Nonreactive [facility] Blood Venous blood specimen / Unknown 03/05/2025 10:46 AM EDT 03/05/2025 11:20 AM EDT us Idania ZEPEDA LAB BLOOD ORDERABLES Gilma l Result Performing Organization Address [facility] Co de Phone Number [facility] [address] [place] [phone] * HIV-1/2 Antigen and Antibodies, Fourth Generation, with Reflexes (03/05/2025 10:46 AM EDT) [facility] HIV AB/AG Nonreactive Nonreactive [facility] Comment:HIV-1 p24 Ag and/or HIV-1/HIV-2 Ab not detected.A test result that is nonreactive does not exclude thepossibility of exposure to or infection with HIV-1 and/orHIV-2. Nonreactive results in this assay for individualswith prior exposure to HIV-1 and/or HIV-2 may be due toantigen and antibody levels that are below the limit ofdetection of this assay.The RECESS. HIV Ag/Ab Combo assay result andsupplemental assay results should be interpreted inconjunction with the patient's clinical presentation,history and other laboratory results. If the results areinconsistent with clinical evidence, additional testing issuggested to confirm the result. Blood Venous blood specimen / Unknown 03/05/2025 10:46 AM EDT 03/05/2025 11:20 AM EDT Idania Hart [facility] LAB BLOOD ORDERABLES Gilma l Result [facility] [address] [place] [phone] * POCT fern test, vaginal fluid manually resulted (03/05/2025 10:42 AM EDT) [facility] CURT Prep Positive Comment:pH 4.5, neg whiff, n eg clue, neg trich, pos yeast Vaginal Fluid Vaginal structure / Unknown 03/05/2025 10:42 AM EDT [facility] POINT OF CARE TEST ENTER/ EDIT ORDERABLES Final Result * (ABNORMAL) Bacterial Vaginosis Panel (03/05/2025 10:38 AM EDT) [facility] TRICHOMONAS VAGINALIS DETECTION BY PCR NOT DETECTED Not Detect [facility] BACTERIAL VAGINOSIS DETECTION BY PCR NEGATIVE Negative [facility] Comment:The BV organism targ ets [...] GROUP DETECTION BY PCR DETECTED(A) Not Detect [facility] Freda glab krusei PCR NOT DETECTED Not Detect [facility] Swab Vaginal structure / Unknown 03/05/2025 10:38 AM EDT 03/05/2025 4:47 PM EDT Iadnia ZEPEDA LAB MICROBIOLOGY - GENERA L ORDERABLES Final Result [facility] [address] [place] [address] [phone] * Chlamydia/N. Gonorrhoeae RNA, TMA, Vagina (03/05/2025 10:38 AM EDT) CT PCR NOT DETECTED Not Detect. [facility] Comment:A not detected test result [...] psychologicalconsequences. NG PCR NOT DETECTED Not Detect. [facility] Comment:A not detected test result [...] MICROBIOLOGY - GENERA L ORDERABLES Final Result Performing Organization Address [facility] Co de Phone Number [facility] [address] [place] [phone] * Hepatitis C Antibody with Reflex to HCV, RNA, Quantitative, Real-Time PCR (06/06/2024 3:09 PM EST) [facility] Hepatitis C Antibody Nonreactive Nonreactive [facility] Comment:Antibodies to HCV no t detected; does not exclude early acuteHCV infection. Blood Venous blood specimen / Unknown 06/06/2024 3:09 PM EST 06/06/2024 3:56 PM EST Tahira AMBROCIO LAB BLOOD ORDERABLES Final Resul t Performing Organization Address [facility] Co de Phone Number [facility] [address] [place] [phone] * (ABNORMAL) Lipid Panel, Standard (07/26/2022 11:11 AM EST) Pathologist [facility] Cholesterol, Total 192 <200 mg/dL [facility] [place] [facility] HDL Cholesterol 30(L) > OR = 50 mg/dL [facility] [place] [employer] Triglycerides 573(H) <150 mg/dL [facility] [place] [employer] Comment: If a non-fasting specimen was collected, consider repeat triglyceride testing on a fasting specimen if clinically indicated. Lori et al. J. of Clin. Lipidol. 2015;9:129-169. There is increased risk of pancreatitis when the triglyceride concentration is very high (> or = 500 mg/dL, especially if > or = 1000 mg/dL). Lori et al. J. of Clin. Lipidol. 2015;9:129-169. LDL Cholesterol [address] [place] [employer] Comment: LDL cholesterol not calculated. Triglyceride levels greater than 400 mg/dL invalidate calculated LDL results. Reference range: <100 Desirable range <100 mg/dL for primary prevention; <70 mg/dL for patients with CHD or diabetic patients with > or = 2 CHD risk factors. LDL-C is now calculated using the Alonzo calculation, which is a validated novel method providing better accuracy than the Friedewald equation in the estimation of LDL-C. Sky SS et al. JESSICA. 2013;310(19): 6719-4240 (http://education.[employer]/faq/LXK570) Chol/HDLC Ratio 6.4(H) <5.0 (calc) [place] Non-HDL Cholesterol 162(H) <130 mg/dL (calc) [facility] [place] [facility] Comment: For patients with diabetes plus 1 major ASCVD risk factor, treating to a non-HDL-C goal of <100 mg/dL (LDL-C of <70 mg/dL) is considered a therapeutic option. Blood Venous blood specimen / Unknown 07/26/2022 11:11 AM EST 07/26/2022 11:11 AM EST Narrative [facility] - 07/31/2022 3:56 PM EST FASTING:NO FASTING: NO us Latrice Hernandez MD LAB BLOOD ORDERABLES Final Result [facility] [address] [facility], [place] [phone] [facility] [place] [facility] [address] [facility], ([address]) [place] [phone] * HPV mRNA E6/E7 (09/14/2020 10:42 AM EST) HPV nRNA E6/E7 Not Detected Not Detected [facility] Comment: Methodology: Accounting Lecturer-Mediated Amplification This assay detects E6/E7 viral messenger RNA (mRNA) from 14 high-risk HPV types (16,18,31,33,35,39,45,51,52,56,58,59,66,68). The analytical performance characteristics of this assay have been determined by [facility]. The modifications have not been cleared or approved by the FDA. This assay has been validated pursuant to the CLIA regulations and is used for clinical purposes. For additional information, please refer to http://education.[employer]/EBE775m3 (This link if provided for information/ educational purposes only.) 09/14/2020 10:4 2 AM EST Idania ZEPEDA LAB BLOOD ORDERABLES Gilma l Result [facility] [address] * Hm Pap Smear (09/14/2020) HM Pap smear Perform Historical Provider HEALTH MAINTENANCE Final Result from Last 3 Months or Most Recently Relevant to Health Maintenance Insurance [facility] C3 Care Teams Sample Builder Relationship Specialty Start Date End Date Latrice Hernandez MD [address] [facility] [place] PCP - General Internal Medicine 07/23/18 Norris Casillas FNP [address] [facility] [place] [place] Nurse Practitioner Family Medicine 06/07/23
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
--- OUTSIDE RECORDS SUMMARY | 2025-05-21 11:56 | XMS_ITS | Encounter Summary ---
Author Organization [employer] Address 75 [facility] 7t [place] [address] Care Team Providers Care Nurse Transplant Name Role Phone Latrice Hernandez MD Primary Care Provider +1- [phone] Norris Casillas Unavailable Unavailable Encounter Details Date Type Department Care Team (Latest Contact Info) Description 05/18/2025 Travel Social History Tobacco Use Types Packs/Day [...] documented as of this encounter Care Teams Nurse Transplant Relationship Specialty Start Date End Date Latrice Hernandez MD 505 [facility] [place] [address] PCP - General Internal Medicine 07/23/18 Norris Casillas FNP [address] [place] [address] Nurse Practitioner Family Medicine 06/07/23 documented as of this encounter
--- OUTSIDE RECORDS SUMMARY | 2025-05-21 11:56 | XMS_ITS | Encounter Summary ---
Author Organization [employer] Address [address] [place] [address] [place] [address] Care Team Providers Care Tooling Engineer Name Role Phone Latrice Hernandez MD Primary Care Provider +1- [phone] Norris Casillas Unavailable Unavailable Reason for Visit * Reason Comments Med Refill Encounter Details Date Type Department Care Team (Late st Contact Info) Description 06/29/2022 Refill [facility] MEDICINE [address] [place], [place] [phone] Latrice Hernandez MD 505 [facility] [address] Herpesviral infection, unspecified Social History Tobacco Use [...] unspecified documented in this encounter Care Teams Tooling Engineer Relationship Specialty Start Date End Date Latrice Hernandez MD 505 [facility] [place] [address] PCP - General Internal Medicine 07/23/18 Norris Casillas FNP 505 [facility] [place] [address] Nurse Practitioner Family Medicine 06/07/23 documented as of this encounter
--- OUTSIDE RECORDS SUMMARY | 2025-05-21 11:57 | XMS_ITS | Encounter Summary ---
Author Organization [employer] Address 75 [facility] 7t [place] [address] Care Team Providers Care Brake Holder Name Role Phone Latrice Hernandez MD Primary Care Provider +1- [phone] Norris Casillas Unavailable Unavailable Reason for Visit * Reason Onset Date Comments Nurse Triage 12/26/2023 Encounter Details Date Type Department Care Team (Late st Contact Info) Description 12/26/2023 Telephone [facility] MEDICINE [address] [place] [address] Latrice Hernandez MD 505 [facility] [place] [phone] Nurse Triage Social History Tobacco Use Types [...] of kidney stones . Pt is offered WIC tonight open till 8pm in [facility] and tomorrow 830am-400pm. No available apts in [facility] this week and Pt can't go to [facility] [place] [place] in afternoon. Pt reports willgo to ED [...] documented as of this encounter Care Teams Brake Holder Relationship Specialty Start Date End Date Latrice Hernandez MD [address] [place] [address] PCP - General Internal Medicine 07/23/18 Norris Casillas FNP [address] [place] [address] Nurse Practitioner Family Medicine 06/07/23 documented as of this encounter
--- OUTSIDE RECORDS SUMMARY | 2025-05-21 11:57 | XMS_ITS | Encounter Summary ---
Author Organization [employer] Address 75 [facility] 7t [place] [address] Care Team Providers Care Bd Special Education Teacher Name Role Phone Latrice Hernandez MD Primary Care Provider [phone] Norris Casillas Unavailable Unavailable Reason for Visit * Reason Comments Med Refill Encounter Details Date Type Department Care Team ([facility] st Contact Info) Description 07/24/2022 Refill [facility] MEDICINE [address] [place] [address] Norris Casillas FNP Social History Tobacco Use [...] documented as of this encounter Care Teams Bd Special Education Teacher Relationship Specialty Start Date End Date Latrice Hernandez MD [address] [place] [address] PCP - General Internal Medicine 07/23/18 Norris Casillas FNP [address] [place] [address] Nurse Practitioner Family Medicine 06/07/23 documented as of this encounter
--- OUTSIDE RECORDS SUMMARY | 2025-05-21 11:57 | XMS_ITS | Encounter Summary ---
Author Organization [employer] Address 75 [facility] 7 [place] [address] Care Team Providers Care Mounter Smoking Pipe Name Role Phone Latrice Hernandez MD Primary Care Provider +1- [phone] Norris Casillas Unavailable Unavailable Encounter Details Date Type Department Care Team ([facility] st Contact Info) Description 03/27/2023 Orders Only [facility] CH[facility] MED & PEDS 505 [place] [address] Latrice Hernandez MD 505 [place] [address] Scabies exposure (Primary Dx) Social History Tobacco [...] documented as of this encounter Care Teams Mounter Smoking Pipe Relationship Specialty Start Date End Date Latrice Hernandez MD 505 [place] [address] PCP - General Internal Medicine 07/23/18 Norris Casillas FNP 505 [place] [address] Nurse Practitioner Family Medicine 06/07/23 documented as of this encounter
--- OUTSIDE RECORDS SUMMARY | 2025-05-21 11:57 | XMS_ITS | Clinical Summary ---
Author Organization [facility] Address [address] [place] [address] Phone Care Team Providers Care Varsity Baseball Coach Name Role Phone Unknown, Unknown Primary Care [...] Medical Devices Not on file Care Teams Varsity Baseball Coach Relationship Specialty Start Date End Date Unknown, Unknown, PCP - General 09/29/20 Additional Source Comments The information contained in this document represents components of the legal health record. It is not the complete legal health record.[facility]
--- OUTSIDE RECORDS SUMMARY | 2025-05-21 11:57 | XMS_ITS | Encounter Summary ---
Author Organization [email or web address] Address 75 [facility] 7t [place] [address] Care Team Providers Care Drying Tunnel Operator Name Role Phone Latrice Hernandez MD Primary Care Provider +1- [phone] Norris Casillas Unavailable Unavailable Encounter Details Date Type Department Care Team (Late st Contact Info) Description 09/29/2024 Orders Only [facility] MEDICINE [address] [place] [address] Latrice Hernandez MD 505 [facility] [place] [address] Chronic obstructive pulmonary disease, unspecified COPD type [...] Procedure Name Priority Date/Time Associated Diagnosis Comments [id number] QN Routine 10/15/2024 10:53 AM EDT Chronic obstructive pulmonary disease, unspecified COPD type (CMS/HCC) documented in this encounter Results * Lexcx-4-Bzmobqwwzkq, Quantitative (10/15/2024 10:53 AM EDT) Hlnkw-2-Ybdvdavi sin QN 122 83 - 199 mg/dL [facility] Comment:THIS TEST WAS PERFOR MED AT:[facility] [place] [phone] SHARP MD Blood Venous blood specimen / Unknown 10/15/2024 10:53 AM EDT 10/15/2024 2:15 PM EDT Latrice Hernandez MD LAB BLOOD ORDERABLES Final Result [facility] [address] [place] [address] [phone] documented in this encounter Visit Diagnoses Diagnosis Chronic obstructive pulmonary disease, unspecified COPD type (CMS/HCC) (HCC)- Primary documented in this encounter Additional Health Concerns Assessment Noted Time PHQ-9 Depression Total Score: 9 12/24/19 24 9:18 AM EDT documented as of this encounter Care Teams Drying Tunnel Operator Relationship Specialty Start Date End Date Latrice Hernandez MD 505 [place] [address] PCP - General Internal Medicine 07/23/18 Norris Casillas FNP 505 [place] [address] Nurse Practitioner Family Medicine 06/07/23 documented as of this encounter
--- OUTSIDE RECORDS SUMMARY | 2025-05-21 11:57 | XMS_ITS | Encounter Summary ---
Author Organization [employer] Address 75 [facility] 7t [place] [address] Care Team Providers Care Systems Analyst Name Role Phone Latrice Hernandez MD Primary Care Provider +1- [phone] Norris Casillas Unavailable Unavailable Encounter Details Date Type Department Care Team ([facility] st Contact Info) Description 09/07/2023 Orders Only [facility] CHC MED & PEDS 505 [place] [address] Latrice Hernandez MD 505 [place] [address] Herpes (Primary Dx) Social History Tobacco Use [...] documented as of this encounter Care Teams Systems Analyst Relationship Specialty Start Date End Date Latrice Hernandez MD 505 [place] [address] PCP - General Internal Medicine 07/23/18 Norris Casillas FNP 505 [place] [address] Nurse Practitioner Family Medicine 06/07/23 documented as of this encounter
--- OUTSIDE RECORDS SUMMARY | 2025-05-21 11:57 | XMS_ITS | Encounter Summary ---
Author Organization [employer] Address [address] [place] [address] 7 [place] [address] Care Team Providers Care Camera Prototyping Engineer Name Role Phone Latrice Hernandez MD Primary Care Provider [phone]- [phone] Norris Casillas Unavailable Unavailable Encounter Details Date Type Department Care Team (Late st Contact Info) Description 04/03/2023 Abstract [email or web address] Management 230 [place] [address] Latrice Hernandez MD 505 [place] [address] Social History Tobacco Use Types Packs/Day Years [...] documented as of this encounter Care Teams Camera Prototyping Engineer Relationship Specialty Start Date End Date Latrice Hernandez MD 505 [facility] [place] [address] PCP - General Internal Medicine 07/23/18 Norris Casillas FNP [address] [place] [address] [place] [address] Nurse Practitioner Family Medicine 06/07/23 documented as of this encounter
--- OUTSIDE RECORDS SUMMARY | 2025-05-21 11:57 | XMS_ITS | Encounter Summary ---
Author Organization [employer] Address 75 [facility] 7t [place] [address] Care Team Providers Care Associate Professor Physician Name Role Phone Latrice Hernandez MD Primary Care Provider +1- [phone] Norris Casillas Unavailable Unavailable Reason for Visit * Reason Onset Date Comments CT order 12/11/2024 Encounter Details Date Type Department Care Team ([facility] st Contact Info) Description 12/11/2024 Telephone [facility] 230 [place] [address] Latrice Hernandez MD [facility] [place] [phone] [place] order Social History Tobacco Use Types [...] AM EDT Tc from pt reports [place] [facility] [place] CT of chest , [...] of this encounter Care Teams Associate Professor Physician Relationship Specialty Start Date End Date Latrice Hernandez MD 505 [place] [address] PCP - General Internal Medicine 07/23/18 Norris Casillas FNP 505 [place] [address] Nurse Practitioner Family Medicine 06/07/23 documented as of this encounter
--- OUTSIDE RECORDS SUMMARY | 2025-05-21 11:57 | XMS_ITS | Encounter Summary ---
Author Organization [employer] Address 75 [facility] 7t [place] [address] Care Team Providers Care Tick Eradicator Name Role Phone Latrice Hernandez MD Primary Care Provider +1- [phone] Norris Casillas Unavailable Unavailable Encounter Details Date Type Department Care Team ([facility] Contact Info) Description 04/04/2023 Telephone [facility] MED & PEDS 505 [place] [address] Charlotte Simpson, RN [address] [place] [address] Social History Tobacco Use Types Packs/Day Years [...] documented as of this encounter Care Teams Tick Eradicator Relationship Specialty Start Date End Date Latrice Hernandez MD 505 [place] [address] PCP - General Internal Medicine 07/23/18 Norris Casillas FNP [address] [place] [address] Nurse Practitioner Family Medicine 06/07/23 documented as of this encounter
--- OUTSIDE RECORDS SUMMARY | 2025-05-21 11:57 | XMS_ITS | Encounter Summary ---
Author Organization [employer] Address [address] [place] [address] 7t [place] [address] Care Team Providers Care Tariff Inspector Name Role Phone Latrice Hernandez MD Primary Care Provider +1 [phone] Norris Casillas Unavailable Unavailable Encounter Details Date Type Department Care Team (Late st Contact Info) Description 01/15/2025 Orders Only [facility] Information Management 230 [place] [address] Provider, Nathalie, Social History Tobacco Use Types Packs/Day Years [...] documented as of this encounter Care Teams Tariff Inspector Relationship Specialty Start Date End Date Latrice Hernandez MD 505 [place] [address] PCP - General Internal Medicine 07/23/18 Norris Casillas FNP 505 [place] [address] Nurse Practitioner Family Medicine 06/07/23 documented as of this encounter
--- OUTSIDE RECORDS SUMMARY | 2025-05-21 11:57 | XMS_ITS | Clinical Summary ---
Author Organization [address] [place] [address] [place] [phone] Phone Care Team Providers Care Delivery Driver/Customer Service Name Role Phone Latrice Hernandez MD Primary Care Provider +1 -[phone] Allergies Active Allergy Reactions Criticality Noted Date [...] weeks 30 g 3 12/26/19 25 Active Active Problems Problem Noted Date Diagnosed Date Bilateral swelling of feet and ankles 05/07/2024 Encounters Date Type Department Care Team Description 03/13/2025 3:00 PM EDT Office Visit Vascular Surgery - [place] [address] [place] [address] Marcelle Vang MD Bilateral swelling of feet and ankles (Primary Dx) 03/12/2025 Telephone Orthopedic Surgery [facility] [address] [place] [address] Bong Tilley DPM from Last 3 Months Surgical History Surgery Date Site/Laterality Comments OTHER SURGICAL HISTORY PROCEDURE: ID WEDGE EXCISION SKIN NAIL FOLD OTHER SURGICAL HISTORY PROCEDURE: ID LITHOTRIPSY XTRCORP SHOCK WAVE Medical History Medical [...] Years) (1 of 2 - PCV) 2001 HPV Vaccines (1 - 3-dose SCDM series) 2009 Cervical Cancer Screening: Pap Smear 10/14/2019 10/13/2016, 10/13/2016 DTaP,Tdap,and Td Vaccines (2 - Td or Tdap) 08/09/2021 08/09/2011 Social Influencers of Health Screening 05/01/2024 Depression Screening 07/23/2024 COVID-19 Vaccine ( season) 2025 07/05/2023, 09/17/2021, 12/12/2020, Additional history exists Influenza Vaccine (#1) 2025 , 08/28/2023, 06/02/2022, Additional history exists Cholesterol Screening (Lipid Panel) 07/26/2027 07/26/2022 RSV Immunization Adult Patients (1 - 1-dose 75+ series) 2057 Hepatitis [...] Maintenance Insurance MEDICAID - [place] Care Teams Delivery Driver/Customer Service Relationship Specialty Start Date End Date Latrice Hernandez MD [address] [place] [address] PCP - General Internal Medicine 09/18/18
--- OUTSIDE RECORDS SUMMARY | 2025-05-21 11:57 | XMS_ITS | Encounter Summary ---
Author Organization [employer] Address 75 [facility] 7t [place] [address] Care Team Providers Care Service Technician Name Role Phone Latrice Hernandez MD Primary Care Provider +1- [phone] Norris Casillas Unavailable Unavailable Reason for Visit * Reason Onset Date Comments Nurse Triage 12/28/2023 ER Follow-up 12/28/2023 Encounter Details Date Type Department Care Team (Late st Contact Info) Description 12/28/2023 Telephone [facility] MEDICINE 230 [place] [address] Latrice Hernandez MD 505 [place] [address] Nurse Triage; ER Follow-up Social History Tobacco [...] triage, spoke to pt. pt states seen [facility] on 12/25 for left low back pain, [...] is still symptomatic. Please contact pt at [phone] * Telephone Encounter - Mikala York - 12/28/2023 11:39 AM EDT Patient calling to report ED visit on : Date: 12/25 Hospital: [facility] Seen for: Patient advised will forward to team nurse for follow up documented in this encounter Plan of Treatment Not on file documented as of this encounter Visit Diagnoses Not on filedocumented in this encounter Additional Health Concerns Assessment Noted Time PHQ-9 Depression Total Score: 9 12/24/19 24 9:18 AM EDT documented as of this encounter Care Teams Service Technician Relationship Specialty Start Date End Date Latrice Hernandez MD 505 [place] [address] PCP - General Internal Medicine 07/23/18 Norris Casillas FNP 505 [place] [address] Nurse Practitioner Family Medicine 06/07/23 documented as of this encounter
--- OUTSIDE RECORDS SUMMARY | 2025-05-21 11:57 | XMS_ITS | Encounter Summary ---
Author Organization [employer] Address 75 [facility] 7t [place] [address] Care Team Providers Care Tile Presser Name Role Phone Latrice Hernandez MD Primary Care Provider +1- [phone] Norris Casillas Unavailable Unavailable Encounter Details Date Type Department Care Team ([facility] st Contact Info) Description 11/19/2024 Orders Only [facility] CHC MED & PEDS 505 [place] [address] Latrice Hernandez MD 505 [place] [address] SOB (shortness of breath) (Primary Dx) Social [...] as of this encounter Plan of Treatment Scheduled Orders [...] documented as of this encounter Care Teams Tile Presser Relationship Specialty Start Date End Date Latrice Hernandez MD 505 [place] [address] PCP - General Internal Medicine 07/23/18 Norris Casillas FNP 505 [place] [address] Nurse Practitioner Family Medicine 06/07/23 documented as of this encounter
--- OUTSIDE RECORDS SUMMARY | 2025-05-21 11:57 | XMS_ITS | Encounter Summary ---
Author Organization [employer] Address 75 [facility] 7t [place] [address] Care Team Providers Care Institutional Research Coordinator Name Role Phone Latrice Hernandez MD Primary Care Provider +1- [phone] Norris Casillas Unavailable Unavailable Encounter Details Date Type Department Care Team ([facility] st Contact Info) Description 04/16/2025 Results Follow-Up [facility] CHC MED & PEDS [address] [place], [place] [phone] Latrice Hernandez MD [address] [place] [address] TSH with Reflex to Free T4, Metanephrines, [...] documented as of this encounter Care Teams Institutional Research Coordinator Relationship Specialty Start Date End Date Latrice Hernandez MD 505 [facility] [place] [address] PCP - General Internal Medicine 07/23/18 Norris Casillas FNP [address] [place] [address] Nurse Practitioner Family Medicine 06/07/23 documented as of this encounter
--- OUTSIDE RECORDS SUMMARY | 2025-05-21 11:57 | XMS_ITS | Encounter Summary ---
Author Organization [employer] Address 75 [facility] 7t [place] [address] Care Team Providers Care Sheet Metal Duct Installer Apprentice Name Role Phone Latrice Hernandez MD Primary Care Provider +1- [phone] Norris Casillas Unavailable Unavailable Reason for Visit * Reason Onset Date Comments Nurse Triage 07/30/2024 Encounter Details Date Type Department Care Team ([facility] st Contact Info) Description 07/30/2024 Telephone [facility] CHC MED & PEDS 505 [facility] [place] [address] Latrice Hernandez MD 505 [place] [address] Nurse Triage Social History Tobacco Use Types [...] to work effective 08/04/2024. Patient seen by Engineering Supervisor and given bilateral braces. Remains with discomfort [...] documented as of this encounter Care Teams Sheet Metal Duct Installer Apprentice Relationship Specialty Start Date End Date Latrice Hernandez MD 505 [place] [address] PCP - General Internal Medicine 07/23/18 Norris Casillas FNP 505 [place] [address] Nurse Practitioner Family Medicine 06/07/23 documented as of this encounter
--- OUTSIDE RECORDS SUMMARY | 2025-05-21 11:57 | XMS_ITS | Encounter Summary ---
Author Organization [employer] Address 75 [facility] 7t [place] [address] Care Team Providers Care Overnight Stocker Name Role Phone Latrice Hernandez MD Primary Care Provider +1- [phone] Norris Casillas Unavailable Unavailable Encounter Details Date Type Department Care Team (Latest Contact Info) Description 05/20/2025 Travel Social History Tobacco Use Types Packs/Day [...] documented as of this encounter Care Teams Overnight Stocker Relationship Specialty Start Date End Date Latrice Hernandez MD [address] [facility] [address] [place] [address] PCP - General Internal Medicine 07/23/18 Norris Casillas FNP 505 [place] [address] Nurse Practitioner Family Medicine 06/07/23 documented as of this encounter
== END ==
LOC: HO.CARD 10:00
PROVIDERS: PCP Internal Medicine; Visit Provider Internal Medicine Cardiovascular Disease
DX: R00.0 Tachycardia, unspecified (principal)
CPT/HCPCS: 93225; 93306; Q9957

== ENCOUNTER → 2025-05-21 10:03 | Outpatient (BNV) | payer MEDICAID, SELFPAY | PROVIDERS: PCP Internal Medicine; Visit Provider Internal Medicine | DX: R94.31 Abnormal electrocardiogram [ECG] [EKG] (principal) | CPT/HCPCS: 93306 ==

== ENCOUNTER 2025-07-13 09:44 | Outpatient (AMB) | payer MEDICAID, SELFPAY ==
--- NOTE | 2025-07-13 09:57 | A.OFFVIS_ITS ---
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 Required: No Accompanied by: Self / Same As Patient Allergies No Known Allergies Allergy (Verified 04/17/25 10:12) Medication List - Last Reconciled 07/13/25 by NICANOR Hollis clonazepam 1 mg PO DAILY diclofenac sodium 1% (Arthritis Pain (diclofenac)) 2 grams topical QID 30 days fluticasone furoate-vilanterol 200-25 mcg/dose (Breo Ellipta) 1 inh inhalation DAILY 30 days hydroxyzine pamoate 10 mg PO Q6H PRN ibuprofen 600 mg PO TID PRN ipratropium-albuterol 0.5 mg-3 mg(2.5 mg base)/3 mL 3 mL inhalation BID 30 days levonorgestrel (Mirena) intrauterine nicotine 1 patch transdermal DAILY 28 days nystatin 2 mL PO TID 30 days sumatriptan succinate take 1 tab at onset of headache; if no relief may repeat 1 tab after at least 2 hrs; max = 4 tabs/24 hr PO topiramate 100 mg PO DAILY umeclidinium 62.5 mcg/actuation (Incruse Ellipta) 1 inh inhalation DAILY 30 days valacyclovir 500 mg PO BID HPI HPI 6 wk follow up r/s 06-01-25: Details: The patient is a 44 year old female presenting with follow-up of sinus tachycar bladimir. A 2-day Holter monitor on 05/21/2025 revealed sinus rhythm with an average heart rate of 107 bpm, with the rate exceeding 100 bpm for 78% of the monitoring period, and showed rare SVEs and VEs. She was not at work during the Holter monitor and did not notice palpitations at that time. Her past medical history is significant for asthma and COPD overlap syndrome, and she uses a non-steroidal inhaler. She also has a history of anxiety, for which she has been prescribed Klonopin and another antidepressant. The patient reports a history of her blood pressure being on the lower side, occasional leg edema severe enough to prevent her from wearing shoes, and a past hospitalization for a COPD flare-up with palpitations where she was found to have low potassium. An echocardiogram on 05/21/2025 showed a normal ejection fraction of 61% with no valvular or regional wall motion abnormalities. Labs from 04/09/2025 showed normal plasma metanephrines and a TSH of 0.99, and a hematocrit of 37.9 on 01/09/2025. She is not on any cardiac medications. [facility] Medical History Asthma-COPD overlap syndrome Asthma Allergies Disassociation disorder Depression Mood disorder Anxiety ADD (attention deficit disorder) PTSD (post-traumatic stress disorder) Family History Mother Colon cancer Heart attack Maternal Aunt Breast cancer Maternal Aunt Cervical cancer Father Heart attack Brother Heart attack Tachycardia CHF (congestive heart failure) Social History Patient Tobacco Use Status: Current everyday Tobacco user Tobacco use type: Cigarette Cigarettes Per Day: 5 Female Reproductive History Menstrual Age of Menarche: 13 Review of Systems Const All systems reviewed & are unremarkable except as noted in HPI and below Denies chills, Denies fatigue, Denies fever(s), Denies frequent falls, Denies weakness, Denies weight gain and Denies weight loss ENT Denies dizziness Card Denies chest pain, Reports rapid heart rate, Denies leg edema, Denies lightheadedness, Reports palpitations, Reports dyspnea and Denies dyspnea on exertion Resp Denies cough, Reports dyspnea and Denies dyspnea on exertion GI Denies hematochezia Musc Denies abnormal gait, Denies muscle weakness, Denies numbness, Denies radiating pain into limb and Denies tingling Neuro Denies abnormal gait, Denies dizziness, Denies frequent falls, Denies numbness, Denies tingling and Denies weakness Endo Denies fatigue and Reports palpitations Physical Exam Vital Signs: Last Vital Signs Pulse 87 07/13/25 09:59 BP 110/60 07/13/25 09:59 BMI result Body Mass Index 29.7 Const General: cooperative, healthy appearing, comfortable and no acute distress Orientation/consciousness: patient oriented x3 Neck Neck: Yes normal visual inspection and Yes no JVD Resp Effort & Inspection: normal respiratory effort Auscultation: clear to auscultation bilaterally, no crackles, no rales, no r honchi and no wheezes Cardio Rate: regular rate Rhythm: regular rhythm Heart sounds: S1 normal heart sound present, S2 normal heart sound present, no gallops, no murmurs and no rubs Neuro General: patient oriented x3 Extrem General: Yes normal to inspection, No no pedal edema and No calf tenderness Psych Appearance: grossly normal Mental Status: mental status grossly normal Speech and movement: Normal speech and movement present Assessment & Plan Assessment & Plan (1) Sinus tachycardia: Code(s): R00.0 - Tachycardia, unspecified Category: Medical Plan: Frequent sinus tachycardia as confirmed on Holter monitor. Pulse is normal on examination today, confirmed using sat monitor. Her pulse elevations may be mul tifactorial with anxiety, asthma exacerbations, asthma medications, deconditioning. Reviewed good hydration, avoidance of caffeine. Call if palpitations persist. Would consider starting low-dose Cardizem if warranted. Avoided at this time due to normal pulse on exam and blood pressure 110/60. (2) Asthma-COPD overlap syndrome: Code(s): J44.89 - Other specified chronic obstructive pulmonary disease Category: Medical Plan: Follows with pulmonology. Plan I explained to the patient that while her heart rate does run fast at times, as shown on her Holter monitor, it may be a normal response to other factors like anxiety, breathing difficulties from her COPD, and stress, rather than a primary heart problem. She is not having any symptoms today and her pulse is normal at 87 beats per minute. I reviewed her echocardiogram results, which were excellent and showed her heart muscle is strong and not weakened by the faster rates, which was very reassuring. I discussed that we would not start any new medications to slow her heart rate at this point, mainly because her blood pressure is already on the low side, and such medications could lower it further. I advised her to stay well-hydrated, avoid caffeine, and find a balance with salt intake to manage blood pressure without causing significant leg swelling. I reassured her that as long as she feels generally well, she does not need to obsess over her heart rate, but if it becomes persistently fast and symptomatic, she should return for re-evaluation. We will plan for a follow-up in six months, or sooner if needed. Patient Instructions: - Your fast heart rate seems to be a reaction to other things like stress, anxiety, or breathing trouble, which is a normal response. - No new heart medication will be started at this time. - Make sure to drink plenty of fluids to stay hydrated. - Avoid things with caffeine that can make your heart go faster. - If you don't feel bothered by your heart rate and feel generally well, you do not need to worry about it. - Please follow up in six months, but call sooner if your symptoms get worse or if you feel your heart is racing all the time. Patient was informed and verbally consented to the use of an ambient scribe for clinic note documentation during this visit. Visit time spent on chart review, interview, assessment, orders, documentation. Coding Level of Care Code Est Pt Level 4 (61130) Add On Problem Visit Only Diagnoses Sinus tachycardia R00.0 Asthma-COPD overlap syndrome J44.89 Time Spent (min) 28
[2025-07-13 09:59] VITALS: BP 110/60; PULSE 87; BMI 29.7
--- OUTSIDE RECORDS SUMMARY | 2025-07-13 11:16 | XMS_ITS | Encounter Summary ---
Author Organization [employer] Address [address] [place] [address] [address] [address] Care Team Providers Care Marine Service Operator Name Role Phone Latrice Hernandez MD Primary Care Provider [phone] Norris Casillas Unavailable Unavailable Reason for Visit * Reason Comments Med Refill Encounter Details Date Type Department Care Team (Late st Contact Info) Description 06/29/2022 Refill [facility] [address] [place], [place] [id number] Latrice Hernandez MD [address] [place] [address] Herpesviral infection, unspecified Social History Tobacco Use [...] unspecified documented in this encounter Care Teams Marine Service Operator Relationship Specialty Start Date End Date Latrice Hernandez MD [address] [facility] [place] [address] PCP - General Internal Medicine 07/23/18 Norris Casillas FNP [address] [facility] [place] [place] [address] Nurse Practitioner Family Medicine 06/07/23 documented as of this encounter
--- OUTSIDE RECORDS SUMMARY | 2025-07-13 11:16 | XMS_ITS | Encounter Summary ---
Author Organization [facility] [employer] Address [address] [facility] [address] [place] [address] Care Team Providers Care Rehab Care Assistant Name Role Phone Latrice Hernandez MD Primary Care Provider [phone] Norris Casillas Unavailable Unavailable Reason for Visit * Reason Onset Date Comments Nurse Triage 07/30/2024 Encounter Details Date Type Department Care Team ([facility] st Contact Info) Description 07/30/2024 Telephone [facility] [address] [facility] [place] [address] Latrice Hernandez MD [address] [place] [address] Nurse Triage Social History Tobacco Use Types [...] to work effective 08/04/2024. Patient seen by Marketing Communications Coordinator and given bilateral braces. Remains with discomfort [...] documented as of this encounter Care Teams Rehab Care Assistant Relationship Specialty Start Date End Date Latrice Hernandez MD [address] [place] [address] PCP - General Internal Medicine 07/23/18 Norris Casillas FNP [address] [place] [address] Nurse Practitioner Family Medicine 06/07/23 documented as of this encounter
--- OUTSIDE RECORDS SUMMARY | 2025-07-13 11:16 | XMS_ITS | Clinical Summary ---
Author Organization [employer] Address [address] [facility] 7[address] [place] [address] Care Team Providers Care Campaign Management Specialist Name Role Phone Latrice Hernandez MD Primary Care Provider [phone] Norris Casillas Unavailable Unavailable Allergies Active Allergy Reactions Criticality Noted Date Comments Pollen Extract 11/13/2017 Quetiapine 07/29/2018 Other reaction(s): Unknown Medications diphenhydrAMINE (BENADryl) 25 MG tablet take 1 Tablet by oral route every bedtime as needed 07/14/20 20 Active Levonorgestrel (Liletta, 52 MG,) 20.1 MCG/DAY [...] 10-10/29/19 20 Active ivermectin (Stromectol) 3 MG tabletIndication s:Scabies exposure Take 1 tablet orally once , repeat after 1 week 2 tablet 03/27/20 23 Active permethrin (Elimite) 5 % creamIndications :Scabies exposure apply to skin from hairline to toes and wash off 8-10 hours later 60 g 04/03/20 23 Active Banophen 25 MG tablet TAKE ONE TABLET AT BEDTIME NEEDED FOR ITCHING 30 tablet 08/17/19 24 Active albuterol 108 (90 Base) MCG/ACT inhaler Inhale 1 puff every 6 (six) hours if needed for wheezing. 18 g 1 07/10/20 24 Active cyclobenzaprine (Flexeril) 5 MG tabletIndication s:Acute pain of left shoulder Take 1 tablet (5 mg) by mouth if needed in the morning, at noon, and at bedtime for muscle spasms. 45 tablet 07/10/20 24 Active Beclomethasone Diprop HFA (Qvar RediHaler) 80 MCG/ACT inhalerIndicatio ns:Moderate persistent reactive airway disease without complication,Acu te cough Inhale 80 mcg in the morning and at bedtime. Rinse mouth with water after use to reduce aftertaste and incidence of candidiasis. Do not swallow. 10.6 g 2 08/15/19 25 Active Dextromethorphan -guaiFENesin (Mucinex DM) 30-600 MG tablet sustained-releas e 12 hour Use 1 tab TID 28 tablet 09/10/19 25 Active fluticasone (Flovent) 44 MCG/ACT inhaler Inhale 2 puffs in the morning and at bedtime. Rinse mouth with water after use to reduce aftertaste and incidence of candidiasis. Do not swallow. 10.6 g 5 09/10/19 25 Active nicotine (Nicoderm CQ) 14 MG/24HR patch Place 1 patch on the skin 1 (one) time each day at the same time. 42 patch 11/20/19 25 Active nicotine (Nicoderm CQ) 7 MG/24HR patch Place 1 patch on the skin 1 (one) time each day at the same time. 14 patch 11/20/19 25 Active Mometasone Furoate (Asmanex, 7 Metered Doses,) 110 MCG/ACT aerosol powderIndication s:Moderate persistent reactive airway disease without complication,Acu te cough Inhale 110 mcg 2 times daily. 1 each 3 11/20/19 25 Active Spacer/Aero-Hold ing Chambers (OptiChamber Latonya) misc 1 each every 4 (four) hours if needed (asthma). 1 each 11/20/19 25 Active levalbuterol (Xopenex) 0.63 MG/3ML nebulizer solutionIndicati ons:COPD exacerbation (CMS/[facility]ER[facility]) ([facility]) Take 1 ampule by nebulization in the morning, at noon, and at bedtime. 72 mL 11 11/28/19 25 026 Active azithromycin (Zithromax) 250 MG tabletIndication s:Chronic obstructive pulmonary disease with acute exacerbation (CMS/[facility]) ([facility]) Take 2 tabs PO daily x 1d then 1 tab PO daily on D2 to D5 6 tablet 12/17/19 25 Active cholecalciferol VITAMIN D (Vitamin D-3) 50 MCG (1999 UT) capsuleIndicatio ns:Vitamin D deficiency TAKE 1 CAPSULE BY MOUTH EVERY DAY 90 capsule 1 02/07/20 25 Active Spiriva HandiHaler 18 MCG inhalation capsuleIndicatio ns:Chronic obstructive pulmonary disease, unspecified COPD type (CMS/[facility]) ([facility]) USE 1 CAPSULE FOR INHALATION ONCE A DAY DO NOT SWALLOW CAPSULE 30 capsule 2 02/25/20 25 Active cetirizine (ZyrTEC) 10 MG tablet Take 1 tablet (10 mg) by mouth Once per day. Prn. 30 tablet 04/06/20 25 Active hydrOXYzine HCl (Atarax) 10 MG tablet Take 1 tablet (10 mg) by mouth if needed at bedtime (sleep). 90 tablet 6 04/06/20 25 Active topiramate (Topamax) 100 MG tabletIndication s:PTSD (post-traumatic stress disorder) TAKE 1 AND 1/2 TABLETS BY MOUTH TWICE DAILY 270 tablet 3 04/06/20 25 Active clonazePAM (KlonoPIN) 1 MG tabletIndication s:PTSD (post-traumatic stress disorder),Bipola r affective disorder, remission status unspecified (CMS/[facility]) ([facility]) Take 1 tablet (1 mg) by mouth 2 times daily. 60 tablet 04/06/20 25 Active ibuprofen 600 MG tablet TAKE ONE TABLET BY MOUTH THREE TIMES DAILY NEEDED 21 tablet 1 04/08/20 25 Active albuterol (2.5 MG/3ML) 0.083% nebulizer solution INHALE ONE AMPULE USING A NEBULIZER EVERY 6 HOURS NEEDED FOR WHEEZING OR SHORTNESS OF BREATH 90 mL 1 04/09/20 25 Active Ventolin HFA 108 (90 Base) MCG/ACT inhaler INHALE TWO PUFFS BY MOUTH EVERY 4 HOURS NEEDED FOR WHEEZING 18 g 1 04/20/20 25 Active SUMAtriptan (Imitrex) 50 MG tabletIndication s:Chronic migraine without aura without status migrainosus, not intractable TAKE ONE TABLET BY MOUTH ONCE DAILY NEEDED MIGRAINE 9 tablet 3 05/01/20 25 Active levalbuterol (Xopenex HFA) 45 MCG/ACT inhalerIndicatio ns:Chronic obstructive pulmonary disease with acute exacerbation (CMS/HCC) (HCC),VEE (dyspnea on exertion) Inhale 2 puffs every 6 (six) hours if needed for wheezing. 15 g 11 05/18/20 25 026 Active acetaminophen (Tylenol Extra Strength) 500 MG tabletIndication s:Upper respiratory infection, acute Take 2 tablets (1,000 mg) by mouth every 6 (six) hours if needed for mild pain for up to 10 days. 30 tablet 06/12/2025 11:06 AM EST 06/04/20 25 025 Active Problems Problem Noted Date Diagnosed Date Cough 05/24/2025 Generalized muscle ache 05/24/2025 Viral upper respiratory tract infection 05/24/20 25 Chronic obstructive pulmonar y disease with acute exacerbation (CMS/HCC) 12/16/2024 Assessment & Plan (12/16/2024 10:59 AM EDT): I will treat her as a COPD exacerbation with Z-Villa for 5 days plus prednisone based and I will give her at the office DuoNeb nebulization she was evaluated after the medication and she was a lot better I advised to follow-up with PCP and supervisor riprap placing Excessive thirst 12/16/2024 Tobacco dependence 11/19/2024 Palpitations [...] patient will be transferred to new [facility] psychiatric prescriber. Patient is aware that this person will work via [employer] and is not employed by [facility]. Patient gives verbal permission to share [...] henao. She will continue to work with [facility] integrated clinician. Assessment & Plan [...] therapist. Will also request one of the [facility] integrated clinicians to reach out [...] Encounters Date Type Department Care Team Description 06/04/2025 11:00 AM EST Office Visit [address] [address] Zehra Figueroa FNP Upper respiratory infection, acute (Primary Dx); Cough, unspecified type 06/04/2025 Travel 06/02/[address] [address] Latrice Hernandez MD Nurse Triage 05/20/2025 10:00 AM EDT Office Visit [address] [address] Zehra Figueroa FNP Viral upper respiratory tract infection (Primary Dx); Cough, unspecified type; Generalized muscle ache 05/20/2025 Travel 05/18/2025 9:15 AM EDT Office Visit [facility] [address] [place] [address] Latrice Hernandez MD Palpitations (Primary Dx); Anxiety; Tobacco dependence; Chronic obstructive pulmonary disease with acute exacerbation (CMS/HCC) (HCC); VEE (dyspnea on exertion); Left hip pain; Encounter for immunization; Dietary counseling; Exercise counseling; Class 1 obesity due to excess calories with serious comorbidity and body mass index (BMI) of 30.0 to 30.9 in adult 05/18/2025 Travel 05/15/2025 Telephone [facility] [address] [place] [address] Latrice Hernandez MD chart prep 05/11/2025 Travel 05/01/2025 Refill [facility] [address] [facility] [place] [address] Latrice Hernandez MD Chronic migraine without aura without status migrainosus, not intractable 04/19/2025 Refill [facility] [address] [facility] [place] [address] Latrice Hernandez MD 04/16/2025 Results Follow-Up [facility] [address] [place] [address] Latrice Henrandez MD TSH with Reflex to Free T4, Metanephrines, Fractionated, Free, LC/MS/MS, Plasma from Last 3 Months Immunizations Immunization Administration [...] Sign Reading Time Taken Comments Blood Pressure 130/86 06/04/2025 11:00 AM EST Pulse 110 06/04/2025 11:00 AM EST Temperature 36.5 C (97.7 F) 06/04/2025 11:00 AM EST Respiratory Rate 18 06/04/2025 11:00 AM EST Oxygen Saturation 98% 06/04/2025 11:00 AM EST Inhaled Oxygen Concentration - - Weight 71.9 kg (158 lb 9.6 oz) 06/04/2025 11:00 AM EST Height 154.9 cm (5' 1 ) 06/04/2025 11:00 AM EST Body Mass Index 29.97 06/04/2025 11:00 AM EST Plan of Treatment Health Maintenance Due Date [...] 03/05/2025 Disability Screening 04/03/2026 04/03/2025 Tobacco Screening 06/04/2026 06/04/2025 Lipid Panel 07/26/2027 07/26/2022 Zoster Vaccines (1 [...] Diagnosis Comments POCT RAPID COVID ANTIGEN Routine 06/04/2025 11:29 AM EST Cough, unspecified type POCT INFLUENZA A (ID NOW RAPID MOLECULAR) Routine 06/04/2025 11:28 AM EST Cough, unspecified type POCT INFLUENZA B (ID NOW RAPID MOLECULAR) Routine 06/04/2025 11:27 AM EST Cough, unspecified type POCT INFLUENZA A (ID NOW RAPID MOLECULAR) Routine 05/20/2025 10:25 AM EDT Cough, unspecified type Viral upper respiratory tract infection POCT INFLUENZA B (ID NOW RAPID MOLECULAR) Routine 05/20/2025 10:25 AM EDT Cough, unspecified type Viral upper respiratory tract infection POC GONZALEZ ID NOW STREP A Routine 05/20/2025 10:24 AM EDT Cough, unspecified type Viral upper respiratory tract infection POCT RAPID COVID ANTIGEN Routine 05/20/2025 10:23 AM EDT Cough, unspecified type Viral upper respiratory tract infection HIV 1/2 ANTIGEN/ANTIBODY, FOURTH GENERATION W/RFL Routine 03/05/2025 10:46 AM EDT Screening examination for venereal disease HEPATITIS C AB W/REFL TO HCV RNA, QN, PCR Routine 06/06/2024 3:09 PM EST Routine screening for STI (sexually transmitted infection) LIPID PANEL, STANDARD Routine 07/26/2022 11:11 AM EST Annual physical exam HPV MRNA E6/E7 Routine 09/14/2020 10:42 AM EST HM PAP/HPV Routine 09/14/2020 from Last 3 Months or Most Recently Relevant to Health Maintenance Results * POCT Rapid Covid-19 BinaxNOW (06/04/2025 11:29 AM EST) Only the most recent of2 resultswithin the time period is included. Rapid COVID Ag Negative QC Media Lot # [id number] Lot# Expiration Date Swab 06/04/2025 11:2 9 AM EST [employer] AUTOMOBILE SEAT COVER INSTALLER POINT OF CARE TEST ENTER/EDIT ORDERABLES Final Result * POCT Rapid Influenza A GONZALEZ ID NOW (06/04/2025 11:28 AM EST) Only the most recent of2 resultswithin the time period is included. Influenza A Negative Negative, Indeterminate [facility] QC Media Lot # [id number] [facility] Lot# Expiration Date [facility] Swab 06/04/2025 11:2 8 AM EST Zehra [employer] AUTOMOBILE SEAT COVER INSTALLER POINT OF CARE TEST ENTER/EDIT ORDERABLES Final Result [facility] [address] [place] [phone] * POCT Rapid Influenza B GONZALEZ ID NOW (06/04/2025 11:27 AM EST) Only the most recent of2 resultswithin the time period is included. Influenza B Negative Negative, Indeterminate [facility] QC Media Lot # [id number] [facility] Lot# Expiration Date [facility] Swab 06/04/2025 11:2 7 AM EST Zehra [employer] AUTOMOBILE SEAT COVER INSTALLER POINT OF CARE TEST ENTER/EDIT ORDERABLES Final Result Performing Organization Address [facility] Co de Phone Number [facility] [address] [place] [address] [phone] * POCT Rapid Strep A GONZALEZ ID NOW (05/20/2025 10:24 AM EDT) Rapid Strep A Screen Negative Negative, None Detected QC Media Lot # [id number] Lot# Expiration Date Swab 05/20/2025 10:2 4 AM EDT Zehra [employer] AUTOMOBILE SEAT COVER INSTALLER POINT OF CARE TEST ENTER/EDIT ORDERABLES Final Result * HIV-1/2 Antigen and Antibodies, Fourth Generation, with Reflexes (03/05/2025 10:46 AM EDT) HIV AB/AG Nonreactive Nonreactive [facility] Comment:HIV-1 p24 Ag and/or HIV-1/HIV-2 Ab not detected.A test result that is nonreactive does not exclude thepossibility of exposure to or infection with HIV-1 and/orHIV-2. Nonreactive results in this assay for individualswith prior exposure to HIV-1 and/or HIV-2 may be due toantigen and antibody levels that are below the limit ofdetection of this assay.The [employer] HIV Ag/Ab Combo assay result andsupplemental assay results should be interpreted inconjunction with the patient's clinical presentation,history and other laboratory results. If the results areinconsistent with clinical evidence, additional testing issuggested to confirm the result. Blood Venous blood specimen / Unknown 03/05/2025 10:46 AM EDT 03/05/2025 11:20 AM EDT Idania Hart [facility] LAB BLOOD ORDERABLES Gilma l Result Performing Organization Address [facility] Co de Phone Number [facility] [address] [place] [phone] * Hepatitis C Antibody with Reflex to HCV, RNA, Quantitative, Real-Time PCR (06/06/2024 3:09 PM EST) Pathologist [facility] Hepatitis C Antibody Nonreactive Nonreactive [facility] Comment:Antibodies to HCV no t detected; does not exclude early acuteHCV infection. Blood Venous blood specimen / Unknown 06/06/2024 3:09 PM EST 06/06/2024 3:56 PM EST Tahira AMBROCIO LAB BLOOD ORDERABLES Final Resul t Performing Organization Address [facility] Co de Phone Number [facility] [address] [place] [phone] * (ABNORMAL) Lipid Panel, Standard (07/26/2022 11:11 AM EST) Cholesterol, Total 192 <200 mg/dL [facility] HDL Cholesterol 30(L) > OR = 50 mg/dL [facility] Triglycerides 573(H) <150 mg/dL [facility] Comment: If a non-fasting specimen was collected, consider repeat triglyceride testing on a fasting specimen if clinically indicated. Lori et al. J. of Clin. Lipidol. 2015;9:129-169. There is increased risk of pancreatitis when the triglyceride concentration is very high (> or = 500 mg/dL, especially if > or = 1000 mg/dL). Lori et al. J. of Clin. Lipidol. 2015;9:129-169. LDL Cholesterol [facility] Comment: LDL cholesterol not calculated. Triglyceride levels [...] LDL-C. Sky BARRERA et al. JESSICA. 2013;310(19): 0660-2855 (http://education.SchoolControl/faq/FNH312) Chol/HDLC Ratio 6.4(H) <5.0 (calc) uiu Non-HDL Cholesterol 162(H) <130 mg/dL (calc) uiu Comment: For patients with diabetes plus 1 major ASCVD risk factor, treating to a non-HDL-C goal of <100 mg/dL (LDL-C of <70 mg/dL) is considered a therapeutic option. Blood Venous blood specimen / Unknown 07/26/2022 11:11 AM EST 07/26/2022 11:11 AM EST Narrative [facility] - 07/31/2022 3:56 PM EST FASTING:NO FASTING: NO Latrice Hernandez MD LAB BLOOD ORDERABLES Final Result [facility] [address], [place] [address] uiu [address] [facility], ([address]) [place] [address] * HPV mRNA E6/E7 (09/14/2020 10:42 AM EST) HPV nRNA E6/E7 Not Detected Not Detected [facility] Comment: Methodology: Director Digital Sales-Mediated Amplification This assay detects E6/E7 viral messenger RNA (mRNA) from 14 high-risk HPV types (16,18,31,33,35,39,45,51,52,56,58,59,66,68). The analytical performance characteristics of this assay have been determined by [facility]. The modifications have not been cleared or approved by the FDA. This assay has been validated pursuant to the CLIA regulations and is used for clinical purposes. For additional information, please refer to http://education.[employer]/DVN957v3 (This link if provided for information/ educational purposes only.) 09/14/2020 10:4 2 AM EST Idania ZEPEDA LAB BLOOD ORDERABLES Gilma [email or web address] Result Performing Organization Address City/State/ZIP Co ks Phone Number [facility] [address] * Pap Smear (09/14/2020) Pap smear Perform Historical Provider HEALTH MAINTENANCE Final Result from Last 3 Months or Most Recently Relevant to Health [place] [id number] [facility] Care Teams Campaign Management Specialist Relationship Specialty Start Date End Date Latrice Hernandez MD [address] [facility] [place] [address] PCP - General Internal Medicine 07/23/18 Norris Casillas FNP [address] [facility] [place] [address] Nurse Practitioner Family Medicine 06/07/23
--- OUTSIDE RECORDS SUMMARY | 2025-07-13 11:17 | XMS_ITS | Encounter Summary ---
Author Organization [employer] Address [address] [facility] [address] [place] [address] Care Team Providers Care Forest Fire Control Officer Name Role Phone Latrice Hernandez MD Primary Care Provider [phone] Norris Casillas Unavailable Unavailable Encounter Details Date Type Department Care Team (Late st Contact Info) Description 01/15/2025 Orders Only [facility] [address] [place] [address] Provider, Nathalie, Social History Tobacco Use Types [...] documented as of this encounter Care Teams Forest Fire Control Officer Relationship Specialty Start Date End Date Latrice Hernandez MD [address] [place] [address] PCP - General Internal Medicine 07/23/18 Norris Casillas FNP [address] [place] [address] Nurse Practitioner Family Medicine 06/07/23 documented as of this encounter
--- OUTSIDE RECORDS SUMMARY | 2025-07-13 11:17 | XMS_ITS | Encounter Summary ---
Author Organization [employer] Address [address] [facility] [address] [place] [address] Care Team Providers Care Licensed Practical Vocational Nurse Name Role Phone Latrice Hernandez MD Primary Care Provider [phone] Norris Casillas Unavailable Unavailable Reason for Visit * Reason Onset Date Comments CT order 12/11/2024 Encounter Details Date Type Department Care Team ([facility] st Contact Info) Description 12/11/2024 Telephone [facility] [address] [place] [address] Latrice Hernandez MD [address] [facility] [place] [phone] [place] order Social History Tobacco Use Types [...] AM EDT Tc from pt reports contacted [facility] for scheduling of CT of chest , [...] documented as of this encounter Care Teams Licensed Practical Vocational Nurse Relationship Specialty Start Date End Date Latrice Hernandez MD [address] [place] [address] PCP - General Internal Medicine 07/23/18 Norris Casillas FNP [address] [place] [address] Nurse Practitioner Family Medicine 06/07/23 documented as of this encounter
--- OUTSIDE RECORDS SUMMARY | 2025-07-13 11:17 | XMS_ITS | Encounter Summary ---
Author Organization [employer] Address [address] [facility] [address] [place] [address] Care Team Providers Care Process Development Associate Name Role Phone Latrice Hernandez MD Primary Care Provider [phone] Norris Casillas Unavailable Unavailable Encounter Details Date Type Department Care Team ([facility] st Contact Info) Description 03/27/2023 Orders Only [facility] [address] [place] [address] Latrice Hernandez MD [address] [place] [address] Scabies exposure (Primary Dx) Social History Tobacco [...] documented as of this encounter Care Teams Process Development Associate Relationship Specialty Start Date End Date Latrice Hernandez MD [address] [place] [address] PCP - General Internal Medicine 07/23/18 Norris Casillas FNP [address] [place] [address] Nurse Practitioner Family Medicine 06/07/23 documented as of this encounter
--- OUTSIDE RECORDS SUMMARY | 2025-07-13 11:17 | XMS_ITS | Clinical Summary ---
Author Organization [address] [place] [address] [place] [phone] Phone Care Team Providers Care Couture Dressmaker Name Role Phone Latrice Hernandez MD Primary Care Provider [phone] Allergies Active Allergy Reactions Criticality Noted Date [...] Date Site/Laterality Comments OTHER SURGICAL HISTORY PROCEDURE: [place] WEDGE EXCISION SKIN NAIL FOLD OTHER SURGICAL HISTORY PROCEDURE: [place] LITHOTRIPSY XTRCORP SHOCK WAVE Medical History Medical History Date Comments HSV-2 seropositive DX:HSV-2 sero positive Anxiety DX:Anxiety; COMM ENT: [facility] IUD (intrauterine device) in place 07/2014 DX:IUD [...] on file Sexual Orientation Not on file Last Filed Vital Signs [...] Last Done Comments Breast Cancer Screening 1982 Drug Screen 1982 Non-Opioid Controlled Substance Agreement 1982 Pneumococcal Vaccine: Pediatrics (0 to 5 Years) and At-Risk Patients (6 to 49 Years) (1 of 2 - PCV) 2001 HPV Vaccines (1 - 3-dose SCDM series) 2009 Cervical Cancer Screening: Pap Smear 10/14/2019 10/13/2016 DTaP,Tdap,and Td Vaccines (2 - Td [...] Procedure Name Priority Date/Time Associated Diagnosis Comments HM PAP SMEAR Routine 10/13/2016 from Last 3 Months or Most Recently Relevant to Health Maintenance Results * Pap Smear (10/13/2016) Pap smear No interpretation , abstracted us Historical Provider MD HEALTH MAINTENANCE Final Result from Last 3 Months or Most Recently Relevant to Health Maintenance Insurance MEDICAID - [place] Care Teams Couture Dressmaker Relationship Specialty Start Date End Date Latrice Hernandez MD [address] [place] [address] PCP - General Internal Medicine 09/18/18
--- OUTSIDE RECORDS SUMMARY | 2025-07-13 11:17 | XMS_ITS | Encounter Summary ---
Author Organization [employer] Address [address] [facility] [address] [place] [address] Care Team Providers Care High School Business Teacher Name Role Phone Latrice Hernandez MD Primary Care Provider [phone] Norris Casillas Unavailable Unavailable Reason for Visit * Reason Comments Med Refill Encounter Details Date Type Department Care Team ([facility] st Contact Info) Description 07/24/2022 Refill [facility] [address] [place] [address] Norris Casillas FNP Social History Tobacco Use [...] documented as of this encounter Care Teams High School Business Teacher Relationship Specialty Start Date End Date Latrice Hernandez MD [address] [place] [address] PCP - General Internal Medicine 07/23/18 Norris Casillas FNP [address] [place] [address] Nurse Practitioner Family Medicine 06/07/23 documented as of this encounter
--- OUTSIDE RECORDS SUMMARY | 2025-07-13 11:17 | XMS_ITS | Encounter Summary ---
Author Organization [employer] Address [address] [facility] 7t [place] [address] Care Team Providers Care Development Educator Name Role Phone Latrice Hernandez MD Primary Care Provider [phone] Norris Casillas Unavailable Unavailable Encounter Details Date Type Department Care Team ([facility] st Contact Info) Description 11/19/2024 Orders Only [facility] [address] [place] [address] Latrice Hernandez MD [address] [place] [address] SOB (shortness of breath) (Primary Dx) Social [...] documented as of this encounter Care Teams Development Educator Relationship Specialty Start Date End Date Latrice Hernandez MD [address] [place] [address] PCP - General Internal Medicine 07/23/18 Norris Casillas FNP [address] [place] [address] Nurse Practitioner Family Medicine 06/07/23 documented as of this encounter
--- OUTSIDE RECORDS SUMMARY | 2025-07-13 11:17 | XMS_ITS | Encounter Summary ---
Author Organization [employer] Address [address] [place] [address] 7 [place] [address] Care Team Providers Care Tnt Line Supervisor Name Role Phone Latrice Hernandez MD Primary Care Provider +1- [phone] Norirs Casillas Unavailable Unavailable Encounter Details Date Type Department Care Team (Late st Contact Info) Description 04/03/2023 Abstract [facility] [address] [place] [address] Latrice Hernandez MD [address] [place] [address] Social History Tobacco Use Types Packs/Day Years [...] documented as of this encounter Care Teams Tnt Line Supervisor Relationship Specialty Start Date End Date Latrice Hernandez MD [address] [facility] [place] [address] PCP - General Internal Medicine 07/23/18 Norris Casillas FNP [address] [place] [address] [place] [address] Nurse Practitioner Family Medicine 06/07/23 documented as of this encounter
--- OUTSIDE RECORDS SUMMARY | 2025-07-13 11:17 | XMS_ITS | Encounter Summary ---
Author Organization [employer] Address [address] [facility] 7t [place] [address] Care Team Providers Care National Accounts Recruiter Name Role Phone Latrice Hernandez MD Primary Care Provider [phone]- [phone] Norris Casillas Unavailable Unavailable Encounter Details Date Type Department Care Team ([facility] st Contact Info) Description 09/07/2023 Orders Only [facility] MED & PEDS [address] [place] [address] Latrice Hernandez MD [address] [place] [address] Herpes (Primary Dx) Social History Tobacco Use [...] documented as of this encounter Care Teams National Accounts Recruiter Relationship Specialty Start Date End Date Latrice Hernandez MD [address] [place] [address] PCP - General Internal Medicine 07/23/18 Norris Casillas FNP [address] [place] [address] Nurse Practitioner Family Medicine 06/07/23 documented as of this encounter
--- OUTSIDE RECORDS SUMMARY | 2025-07-13 11:17 | XMS_ITS | Encounter Summary ---
Author Organization [employer] Address [address] [facility] 7t [place] [address] Care Team Providers Care Senior Payroll Manager Name Role Phone Latrice Hernandez MD Primary Care Provider [phone]- [phone] Norris Casillas Unavailable Unavailable Reason for Visit * Reason Onset Date Comments Nurse Triage 12/28/2023 ER Follow-up 12/28/2023 Encounter Details Date Type Department Care Team (Late st Contact Info) Description 12/28/[address] [facility] MEDICINE [address] [place] [address] Latrice Hernandez MD 505 [facility] [place] [address] Nurse Triage; ER Follow-up Social History Tobacco [...] triage, spoke to pt. pt states seen [facility] on 12/25 for left low back pain, [...] is still symptomatic. Please contact pt at [phone] * Telephone Encounter - Mikala York - 12/28/2023 11:39 AM EDT Patient calling to report ED visit on : Date: 12/25 Hospital: [facility] Seen for: Patient advised will forward to team nurse for follow up documented in this encounter Plan of Treatment Not on file documented as of this encounter Visit Diagnoses Not on filedocumented in this encounter Additional Health Concerns Assessment Noted Time PHQ-9 Depression Total Score: 9 12/24/19 24 9:18 AM EDT documented as of this encounter Care Teams Senior Payroll Manager Relationship Specialty Start Date End Date Latrice Hernandez MD [address] [place] [address] PCP - General Internal Medicine 07/23/18 Norris Casillas FNP [address] [place] [address] Nurse Practitioner Family Medicine 06/07/23 documented as of this encounter
--- OUTSIDE RECORDS SUMMARY | 2025-07-13 11:17 | XMS_ITS | Encounter Summary ---
Author Organization [email or web address] Address [address] [facility] 7t [place] [address] Care Team Providers Care Soft Sugar Supervisor Name Role Phone Latrice Hernandez MD Primary Care Provider +1- [phone] Norris Casillas Unavailable Unavailable Reason for Visit * Reason Onset Date Comments Nurse Triage 12/26/2023 Encounter Details Date Type Department Care Team (Late st Contact Info) Description 12/26/2023 Telephone [facility] MEDICINE [address] [place] [address] Latrice Hernandez MD 505 [facility] [place] [id number] Nurse Triage Social History Tobacco Use Types [...] offered WIC tonight open till 8pm in [facility] and tomorrow 830am-400pm. No available apts in [facility] this week and Pt can't go to [facility] in afternoon. Pt reports willgo to ED [...] documented as of this encounter Care Teams Soft Sugar Supervisor Relationship Specialty Start Date End Date Latrice Hernandez MD [address] [place] [id number] PCP - General Internal Medicine 07/23/18 Norris Casillas FNP [address] [place] [address] Nurse Practitioner Family Medicine 06/07/23 documented as of this encounter
--- OUTSIDE RECORDS SUMMARY | 2025-07-13 11:17 | XMS_ITS | Clinical Summary ---
Author Organization [facility] Address [address] [place] [address] Phone Care Team Providers Care Speedometer Mechanic Name Role Phone Unknown, Unknown Primary Care [...] Medical Devices Not on file Care Teams Speedometer Mechanic Relationship Specialty Start Date End Date Unknown, Unknown, PCP - General 09/29/20 Additional Source Comments The information contained in this document represents components of the legal health record. It is not the complete legal health record.[facility]
--- OUTSIDE RECORDS SUMMARY | 2025-07-13 11:17 | XMS_ITS | Encounter Summary ---
Author Organization [employer] Address [address] [facility] 7t [place] [address] Care Team Providers Care Continuous Pickling Line Pickler Helper Name Role Phone Latrice Hernandez MD Primary Care Provider +1- [phone] Norris Casillas Unavailable Unavailable Encounter Details Date Type Department Care Team (Late st Contact Info) Description 09/29/2024 Orders Only [facility] MEDICINE [address] [place] [address] Latrice Hernandez MD 505 [facility] [place] [address] Chronic obstructive pulmonary disease, unspecified COPD type [...] Procedure Name Priority Date/Time Associated Diagnosis Comments [id number] QN Routine 10/15/2024 10:53 AM EDT Chronic obstructive pulmonary disease, unspecified COPD type (CMS/HCC) documented in this encounter Results * [id number]-7-[id number], Quantitative (10/15/2024 10:53 AM EDT) Wmsav-1-[id number] sin QN 122 83 - 199 mg/dL [facility] Comment:THIS TEST WAS PERFOR MED AT:[id number] [place] [id number] SHARP MD Blood Venous blood specimen / Unknown 10/15/2024 10:53 AM EDT 10/15/2024 2:15 PM EDT Latrice Hernandez MD LAB BLOOD ORDERABLES Final Result [facility] [address] [place] [address] [phone] documented in this encounter Visit Diagnoses Diagnosis Chronic obstructive pulmonary disease, unspecified COPD type (CMS/HCC) (HCC)- Primary documented in this encounter Additional Health Concerns Assessment Noted Time PHQ-9 Depression Total Score: 9 12/24/19 24 9:18 AM EDT documented as of this encounter Care Teams Continuous Pickling Line Pickler Helper Relationship Specialty Start Date End Date Latrice Hernandez MD [address] [place] [address] PCP - General Internal Medicine 07/23/18 Norris Casillas FNP [address] [place] [address] Nurse Practitioner Family Medicine 06/07/23 documented as of this encounter
== END 2025-07-13 10:32 | disposition home or self-care (01) ==
LOC: HO.HCS 09:44
PROVIDERS: PCP Internal Medicine; Visit Provider Nurse Practitioner Family
DX: R00.0 Tachycardia, unspecified (principal); J44.89 Other specified chronic obstructive pulmonary disease
CPT/HCPCS: 99214

== ENCOUNTER → 2025-07-13 09:44 | Outpatient (BNVA) | payer MEDICAID, SELFPAY | PROVIDERS: PCP Internal Medicine; Visit Provider Nurse Practitioner Family | DX: J44.89 Other specified chronic obstructive pulmonary disease (principal); R00.0 Tachycardia, unspecified; F17.210 Nicotine dependence, cigarettes, uncomplicated | CPT/HCPCS: 99212 ==